=== PATIENT | male | born 1945 | race Caucasian/White ===

== ENCOUNTER 2016-03-25 10:19 | Inpatient (IN) ==
[2016-03-25] MEDS ORDERED: Ipratropium/Albuterol Neb 3 ML IH STA (10:22)
[2016-03-25] MEDS ORDERED: Piperacillin/Tazobactam 3.375 GM in D5% in Water (Mini-Bag+) 100 ML IVPB ONE ×2 (10:27→14:00)
[2016-03-25] MEDS ORDERED: Levofloxacin 750 MG/150 ML 750 MG/150 ML BAG IVPB ONE (10:27)
[2016-03-25] MEDS ORDERED: Vancomycin 1,000 MG in D5% in Water 250 ML IVPB ONE ×2 (10:27→17:00)
[2016-03-25] MEDS ORDERED: 0.9 % Sodium Chloride 1,000 ML IV ONE ×2 (10:39)
[2016-03-25] MEDS ORDERED: 0.9 % Sodium Chloride 250 ML IV ONE (10:39)
--- NOTE | 2016-03-25 10:44 | Emergency Department Note ---
Disposition Clinical Impression: CHF exacerbation, Respiratory infection, Chronic kidney disease Disposition: Admitted As Inpatient Condition: Fair Time of Disposition: 13:55 SOB HPI - General Chief Complaint: ED Shortness of Breath/Dyspnea Stated Complaint: dyspnea Time Seen by Provider: 03/25/16 10:22 Source: EMS Mode of arrival: EMS Limitations: no limitations Nursing Notes Reviewed: Yes Vital Signs Reviewed: Yes - History of Present Illness Mr Mendez is a 70yo male with PMH of atrial fibrillation, CHF, COPD, CAD with pacemaker in place, T2DM s/p right AKA, GERD, HTN, PAD, and renal disease who was sent from [facility] with cough and shortness of breath for the last several day. Today his sputum changed to a green color and the snf sent him to the ED. Patient reports cough productive of green sputum and difficulty breathing. He has associate nausea but no vomiting. He denies fever/chills, runny nose, congestion, chest pain/pressure, abdominal pain, or changes in bowel and bladder. Patient coughs throughout exam, productive of sputum. He appears uncomfortable. Blood pressure on arrival was 85/59. Lungs are diminished with right sided crackles. Pt Subjective Complaint: shortness of breath, cough Onset (ago): day(s) Improves with: oxygen Worsens with: exertion, coughing Known history of: COPD, congestive heart failure Associated symptoms: Reports: wheezing, sputum production, nausea/vomiting. Denies: chest pain, pain with inspiration, fever, cough, abdominal pain Treatment prior to arrival: oxygen Cough present: Yes Cough Description: Involuntary, Productive Cough Frequency: Intermittent Sputum production: Yes Sputum Amount: Moderate Sputum Color: Green - Related Data Home Medications Medication Instructions Recorded Confirmed Aspirin 81 mg PO DAILY 10/30/14 03/25/16 Clopidogrel [Plavix] 75 mg PO DAILY 10/30/14 03/25/16 Pravastatin Sodium 40 mg PO DAILY 10/30/14 03/25/16 Tamsulosin [Flomax] 0.4 mg PO DAILY 10/30/14 03/25/16 Ergocalciferol (VITAMIN D2) 50,000 unit PO [place] 03/05/15 03/25/16 [Vitamin D2 (50,000 UNIT)] Lisinopril [Zestril] 2.5 mg PO DAILY 03/05/15 03/25/16 Metoprolol XL (24 HR) Succ [Toprol 25 mg PO DAILY 03/05/15 03/25/16 XL] Docusate [Colace] 100 mg PO BID PRN 12/01/15 03/25/16 Nitroglycerin [Nitrostat] 0.4 mg SL DAILY PRN 12/01/15 03/25/16 Omeprazole [PriLOSEC] 20 mg PO DAILY 12/01/15 03/25/16 Temazepam [Restoril] 7.5 mg PO HS 12/01/15 03/25/16 Epoetin Jonnie [Procrit] 2,000 unit IJ FR 01/13/16 03/25/16 Ferrous Sulfate 325 mg PO BID 03/08/16 03/25/16 Furosemide [Lasix] 40 mg PO BID 03/08/16 03/25/16 Ondansetron HCl [Zofran] 4 mg PO Q6H PRN 03/08/16 03/25/16 Ondansetron [Zofran] 4 mg IM Q6H PRN 03/08/16 03/25/16 Promethazine [Phenergan] 12.5 mg PO Q4H PRN 03/08/16 03/25/16 Ranitidine HCl [Zantac] 150 mg PO BID 03/08/16 03/25/16 Azithromycin [Azithromycin 6-Tab 250 mg PO PER PKG DI 03/25/16 03/25/16 Pack] Furosemide [Lasix] 60 mg PO BID 03/25/16 03/25/16 Insulin Glargine,Hum.rec.anlog 16 unit SQ HS 03/25/16 03/25/16 [Lantus Solostar] Insulin LISPRO [HumaLOG] 5 - 15 units SQ ACHS 03/25/16 03/25/16 Ipratropium/Albuterol Neb [Duoneb] 3 ml IH Q6HR 03/25/16 03/25/16 Polyethylene Glycol 3350 [MiraLAX] 17 gm PO DAILY 03/25/16 03/25/16 Previous Rx's Medication Instructions Recorded Pentoxifylline [TRENtal] 400 mg PO BID #90 tablet.er 01/13/16 GuaiFENesin ER [Mucinex] 600 mg PO BID tbbp.12hr 02/11/16 OxyCODONE Immed Rel [Roxicodone 5 10 mg PO Q6H PRN #20 tablet 03/10/16 MG] Insulin DETEMIR [Levemir] 4 unit SQ BID #14 a3eouor 03/14/16 Allergies Allergy/AdvReac Type Severity Reaction Status Date / Time No Known Allergies Allergy Verified 02/02/16 17:38 Constitutional: Denies: fever, chills Eyes: Denies: vision change Cardiovascular: Denies: chest pain, palpitations Respiratory: Reports: cough, dyspnea, wheezes, sputum production. Denies: hemoptysis Gastrointestinal: Reports: nausea. Denies: abdominal pain, vomiting Genitourinary: Denies: urgency, dysuria, frequency Neurological: Denies: headache, weakness Past Medical History - Past Medical History Medical history: Reports: arthritis, atrial fibrillation, cardiomyopathy, CHF, COPD, coronary artery disease, DVT, diabetes, GERD, GI bleed, hyperlipidemia, hypertension, myocardial infarction, osteoporosis, peripheral artery disease, renal disease, venous stasis Surgical history: Reports: angioplasty/stent, arthroscopy, cataract, coronary bypass (CABG), LE Bypass, LE vascular intervention, orthopedic, other, pacemaker /AICD, vascular surgery, other, AICD, pacemaker Psychiatric history: Reports: no psych history - Social History Smoking Status: Former smoker Smokeless Tobacco Status: No Alcohol use: Reports: none Drug use: Reports: none Physical Exam - General Limitations: no limitations General appearance: alert - Head Head exam: atraumatic, normocephalic - Eye Eye exam: Present: normal appearance, PERRL, EOMI - ENT ENT exam: normal exam - Neck Neck exam: Present: normal inspection, full ROM - Chest Chest inspection: Present: normal inspection, symmetric chest wall rise - Respiratory Respiratory exam: Present: other (diminished bilaterally with crackles right lung base) - Cardiovascular Cardiovascular exam: Present: regular rate, normal rhythm - Abdominal Exam Abdominal exam: Present: soft, Non-Tender - Extremities Exam Extremities exam: Present: normal inspection, full ROM. Absent: pedal edema - Neurological Exam Neurological exam: Present: alert, oriented X3, CN II-XII intact - Psychiatric Psychiatric exam: Present: normal affect - Skin Skin exam: Present: warm, dry, intact Course Course Narrative: Mr Mendez is a 70yo male who was sent from [facility] with cough and shortness of breath for the last several day. Today his sputum changed to a green color and the snf sent him to the ED. Patient reports cough productive of green sputum and difficulty breathing. He has associate nausea but no vomiting. Patient coughs throughout exam, productive of sputum. He appears uncomfortable. Blood pressure on arrival was 85/59. Lungs are diminished with right sided crackles. Will do a EKG and CXR. Will do labs including CBC, CMP, troponin and BNP. With patient's blood pressure low, will start sepsis set and send a lactic acid and blood cultures. Will give patient sepsis protocol antibiotics - zosyn, levofloxicin and vanco. Will also give patient sepsis protocol fluids. - Reevaluation(s) Reevaluation #1: Patients blood pressure has improved to 110s systolic without fluids. We are unable to get a peripheral line thus far and patient's BNP was 2335. As such, will hold on the fluids at this time due to concern for CHF. Patient does not appear to be in septic shock at this time. Time: 11:57 Reevaluation #2: Line eventually place. Will give patient only 1 L of fluids due to low blood pressure but elevated BNP. CXR showed mild interstitial edema and focal ground- glass opacity in the RUL with stable cardiomegaly. Hgb low at 9.9 put appears to be baseline for patient. He has chronic kidney disease with creatinin of 2.5. Troponin elevated at 0.04 (last documented was 0.02.) Patient has a respiratory infection, possible COPD exacerbation and CHF exacerbation with elevated troponin. Will discuss patient with hospitalist for admission. Reevaluation #3: Glucose elevated at >300. Will give patient 10units regular insulin. - Consultations Consultation #1: Discussed patient with Dr Esquivel, hospitalist, and he accepted the patient for admission. Per his recommendation, will get a PT/INR. Vital Signs Temperature 98.2 F 03/25/16 10:21 Pulse Rate 89 03/25/16 10:21 Respiratory Rate 16 03/25/16 10:21 Blood Pressure 85/59 03/25/16 10:21 O2 Sat by Pulse Oximetry 94 L 03/25/16 10:21 Temperature 98.1 F 03/25/16 14:27 Pulse Rate 82 03/25/16 14:11 Respiratory Rate 22 03/25/16 14:27 Blood Pressure 104/65 03/25/16 14:27 O2 Sat by Pulse Oximetry 98 03/25/16 14:11 Oxygen Delivery Oxygen Delivery Nasal Cannula Shortness of Breath/Dyspnea - [facility] Narrative Medical decision making narrative: Mr Mendez is a 70yo male who was sent from [facility] with cough and shortness of breath for the last several day. Today his sputum changed to a green color and the snf sent him to the ED. Patient reports cough productive of green sputum and difficulty breathing. He has associate nausea but no vomiting. Patient coughs throughout exam, productive of sputum. He appears uncomfortable. Blood pressure on arrival was 85/59. Lungs are diminished with right sided crackles. Will do a EKG and CXR. CBC showed no elevated WBC. Patient continues to have significant cough. He has a respiratory infection - unknown etiology and maybe causing a COPD exacerbation. Will give sepsis protocol antibiotics. He was given 1 L of fluids due to low blood pressure but due to elevated BNP did not want to give full sepsis protocol fluids. BNP 2338 suggestive of CHF exacerbation Patient with history of CHF and CAD. Troponin elevated at 0.04 (last documented was 0.02). Patient has a respiratory infection, possible COPD exacerbation and CHF exacerbation with elevated troponin. Patient accepted by the hospitalist for admission. - Differential Diagnosis Likely: acute exacerbation of chronic obstructive airways disease, congestive heart failure, pneumonia - Medical Records Medical records reviewed: Yes I reviewed the patient's medical records. - Lab Data Lab results reviewed: Yes I reviewed the patient's lab results. Lab results narrative: WBC normal. Hgb 9.9 which appears to be baseline. BNP elevated 2300. Troponin elevated at 0.04 Result diagrams: 03/25/16 11:01 03/25/16 11:01 Lab Results 03/25/16 03/25/16 03/25/16 Range/Units 11:01 11:01 11:01 WBC 9.7 (4.3-11.1) K/mcL RBC 3.41 L (4.19-5.50) M/mcL Hgb 9.9 L (12.9-16.9) g/dL Hct 30.6 L (37.5-50.1) % MCV 89.7 (83.0-100.0) fL MCH 29.0 (28.0-33.3) pg MCHC 32.4 (31.6-35.5) g/dL RDW 16.3 H (11.5-14.5) % Plt Count 299 (140-400) K/mcL MPV 10.0 (9.4-12.4) fL Immature Gran % 0.5 (0-4) % Seg Neutrophils % 85.3 % Lymphocytes % 5.5 % Monocytes % 7.9 % Eosinophils % 0.5 % Basophils % 0.3 % Neutrophils # 8.2 (1.6-8.9) K/mcL Lymphocytes # 0.5 L (0.6-4.6) K/mcL Monocytes # 0.8 (0.0-1.3) K/mcL Eosinophils # 0.1 (0.0-0.6) K/mcL Basophils # 0.0 (0.0-0.2) K/mcL Sodium 132 L (136-145) mEq/L Potassium 4.5 (3.5-4.5) mEq/L Chloride 97 L (98-109) mEq/L Carbon Dioxide 24 (19-29) mEq/L BUN 49 H (8-26) mg/dL Creatinine 2.50 H (0.72-1.25) mg/dL Est GFR ( Amer) 31 L (> 60) Est GFR (Non-Af Amer) 26 L (> 60) BUN/Creatinine Ratio 20 (6-26) Glucose 226 H (70-99) mg/dL Calculated Osmolality 294 (280-300) Lactic Acid (0.5-2.2) mmol/L Calcium 9.0 (8.6-10.8) mg/dL Phosphorus 3.2 (2.3-4.7) mg/dL Magnesium 2.1 (1.6-2.6) mg/dL Troponin I 0.04 H* (0-0.03) ng/mL B-Natriuretic Peptide (0-100) pg/mL Urine Color (Yellow) Urine Clarity (Clear) Urine pH (5.0-8.0) pH Units Ur Specific [place] (1.010-1.025) Urine Protein (Neg-Trace) mg/dL Urine Glucose (UA) (Normal) mg/dL Urine Ketones (Negative) mg/dL Urine Blood (Negative) Urine Nitrite (Negative) Urine Bilirubin (Negative) Urine Urobilinogen (Normal) mg/dL Ur Leukocyte Esterase (Negative) Ur Culture Indicated? (NO) 03/25/16 03/25/1603/25/16 Range/Units 11:01 11:01 11:45 WBC (4.3-11.1) K/mcL RBC (4.19-5.50) M/mcL Hgb (12.9-16.9) g/dL Hct (37.5-50.1) % MCV (83.0-100.0) fL MCH (28.0-33.3) pg MCHC (31.6-35.5) g/dL RDW (11.5-14.5) % Plt Count (140-400) K/mcL MPV (9.4-12.4) fL Immature Gran % (0-4) % Seg Neutrophils % % Lymphocytes % % Monocytes % % Eosinophils % % Basophils % % Neutrophils # (1.6-8.9) K/mcL Lymphocytes # (0.6-4.6) K/mcL Monocytes # (0.0-1.3) K/mcL Eosinophils # (0.0-0.6) K/mcL Basophils # (0.0-0.2) K/mcL Sodium (136-145) mEq/L Potassium (3.5-4.5) mEq/L Chloride (98-109) mEq/L Carbon Dioxide (19-29) mEq/L BUN (8-26) mg/dL Creatinine (0.72-1.25) mg/dL Est GFR ( Amer) (> 60) Est GFR (Non-Af Amer) (> 60) BUN/Creatinine Ratio (6-26) Glucose (70-99) mg/dL Calculated Osmolality (280-300) Lactic Acid 1.5 (0.5-2.2) mmol/L Calcium (8.6-10.8) mg/dL Phosphorus (2.3-4.7) mg/dL Magnesium (1.6-2.6) mg/dL Troponin I (0-0.03) ng/mL B-Natriuretic Peptide 2335 H (0-100) pg/mL Urine Color Yellow (Yellow) Urine Clarity Clear (Clear) Urine pH 6.0 (5.0-8.0) pH Units Ur Specific [place] 1.013 (1.010-1.025) Urine Protein Negative (Neg-Trace) mg/dL Urine Glucose (UA) Normal (Normal) mg/dL Urine Ketones Negative (Negative) mg/dL Urine Blood Negative (Negative) Urine Nitrite Negative (Negative) Urine Bilirubin Negative (Negative) Urine Urobilinogen Normal (Normal) mg/dL Ur Leukocyte Esterase Negative (Negative) Ur Culture Indicated? NO (NO) 03/25/16 Range/Units 13:03 WBC (4.3-11.1) K/mcL RBC (4.19-5.50) M/mcL Hgb (12.9-16.9) g/dL Hct (37.5-50.1) % MCV (83.0-100.0) fL MCH (28.0-33.3) pg MCHC (31.6-35.5) g/dL RDW (11.5-14.5) % Plt Count (140-400) K/mcL MPV (9.4-12.4) fL Immature Gran % (0-4) % Seg Neutrophils % % Lymphocytes % % Monocytes % % Eosinophils % % Basophils % % Neutrophils # (1.6-8.9) K/mcL Lymphocytes # (0.6-4.6) K/mcL Monocytes # (0.0-1.3) K/mcL Eosinophils # (0.0-0.6) K/mcL Basophils # (0.0-0.2) K/mcL Sodium (136-145) mEq/L Potassium (3.5-4.5) mEq/L Chloride (98-109) mEq/L Carbon Dioxide (19-29) mEq/L BUN (8-26) mg/dL Creatinine (0.72-1.25) mg/dL Est GFR ( Amer) (> 60) Est GFR (Non-Af Amer) (> 60) BUN/Creatinine Ratio (6-26) Glucose (70-99) mg/dL Calculated Osmolality (280-300) Lactic Acid 1.5 (0.5-2.2) mmol/L Calcium (8.6-10.8) mg/dL Phosphorus (2.3-4.7) mg/dL Magnesium (1.6-2.6) mg/dL Troponin I (0-0.03) ng/mL B-Natriuretic Peptide (0-100) pg/mL Urine Color (Yellow) Urine Clarity (Clear) Urine pH (5.0-8.0) pH Units Ur Specific [place] (1.010-1.025) Urine Protein (Neg-Trace) mg/dL Urine Glucose (UA) (Normal) mg/dL Urine Ketones (Negative) mg/dL Urine Blood (Negative) Urine Nitrite (Negative) Urine Bilirubin (Negative) Urine Urobilinogen (Normal) mg/dL Ur Leukocyte Esterase (Negative) Ur Culture Indicated? (NO) - Radiology Data Radiology results reviewed: Yes I reviewed the patient's radiology results. Chest X-Ray 03/25/16 10:26 IMPRESSION: 1. Mild interstitial edema. More focal ground-glass opacity in the right upper lung zone may represent asymmetric edema (typically with mitral valve disease) or infection. 2. Stable cardiomegaly. D/ /25/2016 11:01:46 Anahy Farias MD / michelle Interpreting Provider: Anahy Farias MD - EKG Data EKG attestation: Yes I reviewed and interpreted this EKG. EKG results narrative: EKG shows ventricular pacemaker. No acute ST elevation or T wave inversion. Vent rate 88 bpm, [place] int 140ms, QRS dur 132ms, QTc 441 ms. No changes when compared to EKG from 03/08/2016. Attestation Statement - Attestation Attestation: I examined this patient and my medical decision-making was reviewed with the HEAD BANDER AND LINER OPERATOR/PA/Advanced Practice Nurse/Resident Physician. I agree with the documented findings, disposition and treatment plan as described except to the extent set forth below. Patient to the emergency department with a chief complaint of shortness of breath. Patient was diagnosed with pneumonia at the snf. He has been taking a Z-[place]. Today his sputum was gr was sent in for evaluation. He admits to shortness of breath. Medics state his oxygen saturation was 89% on their arrival. The symptoms improved after oxygen administration. On examination awake and alert. He is coughing up green sputum. Crackles in the right side. Abdomen soft. No pedal edema. Plan. Blood pressure low. We will give IV bolus. Sepsis protocol ordered. Admission.
[2016-03-25 11:16] LABS: Basophils % 0.3 %; Eosinophils # 0.1 K/mcL (0.0-0.6); Eosinophils % 0.5 %; Hematocrit 30.6 % (37.5-50.1); Hemoglobin 9.9 g/dL (12.9-16.9); Immature Granulocytes % 0.5 % (0-4); Lymphocytes # 0.5 K/mcL (0.6-4.6); Lymphocytes % 5.5 %; Mean Corpuscular HGB Conc 32.4 g/dL (31.6-35.5); Mean Corpuscular Volume 89.7 fL (83.0-100.0); Monocytes # 0.8 K/mcL (0.0-1.3); Monocytes % 7.9 %; Neutrophils # 8.2 K/mcL (1.6-8.9); Platelet Count 299 K/mcL (140-400); Red Blood Count 3.41 M/mcL (4.19-5.50); Red Cell Distribution Width 16.3 % (11.5-14.5); Segmented Neutrophils % 85.3 %
[2016-03-25 11:32] LABS: Potassium 4.5 mEq/L (3.5-4.5)
[2016-03-25] MEDS ORDERED: Aspirin 325 MG TABLET PO ONE (11:45)
[2016-03-25 12:06] LABS: Magnesium 2.1 mg/dL (1.6-2.6); Phosphorous 3.2 mg/dL (2.3-4.7)
[2016-03-25 12:16] LABS: Bilirubin,Urine Negative (Negative); Blood,Urine Negative (Negative); Clarity,Urine Clear (Clear); Color,Urine Yellow (Yellow); Glucose,Urine (UA) Normal (Normal); Ketones,Urine Negative (Negative); Leukocyte Esterase,Urine Negative (Negative); Nitrite,Urine Negative (Negative); Protein,Urine Negative (Neg-Trace); Specific Gravity,Urine 1.013 (1.010-1.025); Urobilinogen,Urine Normal (Normal)
[2016-03-25] MEDS ORDERED: D5% in Water (Mini-Bag+) 100 ML IVPB ONE (13:50)
--- NOTE | 2016-03-25 14:33 | Internal Med History&Physical ---
<Pipo Denise - Last Filed: 03/25/16 14:52> Date of Encounter: 03/25/16 Time of Encounter: 14:00 Assessment and Plan (1) HCAP (healthcare-associated pneumonia) Current visit: Yes Status: Acute - With increased productive cough and sputum color change. - CXR was reviewed personally. More focal ground-glass opacity in the right upper lung zone compared to prior CXR can be pneumonia vs. edema. - Blood culture pending. - Continue Vanco, Zosyn and Levaquin. - Closely monitor. (2) Elevated troponin Current visit: No Status: Acute - Troponin at 0.04 on initial presentation. - Likely troponin leakage given his CKD. - Less likely NC given lack of chest pain/discomfort and no significant ischemic EKG change compared to prior EKG. - Continue to trend troponin. (3) Type 2 diabetes mellitus Current visit: No Status: Chronic - Patient is known to have occasional hypoglycemia and associated AMS as noted in prior hospitalization. Therefore will not try to control his blood glucose too strictly. - Continue insulin Levemir 4 units BID and insulin medium-dose correction TID & low-dose correction qHS. - Diabetic diet. 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 - Patient is known to have occasional hypotension which is likely his normal given that has been observed multiple times in prior admission. - Continue current regimen of blood pressure medications. - Continue to monitor. Qualifiers: Hypotension type: unspecified hypotension type Qualified Code(s): I95.9 - Hypotension, unspecified (5) CHF (congestive heart failure) Current visit: No Status: Chronic - Echo on 12/03/15 showed severe global & segmental LV systolic dysfunction with EF 15-20%. - No significant sign of volume overload at this time. - Continue metoprolol, lisinopril and Lasix. - Closely monitor input/output and daily weight. - Cautious about giving IV fluid to avoid volume overload. Qualifiers: Congestive heart failure type: systolic Congestive heart failure chronicity : unspecified congestive heart failure chronicity Qualified Code(s): I50.20 - Unspecified systolic (congestive) heart failure (6) CKD (chronic kidney disease) Current visit: No Status: Chronic - SCr 2.50 today, which is likely his new baseline according to recent lab results. - Continue to monitor renal function and electrolytes. Qualifiers: Chronic kidney disease stage: stage 4 (severe) Qualified Code(s): N18.4 - Chronic kidney disease, stage 4 (severe) (7) DVT prophylaxis Current visit: No Status: Acute - SQ heparin. Internal Medicine - H&P: HPI Chief complaint: Productive cough Admitted From: Emergency Dept Plans for Post Hospital Care: Transfer [facility] History of present illness: Mr. Mendez is a 70 year old male with PMH of COPD not on home oxygen, severe systolic CHF with EF 15%, CAD with pacemaker/defibilator, CKD, HTN, DM2 s/p right BKA. Patient was sent from [facility] to ED for worsening productive cough starting 2-3 days ago. Patient notices excessive sputum production with color change to yellow/green. Patient also has some shortness of breath occasionally. Patient denies fever, chills, chest pain/discomfort, abdominal pain, significant weight change. No significant change of left lower extremity edema per patient. Patient denies dysphagia or recent choke on the food/drink. Patient is known to have occasional hypoglycemia and/or hypotension in the past. Past Med Surg Social Fam HX - Past Medical History Medical history: arthritis, atrial fibrillation, cardiomyopathy, CHF, COPD, coronary artery disease, DVT, diabetes, GERD, GI bleed, hyperlipidemia, hypertension, myocardial infarction, osteoporosis, peripheral artery disease, renal disease, venous stasis Psychiatric history: no psych history - Past Surgical History Surgical History: angioplasty/stent, arthroscopy, cataract, coronary bypass ( CABG), LE Bypass, LE vascular intervention, orthopedic, other, pacemaker/AICD, vascular surgery, other, AICD, pacemaker - Social History Smoking Status: Former smoker Smokeless Tobacco Status: No Alcohol use: none Drug use: none - Family History Father Living Status: Mother Living Status: Hx Family Cardiac Disorders: No Hx Family Cancer: No Hx Family Endocrine Disorder: No Internal Medicine - H&P: Meds Aspirin 81 mg PO DAILY 10/30/14 [History] Clopidogrel [Plavix] 75 mg PO DAILY 10/30/14 [History] Pravastatin Sodium 40 mg PO DAILY 10/30/14 [History] Tamsulosin [Flomax] 0.4 mg PO DAILY 10/30/14 [History] Ergocalciferol (VITAMIN D2) [Vitamin D2 (50,000 UNIT)] 50,000 unit PO MCGOWAN [History] Lisinopril [Zestril] 2.5 mg PO DAILY 03/05/15 [History] Metoprolol XL (24 HR) Succ [Toprol XL] 25 mg PO DAILY 03/05/15 [History] Docusate [Colace] 100 mg PO BID PRN 12/01/15 [History] Nitroglycerin [Nitrostat] 0.4 mg SL DAILY PRN 12/01/15 [History] Omeprazole [PriLOSEC] 20 mg PO DAILY 12/01/15 [History] Temazepam [Restoril] 7.5 mg PO HS 12/01/15 [History] Epoetin Jonnie [Procrit] 2,000 unit IJ FR 01/13/16 [History] Pentoxifylline [TRENtal] 400 mg PO BID #90 tablet.er 01/13/16 [Rx] GuaiFENesin ER [Mucinex] 600 mg PO BID tbbp.12hr 02/11/16 [Rx] Ferrous Sulfate 325 mg PO BID 03/08/16 [History] Furosemide [Lasix] 40 mg PO BID 03/08/16 [History] Ondansetron HCl [Zofran] 4 mg PO Q6H PRN 03/08/16 [History] Ondansetron [Zofran] 4 mg IM Q6H PRN 03/08/16 [History] Promethazine [Phenergan] 12.5 mg PO Q4H PRN 03/08/16 [History] Ranitidine HCl [Zantac] 150 mg PO BID 03/08/16 [History] OxyCODONE Immed Rel [Roxicodone 5 MG] 10 mg PO Q6H PRN #20 tablet 03/10/16 [Rx] Insulin DETEMIR [Levemir] 4 unit SQ BID #14 [id number] 03/14/16 [Rx] Azithromycin [Azithromycin 6-Tab Pack] 250 mg PO PER PKG DI 03/25/16 [History] Furosemide [Lasix] 60 mg PO BID 03/25/16 [History] Insulin Glargine,Hum.rec.anlog [Lantus Solostar] 16 unit SQ HS 03/25/16 [History ] Insulin LISPRO [HumaLOG] 5 - 15 units SQ ACHS 03/25/16 [History] Ipratropium/Albuterol Neb [Duoneb] 3 ml IH Q6HR 03/25/16 [History] Polyethylene Glycol 3350 [MiraLAX] 17 gm PO DAILY 03/25/16 [History] Allergies No Known Allergies Allergy (Verified 02/02/16 17:38) All Systems PM: A 10-system review of systems was performed and is negative for pertinent findings except as documented above in the HPI. - Constitutional Constitutional: no anorexia, no chills, no fever(s), no weight gain, no weight loss - EENT Eyes: no change in vision Ears: no decreased hearing Nose, mouth and throat: no dysphagia - Cardiovascular Cardiovascular ROS IM: edema (Stable), lightheadedness, no chest pain, no palpitations, no syncope - Respiratory Respiratory: cough, dyspnea, excessive phlegm production, change in phlegm color , no hemoptysis - Gastrointestinal Gastrointestinal: no abdominal pain, no diarrhea, no hematochezia, no melena, no nausea - Genitourinary Genitourinary ROS male: no difficulty urinating, no dysuria, no hematuria - Musculoskeletal Musculoskeletal ROS IM: no arthralgias, no myalgias - Integumentary Integumentary IM: no pruritus, no rash - Neurological Neurological ROS: no focal weakness, no numbness, no tingling - Hematologic/Lymphatic Hematologic/Lymphatic: no easy bleeding, no easy bruising - Constitutional Vitals: Temp Pulse Resp BP Pulse Ox 98.1 F 82 22 104/65 98 03/25/16 14:27 03/25/16 14:11 03/25/16 14:27 03/25/16 14:27 03/25/16 14:11 General appearance: Present: cooperative, A&O X 3, no acute distress, answers questions appropriately - Head Head exam: Present: atraumatic, normocephalic - Eye Eye exam: Present: PERRL, conjuntiva pink, sclera anicteric - Neck Neck exam general surgery: Present: supple, trachea midline. Absent: lymphadenopathy - Respiratory Respiratory exam: Present: rales (Bibasilar), rhonchi (Bibasilar). Absent: accessory muscle use, wheezes - Cardiovascular Cardiovascular exam: Present: RRR, +S1, +S2. Absent: diastolic murmur, gallop, rubs, systolic murmur - GI/Abdominal GI/Abdominal exam: Present: normal bowel sounds, soft, no peritoneal signs. Absent: distended, tenderness - Extremities Exam Extremities exam: Present: pedal edema (Left moderate non-pitting edema), warm, radial pulses palpable and symetrical. Absent: calf tenderness, cyanotic Additional comments: RLOmer PATRICK noted. - Neurological Exam Neurological exam: Present: CN II-XII intact, oriented X3, no focal deficits. Absent: pronater drift, facial droop, speech deficit - Skin Skin exam: Present: dry, intact, warm Internal Med - H&P Results - Labs CBC & Chem 7: 03/25/16 11:01 03/25/16 11:01 <Edward Esquivel - Last Filed: 03/25/16 18:33> Date of Encounter: 03/25/16 Internal Medicine - H&P: HPI History of present illness: Mr. Mendez is a 70 year old male All Systems PM: A 10-system review of systems was performed and is negative for pertinent findings except as documented above in the HPI. - Constitutional Vitals: Temp Pulse Resp BP Pulse Ox 98.4 F 82 16 94/56 97 03/25/16 14:51 03/25/16 14:51 03/25/16 14:51 03/25/16 14:51 03/25/16 15:10 Internal Med - H&P Results - Labs CBC & Chem 7: 03/25/16 11:01 03/25/16 11:01 - Attending Attestation I have seen and examined this patient independently. I have discussed the case with the resident, Dr. Denise. I agree with the data gathering in the HPI, physical examination findings, assessment and plan as documented by the resident. HCAP therapy in setting of patient coming from [facility] with pmh of CHF, CKD , chornic elevation of BNP and newly mildly elevated troponins. Will monitor trend of cardiac biomarkers. Oxygen therapy. The plan of care was discussed in detail with the patient, he expressed understanding
[2016-03-25] MEDS ORDERED: Dextrose Gel 15 GM PO PRN ×2 (14:48)
[2016-03-25] MEDS ORDERED: *HR* Dextrose 50 % in Water (Syg) 50 ML SYRINGE IVP PRN (14:48)
[2016-03-25] MEDS ORDERED: D5% in Water 1,000 ML IV PRN (14:48)
[2016-03-25] MEDS ORDERED: Ipratropium/Albuterol Neb 3 ML IH PRN (14:51)
[2016-03-25] MEDS ORDERED: Vancomycin 1,000 MG in D5% in Water 250 ML IVPB SCH (15:00)
[2016-03-25] MEDS ORDERED: Levofloxacin 750 MG/150 ML 750 MG/150 ML BAG IVPB SCH (15:00)
[2016-03-25] MEDS ORDERED: Nitroglycerin 0.4 MG TAB.SUBL SL PRN (15:14)
[2016-03-25] MEDS: Insulin LISPRO 300 UNITS/3 ML VIAL SQ SCH ×2 (17:56→21:56)
[2016-03-25] MEDS: *HR* Heparin 5,000 UNIT/ML VIAL SQ SCH (17:56)
[2016-03-25] MEDS ORDERED: Piperacillin/Tazobactam 3.375 GM in D5% in Water (Mini-Bag+) 100 ML IVPB SCH (18:00)
[2016-03-25] MEDS: Acetaminophen 325 MG TABLET PO PRN (21:58)
[2016-03-25] MEDS: Piperacillin/Tazobactam 3.375 GM in D5% in Water (Mini-Bag+) 100 ML IVPB SCH (21:59)
[2016-03-25] MEDS: Furosemide 20 MG TABLET PO SCH (21:59)
[2016-03-25] MEDS: TEMAZEPAM 7.5 MG PO SCH (22:00)
[2016-03-25] MEDS: Ondansetron 4 MG/2 ML VIAL IVP PRN (22:03)
[2016-03-25] MEDS: Insulin DETEMIR 100 UNIT/ML X5UNITS SQ SCH (22:18)
[2016-03-26 02:30] LABS: Basophils % 0.4 %; Eosinophils # 0.1 K/mcL (0.0-0.6); Eosinophils % 1.1 %; Hematocrit 25.6 % (37.5-50.1); Hemoglobin 8.3 g/dL (12.9-16.9); Immature Granulocytes % 0.4 % (0-4); Immature Platelets 1.7 % (1.1-6.1); Lymphocytes # 0.7 K/mcL (0.6-4.6); Lymphocytes % 9.1 %; Mean Corpuscular HGB Conc 32.4 g/dL (31.6-35.5); Mean Corpuscular Hemoglobin 28.7 pg (28.0-33.3); Mean Corpuscular Volume 88.6 fL (83.0-100.0); Mean Platelet Volume 9.6 fL (9.4-12.4); Monocytes # 0.7 K/mcL (0.0-1.3); Monocytes % 9.7 %; Neutrophils # 5.7 K/mcL (1.6-8.9); Platelet Count 266 K/mcL (140-400); Red Blood Count 2.89 M/mcL (4.19-5.50); Red Cell Distribution Width 16.3 % (11.5-14.5); Segmented Neutrophils % 79.3 %
[2016-03-26 02:42] LABS: Calcium 8.5 mg/dL (8.6-10.8); Potassium 4.1 mEq/L (3.5-4.5)
[2016-03-26] MEDS: Acetaminophen 325 MG TABLET PO PRN ×2 (04:11→21:11)
[2016-03-26] MEDS: *HR* Heparin 5,000 UNIT/ML VIAL SQ SCH ×2 (06:16→18:13)
[2016-03-26] MEDS: Piperacillin/Tazobactam 3.375 GM in D5% in Water (Mini-Bag+) 100 ML IVPB SCH ×2 (06:16→18:14)
[2016-03-26] MEDS: Aspirin 81 MG TAB.CHEW PO SCH (08:51)
[2016-03-26] MEDS: Insulin DETEMIR 100 UNIT/ML X5UNITS SQ SCH ×2 (08:51→21:20)
[2016-03-26] MEDS: Furosemide 20 MG TABLET PO SCH (08:52)
[2016-03-26] MEDS: Metoprolol XL (24 HR) Succ 50 MG TAB.ER.24H PO SCH (08:53)
[2016-03-26] MEDS: Insulin LISPRO 300 UNITS/3 ML VIAL SQ SCH ×4 (11:41→21:19)
[2016-03-26] MEDS: Ondansetron 4 MG/2 ML VIAL IVP PRN ×2 (11:59→19:45)
--- NOTE | 2016-03-26 13:53 | Internal Med Progress Note ---
Date of Encounter: 03/26/16 Time of Encounter: 09:00 - Assessment and plan (1) HCAP (healthcare-associated pneumonia) Current Visit: Yes Status: Acute Assessment and plan: We will continue Vanco, Zosyn, and Levaquin treatment. Oxygen therapy. Patient is at high risk because of his vancomycin, needed close monitoring (2) CHF exacerbation Current Visit: Yes Status: Acute Assessment and plan: Patient has shortness of breath, leg edema, hypoxia, and elevated BNP. Consider CHF exacerbation. 1. Switch to by mouth Lasix to IV. 2. Strict intake and output 3. Continue beta blanche and JC inhibitor. 4. Patient has pacemaker/defibrillator placed. Qualifiers: Congestive heart failure type: systolic Qualified Code(s): I50.23 - Acute on chronic systolic (congestive) heart failure (3) Chronic kidney disease Current Visit: Yes Status: Acute Assessment and plan: Stable CKD. Continue follow-up. Qualifiers: Chronic kidney disease stage: stage 3 (moderate) Qualified Code(s): N18.3 - Chronic kidney disease, stage 3 (moderate) (4) Acute hypoxemic respiratory failure Current Visit: No Status: Acute Assessment and plan: Possibly due to pneumonia and CHF exacerbation. Will give oxygen therapy and closely monitor oximetry. (5) Diabetes Current Visit: No Status: Acute Assessment and plan: Keep patient on basal and the sliding scale. 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 Continue aspirin, Plavix, statin, and beta blanche Qualifiers: Coronary Disease-Associated Artery/Lesion type: unspecified vessel or lesion type [place] vs. transplanted heart: unspecified whether [place] or transplanted heart Associated angina: angina presence unspecified Qualified Code(s): I25.10 - Atherosclerotic heart disease of [place] coronary artery without angina pectoris (7) Chronic obstructive pulmonary disease Current Visit: No Status: Chronic Assessment and plan: Stable. Continue home medication Qualifiers: COPD type: unspecified COPD Qualified Code(s): J44.9 - Chronic obstructive pulmonary disease, unspecified (8) DVT prophylaxis Current Visit: No Status: Acute Assessment and plan: Heparin subcutaneously - Time Spent With Patient Greater than 35 minutes - Subjective Interval history: Patient is a 70-year-old male admitted for pneumonia. His past medical history is significant for systolic CHF with LVEF 15%, COPD, CAD, CKD, hypertension, diabetes. Patient is seen and examined. He is awake alert, oriented 3. Complement cough with yellowish sputum. In mild respiratory distress. No fever. Vitals are stable. On nasal cannula oxygen and tolerated well. We will continue antibiotic. Change to by mouth Lasix to IV. Continue close monitoring. - Constitutional Vitals: Temp Pulse Resp BP Pulse Ox 97.3 F L 75 18 121/64 93 L 03/26/16 11:49 03/26/16 11:49 03/26/16 11:49 03/26/16 11:49 03/26/16 11:49 General appearance: Present: cooperative, A&O X 3, no acute distress, answers questions appropriately - Head Head exam: Present: atraumatic, normocephalic - Eye Eye exam: Present: PERRL, conjuntiva pink, sclera anicteric Pupils: Present: PERRL - Neck Neck exam general surgery: Present: supple, trachea midline. Absent: lymphadenopathy - Respiratory Respiratory exam: Present: CTAB. Absent: accessory muscle use, rales, rhonchi, wheezes - Cardiovascular Cardiovascular exam: Present: RRR, +S1, +S2. Absent: diastolic murmur, gallop, rubs, systolic murmur - GI/Abdominal GI/Abdominal exam: Present: normal bowel sounds, soft, no peritoneal signs. Absent: distended, tenderness - Extremities Exam Extremities exam: Present: pedal edema (Right leg S/P BKA. Left leg has mild to moderate edema.), warm, radial pulses palpable and symetrical. Absent: calf tenderness, cyanotic - Neurological Exam Neurological exam: Present: CN II-XII intact, oriented X3, no focal deficits. Absent: pronater drift, facial droop, speech deficit - Skin Skin exam: Present: dry, intact Internal Medicine: Result - Labs CBC & Chem 7: 03/26/16 02:23 03/26/16 02:23 Labs: Short CBC 03/26/16 Range/Units 02:23 WBC 7.2 (4.3-11.1) K/mcL Hgb 8.3 L D (12.9-16.9) g/dL Hct 25.6 L (37.5-50.1) % Plt Count 266 (140-400) K/mcL Neutrophils # 5.7 (1.6-8.9) K/mcL BMP 03/26/16 02:23 Sodium 131 L Potassium 4.1 Chloride 100 Carbon Dioxide 24 BUN 46 H Creatinine 2.30 H Glucose 96 Calcium 8.5 L Cardiac Enzymes 03/25/16 03/26/16 Range/Units 20:47 02:23 Troponin I 0.04 H* 0.05 H* (0-0.03) ng/mL Consult Discharge Plan - Plan Referrals: Jennie Washington COLLAR TURNER [Advanced Practice Nurse] - (web request sent on 03-25-16 )
[2016-03-26] MEDS ORDERED: Vancomycin 1,000 MG in D5% in Water 250 ML IVPB ONE (20:00)
[2016-03-26] MEDS: Furosemide 40 MG/4 ML VIAL IVP SCH (21:11)
[2016-03-26] MEDS: TEMAZEPAM 7.5 MG PO SCH (21:12)
[2016-03-27] MEDS ORDERED: GuaiFENesin/Codeine Oral Soln 5 ML UDC PO ONE (02:42)
[2016-03-27 05:28] LABS: Hematocrit 28.2 % (37.5-50.1); Hemoglobin 9.1 g/dL (12.9-16.9); Mean Corpuscular HGB Conc 32.3 g/dL (31.6-35.5); Mean Corpuscular Hemoglobin 28.3 pg (28.0-33.3); Mean Corpuscular Volume 87.6 fL (83.0-100.0); Mean Platelet Volume 9.9 fL (9.4-12.4); Neutrophils # 5.2 K/mcL (1.6-8.9); Platelet Count 278 K/mcL (140-400); Red Blood Count 3.22 M/mcL (4.19-5.50); Red Cell Distribution Width 16.2 % (11.5-14.5); Segmented Neutrophils % 78.2 %
[2016-03-27 05:29] LABS: Basophils % 0.5 %; Eosinophils # 0.2 K/mcL (0.0-0.6); Eosinophils % 3.2 %; Immature Granulocytes % 0.5 % (0-4); Lymphocytes # 0.6 K/mcL (0.6-4.6); Lymphocytes % 9.2 %; Monocytes # 0.6 K/mcL (0.0-1.3); Monocytes % 8.4 %
[2016-03-27 05:54] LABS: Calcium 8.6 mg/dL (8.6-10.8); Potassium 4.4 mEq/L (3.5-4.5)
[2016-03-27] MEDS: *HR* Heparin 5,000 UNIT/ML VIAL SQ SCH ×2 (06:00→16:53)
[2016-03-27] MEDS: Piperacillin/Tazobactam 3.375 GM in D5% in Water (Mini-Bag+) 100 ML IVPB SCH ×2 (06:01→16:53)
[2016-03-27] MEDS: Furosemide 40 MG/4 ML VIAL IVP SCH ×2 (08:10→20:47)
[2016-03-27] MEDS: Insulin DETEMIR 100 UNIT/ML X5UNITS SQ SCH ×2 (08:11→21:21)
[2016-03-27] MEDS: Metoprolol XL (24 HR) Succ 50 MG TAB.ER.24H PO SCH (08:11)
[2016-03-27] MEDS: Insulin LISPRO 300 UNITS/3 ML VIAL SQ SCH ×4 (08:11→21:22)
[2016-03-27] MEDS: Aspirin 81 MG TAB.CHEW PO SCH (08:11)
--- NOTE | 2016-03-27 10:26 | Electrocardiograph Report ---
[facility] Test Date: 2016-03-25 Pat Name: Mika Mendez Department: [id number] Room: 2A42 Gender: M Manager State: [facility] : 1945 Requested By: Autumn Guadarrama Order Number: [id number] Reading MD: Glenn Be MD Measurements Intervals [place] Rate: 88 P: 80 [place]: 140 QRS: 16 QRSD: 132 T: -11 QT: 395 QTc: 441 Interpretive Statements ELECTRONIC VENTRICULAR PACEMAKER Electronically Signed On 03-27-16 10:25:28 EST by Glenn Be MD
[2016-03-27] MEDS: Levofloxacin 750 MG/150 ML 750 MG/150 ML BAG IVPB SCH (12:16)
--- NOTE | 2016-03-27 12:41 | Internal Med Progress Note ---
Date of Encounter: 03/27/16 Time of Encounter: 10:00 - Assessment and plan (1) HCAP (healthcare-associated pneumonia) Current Visit: Yes Status: Acute Assessment and plan: We will continue Vanco, Zosyn, and Levaquin treatment. Oxygen therapy. Patient is at high risk because of his vancomycin, needed close monitoring (2) CHF exacerbation Current Visit: Yes Status: Acute Assessment and plan: Patient has shortness of breath, leg edema, hypoxia, and elevated BNP. Consider CHF exacerbation. 1. Switch to by mouth Lasix to IV. 2. Strict intake and output 3. Continue beta blanche and JC inhibitor. 4. Patient has pacemaker/defibrillator placed. Qualifiers: Congestive heart failure type: systolic Qualified Code(s): I50.23 - Acute on chronic systolic (congestive) heart failure (3) Chronic kidney disease Current Visit: Yes Status: Acute Assessment and plan: Stable CKD. Continue follow-up. Qualifiers: Chronic kidney disease stage: stage 3 (moderate) Qualified Code(s): N18.3 - Chronic kidney disease, stage 3 (moderate) (4) Acute hypoxemic respiratory failure Current Visit: No Status: Acute Assessment and plan: Possibly due to pneumonia and CHF exacerbation. Will give oxygen therapy and closely monitor oximetry. (5) Diabetes Current Visit: No Status: Acute Assessment and plan: Keep patient on basal and the sliding scale. 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 Continue aspirin, Plavix, statin, and beta blanche Qualifiers: Coronary Disease-Associated Artery/Lesion type: unspecified vessel or lesion type [place] vs. transplanted heart: unspecified whether [place] or transplanted heart Associated angina: angina presence unspecified Qualified Code(s): I25.10 - Atherosclerotic heart disease of [place] coronary artery without angina pectoris (7) Chronic obstructive pulmonary disease Current Visit: No Status: Chronic Assessment and plan: Stable. Continue home medication Qualifiers: COPD type: unspecified COPD Qualified Code(s): J44.9 - Chronic obstructive pulmonary disease, unspecified (8) DVT prophylaxis Current Visit: No Status: Acute Assessment and plan: Heparin subcutaneously - Time Spent With Patient Greater than 35 minutes - Subjective Interval history: Patient is a 70-year-old male admitted for pneumonia. His past medical history is significant for systolic CHF with LVEF 15%, COPD, CAD, CKD, hypertension, diabetes. Patient is seen and examined. He is awake alert, oriented 3. Still c/o cough but said much better. Ask for going back to [facility]. In no respiratory distress. No fever. Vitals are stable. On nasal cannula oxygen and tolerated well. We will continue antibiotic. Change to by mouth Lasix to IV. Continue close monitoring. - Constitutional Vitals: Temp Pulse Resp BP Pulse Ox 97.7 F 75 16 115/60 100 03/27/16 11:47 03/27/16 11:47 03/27/16 11:47 03/27/16 11:47 03/27/16 11:47 General appearance: Present: cooperative, A&O X 3, no acute distress, answers questions appropriately - Head Head exam: Present: atraumatic, normocephalic - Eye Eye exam: Present: PERRL, conjuntiva pink, sclera anicteric Pupils: Present: PERRL - Neck Neck exam general surgery: Present: supple, trachea midline. Absent: lymphadenopathy - Respiratory Respiratory exam: Present: CTAB, rales, rhonchi (Scattered rales and rhonchi bilaterally). Absent: accessory muscle use, wheezes - Cardiovascular Cardiovascular exam: Present: RRR, +S1, +S2. Absent: diastolic murmur, gallop, rubs, systolic murmur - GI/Abdominal GI/Abdominal exam: Present: normal bowel sounds, soft, no peritoneal signs. Absent: distended, tenderness - Extremities Exam Extremities exam: Present: pedal edema (Right leg s/p BKA, mild to moderate edema on left leg.), warm, radial pulses palpable and symetrical. Absent: calf tenderness, cyanotic - Neurological Exam Neurological exam: Present: CN II-XII intact, oriented X3, no focal deficits. Absent: pronater drift, facial droop, speech deficit - Skin Skin exam: Present: dry, intact Internal Medicine: Result - Labs CBC & Chem 7: 03/27/16 04:08 03/27/16 04:08 Consult Discharge Plan - Plan Referrals: Jennie Washington CNP [Advanced Practice Nurse] - (web request sent on 03-25-16 )
[2016-03-27] MEDS: Ondansetron 4 MG/2 ML VIAL IVP PRN (14:31)
[2016-03-27] MEDS: Acetaminophen 325 MG TABLET PO PRN (20:47)
[2016-03-27] MEDS: GuaiFENesin Liq 200 MG/10 ML UDC PO SCH (23:05)
[2016-03-27] MEDS: traMADol 50 MG TABLET PO PRN (23:05)
[2016-03-27] MEDS: TEMAZEPAM 7.5 MG PO SCH (23:06)
[2016-03-27] MEDS: Ipratropium/Albuterol Neb 3 ML IH SCH (23:48)
[2016-03-28 01:01] LABS: Basophils % 0.6 %; Eosinophils # 0.2 K/mcL (0.0-0.6); Eosinophils % 3.1 %; Hematocrit 27.9 % (37.5-50.1); Hemoglobin 8.9 g/dL (12.9-16.9); Immature Granulocytes % 0.8 % (0-4); Lymphocytes # 0.6 K/mcL (0.6-4.6); Lymphocytes % 9.3 %; Mean Corpuscular HGB Conc 31.9 g/dL (31.6-35.5); Mean Corpuscular Hemoglobin 28.1 pg (28.0-33.3); Mean Platelet Volume 9.6 fL (9.4-12.4); Monocytes # 0.6 K/mcL (0.0-1.3); Monocytes % 8.7 %; Platelet Count 263 K/mcL (140-400); Red Blood Count 3.17 M/mcL (4.19-5.50); Segmented Neutrophils % 77.5 %
[2016-03-28 01:13] LABS: Calcium 8.6 mg/dL (8.6-10.8); Potassium 4.2 mEq/L (3.5-4.5)
[2016-03-28] MEDS: Vancomycin 1,000 MG in D5% in Water 250 ML IVPB SCH (03:01)
[2016-03-28] MEDS: Ipratropium/Albuterol Neb 3 ML IH SCH ×6 (03:58→22:54)
[2016-03-28] MEDS: GuaiFENesin Liq 200 MG/10 ML UDC PO SCH ×3 (06:25→16:34)
[2016-03-28] MEDS: *HR* Heparin 5,000 UNIT/ML VIAL SQ SCH ×2 (06:25→16:34)
[2016-03-28] MEDS: Piperacillin/Tazobactam 3.375 GM in D5% in Water (Mini-Bag+) 100 ML IVPB SCH ×2 (06:26→16:38)
[2016-03-28] MEDS: Insulin DETEMIR 100 UNIT/ML X5UNITS SQ SCH ×2 (08:08→22:07)
[2016-03-28] MEDS: Metoprolol XL (24 HR) Succ 50 MG TAB.ER.24H PO SCH (08:08)
[2016-03-28] MEDS: Furosemide 40 MG/4 ML VIAL IVP SCH ×2 (08:09→22:01)
[2016-03-28] MEDS: Insulin LISPRO 300 UNITS/3 ML VIAL SQ SCH ×4 (08:09→22:07)
[2016-03-28] MEDS: Aspirin 81 MG TAB.CHEW PO SCH (08:09)
--- NOTE | 2016-03-28 09:52 | Internal Med Progress Note ---
Date of Encounter: 03/28/16 Time of Encounter: 09:50 - Assessment and plan (1) HCAP (healthcare-associated pneumonia) Current Visit: Yes Status: Acute Assessment and plan: We will continue Vanco, Zosyn, and Levaquin treatment. Oxygen therapy. Patient is at high risk because of his vancomycin, needed close monitoring. Getting better, no cultures, might switch to po and possible d/c tomorrow back to SNF if stable. 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 PT/OT consult. (2) CHF exacerbation Current Visit: Yes Status: Acute Assessment and plan: Patient has shortness of breath, leg edema, hypoxia, and elevated BNP. Consider CHF exacerbation. 1. Continue with lasix. 2. Strict intake and output 3. Continue beta blanche and JC inhibitor. 4. Patient has pacemaker/defibrillator placed. Qualifiers: Congestive heart failure type: systolic Qualified Code(s): I50.23 - Acute on chronic systolic (congestive) heart failure (3) DVT prophylaxis Current Visit: No Status: Acute Assessment and plan: Heparin subcutaneously - Time Spent With Patient 25 - 35 minutes - Subjective Interval history: Patient feels better, is complaining of pain in lower extremities and lack of sleep. Otherwise states that is close to his baseline and that he would like to go to rehab soon to continue with physical therapy. - Constitutional Vitals: Temp Pulse Resp BP Pulse Ox 97.5 F L 81 18 110/65 97 03/28/16 07:51 03/28/16 07:51 03/28/16 07:51 03/28/16 07:51 03/28/16 07:51 General appearance: Present: cooperative, A&O X 3, no acute distress, answers questions appropriately - Head Head exam: Present: atraumatic, normocephalic - Eye Eye exam: Present: PERRL, conjuntiva pink, sclera anicteric Pupils: Present: PERRL - Neck Neck exam general surgery: Present: supple, trachea midline. Absent: lymphadenopathy - Respiratory Respiratory exam: Present: decreased breath sounds. Absent: accessory muscle use, rales, rhonchi, wheezes - Cardiovascular Cardiovascular exam: Present: RRR, +S1, +S2. Absent: diastolic murmur, gallop, rubs, systolic murmur - GI/Abdominal GI/Abdominal exam: Present: normal bowel sounds, soft, no peritoneal signs. Absent: distended, tenderness - Extremities Exam Extremities exam: Present: warm, radial pulses palpable and symetrical. Absent : calf tenderness, cyanotic, pedal edema - Neurological Exam Neurological exam: Present: CN II-XII intact, oriented X3, no focal deficits. Absent: pronater drift, facial droop, speech deficit - Skin Skin exam: Present: dry, intact Internal Medicine: Result - Labs CBC & Chem 7: 03/28/16 00:34 03/28/16 00:34 Labs: Short CBC 03/28/16 Range/Units 00:34 WBC 6.5 (4.3-11.1) K/mcL Hgb 8.9 L (12.9-16.9) g/dL Hct 27.9 L (37.5-50.1) % Plt Count 263 (140-400) K/mcL Neutrophils # 5.0 (1.6-8.9) K/mcL BMP 03/28/16 00:34 Sodium 132 L Potassium 4.2 Chloride 98 Carbon Dioxide 24 BUN 42 H Creatinine 2.36 H Glucose 182 H Calcium 8.6 Consult Discharge Plan - Plan Referrals: Felix,Jennie Wang CNP [Advanced Practice Nurse] - 03/29/16 8:30 am ()
[2016-03-28] MEDS: Ondansetron 4 MG/2 ML VIAL IVP PRN (11:59)
[2016-03-28] MEDS: traMADol 50 MG TABLET PO PRN (22:01)
[2016-03-28] MEDS: TEMAZEPAM 7.5 MG PO SCH (22:26)
[2016-03-29] MEDS: GuaiFENesin Liq 200 MG/10 ML UDC PO SCH ×4 (00:28→18:16)
[2016-03-29] MEDS: Piperacillin/Tazobactam 3.375 GM in D5% in Water (Mini-Bag+) 100 ML IVPB SCH ×2 (00:29→08:28)
[2016-03-29] MEDS: Vancomycin 1,000 MG in D5% in Water 250 ML IVPB SCH (03:15)
[2016-03-29 04:41] LABS: Basophils % 0.7 %; Eosinophils # 0.4 K/mcL (0.0-0.6); Eosinophils % 6.6 %; Immature Granulocytes % 1.3 % (0-4); Lymphocytes # 0.9 K/mcL (0.6-4.6); Mean Corpuscular HGB Conc 32.1 g/dL (31.6-35.5); Mean Corpuscular Hemoglobin 28.4 pg (28.0-33.3); Mean Corpuscular Volume 88.3 fL (83.0-100.0); Mean Platelet Volume 9.6 fL (9.4-12.4); Monocytes # 0.6 K/mcL (0.0-1.3); Monocytes % 9.4 %; Neutrophils # 4.1 K/mcL (1.6-8.9); Platelet Count 280 K/mcL (140-400); Red Blood Count 3.17 M/mcL (4.19-5.50); Red Cell Distribution Width 15.9 % (11.5-14.5)
[2016-03-29 04:59] LABS: Calcium 8.7 mg/dL (8.6-10.8); Potassium 4.2 mEq/L (3.5-4.5)
[2016-03-29] MEDS: *HR* Heparin 5,000 UNIT/ML VIAL SQ SCH ×2 (06:37→18:19)
[2016-03-29] MEDS: Ipratropium/Albuterol Neb 3 ML IH SCH ×5 (07:44→23:13)
[2016-03-29] MEDS: Aspirin 81 MG TAB.CHEW PO SCH (08:27)
[2016-03-29] MEDS: Insulin DETEMIR 100 UNIT/ML X5UNITS SQ SCH ×2 (08:27→21:56)
[2016-03-29] MEDS: Insulin LISPRO 300 UNITS/3 ML VIAL SQ SCH ×4 (08:28→21:55)
[2016-03-29] MEDS ORDERED: Aminoglycoside Consult 1 EACH MC ONE (08:35)
--- NOTE | 2016-03-29 11:54 | Discharge Summary ---
Date of Encounter: 03/29/16 Time of Encounter: 11:52 - Discharge Diagnosis (1) HCAP (healthcare-associated pneumonia) Priority: Primary Status: Acute (2) CHF exacerbation Priority: Secondary Status: Acute Qualifiers: Congestive heart failure type: systolic Qualified Code(s): I50.23 - Acute on chronic systolic (congestive) heart failure (3) DVT prophylaxis Priority: Secondary Status: Acute - Discharge Medications Prescriptions: Levofloxacin [Levaquin] 250 mg PO Q48H 7 Days OxyCODONE Immed Rel [Roxicodone 5 MG] 10 mg PO Q6H PRN #20 tablet PRN Reason: Severe Pain Home Medications: Aspirin 81 mg PO DAILY 10/30/14 [History] Clopidogrel [Plavix] 75 mg PO DAILY 10/30/14 [History] Pravastatin Sodium 40 mg PO DAILY 10/30/14 [History] Tamsulosin [Flomax] 0.4 mg PO DAILY 10/30/14 [History] Ergocalciferol (VITAMIN D2) [Vitamin D2 (50,000 UNIT)] 50,000 unit PO MCGOWAN [History] Lisinopril [Zestril] 2.5 mg PO DAILY 03/05/15 [History] Metoprolol XL (24 HR) Succ [Toprol XL] 25 mg PO DAILY 03/05/15 [History] Docusate [Colace] 100 mg PO BID PRN 12/01/15 [History] Nitroglycerin [Nitrostat] 0.4 mg SL DAILY PRN 12/01/15 [History] Omeprazole [PriLOSEC] 20 mg PO DAILY 12/01/15 [History] Temazepam [Restoril] 7.5 mg PO HS 12/01/15 [History] Epoetin Jonnie [Procrit] 2,000 unit IJ FR 01/13/16 [History] GuaiFENesin ER [Mucinex] 600 mg PO BID tbbp.12hr 02/11/16 [Rx] Ferrous Sulfate 325 mg PO BID 03/08/16 [History] Furosemide [Lasix] 40 mg PO BID 03/08/16 [History] Ondansetron HCl [Zofran] 4 mg PO Q6H PRN 03/08/16 [History] Ondansetron [Zofran] 4 mg IM Q6H PRN 03/08/16 [History] Promethazine [Phenergan] 12.5 mg PO Q4H PRN 03/08/16 [History] Ranitidine HCl [Zantac] 150 mg PO BID 03/08/16 [History] Insulin DETEMIR [Levemir] 4 unit SQ BID #14 [id number] 03/14/16 [Rx] Azithromycin [Azithromycin 6-Tab Pack] 250 mg PO PER PKG DI 03/25/16 [History] Furosemide [Lasix] 60 mg PO BID 03/25/16 [History] Insulin Glargine,Hum.rec.anlog [Lantus Solostar] 16 unit SQ HS 03/25/16 [History ] Insulin LISPRO [HumaLOG] 5 - 15 units SQ ACHS 03/25/16 [History] Ipratropium/Albuterol Neb [Duoneb] 3 ml IH Q6HR 03/25/16 [History] Polyethylene Glycol 3350 [MiraLAX] 17 gm PO DAILY 03/25/16 [History] Levofloxacin [Levaquin] 250 mg PO Q48H 7 Days 03/29/16 [Rx] OxyCODONE Immed Rel [Roxicodone 5 MG] 10 mg PO Q6H PRN #20 tablet 03/29/16 [Rx] Allergies/Adverse Reactions: Allergies No Known Allergies Allergy (Verified 02/02/16 17:38) Date of admission: 03/27/16 09:38 Primary care physician: PCP NO Discharging clinician: Edward Esquivel Anticipated date of discharge: 03/29/16 - Patient Status Disposition: Transfer SNF Condition: Fair Functional capacity at discharge: wheelchair bound Overall status at discharge: patient is progressing back to baseline - Discharge Instructions Follow Up With: Jennie Washington CNP [Advanced Practice Nurse] - 03/29/16 8:30 am () - Diet and Activity Activity: as per physical therapy Diet: advance to your usual diet Interval History: Mr. Mendez is a 70 year old male with PMH of COPD not on home oxygen, severe systolic CHF with EF 15%, CAD with pacemaker/defibilator, CKD, HTN, DM2 s/p right BKA. Patient was sent from [facility] rehab to ED for worsening productive cough starting 2-3 days ago. Patient notices excessive sputum production with color change to yellow/green. Patient also has some shortness of breath occasionally. Patient denies fever, chills, chest pain/discomfort, abdominal pain, significant weight change. No significant change of left lower extremity edema per patient. Patient denies dysphagia or recent choke on the food/drink. Patient is known to have occasional hypoglycemia and/or hypotension in the past. Hospital course: Mr. Mendez is a 70 year old male admitted due to hcap, improved. Initially started on Zosyn, vancomycin and Levaquin. Negative cultures, no evidence of strep pneumo or Legionella, negative testing for influenza. We will discharge the patient with by mouth Levaquin. The patient needs inpatient rehabilitation. he was explained all the plan of care, he expressed understanding. - Time Spent with Patient Total time spent providing and/or coordinating discharge services: Greater than 30 minutes - Constitutional Vitals: Temp Pulse Resp BP Pulse Ox 98.2 F 77 17 89/48 94 L 03/29/16 07:36 03/29/16 07:36 03/29/16 07:36 03/29/16 07:36 03/29/16 08:43 General appearance: Present: cooperative, A&O X 3, no acute distress, answers questions appropriately - Head Head exam: Present: atraumatic, normocephalic - Eye Eye exam: Present: PERRL, conjuntiva pink, sclera anicteric Pupils: Present: PERRL - Neck Neck exam general surgery: Present: supple, trachea midline. Absent: lymphadenopathy - Respiratory Respiratory exam: Present: CTAB. Absent: accessory muscle use, rales, rhonchi, wheezes - Cardiovascular Cardiovascular exam: Present: RRR, +S1, +S2. Absent: diastolic murmur, gallop, rubs, systolic murmur - GI/Abdominal GI/Abdominal exam: Present: normal bowel sounds, soft, no peritoneal signs. Absent: distended, tenderness - Extremities Exam Extremities exam: Present: warm, radial pulses palpable and symetrical. Absent : calf tenderness, cyanotic, pedal edema - Neurological Exam Neurological exam: Present: CN II-XII intact, oriented X3, no focal deficits. Absent: pronater drift, facial droop, speech deficit - Skin Skin exam: Present: dry, intact
--- NOTE | 2016-03-29 12:15 | Physician Discharge Referral ---
ExtendedCare Referral Info Transfer To: SNF Institutional Level of Care: Skilled - Diagnosis (1) HCAP (healthcare-associated pneumonia) Priority: Primary Status: Acute (2) CHF exacerbation Priority: Secondary Status: Acute (3) DVT prophylaxis Priority: Secondary Status: Acute Prognosis: Fair Aware of Diagnosis: Patient Aware of Prognosis: Patient - Transfer Medications Prescriptions: Levofloxacin [Levaquin] 250 mg PO Q48H 7 Days OxyCODONE Immed Rel [Roxicodone 5 MG] 10 mg PO Q6H PRN #20 tablet PRN Reason: Severe Pain Home Medications: Aspirin 81 mg PO DAILY 10/30/14 [History] Clopidogrel [Plavix] 75 mg PO DAILY 10/30/14 [History] Pravastatin Sodium 40 mg PO DAILY 10/30/14 [History] Tamsulosin [Flomax] 0.4 mg PO DAILY 10/30/14 [History] Ergocalciferol (VITAMIN D2) [Vitamin D2 (50,000 UNIT)] 50,000 unit PO MCGOWAN [History] Lisinopril [Zestril] 2.5 mg PO DAILY 03/05/15 [History] Metoprolol XL (24 HR) Succ [Toprol XL] 25 mg PO DAILY 03/05/15 [History] Docusate [Colace] 100 mg PO BID PRN 12/01/15 [History] Nitroglycerin [Nitrostat] 0.4 mg SL DAILY PRN 12/01/15 [History] Omeprazole [PriLOSEC] 20 mg PO DAILY 12/01/15 [History] Temazepam [Restoril] 7.5 mg PO HS 12/01/15 [History] Epoetin Jonnie [Procrit] 2,000 unit IJ FR 01/13/16 [History] GuaiFENesin ER [Mucinex] 600 mg PO BID tbbp.12hr 02/11/16 [Rx] Ferrous Sulfate 325 mg PO BID 03/08/16 [History] Furosemide [Lasix] 40 mg PO BID 03/08/16 [History] Ondansetron HCl [Zofran] 4 mg PO Q6H PRN 03/08/16 [History] Ondansetron [Zofran] 4 mg IM Q6H PRN 03/08/16 [History] Promethazine [Phenergan] 12.5 mg PO Q4H PRN 03/08/16 [History] Ranitidine HCl [Zantac] 150 mg PO BID 03/08/16 [History] Insulin DETEMIR [Levemir] 4 unit SQ BID #14 [id number] 03/14/16 [Rx] Azithromycin [Azithromycin 6-Tab Pack] 250 mg PO PER PKG DI 03/25/16 [History] Furosemide [Lasix] 60 mg PO BID 03/25/16 [History] Insulin Glargine,Hum.rec.anlog [Lantus Solostar] 16 unit SQ HS 03/25/16 [History ] Insulin LISPRO [HumaLOG] 5 - 15 units SQ ACHS 03/25/16 [History] Ipratropium/Albuterol Neb [Duoneb] 3 ml IH Q6HR 03/25/16 [History] Polyethylene Glycol 3350 [MiraLAX] 17 gm PO DAILY 03/25/16 [History] Levofloxacin [Levaquin] 250 mg PO Q48H 7 Days 03/29/16 [Rx] OxyCODONE Immed Rel [Roxicodone 5 MG] 10 mg PO Q6H PRN #20 tablet 03/29/16 [Rx] Allergies/Adverse Reactions: Allergies No Known Allergies Allergy (Verified 02/02/16 17:38) - Respiratory Orders Oxygen / L per min (2) Smoking Cessation: Smoking cessation has been advised. For more information, call the [place] Tobacco Quit Line at 6-230-RHIS-NOW. - Advance Directives Code Status: Full Code - Mobility Orders Other (as per PT) - Rehabiliation Orders Rehab Potential: Fair Rehab Orders: ROM Exercises, Evaluation for Physical Therapy, Evaluation for Occupational Therapy - Treatments Skin tear care topically daily PRN per policy - Diet Orders Renal CERTIFICATION: I certify that the transfer of the above named patient to an Extended Care Facility is necessary for the continuing treatment of the diagnosis listed. The above information is true and accurate reflection of patient's current condition. Confidential - Redisclosure prohibited without a patient's written consent.
[2016-03-29] MEDS: Metoprolol XL (24 HR) Succ 50 MG TAB.ER.24H PO SCH (12:29)
[2016-03-29] MEDS: Levofloxacin 750 MG/150 ML 750 MG/150 ML BAG IVPB SCH (12:29)
[2016-03-29] MEDS: Furosemide 40 MG TABLET PO SCH ×2 (12:47→21:55)
[2016-03-29] MEDS: TEMAZEPAM 7.5 MG PO SCH (21:56)
[2016-03-29] MEDS: traMADol 50 MG TABLET PO PRN (21:57)
[2016-03-30] MEDS: GuaiFENesin Liq 200 MG/10 ML UDC PO SCH ×4 (00:21→17:35)
[2016-03-30 02:03] LABS: Basophils % 0.6 %; Eosinophils # 0.4 K/mcL (0.0-0.6); Eosinophils % 6.3 %; Hematocrit 27.4 % (37.5-50.1); Hemoglobin 8.9 g/dL (12.9-16.9); Immature Granulocytes % 1.7 % (0-4); Lymphocytes # 0.7 K/mcL (0.6-4.6); Lymphocytes % 10.8 %; Mean Corpuscular HGB Conc 32.5 g/dL (31.6-35.5); Mean Corpuscular Hemoglobin 28.3 pg (28.0-33.3); Mean Corpuscular Volume 87.3 fL (83.0-100.0); Monocytes # 0.7 K/mcL (0.0-1.3); Monocytes % 9.9 %; Neutrophils # 4.6 K/mcL (1.6-8.9); Platelet Count 261 K/mcL (140-400); Red Blood Count 3.14 M/mcL (4.19-5.50); Red Cell Distribution Width 16.1 % (11.5-14.5); Segmented Neutrophils % 70.7 %
[2016-03-30 02:17] LABS: Calcium 8.6 mg/dL (8.6-10.8); Potassium 4.5 mEq/L (3.5-4.5)
[2016-03-30] MEDS: Ipratropium/Albuterol Neb 3 ML IH SCH ×6 (04:05→23:53)
[2016-03-30] MEDS: *HR* Heparin 5,000 UNIT/ML VIAL SQ SCH ×2 (06:14→17:33)
[2016-03-30] MEDS: Metoprolol XL (24 HR) Succ 50 MG TAB.ER.24H PO SCH (08:52)
[2016-03-30] MEDS: Aspirin 81 MG TAB.CHEW PO SCH (08:53)
[2016-03-30] MEDS: Furosemide 40 MG TABLET PO SCH ×2 (08:53→20:33)
[2016-03-30] MEDS: Insulin LISPRO 300 UNITS/3 ML VIAL SQ SCH ×4 (08:54→20:43)
[2016-03-30] MEDS: Insulin DETEMIR 100 UNIT/ML X5UNITS SQ SCH ×3 (08:56→21:30)
--- NOTE | 2016-03-30 16:32 | Internal Med Progress Note ---
Date of Encounter: 03/30/16 Time of Encounter: 16:30 - Assessment and plan (1) HCAP (healthcare-associated pneumonia) Current Visit: Yes Status: Acute Assessment and plan: Continue with Levaquin treatment. Oxygen therapy. Awaiting approval for transfer to SNF. D/W social science research assistant, patient will need prior authorization in order to return to SNF. PT/OT consult. (2) CHF exacerbation Current Visit: Yes Status: Acute Assessment and plan: . Qualifiers: Congestive heart failure type: systolic Qualified Code(s): I50.23 - Acute on chronic systolic (congestive) heart failure (3) DVT prophylaxis Current Visit: No Status: Acute Assessment and plan: Heparin subcutaneously - Time Spent With Patient 25 - 35 minutes - Subjective Interval history: Patient feels better, is complaining of pain in lower extremities and lack of sleep. Otherwise states that is close to his baseline and that he would like to go to rehab soon to continue with physical therapy. Was discharged yesterday. AWaiting placement. - Constitutional Vitals: Temp Pulse Resp BP Pulse Ox 97.4 F L 81 16 105/65 99 03/30/16 15:44 03/30/16 15:44 03/30/16 15:44 03/30/16 15:44 03/30/16 15:44 General appearance: Present: cooperative, A&O X 3, no acute distress, answers questions appropriately - Head Head exam: Present: atraumatic, normocephalic - Eye Eye exam: Present: PERRL, conjuntiva pink, sclera anicteric Pupils: Present: PERRL - Neck Neck exam general surgery: Present: supple, trachea midline. Absent: lymphadenopathy - Respiratory Respiratory exam: Present: CTAB. Absent: accessory muscle use, rales, rhonchi, wheezes - Cardiovascular Cardiovascular exam: Present: RRR, +S1, +S2. Absent: diastolic murmur, gallop, rubs, systolic murmur - GI/Abdominal GI/Abdominal exam: Present: normal bowel sounds, soft, no peritoneal signs. Absent: distended, tenderness - Extremities Exam Extremities exam: Present: warm, radial pulses palpable and symetrical. Absent : calf tenderness, cyanotic, pedal edema - Neurological Exam Neurological exam: Present: CN II-XII intact, oriented X3, no focal deficits. Absent: pronater drift, facial droop, speech deficit - Skin Skin exam: Present: dry, intact Internal Medicine: Result - Labs CBC & Chem 7: 03/30/16 01:54 03/30/16 01:54 Labs: Short CBC 03/30/16 Range/Units 01:54 WBC 6.6 (4.3-11.1) K/mcL Hgb 8.9 L (12.9-16.9) g/dL Hct 27.4 L (37.5-50.1) % Plt Count 261 (140-400) K/mcL Neutrophils # 4.6 (1.6-8.9) K/mcL BMP 03/30/16 01:54 Sodium 134 L Potassium 4.5 Chloride 99 Carbon Dioxide 29 BUN 42 H Creatinine 2.36 H Glucose 106 H Calcium 8.6 Consult Discharge Plan - Plan Referrals: Jennie Washington CNP [Advanced Practice Nurse] - 03/29/16 8:30 am () Prescriptions: Levofloxacin [Levaquin] 250 mg PO Q48H 7 Days OxyCODONE Immed Rel [Roxicodone 5 MG] 10 mg PO Q6H PRN #20 tablet PRN Reason: Severe Pain
[2016-03-30] MEDS: traMADol 50 MG TABLET PO PRN (20:33)
[2016-03-30] MEDS: Ondansetron 4 MG/2 ML VIAL IVP PRN (20:33)
[2016-03-30] MEDS: TEMAZEPAM 7.5 MG PO SCH (21:00)
[2016-03-31] MEDS: GuaiFENesin Liq 200 MG/10 ML UDC PO SCH ×3 (01:33→11:48)
[2016-03-31] MEDS: Ipratropium/Albuterol Neb 3 ML IH SCH ×4 (04:20→15:52)
[2016-03-31] MEDS: Ondansetron 4 MG/2 ML VIAL IVP PRN (04:49)
[2016-03-31] MEDS: *HR* Heparin 5,000 UNIT/ML VIAL SQ SCH (04:49)
[2016-03-31] MEDS: Furosemide 40 MG TABLET PO SCH (08:20)
[2016-03-31] MEDS: Aspirin 81 MG TAB.CHEW PO SCH (08:20)
[2016-03-31] MEDS: Insulin LISPRO 300 UNITS/3 ML VIAL SQ SCH ×2 (08:20→11:49)
[2016-03-31] MEDS: Metoprolol XL (24 HR) Succ 50 MG TAB.ER.24H PO SCH (08:21)
[2016-03-31] MEDS: traMADol 50 MG TABLET PO PRN (08:26)
[2016-03-31] MEDS ORDERED: Insulin DETEMIR 100 UNIT/ML X5UNITS SQ SCH (09:00)
--- NOTE | 2016-03-31 10:10 | Internal Med Progress Note ---
Date of Encounter: 03/31/16 Time of Encounter: 10:08 - Assessment and plan (1) HCAP (healthcare-associated pneumonia) Current Visit: Yes Status: Acute Assessment and plan: Continue with Levaquin treatment. Oxygen therapy. Awaiting approval for transfer to SNF. D/W social media content specialist, patient will need prior authorization in order to return to SNF. PT/OT consult. (2) CHF exacerbation Current Visit: Yes Status: Acute Assessment and plan: . Qualifiers: Congestive heart failure type: systolic Qualified Code(s): I50.23 - Acute on chronic systolic (congestive) heart failure (3) DVT prophylaxis Current Visit: No Status: Acute Assessment and plan: Heparin subcutaneously - Time Spent With Patient 25 - 35 minutes - Subjective Interval history: Patient feels better, is complaining of pain in lower extremities and lack of sleep. Otherwise states that is close to his baseline and that he would like to go to rehab soon to continue with physical therapy. Was discharged 2 days ago. AWaiting placement. He was frustrated about not going to snf yet, ne even mentioned that he would sign out AMA if he doesnt go to snf soon. - Constitutional Vitals: Temp Pulse Resp BP Pulse Ox 97.4 F L 102 18 110/62 94 L 03/31/16 07:27 03/31/16 07:27 03/31/16 07:27 03/31/16 07:27 03/31/16 08:32 General appearance: Present: cooperative, A&O X 3, no acute distress, answers questions appropriately - Head Head exam: Present: atraumatic, normocephalic - Eye Eye exam: Present: PERRL, conjuntiva pink, sclera anicteric Pupils: Present: PERRL - Neck Neck exam general surgery: Present: supple, trachea midline. Absent: lymphadenopathy - Respiratory Respiratory exam: Present: CTAB. Absent: accessory muscle use, rales, rhonchi, wheezes - Cardiovascular Cardiovascular exam: Present: RRR, +S1, +S2. Absent: diastolic murmur, gallop, rubs, systolic murmur - GI/Abdominal GI/Abdominal exam: Present: normal bowel sounds, soft, no peritoneal signs. Absent: distended, tenderness - Extremities Exam Extremities exam: Present: warm, radial pulses palpable and symetrical. Absent : calf tenderness, cyanotic, pedal edema - Neurological Exam Neurological exam: Present: CN II-XII intact, oriented X3, no focal deficits. Absent: pronater drift, facial droop, speech deficit - Skin Skin exam: Present: dry, intact Internal Medicine: Result - Labs CBC & Chem 7: 03/30/16 01:54 03/30/16 01:54 Consult Discharge Plan - Plan Referrals: Felix,Jennie Wang CNP [Advanced Practice Nurse] - 03/29/16 8:30 am () Prescriptions: Levofloxacin [Levaquin] 250 mg PO Q48H 7 Days OxyCODONE Immed Rel [Roxicodone 5 MG] 10 mg PO Q6H PRN #20 tablet PRN Reason: Severe Pain
[2016-03-31 11:43] VITALS: BP 122/66
[2016-03-31] MEDS: Levofloxacin 750 MG/150 ML 750 MG/150 ML BAG IVPB SCH (11:48)
== END 2016-03-31 16:25 | DRG 190 ==
LOC: 2ANU 10:19 → EMEROO 10:19 → SUATTDRO 13:47 → 2ANU 14:36 → SUATTDRO 03-27 09:38
PROVIDERS: ADMIT Internal Medicine; ATTEND Internal Medicine

== ENCOUNTER 2016-05-10 09:11 | Inpatient (IN) ==
[2016-05-10] MEDS ORDERED: 0.9 % Sodium Chloride 1,000 ML IVC ONE (09:20)
--- NOTE | 2016-05-10 09:43 | Emergency Department Note ---
Disposition Clinical Impression: Hyperkalemia, Renal failure, Volume depletion, Metabolic acidosis Disposition: Admitted As Inpatient Condition: Good Time of Disposition: 10:40 Recheck wound or abnormal lab - General Chief Complaint: ED Recheck/Abnormal Lab/Rx Stated Complaint: Hyperkalemia Time Seen by Provider: 05/10/16 09:14 Source: patient, EMS Mode of arrival: ambulatory Limitations: no limitations Nursing Notes Reviewed: Yes Vital Signs Reviewed: Yes - History of Present Illness HPI Narrative: 70-year-old male presents from [facility] for elevated potassium as an outpatient. His potassium was reportedly 5.5 yesterday and 6.6 today. He has a history of chronic kidney disease, but has never had dialysis. He states that he feels fine. He has no chest pain, palpitations, GI or symptoms, or rashes or edema. He has no recent illness or injury. He has no recent medication changes. - Related Data Home Medications Medication Instructions Recorded Confirmed Aspirin 81 mg PO DAILY 10/30/14 03/25/16 Clopidogrel [Plavix] 75 mg PO DAILY 10/30/14 03/25/16 Pravastatin Sodium 40 mg PO DAILY 10/30/14 03/25/16 Tamsulosin [Flomax] 0.4 mg PO DAILY 10/30/14 03/25/16 Ergocalciferol (VITAMIN D2) 50,000 unit PO MCGOWAN 03/05/15 03/25/16 [Vitamin D2 (50,000 UNIT)] Lisinopril [Zestril] 2.5 mg PO DAILY 03/05/15 03/25/16 Metoprolol XL (24 HR) Succ [Toprol 25 mg PO DAILY 03/05/15 03/25/16 XL] Docusate [Colace] 100 mg PO BID PRN 12/01/15 03/25/16 Nitroglycerin [Nitrostat] 0.4 mg SL DAILY PRN 12/01/15 03/25/16 Omeprazole [PriLOSEC] 20 mg PO DAILY 12/01/15 03/25/16 Temazepam [Restoril] 7.5 mg PO HS 12/01/15 03/25/16 Epoetin Jonnie [Procrit] 2,000 unit IJ FR 01/13/16 03/25/16 Ferrous Sulfate 325 mg PO BID 03/08/16 03/25/16 Furosemide [Lasix] 40 mg PO BID 03/08/16 03/25/16 Ondansetron HCl [Zofran] 4 mg PO Q6H PRN 03/08/16 03/25/16 Ondansetron [Zofran] 4 mg IM Q6H PRN 03/08/16 03/25/16 Promethazine [Phenergan] 12.5 mg PO Q4H PRN 03/08/16 03/25/16 Ranitidine HCl [Zantac] 150 mg PO BID 03/08/16 03/25/16 Azithromycin [Azithromycin 6-Tab 250 mg PO PER PKG DI 03/25/16 03/25/16 Pack] Furosemide [Lasix] 60 mg PO BID 03/25/16 03/25/16 Insulin Glargine,Hum.rec.anlog 16 unit SQ HS 03/25/16 03/25/16 [Lantus Solostar] Insulin LISPRO [HumaLOG] 5 - 15 units SQ ACHS 03/25/16 03/25/16 Ipratropium/Albuterol Neb [Duoneb] 3 ml IH Q6HR 03/25/16 03/25/16 Polyethylene Glycol 3350 [MiraLAX] 17 gm PO DAILY 03/25/16 03/25/16 Previous Rx's Medication Instructions Recorded GuaiFENesin ER [Mucinex] 600 mg PO BID tbbp.12hr 02/11/16 Insulin DETEMIR [Levemir] 4 unit SQ BID #14 [id number] 03/14/16 Levofloxacin [Levaquin] 250 mg PO Q48H 7 Days 03/29/16 OxyCODONE Immed Rel [Roxicodone 5 10 mg PO Q6H PRN #20 tablet 03/29/16 MG] Temazepam [Restoril] 7.5 mg PO HS 14 Days 04/01/16 Allergies Allergy/AdvReac Type Severity Reaction Status Date / Time No Known Allergies Allergy Verified 02/02/16 17:38 All systems ED: reviewed and negative except as stated. Past Medical History - Past Medical History Attestation: Yes The following information was validated with the patient. Source: patient Medical history: Reports: arthritis, atrial fibrillation, cardiomyopathy, CHF, COPD, coronary artery disease, DVT, diabetes, GERD, GI bleed, hyperlipidemia, hypertension, myocardial infarction, osteoporosis, peripheral artery disease, renal disease, venous stasis Surgical history: Reports: angioplasty/stent, arthroscopy, cataract, coronary bypass (CABG), LE Bypass, LE vascular intervention, orthopedic, other, pacemaker /AICD, vascular surgery, other, AICD, pacemaker Psychiatric history: Reports: no psych history - Social History Smoking Status: Former smoker Smokeless Tobacco Status: No Alcohol use: Reports: none Drug use: Reports: none Physical Exam - Head Head exam: atraumatic, normocephalic, normal inspection - Eye Eye exam: Present: normal appearance, PERRL, EOMI - ENT ENT exam: normal exam, normal oropharynx, mucous membranes moist - Neck Neck exam: Present: normal inspection, full ROM, trachea midline - Chest Chest inspection: Present: normal inspection, symmetric chest wall rise - Respiratory Respiratory exam: Clear to auscultation bilaterally without wheezes rales or rhonchi Cardiovascular Cardiovascular exam: Present: regular rate, normal rhythm, normal heart sounds - Abdominal Exam Abdominal exam: Present: soft, Non-Tender. Absent: tenderness, distention, guarding, rebound, rigidity - Extremities Exam Left lower extremity wound and dressed and shows chronic diabetic ulcer to the left heel without signs of infection. Right lower extremity status post medication at knee. - Back Exam Back exam: Present: normal inspection, full ROM. Absent: tenderness, CVA tenderness (R), CVA tenderness (L) - Neurological Exam Neurological exam: Present: alert, oriented X3, CN II-XII intact - Psychiatric Psychiatric exam: Present: normal affect, normal mood - Skin Skin exam: Present: warm, dry, intact, normal color - General Limitations: no limitations General appearance: alert, in no apparent distress Course - Reevaluation(s) Reevaluation #1: On further history, the patient reports that he has not been making urine for the past day. He sees Dr. Moss as an outpatient. Patient found to have hyperkalemia to 6.1 along with acute on chronic renal failure. He has a sodium bicarbonate of 15 which is acutely worse than usual. He has hyponatremia at 125. We will continue IV fluids at this time. Dr. Moss is paged for further treatment recommendations. Patient is accepted to Dr. Hernandez for further management. Case discussed with Dr. Moss. She recommends Kayexalate 30 mg as well as a half normal saline drip with 1.5 A of bicarbonate. Time: 10:40 Vital Signs Temperature 97.4 F L 05/10/16 09:18 Pulse Rate 76 05/10/16 09:18 Respiratory Rate 18 05/10/16 09:18 Blood Pressure 108/56 05/10/16 09:18 O2 Sat by Pulse Oximetry 99 05/10/16 09:18 Temperature 97.4 F L 05/10/16 09:18 Pulse Rate 66 05/10/16 10:30 Respiratory Rate 16 05/10/16 11:00 Blood Pressure 93/50 05/10/16 11:00 O2 Sat by Pulse Oximetry 98 05/10/16 10:30 Oxygen Delivery Oxygen Delivery Room Air Recheck wound or abnormal lab - Lab Data Result diagrams: 05/10/16 09:49 05/10/16 09:49 Lab Results 05/10/16 05/10/16 05/10/16 Range/Units 09:49 09:49 09:49 WBC 5.5 (4.3-11.1) K/mcL RBC 3.11 L (4.19-5.50) M/mcL Hgb 8.7 L (12.9-16.9) g/dL Hct 26.7 L (37.5-50.1) % MCV 85.9 (83.0-100.0) fL MCH 28.0 (28.0-33.3) pg MCHC 32.6 (31.6-35.5) g/dL RDW 16.7 H (11.5-14.5) % Plt Count 157 D (140-400) K/mcL MPV 11.3 (9.4-12.4) fL Immature Gran % 1.3 (0-4) % Seg Neutrophils % 74.0 % Lymphocytes % 11.8 % Monocytes % 9.4 % Eosinophils % 2.4 % Basophils % 1.1 % Neutrophils # 4.1 (1.6-8.9) K/mcL Lymphocytes # 0.7 (0.6-4.6) K/mcL Monocytes # 0.5 (0.0-1.3) K/mcL Eosinophils # 0.1 (0.0-0.6) K/mcL Basophils # 0.1 (0.0-0.2) K/mcL Sodium 125 L (136-145) mEq/L Potassium 6.1 H (3.5-4.5) mEq/L Chloride 96 L (98-109) mEq/L Carbon Dioxide 15 L (19-29) mEq/L BUN 75 H (8-26) mg/dL Creatinine 3.71 H (0.72-1.25) mg/dL Est GFR ( Amer) 20 L (> 60) Est GFR (Non-Af Amer) 16 L (> 60) BUN/Creatinine Ratio 20 (6-26) Glucose 298 H (70-99) mg/dL Calculated Osmolality 293 (280-300) Calcium 8.5 L (8.6-10.8) mg/dL Troponin I 0.02 (0-0.03) ng/mL Albumin 2.6 L (3.5-5.0) g/dL - EKG Data EKG attestation: Yes I reviewed and interpreted this EKG. EKG results narrative: Electronic ventricular pacemaker at 74. This is unchanged from 03/25/2016. No further interpretation available. Attestation Statement - Attestation Attestation: I examined this patient and my medical decision-making was reviewed with the UNDERCOLLAR BASTER/PA/Advanced Practice Nurse/Resident Physician. I agree with the documented findings, disposition and treatment plan as described except to the extent set forth below. 70-year-old male presents to the ED because of hyperkalemia and renal insufficiency. His history of renal insufficiency which has been noted to be worse over the past couple of days. He had labs done yesterday revealing a potassium of 5.7. This was repeated this morning and was found to be 6.6. He has been on fluid restrictions recently. He has also been managing a wound on his left lower extremity per nursing staff. No known recent changes in his medications. No vomiting or diarrhea. No fevers, chills or rigors. No chest pain or dyspnea. No complaints of any new weakness. Patient is awake, alert in no apparent distress. Oropharynx is clear mucous membranes dry. Neck is supple. Chest: symmetrically diminished breath sounds bilaterally. Cardiac exam regular without ectopy. Abdomen soft, non-distended , non-tender. He has right above-knee amputation. He has healing wound on the anterior left lower leg with prior amputation of his toes on left foot. Laboratory analysis; renal function is worsened with the current GFR of 16 and creatinine 3.71 potassium 6.1. He clinically appears very volume depleted and is likely contributing to this presentation. He is also on lisinopril which may be contributing to hyperkalemia as well. Also hyponatremic with a sodium of 125. He is given 1 L of IV saline. Case was discussed with the on-call nephrology requested a bicarbonate drip and a dose of oral Kayexalate. He will be admitted on a bicarbonate drip and close monitoring of his potassium and renal function. The high probability of a clinically significant, sudden or life threatening deterioration of the [renal, cardiovascular] system(s) required my full and direct attention, intervention and personal management. The aggregate critical care time was [20] minutes. This time is in addition to time spent performing reported procedures but includes the following: [x] Data Review and interpretation [x] Patient assessment and monitoring of vital signs [x] Documentation [x] Medication orders and management
[2016-05-10 09:58] LABS: Basophils # 0.1 K/mcL (0.0-0.2); Basophils % 1.1 %; Eosinophils # 0.1 K/mcL (0.0-0.6); Eosinophils % 2.4 %; Hematocrit 26.7 % (37.5-50.1); Hemoglobin 8.7 g/dL (12.9-16.9); Immature Granulocytes % 1.3 % (0-4); Lymphocytes # 0.7 K/mcL (0.6-4.6); Lymphocytes % 11.8 %; Mean Corpuscular HGB Conc 32.6 g/dL (31.6-35.5); Mean Corpuscular Volume 85.9 fL (83.0-100.0); Mean Platelet Volume 11.3 fL (9.4-12.4); Monocytes # 0.5 K/mcL (0.0-1.3); Monocytes % 9.4 %; Neutrophils # 4.1 K/mcL (1.6-8.9); Platelet Count 157 K/mcL (140-400); Red Blood Count 3.11 M/mcL (4.19-5.50); Red Cell Distribution Width 16.7 % (11.5-14.5)
[2016-05-10 10:08] LABS: Calcium 8.5 mg/dL (8.6-10.8); Potassium 6.1 mEq/L (3.5-4.5)
[2016-05-10 10:36] LABS: Albumin 2.6 g/dL (3.5-5.0)
[2016-05-10] MEDS ORDERED: Sodium Bicarbonate 75 MEQ in 0.45 % Sodium Chloride 1,000 ML IVC SCH ×2 (10:45→11:43)
[2016-05-10] MEDS ORDERED: MOM Conc 10 ML UD.LIQ PO PRN (11:27)
[2016-05-10] MEDS ORDERED: Naloxone 0.4 MG/ML INJ IVP PRN (11:27)
[2016-05-10] MEDS ORDERED: Acetaminophen 325 MG TABLET PO PRN (11:27)
[2016-05-10] MEDS ORDERED: *HR* Dextrose 50 % in Water (Syg) 50 ML SYRINGE IVP PRN (11:42)
[2016-05-10] MEDS ORDERED: Dextrose Gel 15 GM PO PRN ×2 (11:42)
[2016-05-10] MEDS ORDERED: D5% in Water 1,000 ML IV PRN (11:42)
--- NOTE | 2016-05-10 11:52 | Internal Med History&Physical ---
<Candace Dumont - Last Filed: 05/10/16 20:52> Date of Encounter: 05/10/16 Time of Encounter: 11:10 Assessment and Plan (1) Acute renal failure superimposed on stage 4 chronic kidney disease Current visit: Yes Status: Acute Creat 3.71 today. Will continue to monitor. No NSAIDs or nephrotoxins. Repeat labs. Pt has not had dialysis. ER consulted nephrology. (2) Hyperkalemia Current visit: Yes Status: Acute Pt sent from [facility] for hyperkalemia today. 6.6 at [facility], 6.1 here. History of same due to Stage IV CKD. He was given Kayexelate 30g po in the ED. Pt has paced rhythm, so no underlying EKG changes are apparent. Continuous cardiac monitoring Stop lisinopril Redraw BMP later today and monitor. (3) Hyponatremia Current visit: No Status: Acute Sodium 1235 today. Pt is getting IV fluids and correction for hyperkalemia. Plan as above. (4) Anemia Current visit: No Status: Acute Chronic and stable. Hgb 8.7 today, which is normal for him. CBC in a.m. Qualifiers: Anemia type: unspecified type Qualified Code(s): D64.9 - Anemia, unspecified; D63.1 - Anemia in chronic kidney disease (5) Congestive heart failure Current visit: No Status: Acute Chest xray shows pulmonary venous dongestion without overt pulmonary edema, no significant effusion, suggestive of low grade chronic CHF. Pt reports infrequent non-productive cough without fever or dyspnea. Pt does have peripheral edema to E, however, has healing wounds and recent amputation. Chronic systolic heart failure. LVED 15% in Nov 2105. CT chest ordered. BNP ordered for later today, will monitor continuous telemetry and pulse oximetry Qualifiers: Congestive heart failure type: systolic Congestive heart failure chronicity : chronic Qualified Code(s): I50.22 - Chronic systolic (congestive) heart failure (6) Decubitus ulcer Current visit: No Status: Chronic Pt has existing wound to R knee, L dorsal foot, and L heel, all without drainage. Pt gets wound care at [facility] and was placed there for rehab for amputation and wounds 3 mos ago. Pt is due to be discharged in 2 days. Consult wound care Qualifiers: Pressure ulcer location: dorsum of foot Pressure ulcer stage: stage 1 Laterality: left Qualified Code(s): L89.891 - Pressure ulcer of other site, stage 1 (7) Diabetes Current visit: No Status: Acute A1c 6.1% in January. Pt on insulin at [facility]. 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 Nephrology has been consulted. CPK Renal US Close monitoring of renal function Internal Medicine - H&P: HPI Chief complaint: hyperkalemia today Admitted From: Long-term Nursing Facility Plans for Post Hospital Care: Transfer [facility] History of present illness: Mr. Mendez is a 70 year old male with a history of CHF, hypoxia, CKD, DM, anemia , dyslipidemia, PVD, R BKA, A-fib/pacer, cardiomuopathy, and COPD. He was sent here today from [facility] where he is doing rehab for his L foot wounds/toe amputations, for hyperkalemia. 6.6 at [facility], 6.1 here. He is also hyponatremic, with sodium at 125. Pt states that he feels fine and has no idea why he his here. He is to be discharged home on Sunday. EKG shows paced rhythm. He has received 30g Kayexelate po in the ED. Renal function is declining, creatinine today 3.71, one week ago it was 2.75. He sees Dr. Moss as an outpatient and has never had dialysis. Pt does report an intermittent non-productive cough, denies pain with inspiration, fever, or chest wall tenderness. Chest xray shows pulmonary venous congestion without overt pulmonary edema and trace of R pleural fluid without effusion, suggesiton chronic CHF. Last echo was in Nov 2015, LEVF 15-20% with sever global and segmental LV systolic dysfunction. Pt has healing wounds to BLE that are treated by wound care at the [facility], wound care will be consulted here, as well. Past Med Surg Social Fam HX - Past Medical History Medical history: arthritis, atrial fibrillation, cardiomyopathy, CHF, COPD, coronary artery disease, DVT, diabetes, GERD, GI bleed, hyperlipidemia, hypertension, myocardial infarction, osteoporosis, peripheral artery disease, renal disease, venous stasis Psychiatric history: no psych history - Past Surgical History Surgical History: angioplasty/stent, arthroscopy, cataract, coronary bypass ( CABG), LE Bypass, LE vascular intervention, orthopedic, other, pacemaker/AICD, vascular surgery, other, AICD, pacemaker - Social History Smoking Status: Former smoker Smokeless Tobacco Status: No Alcohol use: none Drug use: none - Family History Father Living Status: Mother Living Status: Hx Family Cardiac Disorders: No Hx Family Cancer: No Hx Family Endocrine Disorder: No Internal Medicine - H&P: Meds Aspirin 81 mg PO DAILY 10/30/14 [History] Clopidogrel [Plavix] 75 mg PO DAILY 10/30/14 [History] Pravastatin Sodium 40 mg PO DAILY 10/30/14 [History] Tamsulosin [Flomax] 0.4 mg PO DAILY 10/30/14 [History] Ergocalciferol (VITAMIN D2) [Vitamin D2 (50,000 UNIT)] 50,000 unit PO MCGOWAN [History] Metoprolol XL (24 HR) Succ [Toprol XL] 25 mg PO DAILY 03/05/15 [History] Docusate [Colace] 100 mg PO BID PRN 12/01/15 [History] Nitroglycerin [Nitrostat] 0.4 mg SL DAILY PRN 12/01/15 [History] Temazepam [Restoril] 7.5 mg PO HS 12/01/15 [History] Epoetin Jonnie [Procrit] 2,000 unit IJ FR 01/13/16 [History] GuaiFENesin ER [Mucinex] 600 mg PO BID tbbp.12hr 02/11/16 [Rx] Ferrous Sulfate 325 mg PO BID 03/08/16 [History] Furosemide [Lasix] 80 mg PO BID 03/08/16 [History] Ondansetron HCl [Zofran] 4 mg PO Q6H PRN 03/08/16 [History] Ondansetron [Zofran] 4 mg IM Q6H PRN 03/08/16 [History] Promethazine [Phenergan] 12.5 mg PO Q4H PRN 03/08/16 [History] Ranitidine HCl [Zantac] 150 mg PO BID 03/08/16 [History] Insulin Glargine,Hum.rec.anlog [Lantus Solostar] 16 unit SQ HS 03/25/16 [History ] Insulin LISPRO [HumaLOG] 5 - 15 units SQ ACHS 03/25/16 [History] Ipratropium/Albuterol Neb [Duoneb] 3 ml IH Q6HR 03/25/16 [History] Polyethylene Glycol 3350 [MiraLAX] 17 gm PO DAILY 03/25/16 [History] OxyCODONE Immed Rel [Roxicodone 5 MG] 10 mg PO Q6H PRN #20 tablet 03/29/16 [Rx] GuaiFENesin/Codeine [Robitussin w/Codeine] 5 ml PO Q6HR PRN 05/10/16 [History] Promethazine [Phenergan] 25 mg IV Q8HR PRN 05/10/16 [History] Sulfamethoxazole/Trimeth DS [Bactrim DS] 1 tab PO BID 05/10/16 [History] Allergies No Known Allergies Allergy (Verified 02/02/16 17:38) All Systems PM: A 10-system review of systems was performed and is negative for pertinent findings except as documented above in the HPI. - Constitutional Constitutional: no chills, no fever(s), no weakness - Cardiovascular Cardiovascular ROS IM: no chest pain, no lightheadedness - Respiratory Respiratory: cough, chest congestion, no hemoptysis, no wheezing, no pain on inspiration, no excessive phlegm production, no pain with cough - Gastrointestinal Gastrointestinal: no diarrhea, no nausea, no vomiting - Integumentary Integumentary IM: skin ulcer - Constitutional Vitals: Temp Pulse Resp BP Pulse Ox 97.5 F L 66 16 96/66 98 05/10/16 11:41 05/10/16 11:41 05/10/16 11:41 05/10/16 11:41 05/10/16 11:41 General appearance: Present: cooperative, A&O X 3, pleasant, no acute distress Exam: Pt appears drowsy, however answers questions appropriately, is not slow to respond. - Eye Eye exam: Present: conjuntiva pink - Neck Neck exam general surgery: Absent: lymphadenopathy, tenderness - Respiratory Respiratory exam: Present: decreased breath sounds, CTAB. Absent: chest wall tenderness, rales, respiratory distress, rhonchi, wheezes - Cardiovascular Cardiovascular exam: Present: RRR, +S1, +S2 Additional comments: Pacemaker LACW - GI/Abdominal GI/Abdominal exam: Present: distended, normal bowel sounds, soft. Absent: tenderness - Extremities Exam Additional comments: Pt with R BKA, L toes amputated 3 mos ago. - Neurological Exam Neurological exam: Present: alert, oriented X3, no focal deficits - Skin Additional comments: Pt has approx 7cm, round stage I ulcer to dorsal L foot, healing. No drainage. Approx 1-2 cm , round, stage 2 ulcer to L heel, no drainage Approx [id number] liner, vertical stage I wound to R knee, no drainage. Wounds present on admission to ED. States he sees wound care at [facility] and that is why he was doing rehab there. Internal Med - H&P Results - Labs CBC & Chem 7: 05/10/16 09:49 05/10/16 17:05 - EKG Data Rate: normal - EKG Data Prior EKG available for review: yes When compared to previous EKG: there is no significant change EKG comments: 05/10/16 12:11 Both show Ventricular pacing Rate 74 WI interval 184 QRS 150 Qt/QTc 469/497 <Amelia Benavides - Last Filed: 05/11/16 09:18> Date of Encounter: 05/11/16 Internal Medicine - H&P: HPI History of present illness: Mr. Mendez is a 70 year old male All Systems PM: A 10-system review of systems was performed and is negative for pertinent findings except as documented above in the HPI. - Constitutional Vitals: Temp Pulse Resp BP Pulse Ox 97.4 F L 68 16 97/64 97 05/11/16 06:50 05/11/16 06:50 05/11/16 06:50 05/11/16 06:50 05/11/16 06:50 Internal Med - H&P Results - Labs CBC & Chem 7: 05/11/16 06:32 05/11/16 06:32 Labs: Short CBC 05/11/16 Range/Units 06:32 WBC 5.3 (4.3-11.1) K/mcL Hgb 9.3 L (12.9-16.9) g/dL Hct 28.9 L (37.5-50.1) % Plt Count 177 (140-400) K/mcL Neutrophils # 3.9 (1.6-8.9) K/mcL BMP 05/10/16 05/11/16 17:05 06:32 Sodium 130 L 132 L Potassium 5.5 H 4.6 H Chloride 97 L 99 Carbon Dioxide 21 24 BUN 75 H 72 H Creatinine 3.65 H 3.33 H Glucose 232 H 46 L Calcium 8.5 L 8.5 L Urine 05/10/16 Range/Units 17:50 Urine Color Yellow (Yellow) Urine Clarity Clear (Clear) Urine pH 6.0 (5.0-8.0) pH Units Ur Specific [place] 1.015 (1.010-1.025) Urine Protein Negative (Neg-Trace) mg/dL Urine Glucose (UA) Normal (Normal) mg/dL - Impressions ITS Impressions Chest CT 05/10/16 15:00 IMPRESSION: Small bilateral pleural effusions. Bilateral mucous plugging. Multifocal bilateral airspace disease is seen, compatible with pneumonia. Focal infiltrate with 1.1 cm nodular component is seen within the right upper lobe, likely accounting for the radiographic appearance. Follow-up to resolution recommended. Sequela of granulomatous disease. D/ / Peyman Lima MD / Peyman Lima MD Interpreting Provider: Peyman Lima MD - Attending Attestation I examined this patient and reviewed laboratory, imaging and all diagnostic data. My medical decision-making was reviewed with BLAS Dumont. I agree with the documented findings, disposition and treatment plan as described above. 70 yo M with past medical history of systolic HF (LVEF 15-20%), CKD 4, DM, PVD s/p R BKA, A-fib/pacer, and COPD who was sent from [place] due to hyperkalemia. K was 6.6. bicarb was 15. Cr was 3.71. Examination revealed crackles in both lung bases. CXR showed mild pulmonary edema. He received kayexalate and was started on IV bicarbonate drip at slow rate due to CHF. nephrology consulted.
[2016-05-10] MEDS ORDERED: hydrALAZINE 25 MG TABLET PO PRN (12:45)
--- NOTE | 2016-05-10 16:25 | Nephrology Consult Note ---
Date of Encounter: 05/10/16 Time of Encounter: 16:00 Assessment and Plan (1) BRIAN (acute kidney injury) Current Visit: No Status: Acute Elevated SCr in the setting of diuretics use, CHF and decreased UOP Rule out obstruction, bladder scan and place danielson if residual greater than 400cc Will check urine for sodium and creatinine along with urea and UA. 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 s/p kayexealte with no BM, repeat BMP pending. Will redose with kayexalate if potassium elevated at or above 6.1 Bicarb gtt should also help Renal diet advised (3) Metabolic acidosis Current Visit: Yes Status: Acute Continue 1/2NS with 75Meq bicarb as started in the ED for now (4) Hyponatremia Current Visit: No Status: Acute Low sodium likely hypovolemic, should improve with IVF (5) CKD (chronic kidney disease), stage III Current Visit: No Status: Chronic Baseline has been fluctuating lately with BRIAN last month. Best GFR within the past few weeks has been 32 History of Present Illness - Reason for Consult Consult date: 05/10/16 Acute Kidney Injury, Chronic Kidney Disease, hyponatremia, hyperkalemia, metabolic acidosis Requesting physician: Amelia Benavides - History of Present Illness 70 y o male with PMH of DM, COPD, Afib s/p apcer, CAD with CHF EF 15-20%, PVD s/ p R BKA and stage 3/4 CKD presenting form ECF with abnormal labs. Potassium was noted at 6.6, sodium noted at 125 with bicarb of 15 and SCr noted at 3.71, GFR 16.Pt reports doing well at ECF and was to go home soon. He reports being on lasix 80mg bid while at ECF instead of his usual lasix 40mg bid. He also reports decreased UOP with only one session that day. No other urinary sxs. No N /V/D. No recent NSAIDs use. He received kayexalate in the ED but at the time of this exam, no he reported no BM yet. He was also started bicarb gtt after discussion with the ED. Past Med Surg Social Fam HX - Past Medical History Medical history: arthritis, atrial fibrillation, cardiomyopathy, CHF, COPD, coronary artery disease, DVT, diabetes, GERD, GI bleed, hyperlipidemia, hypertension, myocardial infarction, osteoporosis, peripheral artery disease, renal disease, venous stasis Psychiatric history: no psych history - Past Surgical History Surgical History: angioplasty/stent, arthroscopy, cataract, coronary bypass ( CABG), LE Bypass, LE vascular intervention, orthopedic, other, pacemaker/AICD, vascular surgery, other, AICD, pacemaker - Social History Smoking Status: Former smoker Smokeless Tobacco Status: No Alcohol use: none Drug use: none - Family History Father Living Status: Mother Living Status: Hx Family Cardiac Disorders: No Hx Family Cancer: No Hx Family Endocrine Disorder: No Medications and Allergies Aspirin 81 mg PO DAILY 10/30/14 [History] Clopidogrel [Plavix] 75 mg PO DAILY 10/30/14 [History] Pravastatin Sodium 40 mg PO DAILY 10/30/14 [History] Tamsulosin [Flomax] 0.4 mg PO DAILY 10/30/14 [History] Ergocalciferol (VITAMIN D2) [Vitamin D2 (50,000 UNIT)] 50,000 unit PO MCGOWAN [History] Metoprolol XL (24 HR) Succ [Toprol XL] 25 mg PO DAILY 03/05/15 [History] Docusate [Colace] 100 mg PO BID PRN 12/01/15 [History] Nitroglycerin [Nitrostat] 0.4 mg SL DAILY PRN 12/01/15 [History] Temazepam [Restoril] 7.5 mg PO HS 12/01/15 [History] Epoetin Jonnie [Procrit] 2,000 unit IJ FR 01/13/16 [History] GuaiFENesin ER [Mucinex] 600 mg PO BID tbbp.12hr 02/11/16 [Rx] Ferrous Sulfate 325 mg PO BID 03/08/16 [History] Furosemide [Lasix] 80 mg PO BID 03/08/16 [History] Ondansetron HCl [Zofran] 4 mg PO Q6H PRN 03/08/16 [History] Ondansetron [Zofran] 4 mg IM Q6H PRN 03/08/16 [History] Promethazine [Phenergan] 12.5 mg PO Q4H PRN 03/08/16 [History] Ranitidine HCl [Zantac] 150 mg PO BID 03/08/16 [History] Insulin Glargine,Hum.rec.anlog [Lantus Solostar] 16 unit SQ HS 03/25/16 [History ] Insulin LISPRO [HumaLOG] 5 - 15 units SQ ACHS 03/25/16 [History] Ipratropium/Albuterol Neb [Duoneb] 3 ml IH Q6HR 03/25/16 [History] Polyethylene Glycol 3350 [MiraLAX] 17 gm PO DAILY 03/25/16 [History] OxyCODONE Immed Rel [Roxicodone 5 MG] 10 mg PO Q6H PRN #20 tablet 03/29/16 [Rx] GuaiFENesin/Codeine [Robitussin w/Codeine] 5 ml PO Q6HR PRN 05/10/16 [History] Promethazine [Phenergan] 25 mg IV Q8HR PRN 05/10/16 [History] Sulfamethoxazole/Trimeth DS [Bactrim DS] 1 tab PO BID 05/10/16 [History] Allergies No Known Allergies Allergy (Verified 02/02/16 17:38) Review of Systems All Systems: reviewed and no additional remarkable complaints except as stated ( 10 systems reviewed) Exam - Vital Signs Vital signs: Initial Vital Signs Temp Pulse Resp BP Pulse Ox 97.4 F L 76 18 108/56 99 05/10/16 09:18 05/10/16 09:18 05/10/16 09:18 05/10/16 09:18 05/10/16 09:18 Vital Signs - Last 8 Hours Temp Pulse Resp BP Pulse Ox 05/10/16 16:09 97.6 F 68 17 105/68 100 05/10/16 12:22 98 05/10/16 11:41 97.5 F L 66 16 96/66 98 05/10/16 11:00 16 93/50 Intake and Output 05/10/16 05/10/16 05/10/16 07:59 15:59 23:59 Intake Total 60 / 60 Output Total 0 / 0 Balance 60 / 60 Intake: Oral 60 / 60 Output: Urine 0 / 0 Other: Meal Lunch Percent of Meal Consumed 5% Weight 71.3 kg Blood Glucose* 203 242 Patient Weight 05/10/16 23:59 Weight 71.3 kg - General Appearance General appearance: chronically ill (NAD) EENT: ATNC, mucous membranes dry Neck: no JVD, supple Additional Comments: good areation bilat with occasional crackles Cardiology: no edema (R BKA with well healed surgical wound and dressing above the area), normal S1, normal S2 Gastrointestinal: no tenderness, no guarding Integumentary: warm and dry Neurologic: no focal deficit Musculoskeletal: no deformities Psychiatric: mood/affect appropriate, cooperative Results - Lab Results 05/11/16 06:32 05/11/16 06:32 Most recent lab results Calcium 8.5 mg/dL (8.6-10.8) L 05/10/16 09:49 Consult Discharge Plan - Plan Referrals: Jennie Washington CNP [Primary Care Provider] -
[2016-05-10] MEDS ORDERED: *HR* OxyCODONE Immed Rel 5 MG TABLET PO PRN (17:13)
[2016-05-10] MEDS: Insulin LISPRO 300 UNITS/3 ML VIAL SQ SCH ×2 (17:14→21:07)
[2016-05-10 17:59] LABS: Bilirubin,Urine Small (Negative); Blood,Urine Negative (Negative); Clarity,Urine Clear (Clear); Color,Urine Yellow (Yellow); Glucose,Urine (UA) Normal (Normal); Ketones,Urine Negative (Negative); Leukocyte Esterase,Urine Negative (Negative); Nitrite,Urine Negative (Negative); Protein,Urine Negative (Neg-Trace); Specific Gravity,Urine 1.015 (1.010-1.025); Urobilinogen,Urine Normal (Normal)
[2016-05-10 18:05] LABS: Hemoglobin A1C 6.7 %
[2016-05-10 18:07] LABS: Calcium 8.5 mg/dL (8.6-10.8); Potassium 5.5 mEq/L (3.5-4.5)
[2016-05-11 06:54] LABS: Basophils # 0.1 K/mcL (0.0-0.2); Basophils % 1.3 %; Eosinophils # 0.2 K/mcL (0.0-0.6); Eosinophils % 3.2 %; Hematocrit 28.9 % (37.5-50.1); Hemoglobin 9.3 g/dL (12.9-16.9); Immature Granulocytes % 0.4 % (0-4); Lymphocytes # 0.6 K/mcL (0.6-4.6); Lymphocytes % 11.9 %; Mean Corpuscular HGB Conc 32.2 g/dL (31.6-35.5); Mean Corpuscular Hemoglobin 27.6 pg (28.0-33.3); Mean Corpuscular Volume 85.8 fL (83.0-100.0); Mean Platelet Volume 10.5 fL (9.4-12.4); Monocytes # 0.5 K/mcL (0.0-1.3); Monocytes % 9.1 %; Neutrophils # 3.9 K/mcL (1.6-8.9); Platelet Count 177 K/mcL (140-400); Red Blood Count 3.37 M/mcL (4.19-5.50); Red Cell Distribution Width 16.7 % (11.5-14.5); Segmented Neutrophils % 74.1 %
[2016-05-11 07:06] LABS: Calcium 8.5 mg/dL (8.6-10.8); Potassium 4.6 mEq/L (3.5-4.5)
--- NOTE | 2016-05-11 08:50 | Internal Med Progress Note ---
Date of Encounter: 05/11/16 Time of Encounter: 08:49 - Assessment and plan (1) Acute renal failure superimposed on stage 4 chronic kidney disease Current Visit: Yes Status: Acute Assessment and plan: Creatinine slightly better today. Patient had about 575 mL urine output yesterday. Potassium level is improving. Nephrology following. Will follow recommendations. CK elevated at 2396 yesterday. Will recheck levels. Patient could have underlying mild rhabdomyolysis related to his acute kidney injury (2) Hyperkalemia Current Visit: Yes Status: Acute Assessment and plan: Improving. Potassium 4.6 today (3) Anemia Current Visit: No Status: Chronic Assessment and plan: Due to chronic kidney disease. Hemoglobin stable. 9.3 today. Qualifiers: Anemia type: other cause Other causes of anemia: chronic disease, kidney Qualified Code(s): N18.9 - Chronic kidney disease, unspecified; D63.1 - Anemia in chronic kidney disease (4) Congestive heart failure Current Visit: No Status: Acute Assessment and plan: Chronic systolic congestive heart failure with low ejection fraction. Patient not having signs of acute congestive heart failure at this time. Qualifiers: Congestive heart failure type: systolic Congestive heart failure chronicity : chronic Qualified Code(s): I50.22 - Chronic systolic (congestive) heart failure (5) Hyponatremia Current Visit: No Status: Acute Assessment and plan: Improving likely related to dehydration (6) Decubitus ulcer Current Visit: No Status: Chronic Assessment and plan: Continue supportive local wound care and pressure ulcer prophylaxis. Qualifiers: Pressure ulcer location: dorsum of foot Pressure ulcer stage: stage 1 Laterality: left Qualified Code(s): L89.891 - Pressure ulcer of other site, stage 1 (7) Decubitus ulcer of left heel, stage 2 Current Visit: No Status: Chronic (8) Diabetes Current Visit: No Status: Acute Assessment and plan: Blood sugar 46 this morning. Monitor blood sugars closely. On low dose corrective insulin. Patient appears to be a brittle diabetic. Will monitor blood sugars more closely. Patient has high risk for complications. Qualifiers: Diabetes mellitus type: type 2 Diabetes mellitus complication status: with kidney complications Diabetes mellitus complication detail: with chronic kidney disease Diabetes mellitus senior living insulin use: with senior living use Chronic kidney disease stage: stage 4 (severe) Qualified Code(s): E11.22 - Type 2 diabetes mellitus with diabetic chronic kidney disease; N18.4 - Chronic kidney disease, stage 4 (severe); Z79.4 - MCC (current) use of insulin - Subjective Interval history: Denies any shortness of breath or chest pain. Having good urine output. No nausea or vomiting. Has cough. No fever or chills reported overnight. - Constitutional Vitals: Temp Pulse Resp BP Pulse Ox 97.4 F L 68 16 97/64 97 05/11/16 06:50 05/11/16 06:50 05/11/16 06:50 05/11/16 06:50 05/11/16 06:50 General appearance: Present: cooperative, mild distress, A&O X 3, pleasant, no acute distress, answers questions appropriately - Neck Neck exam general surgery: Present: supple, trachea midline. Absent: lymphadenopathy - Respiratory Respiratory exam: Present: CTAB. Absent: accessory muscle use, rales, rhonchi, wheezes - Cardiovascular Cardiovascular exam: Present: RRR, +S1, +S2. Absent: diastolic murmur, gallop, rubs, systolic murmur - Extremities Exam Extremities exam: Present: warm, radial pulses palpable and symetrical. Absent : calf tenderness, cyanotic Additional comments: Right BKA - Skin Skin exam: Present: dry, intact Additional comments: Ulcers noted on left foot and right knee which are chronic. Internal Medicine: Result - Labs CBC & Chem 7: 05/11/16 06:32 05/11/16 06:32 Labs: Short CBC 05/11/16 Range/Units 06:32 WBC 5.3 (4.3-11.1) K/mcL Hgb 9.3 L (12.9-16.9) g/dL Hct 28.9 L (37.5-50.1) % Plt Count 177 (140-400) K/mcL Neutrophils # 3.9 (1.6-8.9) K/mcL BMP 05/10/16 05/11/16 17:05 06:32 Sodium 130 L 132 L Potassium 5.5 H 4.6 H Chloride 97 L 99 Carbon Dioxide 21 24 BUN 75 H 72 H Creatinine 3.65 H 3.33 H Glucose 232 H 46 L Calcium 8.5 L 8.5 L Urine 05/10/16 Range/Units 17:50 Urine Color Yellow (Yellow) Urine Clarity Clear (Clear) Urine pH 6.0 (5.0-8.0) pH Units Ur Specific [place] 1.015 (1.010-1.025) Urine Protein Negative (Neg-Trace) mg/dL Urine Glucose (UA) Normal (Normal) mg/dL - Impressions Impressions Chest CT 05/10/16 15:00 IMPRESSION: Small bilateral pleural effusions. Bilateral mucous plugging. Multifocal bilateral airspace disease is seen, compatible with pneumonia. Focal infiltrate with 1.1 cm nodular component is seen within the right upper lobe, likely accounting for the radiographic appearance. Follow-up to resolution recommended. Sequela of granulomatous disease. D/ / Peyman Lima MD / Peyman Lima MD Interpreting Provider: Peyman Lima MD Consult Discharge Plan - Plan Referrals: Jennie Washington CNP [Primary Care Provider] - - Attending Attestation This document has been at least partially created by [employer] recognition technology by Dr. Chawla. Errors in grammar, wording or other phrases may exist. If errors are found after the documentation is signed, they will be addressed individually in the addendum section of this document when appropriate.
[2016-05-11] MEDS: Metoprolol XL (24 HR) Succ 50 MG TAB.ER.24H PO SCH (08:54)
[2016-05-11] MEDS: Insulin LISPRO 300 UNITS/3 ML VIAL SQ SCH ×4 (08:55→21:38)
[2016-05-11] MEDS ORDERED: Aspirin 81 MG TAB.CHEW PO SCH (09:00)
[2016-05-11] MEDS: 0.9 % Sodium Chloride 1,000 ML IVC SCH (12:00)
--- NOTE | 2016-05-11 17:39 | Nephrology Progress Note ---
Date of Encounter: 05/11/16 Time of Encounter: 11:00 - Assessment and Plan (1) BRIAN (acute kidney injury) Current Visit: No Status: Acute SCr improving at 3.33, GFR 18 UOp approximately 600s, continue danielson for now Continue IVF but change to NS CPK noted elevated approx. 2300, will repeat today No acute indication for ENGLISH DRAWER at this time Continue to avoid nephrotoxins if possible (2) Hyperkalemia Current Visit: Yes Status: Acute Potassium almost normalized at 4.6, continue renal diet (3) Metabolic acidosis Current Visit: Yes Status: Acute Normalized, can change IVF to NS (4) CKD (chronic kidney disease), stage III Current Visit: No Status: Chronic Best GFR noted at 32 (5) Hyponatremia Current Visit: No Status: Acute Sodium improving at 132, should improve further with NS Subjective Interval history: Pt seen and examined with no new complaints. Danielson placed yesterday after residual noted at around 500cc. No chest pain. No SOB Objective - Vital Signs Vital signs: Vital Signs Temp Pulse Resp BP Pulse Ox 05/11/16 14:00 97.8 F 54 111/59 96 05/11/16 11:17 97.9 F 67 18 109/59 99 Intake and Output 05/11/16 05/11/16 05/11/16 07:59 15:59 23:59 Other: Blood Glucose* 210 72 - General Appearance General appearance: Present: chronically ill (NAD) EENT: Present: ATNC, mucous membranes moist Neck: Present: no JVD, supple Cardiology: Present: no edema (R BKA), normal S1, normal S2 Gastrointestinal: Present: no tenderness, no guarding Integumentary: Present: warm and dry Neurologic: Present: no focal deficit Musculoskeletal: Present: no deformities Psychiatric: Present: mood/affect appropriate - Lab 05/11/16 06:32 05/11/16 06:32 Most recent lab results Calcium 8.5 mg/dL (8.6-10.8) L 05/11/16 06:32 Urine Creatinine 61 mg/dL 05/10/16 17:50 Urine Sodium 47.0 mEq/L 05/10/16 17:50 Consult Discharge Plan - Plan Referrals: Felix,Jennie Wang CNP [Primary Care Provider] -
[2016-05-11] MEDS: *HR* Heparin 5,000 UNIT/ML VIAL SQ SCH (19:02)
--- NOTE | 2016-05-11 19:40 | Electrocardiograph Report ---
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
[2016-05-11] MEDS: Temazepam 15 MG CAPSULE PO PRN (21:38)
[2016-05-11] MEDS: *HR* OxyCODONE Immed Rel 5 MG TABLET PO PRN (21:39)
[2016-05-12] MEDS: *HR* Heparin 5,000 UNIT/ML VIAL SQ SCH ×2 (05:33→16:54)
[2016-05-12 05:45] LABS: Basophils # 0.1 K/mcL (0.0-0.2); Basophils % 1.3 %; Eosinophils # 0.2 K/mcL (0.0-0.6); Eosinophils % 4.5 %; Hematocrit 27.7 % (37.5-50.1); Immature Granulocytes % 0.4 % (0-4); Lymphocytes # 0.6 K/mcL (0.6-4.6); Lymphocytes % 12.1 %; Mean Corpuscular HGB Conc 32.5 g/dL (31.6-35.5); Mean Corpuscular Hemoglobin 28.3 pg (28.0-33.3); Mean Corpuscular Volume 87.1 fL (83.0-100.0); Mean Platelet Volume 10.8 fL (9.4-12.4); Monocytes # 0.4 K/mcL (0.0-1.3); Monocytes % 9.5 %; Neutrophils # 3.3 K/mcL (1.6-8.9); Platelet Count 166 K/mcL (140-400); Red Blood Count 3.18 M/mcL (4.19-5.50); Red Cell Distribution Width 16.9 % (11.5-14.5); Segmented Neutrophils % 72.2 %
[2016-05-12 05:50] LABS: Calcium 8.4 mg/dL (8.6-10.8)
[2016-05-12] MEDS: Metoprolol XL (24 HR) Succ 50 MG TAB.ER.24H PO SCH (07:54)
[2016-05-12] MEDS: Aspirin Enteric Coated 81 MG Tablet PO SCH (08:05)
[2016-05-12] MEDS: 0.9 % Sodium Chloride 1,000 ML IVC SCH (08:05)
[2016-05-12] MEDS: *HR* OxyCODONE Immed Rel 5 MG TABLET PO PRN ×2 (08:06→21:46)
[2016-05-12] MEDS: Insulin LISPRO 300 UNITS/3 ML VIAL SQ SCH ×3 (08:07→17:06)
--- NOTE | 2016-05-12 09:06 | Internal Med Progress Note ---
Date of Encounter: 05/12/16 Time of Encounter: 08:35 - Assessment and plan (1) Acute renal failure superimposed on stage 4 chronic kidney disease Current Visit: Yes Status: Acute (2) Hyperkalemia Current Visit: Yes Status: Acute (3) Anemia Current Visit: No Status: Chronic Qualifiers: Anemia type: other cause Other causes of anemia: chronic disease, kidney Qualified Code(s): N18.9 - Chronic kidney disease, unspecified; D63.1 - Anemia in chronic kidney disease (4) Congestive heart failure Current Visit: No Status: Acute Qualifiers: Congestive heart failure type: systolic Congestive heart failure chronicity : chronic Qualified Code(s): I50.22 - Chronic systolic (congestive) heart failure (5) Hyponatremia Current Visit: No Status: Acute (6) Decubitus ulcer Current Visit: No Status: Chronic Qualifiers: Pressure ulcer location: dorsum of foot Pressure ulcer stage: stage 1 Laterality: left Qualified Code(s): L89.891 - Pressure ulcer of other site, stage 1 (7) Decubitus ulcer of left heel, stage 2 Current Visit: No Status: Chronic (8) Diabetes Current Visit: No Status: Acute Qualifiers: Diabetes mellitus type: type 2 Diabetes mellitus complication status: with kidney complications Diabetes mellitus complication detail: with chronic kidney disease Diabetes mellitus mcc insulin use: with mcc use Chronic kidney disease stage: stage 4 (severe) Qualified Code(s): E11.22 - Type 2 diabetes mellitus with diabetic chronic kidney disease; N18.4 - Chronic kidney disease, stage 4 (severe); 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 Having good urine output. No nausea or vomiting. Has cough. No fever or chills reported overnight. - Constitutional Vitals: Temp Pulse Resp BP Pulse Ox 97.4 F L 72 16 93/58 96 05/12/16 07:24 05/12/16 07:24 05/12/16 07:24 05/12/16 07:24 05/12/16 08:18 General appearance: Present: cooperative, mild distress, A&O X 3, pleasant, no acute distress, answers questions appropriately Internal Medicine: Result - Labs CBC & Chem 7: 05/12/16 05:12 05/12/16 05:12 Labs: Short CBC 05/12/16 Range/Units 05:12 WBC 4.6 (4.3-11.1) K/mcL Hgb 9.0 L (12.9-16.9) g/dL Hct 27.7 L (37.5-50.1) % Plt Count 166 (140-400) K/mcL Neutrophils # 3.3 (1.6-8.9) K/mcL BMP 05/12/16 05:12 Sodium 132 L Potassium 5.0 H Chloride 99 Carbon Dioxide 20 BUN 72 H Creatinine 3.29 H Glucose 253 H Calcium 8.4 L Consult Discharge Plan - Plan Referrals: Jennie Washington, GROUND WORKER [Primary Care Provider] - - Attending Attestation This document has been at least partially created by [employer] recognition technology by Dr. Chawla. Errors in grammar, wording or other phrases may exist. If errors are found after the documentation is signed, they will be addressed individually in the addendum section of this document when appropriate.
[2016-05-12] MEDS ORDERED: Insulin LISPRO 300 UNITS/3 ML VIAL SQ SCH ×2 (11:43→11:44)
--- NOTE | 2016-05-12 15:44 | Discharge Summary ---
Date of Encounter: 05/12/16 Time of Encounter: 15:53 - Discharge Diagnosis (1) Acute renal failure superimposed on stage 4 chronic kidney disease Priority: Primary Status: Acute (2) Hyperkalemia Priority: Secondary Status: Acute (3) Anemia Priority: Secondary Status: Chronic Qualifiers: Anemia type: other cause Other causes of anemia: chronic disease, kidney Qualified Code(s): N18.9 - Chronic kidney disease, unspecified; D63.1 - Anemia in chronic kidney disease (4) Congestive heart failure Priority: Secondary Status: Chronic Qualifiers: Congestive heart failure type: systolic Congestive heart failure chronicity : chronic Qualified Code(s): I50.22 - Chronic systolic (congestive) heart failure (5) Hyponatremia Priority: Secondary Status: Chronic (6) Decubitus ulcer Priority: Secondary Status: Chronic Qualifiers: Pressure ulcer location: dorsum of foot Pressure ulcer stage: stage 1 Laterality: left Qualified Code(s): L89.891 - Pressure ulcer of other site, stage 1 (7) Decubitus ulcer of left heel, stage 2 Priority: Secondary Status: Chronic (8) Diabetes Priority: Secondary Status: Acute Qualifiers: Diabetes mellitus type: type 2 Diabetes mellitus complication status: with kidney complications Diabetes mellitus complication detail: with chronic kidney disease Diabetes mellitus custodial operations manager insulin use: with custodial operations manager use Chronic kidney disease stage: stage 4 (severe) Qualified Code(s): E11.22 - Type 2 diabetes mellitus with diabetic chronic kidney disease; N18.4 - Chronic kidney disease, stage 4 (severe); Z79.4 - steward/stewardess third (current) use of insulin - Discharge Medications Prescriptions: Clindamycin HCl [Cleocin HCl] 450 mg PO Q6H 7 Days Lactobacillus Acidophilus [Acidophilus] 1 each PO TID #30 tablet OxyCODONE Immed Rel [Roxicodone 5 MG] 10 mg PO Q6H PRN #20 tablet PRN Reason: Severe Pain Home Medications: Aspirin 81 mg PO DAILY 10/30/14 [History] Clopidogrel [Plavix] 75 mg PO DAILY 10/30/14 [History] Pravastatin Sodium 40 mg PO DAILY 10/30/14 [History] Tamsulosin [Flomax] 0.4 mg PO DAILY 10/30/14 [History] Ergocalciferol (VITAMIN D2) [Vitamin D2 (50,000 UNIT)] 50,000 unit PO MCGOWAN [History] Metoprolol XL (24 HR) Succ [Toprol XL] 25 mg PO DAILY 03/05/15 [History] Docusate [Colace] 100 mg PO BID PRN 12/01/15 [History] Nitroglycerin [Nitrostat] 0.4 mg SL DAILY PRN 12/01/15 [History] Temazepam [Restoril] 7.5 mg PO HS 12/01/15 [History] Epoetin Jonnie [Procrit] 2,000 unit IJ FR 01/13/16 [History] GuaiFENesin ER [Mucinex] 600 mg PO BID tbbp.12hr 02/11/16 [Rx] Ferrous Sulfate 325 mg PO BID 03/08/16 [History] Ondansetron HCl [Zofran] 4 mg PO Q6H PRN 03/08/16 [History] Ondansetron [Zofran] 4 mg IM Q6H PRN 03/08/16 [History] Promethazine [Phenergan] 12.5 mg PO Q4H PRN 03/08/16 [History] Ranitidine HCl [Zantac] 150 mg PO BID 03/08/16 [History] Insulin Glargine,Hum.rec.anlog [Lantus Solostar] 16 unit SQ HS 03/25/16 [History ] Insulin LISPRO [HumaLOG] 5 - 15 units SQ ACHS 03/25/16 [History] Ipratropium/Albuterol Neb [Duoneb] 3 ml IH Q6HR 03/25/16 [History] Polyethylene Glycol 3350 [MiraLAX] 17 gm PO DAILY 03/25/16 [History] GuaiFENesin/Codeine [ROBITUSSIN w/CODEINE] 5 ml PO Q6HR PRN 05/10/16 [History] Promethazine [Phenergan] 25 mg IV Q8HR PRN 05/10/16 [History] Clindamycin HCl [Cleocin HCl] 450 mg PO Q6H 7 Days 05/12/16 [Rx] Furosemide [Lasix] 40 mg PO BID #0 05/12/16 [Rx] Lactobacillus Acidophilus [Acidophilus] 1 each PO TID #30 tablet 05/12/16 [Rx] OxyCODONE Immed Rel [Roxicodone 5 MG] 10 mg PO Q6H PRN #20 tablet 05/12/16 [Rx] Allergies/Adverse Reactions: Allergies No Known Allergies Allergy (Verified 02/02/16 17:38) Date of admission: 05/11/16 10:28 Primary care physician: Jennie Washington CNP Discharging clinician: Mary Chawla Anticipated date of discharge: 05/14/16 - Patient Status Disposition: Home, Self-Care Condition: Good Functional capacity at discharge: uses cane/walker Overall status at discharge: patient is progressing back to baseline - Discharge Instructions Follow Up With: Jennie Washington CNP [Primary Care Provider] - 05/22/16 9:00 am (Please follow up as schedule!!!!) Valentino Rodriguez MD [Partnered Physician] - (in 2 weeks) - Diet and Activity Activity: as per physical therapy Diet: diabetic diet, low fat, low cholesterol, low salt diet, other (renal) Hospital course: Mr. Mendez is a 70 year old male patient with history of chronic kidney disease stage IV, chronic decubitus ulcers, pacemaker on his foot and heel, diabetes mellitus type 2, A. fib, COPD and right BKA was admitted here with severe hyperkalemia with worsening renal function. She had been placed on Bactrim presumably for his diabetic ulcers and this appears to have caused his renal dysfunction along with his use of Lasix. He was treated with gentle IV hydration. Patient has poor ejection fraction. His renal function has stabilized but his creatinine is still elevated above his baseline. He feels much better and is stable to be discharged. He will follow up with nephrology as outpatient. He will be placed on clindamycin to complete his antibiotic course. Patient also had an elevated CK level that has been improving. His potassium is still slightly elevated at 5 will receive Kayexalate today prior to discharge. He has stage II decubitus ulcers on his left foot which are chronic in nature and will be managed with local wound care. - Time Spent with Patient Total time spent providing and/or coordinating discharge services: Greater than 30 minutes (35 min) - Constitutional Vitals: Temp Pulse Resp BP Pulse Ox 98.3 F 73 16 91/58 95 05/12/16 11:39 05/12/16 11:39 05/12/16 11:39 05/12/16 11:39 05/12/16 11:39 General appearance: Present: cooperative, mild distress, A&O X 3, pleasant, no acute distress, answers questions appropriately - Respiratory Respiratory exam: Present: CTAB. Absent: accessory muscle use, rales, rhonchi, wheezes - Cardiovascular Cardiovascular exam: Present: RRR, +S1, +S2. Absent: diastolic murmur, gallop, rubs, systolic murmur - GI/Abdominal GI/Abdominal exam: Present: normal bowel sounds, soft, no peritoneal signs. Absent: distended, tenderness - Extremities Exam Extremities exam: Present: warm, radial pulses palpable and symetrical. Absent : calf tenderness, cyanotic, pedal edema Additional comments: Right-sided BKA. Left foot bandaged. - Neurological Exam Neurological exam: Present: alert, oriented X3, no focal deficits. Absent: facial droop, speech deficit - Skin Skin exam: Present: dry, intact
--- NOTE | 2016-05-12 15:45 | Nephrology Progress Note ---
Date of Encounter: 05/12/16 Time of Encounter: 15:45 - Assessment and Plan (1) Acute renal failure superimposed on stage 4 chronic kidney disease Current Visit: Yes Status: Acute Patient's creatinine continues to improve. The patient is insisting that he go home today. From a renal standpoint he is ok for discharge with close follow-up of his labs and a follow-up appointment with Dr. Moss in 3-5 weeks. I recommend checking a BMP next week. Ok to resume the furosemide at half the scheduled dose (from 80 to 40 mg bid). Once his renal function returns to normal this can be titrated back to his baseline creatinine dose. (2) Hyperkalemia Current Visit: No Status: Acute I recommend a low potassium diet. He will resume furosemide. Avoid potassium containing foods. I will give a dose of kayexalate today. (3) Hyponatremia Current Visit: No Status: Acute Asymptomatic and stable. Outpatient monitoring. Objective - Vital Signs Vital signs: Vital Signs Temp Pulse Resp BP Pulse Ox 05/12/16 11:39 98.3 F 73 16 91/58 95 05/12/16 08:18 96 05/12/16 07:24 97.4 F L 72 16 93/58 96 05/12/16 03:38 98.2 F 68 20 108/60 99 05/11/16 23:23 98.0 F 74 18 116/68 98 05/11/16 19:36 97.5 F L 74 18 104/65 98 Intake and Output 05/11/16 05/12/16 05/12/16 23:59 07:59 15:59 Intake Total 1840 / 1840 Output Total 1400 / 1400 0 / 0 Balance -1400 / -1400 1840 / 1840 Intake: IV Fluids 1000 / 1000 0.9 % Sodium Chloride 1, 1000 / 1000 000 ML @ 50 mls/hr IVC . Q20H KWABENA Rx#:[id number] Oral 840 / 840 Output: Urine 700 / 700 0 / 0 Urethral (Hall) 700 / 700 Catheter 700 / 700 Other: Meal Lunch Percent of Meal Consumed 60% Stool Size Large Stool Consistency formed Stool Color Brown Andi Colored # Bowel Movements 1 Weight 72.3 kg Blood Glucose* 375 267 296 Patient Weight 05/12/16 23:59 Weight 72.3 kg - General Appearance General appearance: Present: well-developed, well-nourished - Lab 05/12/16 05:12 05/12/16 05:12 Most recent lab results Calcium 8.4 mg/dL (8.6-10.8) L 05/12/16 05:12 Urine Creatinine 61 mg/dL 05/10/16 17:50 Urine Sodium 47.0 mEq/L 05/10/16 17:50 Consult Discharge Plan - Plan Referrals: Jennie Washington CNP [Primary Care Provider] - 05/22/16 9:00 am (Please follow up as schedule!!!!)
--- NOTE | 2016-05-12 16:03 | Physician Discharge Referral ---
ExtendedCare Referral Info Provider in Charge after Transfer: PCP Institutional Level of Care: Skilled - Diagnosis (1) Acute renal failure superimposed on stage 4 chronic kidney disease Priority: Primary Status: Acute (2) Hyperkalemia Priority: Secondary Status: Acute (3) Anemia Priority: Secondary Status: Chronic (4) Congestive heart failure Priority: Secondary Status: Acute (5) Hyponatremia Priority: Secondary Status: Acute (6) Decubitus ulcer Priority: Secondary Status: Chronic (7) Decubitus ulcer of left heel, stage 2 Priority: Secondary Status: Chronic (8) Diabetes Priority: Secondary Status: Acute Prognosis: Fair Aware of Diagnosis: Patient Aware of Prognosis: Patient - Transfer Medications Prescriptions: Clindamycin HCl [Cleocin HCl] 450 mg PO Q6H 7 Days Lactobacillus Acidophilus [Acidophilus] 1 each PO TID #30 tablet OxyCODONE Immed Rel [Roxicodone 5 MG] 10 mg PO Q6H PRN #20 tablet PRN Reason: Severe Pain Home Medications: Aspirin 81 mg PO DAILY 10/30/14 [History] Clopidogrel [Plavix] 75 mg PO DAILY 10/30/14 [History] Pravastatin Sodium 40 mg PO DAILY 10/30/14 [History] Tamsulosin [Flomax] 0.4 mg PO DAILY 10/30/14 [History] Ergocalciferol (VITAMIN D2) [Vitamin D2 (50,000 UNIT)] 50,000 unit PO MCGOWAN [History] Metoprolol XL (24 HR) Succ [Toprol XL] 25 mg PO DAILY 03/05/15 [History] Docusate [Colace] 100 mg PO BID PRN 12/01/15 [History] Nitroglycerin [Nitrostat] 0.4 mg SL DAILY PRN 12/01/15 [History] Temazepam [Restoril] 7.5 mg PO HS 12/01/15 [History] Epoetin Jonnie [Procrit] 2,000 unit IJ FR 01/13/16 [History] GuaiFENesin ER [Mucinex] 600 mg PO BID tbbp.12hr 02/11/16 [Rx] Ferrous Sulfate 325 mg PO BID 03/08/16 [History] Ondansetron HCl [Zofran] 4 mg PO Q6H PRN 03/08/16 [History] Ondansetron [Zofran] 4 mg IM Q6H PRN 03/08/16 [History] Promethazine [Phenergan] 12.5 mg PO Q4H PRN 03/08/16 [History] Ranitidine HCl [Zantac] 150 mg PO BID 03/08/16 [History] Insulin Glargine,Hum.rec.anlog [Lantus Solostar] 16 unit SQ HS 03/25/16 [History ] Insulin LISPRO [HumaLOG] 5 - 15 units SQ ACHS 03/25/16 [History] Ipratropium/Albuterol Neb [Duoneb] 3 ml IH Q6HR 03/25/16 [History] Polyethylene Glycol 3350 [MiraLAX] 17 gm PO DAILY 03/25/16 [History] GuaiFENesin/Codeine [ROBITUSSIN w/CODEINE] 5 ml PO Q6HR PRN 05/10/16 [History] Promethazine [Phenergan] 25 mg IV Q8HR PRN 05/10/16 [History] Clindamycin HCl [Cleocin HCl] 450 mg PO Q6H 7 Days 05/12/16 [Rx] Furosemide [Lasix] 40 mg PO BID #0 05/12/16 [Rx] Lactobacillus Acidophilus [Acidophilus] 1 each PO TID #30 tablet 05/12/16 [Rx] OxyCODONE Immed Rel [Roxicodone 5 MG] 10 mg PO Q6H PRN #20 tablet 05/12/16 [Rx] Allergies/Adverse Reactions: Allergies No Known Allergies Allergy (Verified 02/02/16 17:38) - Respiratory Orders Oxygen / L per min (Keep sats >90) Smoking Cessation: Smoking cessation has been advised. For more information, call the [place] Tobacco Quit Line at 8-859-CUFS-NOW. - Lab Orders Lab Orders: Other (include drug levels w/frequency) (BMP in 1 week) - Ancillary Orders May consult with Dentist, Time Clock Repairer, Certified Nurse Aide PRN - Advance Directives Code Status: Full Code - Mobility Orders Ambulate - Rehabiliation Orders Rehab Potential: Fair Rehab Orders: Evaluation for Physical Therapy, Evaluation for Occupational Therapy - Diet Orders No Added Salt (SHAY), Renal, Cardiac (and CCD) CERTIFICATION: I certify that the transfer of the above named patient to an Extended Care Facility is necessary for the continuing treatment of the diagnosis listed. The above information is true and accurate reflection of patient's current condition. Confidential - Redisclosure prohibited without a patient's written consent.
[2016-05-12] MEDS: Ondansetron 4 MG/2 ML VIAL IVP PRN (21:46)
[2016-05-12] MEDS: Temazepam 15 MG CAPSULE PO PRN (21:47)
[2016-05-13] MEDS: 0.9 % Sodium Chloride 1,000 ML IVC SCH (05:57)
[2016-05-13] MEDS: *HR* Heparin 5,000 UNIT/ML VIAL SQ SCH ×2 (06:00→17:14)
[2016-05-13] MEDS: Metoprolol XL (24 HR) Succ 50 MG TAB.ER.24H PO SCH (08:42)
[2016-05-13] MEDS: Insulin LISPRO 300 UNITS/3 ML VIAL SQ SCH ×3 (08:43→17:13)
[2016-05-13] MEDS: Aspirin Enteric Coated 81 MG Tablet PO SCH (08:44)
[2016-05-13] MEDS: *HR* OxyCODONE Immed Rel 5 MG TABLET PO PRN ×3 (08:56→23:45)
[2016-05-13] MEDS ORDERED: Insulin DETEMIR 100 UNIT/ML X5UNITS SQ SCH ×2 (09:00→15:29)
--- NOTE | 2016-05-13 09:59 | Nephrology Progress Note ---
Date of Encounter: 05/13/16 Time of Encounter: 09:56 - Assessment and Plan (1) Acute renal failure superimposed on stage 4 chronic kidney disease Current Visit: Yes Status: Acute Patient's creatinine continues to improve. The patient is insisting that he go home. From a renal standpoint he is ok for discharge with close follow-up of his labs and a follow-up appointment with Dr. Moss in 3-5 weeks. I recommend checking a BMP next week. Ok to resume the furosemide at half the scheduled dose (from 80 to 40 mg bid). Once his renal function returns to normal this can be titrated back to his baseline creatinine dose. (2) Hyperkalemia Current Visit: No Status: Acute I recommend a low potassium diet. He will resume furosemide. Avoid potassium containing foods. (3) Hyponatremia Current Visit: No Status: Acute Asymptomatic and stable. Outpatient monitoring. (4) Anemia Current Visit: No Status: Chronic Follow hemoglobin. Transfuse as needed. Check iron stores, vitamin b12 and folate. Qualifiers: Anemia type: iron deficiency Iron deficiency anemia type: unspecified iron deficiency Qualified Code(s): D50.9 - Iron deficiency anemia, unspecified (5) Vitamin D deficiency Current Visit: Yes Status: Acute Check vitamin D stores. (6) Hyperparathyroidism Current Visit: Yes Status: Acute Check phosphorus, calcium and PTH level. (7) Diabetes Current Visit: No Status: Acute Per the primary team. Qualifiers: Diabetes mellitus type: type 2 Diabetes mellitus complication status: with kidney complications Diabetes mellitus complication detail: with chronic kidney disease Diabetes mellitus bed bug exterminator insulin use: with senior care use Chronic kidney disease stage: stage 4 (severe) Qualified Code(s): E11.22 - Type 2 diabetes mellitus with diabetic chronic kidney disease; N18.4 - Chronic kidney disease, stage 4 (severe); Z79.4 - longterm (current) use of insulin Subjective Principal diagnosis: BRIAN/CKD Interval history: Patient without new complaint. He wants to go home, but after talking with the hospitalist there is a recommendation for him to go to rehab prior to going home. He denies chest pain or shortness of breath. He reports he is eating well. His ROS otherwise is stable. Objective - Vital Signs Vital signs: Vital Signs Temp Pulse Resp BP Pulse Ox 05/13/16 06:39 98.0 F 78 18 111/60 97 05/13/16 05:27 98.3 F 75 20 114/68 96 05/13/16 00:25 97.7 F 70 20 111/64 98 05/12/16 21:30 97.4 F L 76 22 115/63 98 05/12/16 16:27 97.3 F L 68 16 90/56 98 05/12/16 11:39 98.3 F 73 16 91/58 95 Intake and Output 05/12/16 05/13/16 05/13/16 23:59 07:59 15:59 Intake Total 1000 / 1000 360 / 360 Output Total 400 / 400 Balance 1000 / 1000 -40 / -40 Intake: IV Fluids 1000 / 1000 0.9 % Sodium Chloride 1, 1000 / 1000 000 ML @ 50 mls/hr IVC . Q20H KWABENA Rx#:[id number] Oral 360 / 360 Output: Catheter 400 / 400 Other: Meal Breakfast Percent of Meal Consumed 100% Blood Glucose* 154 274 - General Appearance General appearance: Present: well-developed, well-nourished EENT: Present: ATNC Neck: Present: supple Respiratory: Present: clear Cardiology: Present: edema (Left leg 1+ edema), regular rate, regular rhythm Gastrointestinal: Present: normoactive bowel sounds Integumentary: Present: warm and dry Neurologic: Present: alert and oriented x3 Musculoskeletal: Present: no cyanosis Psychiatric: Present: mood/affect appropriate (he is upset about not being able to go home. ) - Lab 05/12/16 05:12 05/12/16 05:12 Most recent lab results Calcium 8.4 mg/dL (8.6-10.8) L 05/12/16 05:12 Urine Creatinine 61 mg/dL 05/10/16 17:50 Urine Sodium 47.0 mEq/L 05/10/16 17:50 Consult Discharge Plan - Plan Referrals: Felix,Jennie Wang CNP [Primary Care Provider] - 05/22/16 9:00 am (Please follow up as schedule!!!!) Valentino Rodriguez MD [Partnered Physician] - (in 2 weeks) Prescriptions: Clindamycin HCl [Cleocin HCl] 450 mg PO Q6H 7 Days Lactobacillus Acidophilus [Acidophilus] 1 each PO TID #30 tablet OxyCODONE Immed Rel [Roxicodone 5 MG] 10 mg PO Q6H PRN #20 tablet PRN Reason: Severe Pain
[2016-05-13 15:14] LABS: Calcium 8.4 mg/dL (8.6-10.8); Potassium 4.6 mEq/L (3.5-4.5)
--- NOTE | 2016-05-13 15:27 | Internal Med Progress Note ---
Date of Encounter: 05/13/16 Time of Encounter: 09:00 - Assessment and plan (1) Acute renal failure superimposed on stage 4 chronic kidney disease Current Visit: Yes Status: Acute Assessment and plan: Renal function is improving. Restart Lasix at 40 mg by mouth twice daily. Clinically stable for discharge. Awaiting placement to skilled rehabilitation per physical therapy recommendations (2) Hyperkalemia Current Visit: Yes Status: Acute Assessment and plan: Improving (3) Anemia Current Visit: No Status: Chronic Assessment and plan: stable Qualifiers: Anemia type: other cause Other causes of anemia: chronic disease, kidney Qualified Code(s): N18.9 - Chronic kidney disease, unspecified; D63.1 - Anemia in chronic kidney disease (4) Congestive heart failure Current Visit: No Status: Chronic Qualifiers: Congestive heart failure type: systolic Congestive heart failure chronicity : chronic Qualified Code(s): I50.22 - Chronic systolic (congestive) heart failure (5) Hyponatremia Current Visit: No Status: Chronic (6) Decubitus ulcer Current Visit: No Status: Chronic Qualifiers: Pressure ulcer location: dorsum of foot Pressure ulcer stage: stage 1 Laterality: left Qualified Code(s): L89.891 - Pressure ulcer of other site, stage 1 (7) Decubitus ulcer of left heel, stage 2 Current Visit: No Status: Chronic (8) Diabetes Current Visit: No Status: Acute Assessment and plan: Uncontrolled. Will increase sliding scale coverage to high-dose correctional and increased insulin detemir to 15 units twice a day Qualifiers: Diabetes mellitus type: type 2 Diabetes mellitus complication status: with kidney complications Diabetes mellitus complication detail: with chronic kidney disease Diabetes mellitus continuous churn buttermaker insulin use: with skilled nursing use Chronic kidney disease stage: stage 4 (severe) Qualified Code(s): E11.22 - Type 2 diabetes mellitus with diabetic chronic kidney disease; N18.4 - Chronic kidney disease, stage 4 (severe); Z79.4 - intermediate designer (current) use of insulin - Subjective Interval history: The patient is awake and alert. Doing well overall. Denies any new complaints at this time. He was discharged yesterday but has not been approved for placement to skilled rehabilitation yet. - Constitutional Vitals: Temp Pulse Resp BP Pulse Ox 97.4 F L 85 17 118/76 94 L 05/13/16 12:03 05/13/16 12:03 05/13/16 12:03 05/13/16 12:03 05/13/16 12:03 General appearance: Present: cooperative, A&O X 3, pleasant, no acute distress, answers questions appropriately - Respiratory Respiratory exam: Present: CTAB. Absent: accessory muscle use, rales, rhonchi, wheezes - Cardiovascular Cardiovascular exam: Present: RRR, +S1, +S2. Absent: diastolic murmur, gallop, rubs, systolic murmur - GI/Abdominal GI/Abdominal exam: Present: normal bowel sounds, soft, no peritoneal signs. Absent: distended, tenderness - Extremities Exam Extremities exam: Present: warm, radial pulses palpable and symetrical. Absent : calf tenderness, cyanotic, pedal edema - Neurological Exam Neurological exam: Present: alert, oriented X3, no focal deficits. Absent: facial droop, speech deficit - Skin Skin exam: Present: dry, intact Internal Medicine: Result - Labs CBC & Chem 7: 05/12/16 05:12 05/13/16 14:52 Labs: BMP 05/13/16 14:52 Sodium 131 L Potassium 4.6 H Chloride 100 Carbon Dioxide 18 L BUN 66 H Creatinine 3.17 H Glucose 231 H Calcium 8.4 L Consult Discharge Plan - Plan Referrals: Jennie Washington CNP [Primary Care Provider] - 05/22/16 9:00 am (Please follow up as schedule!!!!) Valentino Rodriguez MD [Partnered Physician] - (in 2 weeks) Prescriptions: Clindamycin HCl [Cleocin HCl] 450 mg PO Q6H 7 Days Lactobacillus Acidophilus [Acidophilus] 1 each PO TID #30 tablet OxyCODONE Immed Rel [Roxicodone 5 MG] 10 mg PO Q6H PRN #20 tablet PRN Reason: Severe Pain - Attending Attestation This document has been at least partially created by QPD recognition technology by Dr. Chawla. Errors in grammar, wording or other phrases may exist. If errors are found after the documentation is signed, they will be addressed individually in the addendum section of this document when appropriate.
[2016-05-13] MEDS ORDERED: Insulin LISPRO 300 UNITS/3 ML VIAL SQ SCH (15:29)
[2016-05-13] MEDS: Furosemide 40 MG TABLET PO SCH (17:49)
[2016-05-13] MEDS: Temazepam 15 MG CAPSULE PO PRN (21:35)
[2016-05-14] MEDS: *HR* Heparin 5,000 UNIT/ML VIAL SQ SCH (05:18)
[2016-05-14 06:32] LABS: Albumin 2.9 g/dL (3.5-5.0); Calcium 8.8 mg/dL (8.6-10.8); Parathyroid Hormone Intact 56.6 pg/ml (8.5-72.5); Phosphorous 3.5 mg/dL (2.3-4.7); Potassium 4.5 mEq/L (3.5-4.5); Uric Acid 10.5 mg/dL (3.5-7.2)
[2016-05-14 06:51] VITALS: BP 113/70
[2016-05-14 07:06] LABS: Folate 8.8 ng/mL (7.0-31.4)
[2016-05-14] MEDS: Insulin LISPRO 300 UNITS/3 ML VIAL SQ SCH ×2 (08:30→12:00)
[2016-05-14] MEDS: Ondansetron 4 MG/2 ML VIAL IVP PRN (08:38)
[2016-05-14] MEDS: *HR* OxyCODONE Immed Rel 5 MG TABLET PO PRN ×2 (08:38→14:38)
[2016-05-14] MEDS: Furosemide 40 MG TABLET PO SCH (08:39)
[2016-05-14] MEDS: Aspirin Enteric Coated 81 MG Tablet PO SCH (08:39)
[2016-05-14] MEDS: Metoprolol XL (24 HR) Succ 50 MG TAB.ER.24H PO SCH (08:40)
[2016-05-14] MEDS ORDERED: Insulin DETEMIR 100 UNIT/ML X5UNITS SQ SCH (09:00)
--- NOTE | 2016-05-14 09:58 | Nephrology Progress Note ---
Date of Encounter: 05/14/16 Time of Encounter: 09:55 - Assessment and Plan (1) Acute renal failure superimposed on stage 4 chronic kidney disease Current Visit: Yes Status: Acute Patient's creatinine continues to improve. The patient is insisting that he go home. From a renal standpoint he is ok for discharge with close follow-up of his labs and a follow-up appointment with Dr. Moss in 5-7 weeks. I recommend checking a BMP next week. Ok to continue furosemide at half the scheduled dose (from 80 to 40 mg bid). Once his renal function returns to normal this can be titrated back to his baseline dose. (2) Hyperkalemia Current Visit: No Status: Acute I recommend a low potassium diet. He will resume furosemide. Avoid potassium containing foods. Resolved. (3) Hyponatremia Current Visit: No Status: Chronic Asymptomatic and stable. Outpatient monitoring. (4) Anemia Current Visit: No Status: Chronic Follow hemoglobin. Transfuse as needed. iron stores borderline low - continue oral iron supplementation. Vitamin b12 and folate are replete. Qualifiers: Anemia type: iron deficiency Iron deficiency anemia type: unspecified iron deficiency Qualified Code(s): D50.9 - Iron deficiency anemia, unspecified (5) Vitamin D deficiency Current Visit: Yes Status: Acute Vitamin D replacement ordered. (6) Hyperparathyroidism Current Visit: Yes Status: Acute Phosphorus, PTH and calcium are normal. (7) Diabetes Current Visit: No Status: Acute Per the primary team. Qualifiers: Diabetes mellitus type: type 2 Diabetes mellitus complication status: with kidney complications Diabetes mellitus complication detail: with chronic kidney disease Diabetes mellitus long-term insulin use: with roll slicing machine tender use Chronic kidney disease stage: stage 4 (severe) Qualified Code(s): E11.22 - Type 2 diabetes mellitus with diabetic chronic kidney disease; N18.4 - Chronic kidney disease, stage 4 (severe); Z79.4 - tempering kiln tender (current) use of insulin (8) Hyperuricemia Current Visit: Yes Status: Acute Allopurinol ordered. (9) Nausea Current Visit: No Status: Acute Defer to primary team. No emesis at the time of my evaluation. Subjective Principal diagnosis: BRIAN/CKD Interval history: Patient complaining of an upset stomach and nausea this morning. He is still insisting that he is ready to leave. No other complaint His ROS otherwise is stable. Objective - Vital Signs Vital signs: Vital Signs Temp Pulse Resp BP Pulse Ox 05/14/16 06:46 97.4 F L 71 17 113/70 100 05/14/16 05:05 97.6 F 85 22 130/74 96 05/13/16 23:15 97.6 F 64 22 101/57 98 05/13/16 20:20 98.3 F 70 20 105/60 99 05/13/16 16:36 98.3 F 72 19 152/80 96 05/13/16 12:03 97.4 F L 85 17 118/76 94 L Intake and Output 05/13/16 05/14/16 05/14/16 23:59 07:59 15:59 Intake Total 480 / 480 Output Total 300 / 300 Balance -300 / -300 480 / 480 Intake: Oral 480 / 480 Output: Catheter 300 / 300 Other: Meal Breakfast Percent of Meal Consumed 100% Blood Glucose* 193 85 - General Appearance General appearance: Present: well-developed, well-nourished, chronically ill EENT: Present: ATNC Neck: Present: supple Additional Comments: respirations are unlabored. Cardiology: Present: regular rate Neurologic: Present: alert and oriented x3 Psychiatric: Present: mood/affect appropriate - Lab 05/12/16 05:12 05/14/16 05:12 Most recent lab results Calcium 8.8 mg/dL (8.6-10.8) 05/14/16 05:12 Phosphorus 3.5 mg/dL (2.3-4.7) 05/14/16 05:12 Urine Creatinine 61 mg/dL 05/10/16 17:50 Urine Sodium 47.0 mEq/L 05/10/16 17:50 Consult Discharge Plan - Plan Referrals: Jennie Washington CNP [Primary Care Provider] - 05/22/16 9:00 am (Please follow up as schedule!!!!) Valentino Rodriguez MD [Partnered Physician] - (in 2 weeks) Prescriptions: Clindamycin HCl [Cleocin HCl] 450 mg PO Q6H 7 Days Lactobacillus Acidophilus [Acidophilus] 1 each PO TID #30 tablet OxyCODONE Immed Rel [Roxicodone 5 MG] 10 mg PO Q6H PRN #20 tablet PRN Reason: Severe Pain
--- NOTE | 2016-05-14 10:54 | Physician Discharge Referral ---
Home Health/Hosp Referral Info Transfer to: Home Health Provider in Charge Post Discharge: PCP - Diagnosis (1) Acute renal failure superimposed on stage 4 chronic kidney disease Priority: Primary Status: Acute (2) Hyperkalemia Priority: Secondary Status: Acute (3) Anemia Priority: Secondary Status: Chronic (4) Congestive heart failure Priority: Secondary Status: Chronic (5) Hyponatremia Priority: Secondary Status: Chronic (6) Decubitus ulcer Priority: Secondary Status: Chronic (7) Decubitus ulcer of left heel, stage 2 Priority: Secondary Status: Chronic (8) Diabetes Priority: Secondary Status: Acute - Respiratory Orders Smoking Cessation: Smoking cessation has been advised. For more information, call the [place] Tobacco Quit Line at 6-845-BBKN-NOW. - Diet/Nutrition Diet/Nutrition Orders: Renal, Cardiac (and diabetic) - Activity Activity Orders: Walker - Services Needed Following services are medically necessary services: Nursing, Physical Therapy, Occupational Therapy - Transfer Medications Prescriptions: Clindamycin HCl [Cleocin HCl] 450 mg PO Q6H 7 Days Lactobacillus Acidophilus [Acidophilus] 1 each PO TID #30 tablet OxyCODONE Immed Rel [Roxicodone 5 MG] 10 mg PO Q6H PRN #20 tablet PRN Reason: Severe Pain Home Medications: Aspirin 81 mg PO DAILY 10/30/14 [History] Clopidogrel [Plavix] 75 mg PO DAILY 10/30/14 [History] Pravastatin Sodium 40 mg PO DAILY 10/30/14 [History] Tamsulosin [Flomax] 0.4 mg PO DAILY 10/30/14 [History] Ergocalciferol (VITAMIN D2) [Vitamin D2 (50,000 UNIT)] 50,000 unit PO MCGOWAN [History] Metoprolol XL (24 HR) Succ [Toprol XL] 25 mg PO DAILY 03/05/15 [History] Docusate [Colace] 100 mg PO BID PRN 12/01/15 [History] Nitroglycerin [Nitrostat] 0.4 mg SL DAILY PRN 12/01/15 [History] Temazepam [Restoril] 7.5 mg PO HS 12/01/15 [History] Epoetin Jonnie [Procrit] 2,000 unit IJ FR 01/13/16 [History] GuaiFENesin ER [Mucinex] 600 mg PO BID tbbp.12hr 02/11/16 [Rx] Ferrous Sulfate 325 mg PO BID 03/08/16 [History] Ondansetron HCl [Zofran] 4 mg PO Q6H PRN 03/08/16 [History] Ondansetron [Zofran] 4 mg IM Q6H PRN 03/08/16 [History] Promethazine [Phenergan] 12.5 mg PO Q4H PRN 03/08/16 [History] Ranitidine HCl [Zantac] 150 mg PO BID 03/08/16 [History] Insulin Glargine,Hum.rec.anlog [Lantus Solostar] 16 unit SQ HS 03/25/16 [History ] Insulin LISPRO [HumaLOG] 5 - 15 units SQ ACHS 03/25/16 [History] Ipratropium/Albuterol Neb [Duoneb] 3 ml IH Q6HR 03/25/16 [History] Polyethylene Glycol 3350 [MiraLAX] 17 gm PO DAILY 03/25/16 [History] GuaiFENesin/Codeine [ROBITUSSIN w/CODEINE] 5 ml PO Q6HR PRN 05/10/16 [History] Promethazine [Phenergan] 25 mg IV Q8HR PRN 05/10/16 [History] Clindamycin HCl [Cleocin HCl] 450 mg PO Q6H 7 Days 05/12/16 [Rx] Furosemide [Lasix] 40 mg PO BID #0 05/12/16 [Rx] Lactobacillus Acidophilus [Acidophilus] 1 each PO TID #30 tablet 05/12/16 [Rx] OxyCODONE Immed Rel [Roxicodone 5 MG] 10 mg PO Q6H PRN #20 tablet 05/12/16 [Rx] Allergies/Adverse Reactions: Allergies No Known Allergies Allergy (Verified 02/02/16 17:38) Certification: Further, I certify that my clinical findings support that this patient is homebound (i.e. absences from home require considerable and taxing effort and are for medical reasons or orthodoxy services or infrequently or short duration when for other reasons) because: Homebound Reason: Patient requires assistance of a person or device to safely leave home Attestation: My signature below is to certify that this patient is under my care and that I, or nurse practitioner, or a physician's clinic assistant working with me, has a face-to -face encounter with this patient.
--- NOTE | 2016-05-14 13:17 | Internal Med Progress Note ---
Date of Encounter: 05/14/16 Time of Encounter: 11:15 - Assessment and plan (1) Acute renal failure superimposed on stage 4 chronic kidney disease Current Visit: Yes Status: Acute Assessment and plan: Stable renal function. Follow up with nephrology as outpatient (2) Hyperkalemia Current Visit: Yes Status: Resolved (3) Anemia Current Visit: No Status: Chronic Assessment and plan: Chronic and stable. Qualifiers: Anemia type: other cause Other causes of anemia: chronic disease, kidney Qualified Code(s): N18.9 - Chronic kidney disease, unspecified; D63.1 - Anemia in chronic kidney disease (4) Congestive heart failure Current Visit: No Status: Chronic Assessment and plan: Continue current medical management Qualifiers: Congestive heart failure type: systolic Congestive heart failure chronicity : chronic Qualified Code(s): I50.22 - Chronic systolic (congestive) heart failure (5) Hyponatremia Current Visit: No Status: Chronic Assessment and plan: Sodium levels remained stable. (6) Decubitus ulcer Current Visit: No Status: Chronic Assessment and plan: Continue topical care. Will arrange follow-up with home health. Qualifiers: Pressure ulcer location: dorsum of foot Pressure ulcer stage: stage 1 Laterality: left Qualified Code(s): L89.891 - Pressure ulcer of other site, stage 1 (7) Decubitus ulcer of left heel, stage 2 Current Visit: No Status: Chronic (8) Diabetes Current Visit: No Status: Acute Assessment and plan: With hypoglycemia this morning. Blood sugars have since improved. Patient appears to be a brittle diabetic. Will decrease long-acting insulin regimen. He will be discharged today. He will be on once daily long-acting insulin regimen along with short-acting lispro before meals. 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 He is eager to go home today. He does not want to go to rehabilitation. Denies any other complaints at this time - Constitutional Vitals: Temp Pulse Resp BP Pulse Ox 97.4 F L 71 17 113/70 100 05/14/16 06:46 05/14/16 06:46 05/14/16 06:46 05/14/16 06:46 05/14/16 06:46 General appearance: Present: cooperative, mild distress, A&O X 3, pleasant, no acute distress, answers questions appropriately - Respiratory Respiratory exam: Present: CTAB. Absent: accessory muscle use, rales, rhonchi, wheezes - Cardiovascular Cardiovascular exam: Present: RRR, +S1, +S2. Absent: diastolic murmur, gallop, rubs, systolic murmur - GI/Abdominal GI/Abdominal exam: Present: normal bowel sounds, soft, no peritoneal signs. Absent: distended, tenderness - Extremities Exam Extremities exam: Present: warm, radial pulses palpable and symetrical. Absent : calf tenderness, cyanotic, pedal edema Internal Medicine: Result - Labs CBC & Chem 7: 05/12/16 05:12 05/14/16 05:12 Labs: BMP 05/13/16 05/14/16 14:52 05:12 Sodium 131 L 133 L Potassium 4.6 H 4.5 Chloride 100 101 Carbon Dioxide 18 L 21 BUN 66 H 66 H Creatinine 3.17 H 3.07 H Glucose 231 H 25 L* Calcium 8.4 L 8.8 Liver Function 05/14/16 Range/Units 05:12 Albumin 2.9 L (3.5-5.0) g/dL Consult Discharge Plan - Plan Referrals: Jennie Washington CNP [Primary Care Provider] - 05/22/16 9:00 am (Please follow up as schedule!!!!) Valentino Rodriguez MD [Partnered Physician] - (in 2 weeks) Prescriptions: Clindamycin HCl [Cleocin HCl] 450 mg PO Q6H 7 Days Lactobacillus Acidophilus [Acidophilus] 1 each PO TID #30 tablet OxyCODONE Immed Rel [Roxicodone 5 MG] 10 mg PO Q6H PRN #20 tablet PRN Reason: Severe Pain - Attending Attestation This document has been at least partially created by [employer] recognition technology by Dr. Chawla. Errors in grammar, wording or other phrases may exist. If errors are found after the documentation is signed, they will be addressed individually in the addendum section of this document when appropriate.
== END 2016-05-14 15:18 | disposition home or self-care (01) | DRG 683 ==
LOC: EMEROO 09:11 → 2ANU 09:11
PROVIDERS: ADMIT Internal Medicine; ATTEND Internal Medicine

== ENCOUNTER 2016-05-18 16:50 | Inpatient (IN) ==
[2016-05-18] MEDS ORDERED: Ipratropium/Albuterol Neb 3 ML IH ONE (17:19)
[2016-05-18] MEDS ORDERED: methylPREDNISolone 125 MG/2 ML VIAL IVP ONE (17:19)
[2016-05-18 17:41] LABS: Basophils # 0.1 K/mcL (0.0-0.2); Basophils % 0.8 %; Eosinophils # 0.2 K/mcL (0.0-0.6); Hematocrit 31.1 % (37.5-50.1); Hemoglobin 9.8 g/dL (12.9-16.9); Immature Granulocytes % 0.7 % (0-4); Lymphocytes # 0.6 K/mcL (0.6-4.6); Lymphocytes % 9.8 %; Mean Corpuscular HGB Conc 31.5 g/dL (31.6-35.5); Mean Corpuscular Hemoglobin 27.8 pg (28.0-33.3); Mean Corpuscular Volume 88.1 fL (83.0-100.0); Mean Platelet Volume 9.8 fL (9.4-12.4); Monocytes # 0.5 K/mcL (0.0-1.3); Monocytes % 7.7 %; Neutrophils # 4.7 K/mcL (1.6-8.9); Platelet Count 190 K/mcL (140-400); Red Blood Count 3.53 M/mcL (4.19-5.50); Red Cell Distribution Width 18.4 % (11.5-14.5)
[2016-05-18 17:53] LABS: Calcium 9.2 mg/dL (8.6-10.8); Potassium 5.3 mEq/L (3.5-4.5)
--- NOTE | 2016-05-18 18:16 | Emergency Department Note ---
Disposition Clinical Impression: Hyperkalemia, Difficulty breathing Disposition: Admitted As Inpatient Condition: Fair General Adult HPI - General Chief complaint: ED Shortness of Breath/Dyspnea Stated complaint: ALEX from Nephrology Time Seen by Provider: 05/18/16 17:02 Source: patient Limitations: no limitations Nursing Notes Reviewed: Yes Vital Signs Reviewed: Yes - History of Present Illness HPI Narrative: Mr. Mendez, a 70yo male, presents from his [employer] office by POV with chief complaint difficulty breathing. Onset 4 days ago and progressive. Patient has associated weight gain and increased in generalized edema. Past medical history of COPD, CAD stage IV, chronic anemia, congestive heart failure , chronic hyponatremia, diabetes type 2 with peripheral neuropathy and peripheral artery disease. Patient was recently discharged from this facility 5 days ago for the same complaint. States that he was discharged with adjustment of his medications. His primary care physician, Dr. Marquez, visited him home on Sunday and increased his Lasix to 80 mg twice a day. States this is not helped he continues to gain weight. Patient also notes chronic decubitus ulcers on his left lower extremity which are currently bleeding and pain managed by outpatient wound care. Pain Scale: 6 - Related Data Home Medications Medication Instructions Recorded Confirmed Aspirin 81 mg PO DAILY 10/30/14 05/18/16 Clopidogrel [Plavix] 75 mg PO DAILY 10/30/14 05/18/16 Pravastatin Sodium 40 mg PO DAILY 10/30/14 05/18/16 Tamsulosin [Flomax] 0.4 mg PO DAILY 10/30/14 05/18/16 Ergocalciferol (VITAMIN D2) 50,000 unit PO MCGOWAN 03/05/15 05/18/16 [Vitamin D2 (50,000 UNIT)] Metoprolol XL (24 HR) Succ [Toprol 25 mg PO DAILY 03/05/15 05/18/16 XL] Docusate [Colace] 100 mg PO BID PRN 12/01/15 05/18/16 Nitroglycerin [Nitrostat] 0.4 mg SL DAILY PRN 12/01/15 05/18/16 Temazepam [Restoril] 7.5 mg PO HS 12/01/15 05/18/16 Epoetin Jonnie [Procrit] 2,000 unit IJ FR 01/13/16 05/18/16 Ferrous Sulfate 325 mg PO BID 03/08/16 05/18/16 Ondansetron HCl [Zofran] 4 mg PO Q6H PRN 03/08/16 05/18/16 Ondansetron [Zofran] 4 mg IM Q6H PRN 03/08/16 05/18/16 Promethazine [Phenergan] 12.5 mg PO Q4H PRN 03/08/16 05/18/16 Ranitidine HCl [Zantac] 150 mg PO BID 03/08/16 05/18/16 Insulin Glargine,Hum.rec.anlog 16 unit SQ HS 03/25/16 05/18/16 [Lantus Solostar] Insulin LISPRO [HumaLOG] 5 - 15 units SQ ACHS 03/25/16 05/18/16 Ipratropium/Albuterol Neb [Duoneb] 3 ml IH Q6HR 03/25/16 05/18/16 Polyethylene Glycol 3350 [MiraLAX] 17 gm PO DAILY 03/25/16 05/18/16 GuaiFENesin/Codeine [ROBITUSSIN 5 ml PO Q6HR PRN 05/10/16 05/18/16 w/CODEINE] Promethazine [Phenergan] 25 mg IV Q8HR PRN 05/10/16 05/18/16 Furosemide [Lasix] 80 mg PO BID 05/18/16 05/18/16 Previous Rx's Medication Instructions Recorded GuaiFENesin ER [Mucinex] 600 mg PO BID tbbp.12hr 02/11/16 Clindamycin HCl [Cleocin HCl] 450 mg PO Q6H 7 Days 05/12/16 Lactobacillus Acidophilus 1 each PO TID #30 tablet 05/12/16 [Acidophilus] OxyCODONE Immed Rel [Roxicodone 5 10 mg PO Q6H PRN #20 tablet 05/12/16 MG] Allergies Allergy/AdvReac Type Severity Reaction Status Date / Time No Known Allergies Allergy Verified 05/18/16 16:53 All systems ED: reviewed and negative except as stated. Constitutional: Reports: weight change. Denies: fever, chills, weakness Cardiovascular: Reports: dyspnea on exertion. Denies: chest pain, palpitations , syncope Respiratory: Reports: dyspnea. Denies: cough, wheezes, hemoptysis, stridor Gastrointestinal: Denies: abdominal pain, nausea, vomiting, diarrhea, constipation Genitourinary: Denies: urgency, dysuria, frequency Musculoskeletal: Denies: back pain, neck pain Integumentary: Reports: other (Generalized swelling.) Past Medical History - Past Medical History Medical history: Reports: arthritis, atrial fibrillation, cardiomyopathy, CHF, COPD, coronary artery disease, DVT, diabetes, GERD, GI bleed, hyperlipidemia, hypertension, myocardial infarction, osteoporosis, peripheral artery disease, renal disease, venous stasis Surgical history: Reports: angioplasty/stent, arthroscopy, cataract, coronary bypass (CABG), LE Bypass, LE vascular intervention, orthopedic, other, pacemaker /AICD, vascular surgery, other, AICD, pacemaker Psychiatric history: Reports: no psych history - Social History Smoking Status: Former smoker Smokeless Tobacco Status: No Alcohol use: Reports: none Drug use: Reports: none Physical Exam General: Patient is alert, oriented, and in mild respiratory distress. He prefers sitting upright to plain in a reclined position. HEENT: No facial asymmetry. Head is normocephalic and atraumatic. PERRLA, EOMI. Nasal turbinates moist and pink. Posterior pharynx without exudates or cobblestoning. Trachea midline, no palpable thyroid nodules, no thyromegaly. Cardiovascular: Heart regular rate and rhythm without clicks, rubs, gallops, or murmurs. No JVD. PMI nondisplaced. 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 1+ pitting edema patient's upper extremities bilaterally with extension into the dorsum of his hand. Respiratory: Symmetric chest rise with poor excursion and respiratory effort. Bilateral breath sounds without wheezing, crackles, or rhonchi. Abdomen: Bowel sounds present normoactive x-4 quadrants. Abdomen is soft, nondistended, and nontender. Psych: Patient's affect is appropriate for situation. - General Limitations: no limitations General appearance: alert, in no apparent distress Course Course Narrative: Patient has multiple comorbidities. He was usually discharged with acute on CKD stage IV. He is slightly anemic but this is within his baseline given his CK-MB. Patient is hyponatremic and hyperkalemic. His creatinine is elevated at 2.37 however this is slightly better than his baseline. Troponin is elevated at 0.05 however this is within his baseline and expected given his CK D stage IV. Patient's CXR concerning for worsening pleural effusion. He does not wear some nausea home. Without the oxygen here, he desats to 88%. Chest X-Ray 05/18/16 17:19 IMPRESSION: 1. Increased bilateral pleural effusions with increased bibasilar airspace opacities likely representing atelectasis, more severe on the left. 2. Pulmonary vascular congestion and mild cardiomegaly without findings of overt pulmonary edema. 3. Unchanged focal airspace opacity in the mid right lung, corresponding with right upper lobe opacity noted on CT, most likely infectious. Recommend follow-up to resolution. D/ / Pierce Lanza MD / Pierce Lanza MD Interpreting Provider: Pierce Lanza MD Spoke the patient and recommended admission for hyperkalemia and difficulty breathing secondary to worsening pleural effusion. Spoke with Dr. Hdez who agreed to accept the patient for admission. Vital Signs Temperature 97.6 F 05/18/16 16:54 Pulse Rate 96 05/18/16 16:54 Respiratory Rate 18 05/18/16 16:54 Blood Pressure 98/64 05/18/16 16:54 O2 Sat by Pulse Oximetry 96 05/18/16 16:54 Temperature 97.6 F 05/18/16 16:54 Pulse Rate 97 05/18/16 18:35 Respiratory Rate 20 05/18/16 19:47 Blood Pressure 114/68 05/18/16 19:47 O2 Sat by Pulse Oximetry 97 05/18/16 18:35 Oxygen Delivery Oxygen Delivery Nasal Cannula Medical Decision Making - Lab Data Result diagrams: 05/18/16 17:30 05/18/16 17:30 Lab Results 05/18/16 05/18/16 05/18/16 Range/Units 17:30 17:30 17:30 WBC 6.0 (4.3-11.1) K/mcL RBC 3.53 L (4.19-5.50) M/mcL Hgb 9.8 L (12.9-16.9) g/dL Hct 31.1 L (37.5-50.1) % MCV 88.1 (83.0-100.0) fL MCH 27.8 L (28.0-33.3) pg MCHC 31.5 L (31.6-35.5) g/dL RDW 18.4 H (11.5-14.5) % Plt Count 190 (140-400) K/mcL MPV 9.8 (9.4-12.4) fL Immature Gran % 0.7 (0-4) % Seg Neutrophils % 78.0 % Lymphocytes % 9.8 % Monocytes % 7.7 % Eosinophils % 3.0 % Basophils % 0.8 % Neutrophils # 4.7 (1.6-8.9) K/mcL Lymphocytes # 0.6 (0.6-4.6) K/mcL Monocytes # 0.5 (0.0-1.3) K/mcL Eosinophils # 0.2 (0.0-0.6) K/mcL Basophils # 0.1 (0.0-0.2) K/mcL Sodium 132 L (136-145) mEq/L Potassium 5.3 H (3.5-4.5) mEq/L Chloride 99 (98-109) mEq/L Carbon Dioxide 21 (19-29) mEq/L BUN 60 H (8-26) mg/dL Creatinine 2.37 H (0.72-1.25) mg/dL Est GFR ( Amer) 33 L (> 60) Est GFR (Non-Af Amer) 27 L (> 60) BUN/Creatinine Ratio 25 (6-26) Glucose 226 H (70-99) mg/dL Calculated Osmolality 298 (280-300) Calcium 9.2 (8.6-10.8) mg/dL Troponin I 0.05 H* (0-0.03) ng/mL B-Natriuretic Peptide (0-100) pg/mL Urine Color (Yellow) Urine Clarity (Clear) Urine pH (5.0-8.0) pH Units Ur Specific [place] (1.010-1.025) Urine Protein (Neg-Trace) mg/dL Urine Glucose (UA) (Normal) mg/dL Urine Ketones (Negative) mg/dL Urine Blood (Negative) Urine Nitrite (Negative) Urine Bilirubin (Negative) Urine Urobilinogen (Normal) mg/dL Ur Leukocyte Esterase (Negative) Ur Culture Indicated? (NO) 02/23/17 02/23/17 Range/Units 17:30 18:24 WBC (4.3-11.1) K/mcL RBC (4.19-5.50) M/mcL Hgb (12.9-16.9) g/dL Hct (37.5-50.1) % MCV (83.0-100.0) fL MCH (28.0-33.3) pg MCHC (31.6-35.5) g/dL RDW (11.5-14.5) % Plt Count (140-400) K/mcL MPV (9.4-12.4) fL Immature Gran % (0-4) % Seg Neutrophils % % Lymphocytes % % Monocytes % % Eosinophils % % Basophils % % Neutrophils # (1.6-8.9) K/mcL Lymphocytes # (0.6-4.6) K/mcL Monocytes # (0.0-1.3) K/mcL Eosinophils # (0.0-0.6) K/mcL Basophils # (0.0-0.2) K/mcL Sodium (136-145) mEq/L Potassium (3.5-4.5) mEq/L Chloride (98-109) mEq/L Carbon Dioxide (19-29) mEq/L BUN (8-26) mg/dL Creatinine (0.72-1.25) mg/dL Est GFR ( Amer) (> 60) Est GFR (Non-Af Amer) (> 60) BUN/Creatinine Ratio (6-26) Glucose (70-99) mg/dL Calculated Osmolality (280-300) Calcium (8.6-10.8) mg/dL Troponin I (0-0.03) ng/mL B-Natriuretic Peptide 2823 H (0-100) pg/mL Urine Color Yellow (Yellow) Urine Clarity Clear (Clear) Urine pH 6.5 (5.0-8.0) pH Units Ur Specific [place] 1.012 (1.010-1.025) Urine Protein Negative (Neg-Trace) mg/dL Urine Glucose (UA) Normal (Normal) mg/dL Urine Ketones Negative (Negative) mg/dL Urine Blood Negative (Negative) Urine Nitrite Negative (Negative) Urine Bilirubin Negative (Negative) Urine Urobilinogen Normal (Normal) mg/dL Ur Leukocyte Esterase Negative (Negative) Ur Culture Indicated? NO (NO) Attestation Statement - Attestation Attestation: Dr. Oropeza note: Pt is seen in conjunction with resident Dr Gary; please see his charting for complete documentation. I agree with the patient's treatment and disposition and treatment [id number] time with the patient. Patient is noted to be hyperkalemic even after 2 days of increased Lasix. Increased work of breathing. Will need to be admitted for his hyperkalemia and his respiratory condition. X-ray results and chemistry results reviewed
[2016-05-18] MEDS ORDERED: *HR* Morphine 2 MG/ML SYRINGE IVP ONE (18:27)
[2016-05-18 18:35] LABS: Bilirubin,Urine Negative (Negative); Blood,Urine Negative (Negative); Clarity,Urine Clear (Clear); Color,Urine Yellow (Yellow); Glucose,Urine (UA) Normal (Normal); Ketones,Urine Negative (Negative); Leukocyte Esterase,Urine Negative (Negative); Nitrite,Urine Negative (Negative); PH,Urine 6.5 pH Units (5.0-8.0); Protein,Urine Negative (Neg-Trace); Specific Gravity,Urine 1.012 (1.010-1.025); Urobilinogen,Urine Normal (Normal)
[2016-05-18] MEDS ORDERED: Naloxone 0.4 MG/ML INJ IVP PRN (20:02)
[2016-05-18] MEDS ORDERED: *HR* OxyCODONE Immed Rel 5 MG TABLET PO PRN (20:07)
[2016-05-18] MEDS ORDERED: Nitroglycerin 0.4 MG TAB.SUBL SL PRN (20:07)
[2016-05-18] MEDS ORDERED: Furosemide 40 MG/4 ML VIAL IVP ONE (20:09)
[2016-05-18] MEDS ORDERED: Dextrose Gel 15 GM PO PRN ×2 (20:13)
[2016-05-18] MEDS ORDERED: D5% in Water 1,000 ML IV PRN (20:13)
--- NOTE | 2016-05-18 20:42 | Internal Med History&Physical ---
<Roxanna Rivera - Last Filed: 05/18/16 22:47> Date of Encounter: 05/18/16 Time of Encounter: 20:37 Assessment and Plan (1) Acute on chronic systolic (congestive) heart failure Current visit: No Status: Acute Patient's lasix dose was decreased to 40mg BID due to Acute on chronic kidney disease. Now with increased SOB, swelling. CXR consistent with fluid overload. Echocardiogram 12/03/15 showed EF of 15-20%, Severe global and Left ventricular systolic dysfunction. IVP lasix 80mg now 40mg Lasix IVP BID daily weights strict Intake/output fluid restriction to 1L daily (2) Acute and chronic respiratory failure with hypoxia Current visit: No Status: Acute Patient with history of COPD and CHF. Patient with increasing shortness of breath over the last several days, now requiring 2L of Oxygen by NC in order to maintain saturations > 92%. Was sating 87% on room air. CXR shows increased bilateral pleural effusions with increased bibasilar airspace opacities pulmonary vascular congestion and mild cardiomegaly. Hypoxia and respiratory failure likely due to CHF exacerbation. 80mg IVP lasix now. 40mg IVP lasix BID titrate O2 to maintain O2 saturation > 92% Respiratory therapy consulted for possible bipap overnight. (3) Chronic kidney disease Current visit: No Status: Acute Patient has stage 3 Chronic kidney disease. He follows with Dr. Rodriguez as an outpatient. Kidney function is consistent with baseline with BUN of 60 and Cr of 2.37. Nephrology consult ordered. Qualifiers: Chronic kidney disease stage: stage 3 (moderate) Qualified Code(s): N18.3 - Chronic kidney disease, stage 3 (moderate) (4) Hyperkalemia Current visit: No Status: Acute Potassium of 5.3 Kayexalate 30g PO once Recheck chemistry in the morning. (5) Type 1 diabetes mellitus Current visit: No Status: Acute Well controlled as evidenced by Hgb A1c of 6.7% on 05/10/16 Diabetic, heart healthy diet check blood sugars ACHS Continue basal dose of insulin with 16u Levemir HS Medium dose sliding scale correction dose insulin hypoglycemic protocol. Qualifiers: Diabetes mellitus complication status: with circulatory complication Diabetes mellitus complication detail: with other circulatory complications Qualified Code(s): E10.59 - Type 1 diabetes mellitus with other circulatory complications (6) DVT prophylaxis Current visit: No Status: Acute Up to chair BID Heparin 5,000u SQ TID (7) Chronic obstructive pulmonary disease Current visit: No Status: Chronic Patient reporting increased shortness of breath and productive cough. CXR shows increased bilateral pleural effusions and increased bibasilar airspace opacities, pulmonary vascular congestion and mild cardiomegaly, unchanged focal airspace opacity in RUL. Patient is afebrile and WBC is normal. His shortness of breath is more likely due to CHF exacerbation, but may consider treatment for COPD exacerbation. Qualifiers: COPD type: unspecified COPD Qualified Code(s): J44.9 - Chronic obstructive pulmonary disease, unspecified Internal Medicine - H&P: HPI Chief complaint: shortness of breath Admitted From: Emergency Dept Plans for Post Hospital Care: Home History of present illness: Mr. Mendez is a 70 year old male with hypertension, hyperlipidemia, type 1 diabetes, coronary artery disease status post CABG, peripheral vascular disease status post intervention bypass and right BKA, congestive heart failure with EF of 15-20%, COPD, CKD stage IV, who presents to the emergency department today on the advice of his stitch burnisher with complaints of shortness of breath. He was just discharged from this hospital on Sunday with a diagnosis of acute on chronic kidney failure. His Lasix dose was reduced at that time and he was discharged on 40 mg twice a day down from his usual 80 mg twice a day. He reports he felt fine on discharge, however he noticed increasing shortness of breath and swelling he saw his PCP on Sunday who increased his Lasix to 80 mg twice a day. His symptoms did not improve, he saw his stitch burnisher today who sent him to the emergency room. He reports worsening and constant shortness of breath, worse when lying flat, mild cough on and off that is sometimes productive of yellow sputum, headaches, nausea, and poor appetite. Evaluation in the emergency department was significant for hyperkalemia with potassium of 5.3, his renal function was at baseline with BUN of 60 and creatinine of 2.37. Chest x-ray showed increasing bilateral pleural effusions with increasing bibasilar airspace opacities, pulmonary vascular congestion and mild cardiomegaly, and unchanged focal airspace opacity in the mid right lung. On exam, patient is alert and oriented. He is satting 98% on 2 L nasal cannula. Respiration rate between 13 and 18. Lungs with diffuse wheezing and rhonchi. Heart has regular rate and rhythm he is diffusely edematous. His left lower extremity has weeping ulcers and a decubitus ulcer on his left heel. Right lower extremity has a bandaged ulcer superior to his knee. Past Med Surg Social Fam HX - Past Medical History Medical history: arthritis, atrial fibrillation, cardiomyopathy, CHF, COPD, coronary artery disease, DVT, diabetes, GERD, GI bleed, hyperlipidemia, hypertension, myocardial infarction, osteoporosis, peripheral artery disease, renal disease, venous stasis Psychiatric history: no psych history - Past Surgical History Surgical History: angioplasty/stent, arthroscopy, cataract, coronary bypass ( CABG), LE Bypass, LE vascular intervention, orthopedic, other, pacemaker/AICD, vascular surgery, other, AICD, pacemaker - Social History Smoking Status: Former smoker Smokeless Tobacco Status: No Alcohol use: none Drug use: none - Family History Father Living Status: Mother Living Status: Hx Family Cardiac Disorders: No Hx Family Cancer: No Hx Family Endocrine Disorder: No Internal Medicine - H&P: Meds Aspirin 81 mg PO DAILY 10/30/14 [History] Clopidogrel [Plavix] 75 mg PO DAILY 10/30/14 [History] Pravastatin Sodium 40 mg PO DAILY 10/30/14 [History] Tamsulosin [Flomax] 0.4 mg PO DAILY 10/30/14 [History] Ergocalciferol (VITAMIN D2) [Vitamin D2 (50,000 UNIT)] 50,000 unit PO MCGOWAN [History] Metoprolol XL (24 HR) Succ [Toprol XL] 25 mg PO DAILY 03/05/15 [History] Docusate [Colace] 100 mg PO BID PRN 12/01/15 [History] Nitroglycerin [Nitrostat] 0.4 mg SL DAILY PRN 12/01/15 [History] Temazepam [Restoril] 7.5 mg PO HS 12/01/15 [History] Epoetin Jonnie [Procrit] 2,000 unit IJ FR 01/13/16 [History] GuaiFENesin ER [Mucinex] 600 mg PO BID tbbp.12hr 02/11/16 [Rx] Ferrous Sulfate 325 mg PO BID 03/08/16 [History] Ondansetron HCl [Zofran] 4 mg PO Q6H PRN 03/08/16 [History] Ondansetron [Zofran] 4 mg IM Q6H PRN 03/08/16 [History] Promethazine [Phenergan] 12.5 mg PO Q4H PRN 03/08/16 [History] Ranitidine HCl [Zantac] 150 mg PO BID 03/08/16 [History] Insulin Glargine,Hum.rec.anlog [Lantus Solostar] 16 unit SQ HS 03/25/16 [History ] Insulin LISPRO [HumaLOG] 5 - 15 units SQ ACHS 03/25/16 [History] Ipratropium/Albuterol Neb [Duoneb] 3 ml IH Q6HR 03/25/16 [History] Polyethylene Glycol 3350 [MiraLAX] 17 gm PO DAILY 03/25/16 [History] GuaiFENesin/Codeine [ROBITUSSIN w/CODEINE] 5 ml PO Q6HR PRN 05/10/16 [History] Promethazine [Phenergan] 25 mg IV Q8HR PRN 05/10/16 [History] Clindamycin HCl [Cleocin HCl] 450 mg PO Q6H 7 Days 05/12/16 [Rx] Lactobacillus Acidophilus [Acidophilus] 1 each PO TID #30 tablet 05/12/16 [Rx] OxyCODONE Immed Rel [Roxicodone 5 MG] 10 mg PO Q6H PRN #20 tablet 05/12/16 [Rx] Furosemide [Lasix] 80 mg PO BID 05/18/16 [History] Allergies No Known Allergies Allergy (Verified 05/18/16 16:53) All Systems PM: A 10-system review of systems was performed and is negative for pertinent findings except as documented above in the HPI. - Constitutional Constitutional: no chills, no fever(s), no night sweats - EENT Eyes: blurry vision, no change in vision, no discharge, no pain, no photophobia Ears: no ear discharge, no ear pain, no tinnitus Nose, mouth and throat: no dysphagia, no nasal discharge, no neck pain, no sore throat - Cardiovascular Cardiovascular ROS IM: dyspnea, orthopnea, no chest pain, no diaphoresis, no lightheadedness, no palpitations, no syncope - Respiratory Respiratory: cough, dyspnea, excessive phlegm production, change in phlegm color , no wheezing - Gastrointestinal Gastrointestinal: nausea, no abdominal pain, no diarrhea, no hematemesis, no hematochezia, no melena, no vomiting - Musculoskeletal Musculoskeletal ROS IM: no numbness, no tingling - Integumentary Integumentary IM: no rash, no unusual bruising - Neurological Neurological ROS: no confusion, no convulsions, no focal weakness, no numbness, no tingling, no tremor(s) - Hematologic/Lymphatic Hematologic/Lymphatic: no easy bruising - Constitutional Vitals: Temp Pulse Resp BP Pulse Ox 97.6 F 97 20 114/68 97 05/18/16 16:54 05/18/16 18:35 05/18/16 19:47 05/18/16 19:47 05/18/16 18:35 General appearance: Present: A&O X 3, pleasant, no acute distress - Head Head exam: Present: atraumatic, normocephalic - Eye Eye exam: Present: PERRL, conjuntiva pink Pupils: Present: PERRL - Expanded Eye Exam Eyelids: bilateral: swelling sclera: left: hemorrhage - Neck Neck exam general surgery: Present: supple, trachea midline. Absent: lymphadenopathy - Respiratory Respiratory exam: Present: rhonchi, wheezes. Absent: accessory muscle use, rales - Cardiovascular Cardiovascular exam: Present: RRR, +S1, +S2. Absent: diastolic murmur, gallop, rubs, systolic murmur - GI/Abdominal GI/Abdominal exam: Present: normal bowel sounds, soft, no peritoneal signs. Absent: distended, tenderness - Extremities Exam Extremities exam: Present: pedal edema (LLE with +4 weeping edema, all toes amputated), warm, radial pulses palpable and symetrical. Absent: calf tenderness, cyanotic Additional comments: Right BKA - Neurological Exam Neurological exam: Present: CN II-XII intact, oriented X3, no focal deficits. Absent: facial droop, speech deficit - Skin Skin exam: Present: erythema (to LLE), warm Internal Med - H&P Results - Labs CBC & Chem 7: 05/18/16 17:30 05/18/16 17:30 Labs: All Lab Results (24 Hours) 02/05/18/16 05/18/16 Range/Units 17:30 17:30 17:30 WBC 6.0 (4.3-11.1) K/mcL RBC 3.53 L (4.19-5.50) M/mcL Hgb 9.8 L (12.9-16.9) g/dL Hct 31.1 L (37.5-50.1) % MCV 88.1 (83.0-100.0) fL MCH 27.8 L (28.0-33.3) pg MCHC 31.5 L (31.6-35.5) g/dL RDW 18.4 H (11.5-14.5) % Plt Count 190 (140-400) K/mcL MPV 9.8 (9.4-12.4) fL Immature Gran % 0.7 (0-4) % Seg Neutrophils % 78.0 % Lymphocytes % 9.8 % Monocytes % 7.7 % Eosinophils % 3.0 % Basophils % 0.8 % Neutrophils # 4.7 (1.6-8.9) K/mcL Lymphocytes # 0.6 (0.6-4.6) K/mcL Monocytes # 0.5 (0.0-1.3) K/mcL Eosinophils # 0.2 (0.0-0.6) K/mcL Basophils # 0.1 (0.0-0.2) K/mcL Sodium 132 L (136-145) mEq/L Potassium 5.3 H (3.5-4.5) mEq/L Chloride 99 (98-109) mEq/L Carbon Dioxide 21 (19-29) mEq/L BUN 60 H (8-26) mg/dL Creatinine 2.37 H (0.72-1.25) mg/dL Est GFR ( Amer) 33 L (> 60) Est GFR (Non-Af Amer) 27 L (> 60) BUN/Creatinine Ratio 25 (6-26) Glucose 226 H (70-99) mg/dL Calculated Osmolality 298 (280-300) Calcium 9.2 (8.6-10.8) mg/dL Troponin I 0.05 H* (0-0.03) ng/mL Urine Color (Yellow) Urine Clarity (Clear) Urine pH (5.0-8.0) pH Units Ur Specific [place] (1.010-1.025) Urine Protein (Neg-Trace) mg/dL Urine Glucose (UA) (Normal) mg/dL Urine Ketones (Negative) mg/dL Urine Blood (Negative) Urine Nitrite (Negative) Urine Bilirubin (Negative) Urine Urobilinogen (Normal) mg/dL Ur Leukocyte Esterase (Negative) Ur Culture Indicated? (NO) 05/18/16 Range/Units 18:24 WBC (4.3-11.1) K/mcL RBC (4.19-5.50) M/mcL Hgb (12.9-16.9) g/dL Hct (37.5-50.1) % MCV (83.0-100.0) fL MCH (28.0-33.3) pg MCHC (31.6-35.5) g/dL RDW (11.5-14.5) % Plt Count (140-400) K/mcL MPV (9.4-12.4) fL Immature Gran % (0-4) % Seg Neutrophils % % Lymphocytes % % Monocytes % % Eosinophils % % Basophils % % Neutrophils # (1.6-8.9) K/mcL Lymphocytes # (0.6-4.6) K/mcL Monocytes # (0.0-1.3) K/mcL Eosinophils # (0.0-0.6) K/mcL Basophils # (0.0-0.2) K/mcL Sodium (136-145) mEq/L Potassium (3.5-4.5) mEq/L Chloride (98-109) mEq/L Carbon Dioxide (19-29) mEq/L BUN (8-26) mg/dL Creatinine (0.72-1.25) mg/dL Est GFR ( Amer) (> 60) Est GFR (Non-Af Amer) (> 60) BUN/Creatinine Ratio (6-26) Glucose (70-99) mg/dL Calculated Osmolality (280-300) Calcium (8.6-10.8) mg/dL Troponin I (0-0.03) ng/mL Urine Color Yellow (Yellow) Urine Clarity Clear (Clear) Urine pH 6.5 (5.0-8.0) pH Units Ur Specific [place] 1.012 (1.010-1.025) Urine Protein Negative (Neg-Trace) mg/dL Urine Glucose (UA) Normal (Normal) mg/dL Urine Ketones Negative (Negative) mg/dL Urine Blood Negative (Negative) Urine Nitrite Negative (Negative) Urine Bilirubin Negative (Negative) Urine Urobilinogen Normal (Normal) mg/dL Ur Leukocyte Esterase Negative (Negative) Ur Culture Indicated? NO (NO) <Ira Calle R - Last Filed: 05/19/16 10:15> Date of Encounter: 05/18/16 Internal Medicine - H&P: HPI History of present illness: Mr. Mendez is a 70 year old male All Systems PM: A 10-system review of systems was performed and is negative for pertinent findings except as documented above in the HPI. - Constitutional Vitals: Temp Pulse Resp BP Pulse Ox 96.5 F L 101 16 102/64 98 05/19/16 07:21 05/19/16 07:21 05/19/16 07:21 05/19/16 07:21 05/19/16 08:34 Internal Med - H&P Results - Labs CBC & Chem 7: 05/19/16 06:25 05/19/16 07:10 Labs: Short CBC 05/19/16 Range/Units 06:25 WBC 4.9 (4.3-11.1) K/mcL Hgb 10.3 L (12.9-16.9) g/dL Hct 32.2 L (37.5-50.1) % Plt Count 166 (140-400) K/mcL Neutrophils # 4.4 (1.6-8.9) K/mcL BMP 05/19/16 07:10 Sodium 128 L Potassium 6.9 H* D Chloride 97 L Carbon Dioxide 12 L BUN 69 H Creatinine 2.66 H Glucose 477 H Calcium 9.0 - Attending Attestation I examined this patient and my medical decision-making was reviewed with the BUSINESS OBJECTS ANALYST / Advanced Practice Nurse. I agree with the documented findings, disposition and treatment plan as described except to the extent set forth below. Recent h/o acute on CKD. Lasix dose was reduced and also was discharged on clindamycin for skin/soft tissue infection. c/ Progressive SOB and swelling. Report cough with yellow sputum. No fevers. Systolic CKD with EF of 15-20% (on echo in 11/2015) O/E occasional wheeze. s/p Right BKA; s/p left fore foot amputation. Left leg superficial wounds. No clinical evidence of cellulitis CXR reports increased b/l pleural effusion; pulmonary vascular congestion. Labs : hyperkalemia with potassium of 5.3. A/P: Nephrology consult; kayexalate; IV Lasix; wound care consult; probiotics.
[2016-05-18] MEDS ORDERED: TEMAZEPAM 7.5 MG PO SCH (21:00)
[2016-05-18] MEDS ORDERED: Insulin DETEMIR 100 UNIT/ML X5UNITS SQ SCH (21:00)
[2016-05-18] MEDS ORDERED: Insulin LISPRO 300 UNITS/3 ML VIAL SQ SCH (21:00)
[2016-05-18] MEDS: Temazepam 15 MG CAPSULE PO PRN (23:40)
[2016-05-18] MEDS: Lactobacillus 1 EACH CAP.SPRINK PO SCH (23:40)
[2016-05-19] MEDS: *HR* Heparin 5,000 UNIT/ML VIAL SQ SCH ×4 (00:08→20:17)
[2016-05-19] MEDS: Ipratropium/Albuterol Neb 3 ML IH SCH ×5 (00:10→22:53)
[2016-05-19 06:42] LABS: Mean Corpuscular Hemoglobin 27.7 pg (28.0-33.3); Red Cell Distribution Width 18.2 % (11.5-14.5)
[2016-05-19 06:49] LABS: Basophils % 0.2 %; Hematocrit 32.2 % (37.5-50.1); Hemoglobin 10.3 g/dL (12.9-16.9); Lymphocytes # 0.4 K/mcL (0.6-4.6); Lymphocytes % 7.4 %; Mean Corpuscular Volume 86.6 fL (83.0-100.0); Monocytes # 0.1 K/mcL (0.0-1.3); Neutrophils # 4.4 K/mcL (1.6-8.9); Platelet Count 166 K/mcL (140-400); Red Blood Count 3.72 M/mcL (4.19-5.50); Segmented Neutrophils % 89.4 %
[2016-05-19] MEDS ORDERED: Calcium Gluconate 2,000 MG in D5% in Water 100 ML IVPB ONE (07:05)
[2016-05-19] MEDS ORDERED: *HR* Dextrose 50 % in Water (Syg) 50 ML SYRINGE IVP ONE (07:06)
[2016-05-19] MEDS ORDERED: Insulin Regular, Human 100 UNIT/ML SQ ONE (07:06)
[2016-05-19 07:43] LABS: Potassium 6.9 mEq/L (3.5-4.5)
[2016-05-19] MEDS ORDERED: Ipratropium/Albuterol Neb 3 ML IH STA (08:03)
[2016-05-19] MEDS ORDERED: Insulin Human Regular 10 UNIT in 0.9 % Sodium Chloride 10 ML IV ONE (08:03)
[2016-05-19] MEDS: Lactobacillus 1 EACH CAP.SPRINK PO SCH ×3 (08:17→20:15)
[2016-05-19] MEDS: Metoprolol XL (24 HR) Succ 25 MG TAB.ER.24H PO SCH (08:17)
[2016-05-19] MEDS: Famotidine 20 MG TABLET PO SCH (08:24)
[2016-05-19] MEDS ORDERED: Aspirin 81 MG TAB.CHEW PO SCH (09:00)
[2016-05-19] MEDS ORDERED: Furosemide 40 MG/4 ML VIAL IVP SCH (09:00)
--- NOTE | 2016-05-19 09:15 | Nephrology Consult Note ---
Date of Encounter: 05/19/16 Time of Encounter: 09:45 Assessment and Plan (1) Acute kidney injury superimposed on CKD Current Visit: Yes Status: Acute Mild BRIAN on CKD with severe hyperglycemia (the DDX should include DKA vs HHS: severe hyperglycemia, metabolic acidosis, pseudohyponatremia and shifted hyperkalemia). I recommend treating his severe hyperglycemia; consider an insulin gtt. I called the floor RN this AM, to see what has been ordered so far: agree with Insulin and kayexalate; calcium acceptable; but he may need an insulin gtt, if the hyperglycemia does not improve. Check U for ketones I'll also provide an amp of bicarb for the metabolic acidosis Repeat the serum K+ in a few hours. As long as the hyperglycemia is improving, I suspect his hyperkalemia will improve as well. Edema: diuretic dose to be adjusted upon his UOP response. Avoid heavy diuresis to avoid further exacerbating the BRIAN, which at present would be multifactorial : his SCr was near b/l last night and the main factor that changed was the severe hyperglycemia, but the ddx should include CRS as well. Follow a renal protective strategy as able: dose Rx by GFR, avoid NSAIDs, Bactrim, Contrast; strict I/Os and daily weights are important Thank you for consulting the [facility] group. Will follow wit you. (2) BRIAN (acute kidney injury) Current Visit: No Status: Acute (3) Hyperglycemia Current Visit: Yes Status: Acute (4) Metabolic acidosis Current Visit: Yes Status: Acute (5) Edema Current Visit: Yes Status: Acute Qualifiers: Edema type: generalized Qualified Code(s): R60.1 - Generalized edema (6) Hyperkalemia Current Visit: Yes Status: Acute (7) CKD (chronic kidney disease), stage III Current Visit: No Status: Chronic (8) Hyponatremia Current Visit: No Status: Chronic History of Present Illness - Reason for Consult Consult date: 05/19/16 Chronic Kidney Disease, hyponatremia, hyperkalemia Requesting physician: Amelia Benavides - Chief Complaint CKD, Hyperglycemia induced acute hyperkalemia & hyponatremia - History of Present Illness Mika Mendez is a very pleasant gentleman with a pmh CKD, edema, DM and et al who was readmitted with severe anasarca, hyperkalemia and BRIAN on CKD. He did not affirm N/V/D but did report shortness of breath, difficultly in laying flat and severe edema. He also reported scrotal edema but no active CP. He has been followed by Podiatry with his foot wound. Past Med Surg Social Fam HX - Past Medical History Medical history: arthritis, atrial fibrillation, cardiomyopathy, CHF, COPD, coronary artery disease, DVT, diabetes, GERD, GI bleed, hyperlipidemia, hypertension, myocardial infarction, osteoporosis, peripheral artery disease, renal disease, venous stasis Psychiatric history: no psych history - Past Surgical History Surgical History: angioplasty/stent, arthroscopy, cataract, coronary bypass ( CABG), LE Bypass, LE vascular intervention, orthopedic, other, pacemaker/AICD, vascular surgery, other, AICD, pacemaker - Social History Smoking Status: Former smoker Smokeless Tobacco Status: No Alcohol use: none Drug use: none - Family History Father History Unknown: Yes Living Status: Mother History Unknown: Yes Living Status: Hx Family Cardiac Disorders: No Hx Family Cancer: No Hx Family Endocrine Disorder: No Medications and Allergies Aspirin 81 mg PO DAILY 10/30/14 [History] Clopidogrel [Plavix] 75 mg PO DAILY 10/30/14 [History] Pravastatin Sodium 40 mg PO DAILY 10/30/14 [History] Tamsulosin [Flomax] 0.4 mg PO DAILY 10/30/14 [History] Ergocalciferol (VITAMIN D2) [Vitamin D2 (50,000 UNIT)] 50,000 unit PO MCGOWAN [History] Metoprolol XL (24 HR) Succ [Toprol XL] 25 mg PO DAILY 03/05/15 [History] Docusate [Colace] 100 mg PO BID PRN 12/01/15 [History] Nitroglycerin [Nitrostat] 0.4 mg SL DAILY PRN 12/01/15 [History] Temazepam [Restoril] 7.5 mg PO HS 12/01/15 [History] Epoetin Jonnie [Procrit] 2,000 unit IJ FR 01/13/16 [History] GuaiFENesin ER [Mucinex] 600 mg PO BID tbbp.12hr 02/11/16 [Rx] Ferrous Sulfate 325 mg PO BID 03/08/16 [History] Ondansetron HCl [Zofran] 4 mg PO Q6H PRN 03/08/16 [History] Ondansetron [Zofran] 4 mg IM Q6H PRN 03/08/16 [History] Promethazine [Phenergan] 12.5 mg PO Q4H PRN 03/08/16 [History] Ranitidine HCl [Zantac] 150 mg PO BID 03/08/16 [History] Insulin Glargine,Hum.rec.anlog [Lantus Solostar] 16 unit SQ HS 03/25/16 [History ] Insulin LISPRO [HumaLOG] 5 - 15 units SQ ACHS 03/25/16 [History] Ipratropium/Albuterol Neb [Duoneb] 3 ml IH Q6HR 03/25/16 [History] Polyethylene Glycol 3350 [MiraLAX] 17 gm PO DAILY 03/25/16 [History] GuaiFENesin/Codeine [ROBITUSSIN w/CODEINE] 5 ml PO Q6HR PRN 05/10/16 [History] Promethazine [Phenergan] 25 mg IV Q8HR PRN 05/10/16 [History] Clindamycin HCl [Cleocin HCl] 450 mg PO Q6H 7 Days 05/12/16 [Rx] Lactobacillus Acidophilus [Acidophilus] 1 each PO TID #30 tablet 05/12/16 [Rx] OxyCODONE Immed Rel [Roxicodone 5 MG] 10 mg PO Q6H PRN #20 tablet 05/12/16 [Rx] Furosemide [Lasix] 80 mg PO BID 05/18/16 [History] Allergies No Known Allergies Allergy (Verified 05/18/16 16:53) Review of Systems All Systems: reviewed and no additional remarkable complaints except as stated Exam - Vital Signs Vital signs: Initial Vital Signs Temp Pulse Resp BP Pulse Ox 97.6 F 96 18 98/64 96 05/18/16 16:54 05/18/16 16:54 05/18/16 16:54 05/18/16 16:54 05/18/16 16:54 Vital Signs - Last 8 Hours Temp Pulse Resp BP Pulse Ox 05/19/16 08:34 98 05/19/16 07:21 96.5 F L 101 16 102/64 98 05/19/16 04:12 97.7 F 97 16 102/69 99 Intake and Output 02/05/19/16 05/19/16 23:59 07:59 15:59 Output Total 200 / 200 Balance -200 / -200 Output: Urine 200 / 200 Other: Blood Glucose* 441 462 - General Appearance General appearance: well-developed, well-nourished, chronically ill, fatigue, frail EENT: ATNC, PERRL Additional Comments: Facial edema Neck: supple Respiratory: course breath sounds Cardiology: edema, regular rate, normal S1, normal S2 Gastrointestinal: normoactive bowel sounds, no tenderness, no guarding Integumentary: chronic venous stasis Neurologic: no asterixis, alert and oriented x3 Additional Comments: DARNELL and his other fot was C/D/I Psychiatric: mood/affect appropriate, cooperative Results - Lab Results 05/22/16 04:00 05/22/16 15:35 Most recent lab results Calcium 9.0 mg/dL (8.6-10.8) 05/19/16 07:10 I reviewed the labs, meds, vitals and above autogenerated data. Consult Discharge Plan - Plan Referrals: Jennie Washington CNP [Primary Care Provider] - 05/22/16 9:00 am ( )
[2016-05-19] MEDS: Insulin LISPRO 300 UNITS/3 ML VIAL SQ SCH ×3 (09:18→20:18)
[2016-05-19] MEDS ORDERED: Insulin Human Regular 100 UNIT in 0.9 % Sodium Chloride 100 ML IVC SCH (10:45)
[2016-05-19] MEDS ORDERED: 0.9 % Sodium Chloride 1,000 ML ONE (11:14)
--- NOTE | 2016-05-19 11:17 | Internal Med Progress Note ---
Date of Encounter: 05/19/16 Time of Encounter: 09:00 - Assessment and plan (1) DKA (diabetic ketoacidoses) Current Visit: Yes Status: Acute Assessment and plan: Metabolic acidosis with hyperkalemia and high beta hydroxybutyrate. Start insulin drip. Accu-Cheks every hour. Close monitoring of BMP and electrolytes. No need for IV fluids given patient's hypervolemic status. Qualifiers: Diabetes mellitus type: type 2 Diabetes mellitus complication detail: without coma Qualified Code(s): E13.10 - Other specified diabetes mellitus with ketoacidosis without coma (2) Acute and chronic respiratory failure with hypoxia Current Visit: No Status: Acute Assessment and plan: Secondary to acute systolic heart failure in the setting of COPD. CXR shows increased bilateral pleural effusions with increased bibasilar airspace opacities pulmonary vascular congestion and mild cardiomegaly. Echocardiogram 12/03/15 showed EF of 15-20%, Severe global and Left ventricular systolic dysfunction. IV Lasix, fluid restriction, DuoNeb's, Mucinex, Toprol, BiPAP when necessary. (3) Acute on chronic systolic (congestive) heart failure Current Visit: No Status: Acute Assessment and plan: As above. (4) Chronic obstructive pulmonary disease Current Visit: No Status: Chronic Assessment and plan: Plan as above. Qualifiers: COPD type: unspecified COPD Qualified Code(s): J44.9 - Chronic obstructive pulmonary disease, unspecified (5) CKD (chronic kidney disease), stage III Current Visit: No Status: Chronic Assessment and plan: Baseline. Avoid nephrotoxins as possible. Close monitoring of kidney function. - Subjective Interval history: Patient feel short of breath. - Constitutional Vitals: Temp Pulse Resp BP Pulse Ox 97.6 F 95 16 108/60 96 05/19/16 10:19 05/19/16 10:19 05/19/16 10:19 05/19/16 10:19 05/19/16 10:19 General appearance: Present: cooperative, A&O X 3, pleasant, no acute distress, answers questions appropriately - Eye Eye exam: Present: PERRL, sclera anicteric - Neck Neck exam general surgery: Present: supple, trachea midline. Absent: lymphadenopathy - Respiratory Respiratory exam: Present: decreased breath sounds (at lower lung davalos.), wheezes - Cardiovascular Cardiovascular exam: Present: RRR - GI/Abdominal GI/Abdominal exam: Present: normal bowel sounds, soft. Absent: distended, tenderness - Extremities Exam Extremities exam: Absent: pedal edema - Back Exam Back exam: Absent: CVA tenderness (L), CVA tenderness (R) - Neurological Exam Neurological exam: Present: alert, oriented X3. Absent: facial droop, speech deficit Internal Medicine: Result - Labs CBC & Chem 7: 05/19/16 06:25 05/19/16 14:30 Labs: Short CBC 05/19/16 Range/Units 06:25 WBC 4.9 (4.3-11.1) K/mcL Hgb 10.3 L (12.9-16.9) g/dL Hct 32.2 L (37.5-50.1) % Plt Count 166 (140-400) K/mcL Neutrophils # 4.4 (1.6-8.9) K/mcL BMP 05/19/16 07:10 Sodium 128 L Potassium 6.9 H* D Chloride 97 L Carbon Dioxide 12 L BUN 69 H Creatinine 2.66 H Glucose 477 H Calcium 9.0 Consult Discharge Plan - Plan Referrals: Jennie Washington CNP [Primary Care Provider] - 05/22/16 9:00 am ( )
[2016-05-19 11:45] LABS: ABG Base Excess -4.4 mEq/L (-2.0 to 3.0); ABG Oxygen Saturation 97 % (95-98); ABG PCO2 33 mmHg (35-45); ABG PH 7.39 pH Units (7.32-7.45); ABG PO2 94 mmHg (85-104)
[2016-05-19 11:46] LABS: Blood Gas FiO2 28 %
[2016-05-19] MEDS: Furosemide 40 MG/4 ML VIAL IVP SCH ×2 (11:48→16:38)
[2016-05-19] MEDS: *HR* OxyCODONE Immed Rel 5 MG TABLET PO PRN ×2 (14:18→21:58)
[2016-05-19 15:05] LABS: Beta-Hydroxybutyric Acid 0.36 mmol/L (0.02-0.27)
[2016-05-19 15:13] LABS: Albumin 2.9 g/dL (3.5-5.0); Albumin/Globulin Ratio 0.8 (1.1-2.2); Bilirubin,Direct 0.5 mg/dL (0.0-0.5); Bilirubin,Indirect 0.2 mg/dL (0.0-1.2); Bilirubin,Total 0.7 mg/dL (0.2-1.2); Calcium 9.2 mg/dL (8.6-10.8); Globulin 3.5 g/dL (2.4-3.5); Potassium 4.7 mEq/L (3.5-4.5); Total Protein 6.4 g/dL (6.0-8.3)
[2016-05-19] MEDS ORDERED: Insulin DETEMIR 100 UNIT/ML X5UNITS SQ SCH (15:47)
--- NOTE | 2016-05-19 17:13 | Electrocardiograph Report ---
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
[2016-05-19] MEDS: Temazepam 15 MG CAPSULE PO PRN (21:58)
[2016-05-19] MEDS: *HR* Dextrose 50 % in Water (Syg) 50 ML SYRINGE IVP PRN ×2 (22:00→23:59)
--- NOTE | 2016-05-19 23:50 | Podiatry Consult Note ---
Date of Encounter: 05/19/16 Time of Encounter: 17:00 Assessment and Plan (1) Pressure ulcer of left heel Current visit: Yes Status: Acute Examined at bedside Mild erythema noted surrounding pressure wound, unable to assess depth due to eschar tissue Order for xray to assess for bone involvement Please apply bulk dressing and prevalon boots to elevate heel off of bed and alleviate pressure Qualifiers: Pressure ulcer stage: unstageable Qualified Code(s): L89.620 - Pressure ulcer of left heel, unstageable (2) Edema of left lower extremity Current visit: Yes Status: Acute (3) Bullae Current visit: Yes Status: Acute 3 areas of ruptured bullae noted due to LLE edema All ulcerations cleansed with saline and painted with betadine Adaptic, 4x4, kerlex applied Leg wrapped in kerlex and JC for compression to reduce swelling Elevate LLE above level of heart Continue current antibiotic treatment Please place foot in prevalon/malhotra boot for protection of heel and to alleviate pressure Patient will need to follow up in wound care 1-2 weeks after discharge History of Present Illness HPI: Mr. Mendez is a 70 year old male with long standing type 1 diabetes and peripheral vascular disease status post intervention bypass and right BKA and left TMA, congestive heart failure with EF of 15-20%, CKD stage IV. Patient states he has been in rehab facility and noted he was having increasing shortness of breath with swelling and blisters to LLE. He was recently discharged from [facility] last sunday with AKF. Podiatry has been consulted regarding ulcerations of LLE. His left lower extremity has weeping ulcers and a decubitus ulcer on his left heel. Patient is a patient of [facility] wound [facility] center and is a patient of . Patient states that 3 blisters appeared about a week ago and have since ruptured. Patient states he has been covering them with dry dressings but otherwise has provided no other wound care. Patient states he does not know how long the area of ulceration has been present to his heel. Patient denies any current fevers, chills or flu like symptoms. Patient denies any calf pain Past Med Surg Social Fam HX - Past Medical History Medical history: arthritis, atrial fibrillation, cardiomyopathy, CHF, COPD, coronary artery disease, DVT, diabetes, GERD, GI bleed, hyperlipidemia, hypertension, myocardial infarction, osteoporosis, peripheral artery disease, renal disease, venous stasis Psychiatric history: no psych history - Past Surgical History Surgical History: angioplasty/stent, arthroscopy, cataract, coronary bypass ( CABG), LE Bypass, LE vascular intervention, orthopedic, other, pacemaker/AICD, vascular surgery, other, AICD, pacemaker - Social History Smoking Status: Former smoker Smokeless Tobacco Status: No Alcohol use: none Drug use: none - Family History Father History Unknown: Yes Living Status: Mother History Unknown: Yes Living Status: Hx Family Cardiac Disorders: No Hx Family Cancer: No Hx Family Endocrine Disorder: No Medications and Allergies Aspirin 81 mg PO DAILY 10/30/14 [History] Clopidogrel [Plavix] 75 mg PO DAILY 10/30/14 [History] Pravastatin Sodium 40 mg PO DAILY 10/30/14 [History] Tamsulosin [Flomax] 0.4 mg PO DAILY 10/30/14 [History] Ergocalciferol (VITAMIN D2) [Vitamin D2 (50,000 UNIT)] 50,000 unit PO MCGOWAN [History] Metoprolol XL (24 HR) Succ [Toprol XL] 25 mg PO DAILY 03/05/15 [History] Docusate [Colace] 100 mg PO BID PRN 12/01/15 [History] Nitroglycerin [Nitrostat] 0.4 mg SL DAILY PRN 12/01/15 [History] Temazepam [Restoril] 7.5 mg PO HS 12/01/15 [History] Epoetin Jonnie [Procrit] 2,000 unit IJ FR 01/13/16 [History] GuaiFENesin ER [Mucinex] 600 mg PO BID tbbp.12hr 02/11/16 [Rx] Ferrous Sulfate 325 mg PO BID 03/08/16 [History] Ondansetron HCl [Zofran] 4 mg PO Q6H PRN 03/08/16 [History] Ondansetron [Zofran] 4 mg IM Q6H PRN 03/08/16 [History] Promethazine [Phenergan] 12.5 mg PO Q4H PRN 03/08/16 [History] Ranitidine HCl [Zantac] 150 mg PO BID 03/08/16 [History] Insulin Glargine,Hum.rec.anlog [Lantus Solostar] 16 unit SQ HS 03/25/16 [History ] Insulin LISPRO [HumaLOG] 5 - 15 units SQ ACHS 03/25/16 [History] Ipratropium/Albuterol Neb [Duoneb] 3 ml IH Q6HR 03/25/16 [History] Polyethylene Glycol 3350 [MiraLAX] 17 gm PO DAILY 03/25/16 [History] GuaiFENesin/Codeine [ROBITUSSIN w/CODEINE] 5 ml PO Q6HR PRN 05/10/16 [History] Promethazine [Phenergan] 25 mg IV Q8HR PRN 05/10/16 [History] Clindamycin HCl [Cleocin HCl] 450 mg PO Q6H 7 Days 05/12/16 [Rx] Lactobacillus Acidophilus [Acidophilus] 1 each PO TID #30 tablet 05/12/16 [Rx] OxyCODONE Immed Rel [Roxicodone 5 MG] 10 mg PO Q6H PRN #20 tablet 05/12/16 [Rx] Furosemide [Lasix] 80 mg PO BID 05/18/16 [History] Allergies No Known Allergies Allergy (Verified 05/18/16 16:53) All Systems Reviewed: A 10-system review of systems was performed and is negative for pertinent findings except as documented above in the HPI. Physical Exam - Constitutional Vitals: Temp Pulse Resp BP Pulse Ox 97.6 F 79 18 90/56 99 05/19/16 20:13 05/19/16 20:13 05/19/16 20:13 05/19/16 20:13 05/19/16 20:13 Exam: Patient is awake alert and oriented on arrival Patient is s/p amputation of left foot metatarsals #1 through #5 and right BKA. DP pulses faintly palpable to LLE and popliteal palpable to RLE Diffuse edema to LLE noted, mild erythema noted from mid tibial region to end of stump No pain with palpationbu No calf pain to LLE Minimal sensation to light touch Cap refill <3 seconds bilaterally ROM within normal limits for patient 5 areas of ulceration noted: x3 are areas of ruptured bullae #1 to dorsal aspect of remaining portion of left foot 6cmx5.5cm #2 to medial tibial area [id number] #3 lateral tibia area 5cm x 5cm Serous fluid drainage noted from all ulcerations Diffuse edema noted to entire LLE Small yellow slough filled ulceration noted to medial border of past surgical line to end of stump [id number] Surgical area is otherwise healed without issue Pressure related ulceration to left heel covered with eschar tissue surrounded by yellow slough. Area surrounding pressure area boggy and erythema noted. 1cmx1.2cm Results - Labs Result Diagrams: 05/21/16 03:40 05/21/16 03:40 Labs: Abnormal lab results RBC 3.72 M/mcL (4.19-5.50) L 05/19/16 06:25 Hgb 10.3 g/dL (12.9-16.9) L 05/19/16 06:25 Hct 32.2 % (37.5-50.1) L 05/19/16 06:25 MCH 27.7 pg (28.0-33.3) L 05/19/16 06:25 RDW 18.2 % (11.5-14.5) H 05/19/16 06:25 Lymphocytes # 0.4 K/mcL (0.6-4.6) L 05/19/16 06:25 ABG pCO2 33 mmHg (35-45) L 05/19/16 11:25 ABG HCO3 20.0 mEQ/L (21-27) L 05/19/16 11:25 ABG Base Excess -4.4 mEq/L (-2.0 to 3.0) L 05/19/16 11:25 Sodium 130 mEq/L (136-145) L 05/19/16 14:30 Potassium 4.7 mEq/L (3.5-4.5) H D 05/19/16 14:30 Chloride 97 mEq/L (98-109) L 05/19/16 14:30 BUN 73 mg/dL (8-26) H 05/19/16 14:30 Creatinine 2.67 mg/dL (0.72-1.25) H 05/19/16 14:30 Est GFR ( Amer) 29 (> 60) L 05/19/16 14:30 Est GFR (Non-Af Amer) 24 (> 60) L 05/19/16 14:30 BUN/Creatinine Ratio 27 (6-26) H 05/19/16 14:30 Glucose 226 mg/dL (70-99) H 05/19/16 14:30 POC Glucose 53 (58-89) L 05/19/16 21:57 AST 35 Units/L (5-34) H 05/19/16 14:30 Troponin I 0.05 ng/mL (0-0.03) H* 05/18/16 17:30 B-Natriuretic Peptide 2823 pg/mL (0-100) H 05/18/16 17:30 Albumin 2.9 g/dL (3.5-5.0) L 05/19/16 14:30 Albumin/Globulin Ratio 0.8 (1.1-2.2) L 05/19/16 14:30 Beta-Hydroxybutyric Acd 0.36 mmol/L (0.02-0.27) H 05/19/16 14:30 H & H 05/19/16 Range/Units 06:25 Hgb 10.3 L (12.9-16.9) g/dL Hct 32.2 L (37.5-50.1) % All other labs normal. Consult Discharge Plan - Plan Referrals: Jennie Washington CNP [Primary Care Provider] - 05/22/16 9:00 am ( )
[2016-05-20] MEDS: *HR* Dextrose 50 % in Water (Syg) 50 ML SYRINGE IVP PRN ×3 (03:44→05:24)
[2016-05-20 03:55] LABS: Basophils % 0.4 %; Eosinophils # 0.1 K/mcL (0.0-0.6); Eosinophils % 0.9 %; Hematocrit 32.4 % (37.5-50.1); Hemoglobin 10.5 g/dL (12.9-16.9); Immature Granulocytes % 0.5 % (0-4); Lymphocytes % 10.6 %; Mean Corpuscular HGB Conc 32.4 g/dL (31.6-35.5); Mean Corpuscular Hemoglobin 27.9 pg (28.0-33.3); Mean Corpuscular Volume 86.2 fL (83.0-100.0); Mean Platelet Volume 10.4 fL (9.4-12.4); Monocytes # 0.9 K/mcL (0.0-1.3); Monocytes % 9.5 %; Platelet Count 262 K/mcL (140-400); Red Blood Count 3.76 M/mcL (4.19-5.50); Red Cell Distribution Width 18.2 % (11.5-14.5); Segmented Neutrophils % 78.1 %
[2016-05-20 03:56] LABS: Neutrophils # 7.7 K/mcL (1.6-8.9)
[2016-05-20 03:59] LABS: Magnesium 1.9 mg/dL (1.6-2.6); Potassium 4.7 mEq/L (3.5-4.5)
[2016-05-20] MEDS: D10% in Water 500 ML IVC SCH (04:06)
[2016-05-20] MEDS: *HR* Heparin 5,000 UNIT/ML VIAL SQ SCH ×3 (04:10→22:18)
[2016-05-20] MEDS: Ipratropium/Albuterol Neb 3 ML IH SCH ×4 (05:01→23:32)
[2016-05-20] MEDS: Insulin LISPRO 300 UNITS/3 ML VIAL SQ SCH ×4 (07:36→22:14)
[2016-05-20] MEDS: Furosemide 40 MG/4 ML VIAL IVP SCH (07:55)
[2016-05-20] MEDS: Aspirin Enteric Coated 81 MG Tablet PO SCH (08:00)
[2016-05-20] MEDS: Lactobacillus 1 EACH CAP.SPRINK PO SCH ×3 (08:00→20:32)
[2016-05-20] MEDS: Metoprolol XL (24 HR) Succ 25 MG TAB.ER.24H PO SCH (08:00)
[2016-05-20] MEDS: Famotidine 20 MG TABLET PO SCH (08:01)
--- NOTE | 2016-05-20 09:55 | Nephrology Progress Note ---
Date of Encounter: 05/20/16 Time of Encounter: 09:30 - Assessment and Plan (1) Acute kidney injury superimposed on CKD Current Visit: Yes Status: Acute Will increase diuretics to a lasix gtt to improve his UOP response as part of a step therapy The PVR was elevated, so will need a danielson (2) BRIAN (acute kidney injury) Current Visit: No Status: Acute SCr has been relatively stable (3) Hyperglycemia Current Visit: Yes Status: Acute Fluctuating (4) Metabolic acidosis Current Visit: Yes Status: Acute Improved (5) Edema Current Visit: Yes Status: Acute See above Qualifiers: Edema type: generalized Qualified Code(s): R60.1 - Generalized edema (6) Hyperkalemia Current Visit: Yes Status: Acute Improved (7) CKD (chronic kidney disease), stage III Current Visit: No Status: Chronic B/l CKD stage III (8) Hyponatremia Current Visit: No Status: Chronic Slowly improving along with diuresis. Subjective Principal diagnosis: Anasarca Interval history: Pt was s/e and he did not affirm N/V/D but still has ongoing edema and scrotal edema. Objective - Vital Signs Vital signs: Vital Signs Temp Pulse Resp BP Pulse Ox 05/20/16 08:04 98 05/20/16 07:31 97.4 F L 85 16 105/71 98 05/20/16 05:01 16 94 L 05/20/16 04:00 98.0 F 94 16 85/48 98 05/20/16 00:35 97.6 F 79 16 85/56 100 05/19/16 22:53 16 98 05/19/16 20:13 97.6 F 79 18 90/56 99 05/19/16 16:17 16 98 05/19/16 15:11 97.4 F L 85 16 88/56 98 05/19/16 11:30 16 97 05/19/16 10:19 97.6 F 95 16 108/60 96 Intake and Output 05/19/16 05/20/16 05/20/16 23:59 07:59 15:59 Intake Total 719.3 / 719.3 Balance 719.3 / 719.3 Intake: IV Fluids 19.3 / 19.3 HumuLIN R 100 UNIT In 0. 19.3 / 19.3 9 % Sodium Chloride 100 ML @ 0.1 UNIT/KG/HR 8.28 mls/hr IVC CONT KWABENA Rx#: [id number] Oral 700 / 700 Other: Stool Size Large Stool Consistency soft Stool Color Brown Weight 82.5 kg Blood Glucose* 69 73 Patient Weight 05/20/16 23:59 Weight 82.5 kg - General Appearance Exam: General appearance: well-developed, well-nourished, chronically ill, fatigue, frail EENT: ATNC, PERRL Additional Comments: Facial edema Neck: supple Respiratory: course breath sounds Cardiology: edema, regular rate, normal S1, normal S2 Gastrointestinal: normoactive bowel sounds, no tenderness, no guarding Integumentary: chronic venous stasis Neurologic: no asterixis, alert and oriented x3 Additional Comments: DARNELL and his other fot was C/D/I Psychiatric: mood/affect appropriate, cooperative - Lab 05/22/16 04:00 05/22/16 15:35 Most recent lab results ABG pH 7.39 pH Units (7.32-7.45) 05/19/16 11:25 ABG pCO2 33 mmHg (35-45) L 05/19/16 11:25 ABG pO2 94 mmHg (85-104) 05/19/16 11:25 ABG HCO3 20.0 mEQ/L (21-27) L 05/19/16 11:25 ABG O2 Saturation 97 % (95-98) 05/19/16 11:25 Calcium 9.0 mg/dL (8.6-10.8) 05/20/16 03:41 Magnesium 1.9 mg/dL (1.6-2.6) 05/20/16 03:41 Consult Discharge Plan - Plan Referrals: Jennie Washington CNP [Primary Care Provider] - 05/22/16 9:00 am ( )
[2016-05-20] MEDS: Ondansetron ODT 4 MG TAB.RAPDIS SL PRN ×2 (10:25→20:32)
[2016-05-20] MEDS: Furosemide 240 MG in D5% in Water 96 ML IVC SCH (10:45)
[2016-05-20] MEDS: *HR* Promethazine 25 MG/ML VIAL IVP PRN (14:29)
--- NOTE | 2016-05-20 17:06 | Internal Med Progress Note ---
Date of Encounter: 05/20/16 Time of Encounter: 15:00 - Assessment and plan (1) DKA (diabetic ketoacidoses) Current Visit: Yes Status: Suspected Assessment and plan: 05/19: Metabolic acidosis with hyperkalemia and high beta hydroxybutyrate. received insulin drip. resolved. Qualifiers: Diabetes mellitus type: type 2 Diabetes mellitus complication detail: without coma Qualified Code(s): E13.10 - Other specified diabetes mellitus with ketoacidosis without coma (2) Acute and chronic respiratory failure with hypoxia Current Visit: No Status: Acute Assessment and plan: Secondary to acute systolic heart failure in the setting of COPD. CXR shows increased bilateral pleural effusions with increased bibasilar airspace opacities pulmonary vascular congestion and mild cardiomegaly. Echocardiogram 12/03/15 showed EF of 15-20%, Severe global and Left ventricular systolic dysfunction. Appreciate nephrology input. due to low urine output he was started on IV lasix drip. fluid restriction, DuoNeb's, Mucinex, Toprol, BiPAP when necessary. (3) Acute on chronic systolic (congestive) heart failure Current Visit: No Status: Acute Assessment and plan: As above. (4) Chronic obstructive pulmonary disease Current Visit: No Status: Chronic Assessment and plan: Plan as above. Qualifiers: COPD type: unspecified COPD Qualified Code(s): J44.9 - Chronic obstructive pulmonary disease, unspecified (5) CKD (chronic kidney disease), stage III Current Visit: No Status: Chronic Assessment and plan: Baseline. Avoid nephrotoxins as possible. Close monitoring of kidney function. - Subjective Interval history: Still having CHRISTIAN. due to low urine output he was started on IV lasix drip. - Constitutional Vitals: Temp Pulse Resp BP Pulse Ox 97.9 F 84 17 106/72 97 05/20/16 16:28 05/20/16 16:28 05/20/16 16:28 05/20/16 16:28 05/20/16 16:28 General appearance: Present: cooperative, A&O X 3, pleasant, no acute distress, answers questions appropriately - Eye Eye exam: Present: PERRL, sclera anicteric - ENT ENT exam: Present: mucous membranes moist - Neck Neck exam general surgery: Present: supple, trachea midline. Absent: lymphadenopathy - Respiratory Respiratory exam: Present: chest wall tenderness (at lung bases), decreased breath sounds, wheezes - Cardiovascular Cardiovascular exam: Present: RRR - GI/Abdominal GI/Abdominal exam: Present: normal bowel sounds, soft. Absent: distended, tenderness - Extremities Exam Extremities exam: Present: pedal edema, radial pulses palpable and symetrical Additional comments: s/p right AKA. left toes amputation. - Back Exam Back exam: Absent: CVA tenderness (L), CVA tenderness (R) - Skin Additional comments: left heel necrotic ulcer Internal Medicine: Result - Labs CBC & Chem 7: 05/20/16 03:41 05/20/16 03:41 Labs: Short CBC 05/20/16 Range/Units 03:41 WBC 9.8 D (4.3-11.1) K/mcL Hgb 10.5 L (12.9-16.9) g/dL Hct 32.4 L (37.5-50.1) % Plt Count 262 D (140-400) K/mcL Neutrophils # 7.7 (1.6-8.9) K/mcL BMP 05/20/16 03:41 Sodium 131 L Potassium 4.7 H Chloride 97 L Carbon Dioxide 23 BUN 74 H Creatinine 2.59 H Glucose 20 L* Calcium 9.0 - ABG Interpretation ABG results: ABG ABG pH 7.39 pH Units (7.32-7.45) 05/19/16 11:25 ABG pCO2 33 mmHg (35-45) L 05/19/16 11:25 ABG pO2 94 mmHg (85-104) 05/19/16 11:25 ABG O2 Saturation 97 % (95-98) 05/19/16 11:25 - Impressions Impressions Foot X-Ray 05/20/16 23:41 IMPRESSION: Soft tissue edema of the hindfoot and midfoot without evidence of soft tissue gas. No specific radiographic evidence of osteomyelitis. Postsurgical changes status post transmetatarsal amputation. D/ / Yousuf Urias MD / Yousuf Urias MD Interpreting Provider: Yousuf Urias MD Consult Discharge Plan - Plan Referrals: Jennie Washington CNP [Primary Care Provider] - 05/22/16 9:00 am ( )
[2016-05-20] MEDS: HYDROcodone BIT/Homatropine 5 MG TABLET PO PRN ×2 (17:34→22:18)
[2016-05-20] MEDS: *HR* OxyCODONE Immed Rel 5 MG TABLET PO PRN (20:32)
[2016-05-20] MEDS ORDERED: Insulin DETEMIR 100 UNIT/ML X5UNITS SQ SCH (21:00)
[2016-05-20] MEDS: Temazepam 15 MG CAPSULE PO PRN (22:14)
[2016-05-21 03:57] LABS: Basophils % 0.6 %; Eosinophils # 0.2 K/mcL (0.0-0.6); Eosinophils % 4.5 %; Hematocrit 26.7 % (37.5-50.1); Immature Granulocytes % 0.6 % (0-4); Lymphocytes # 0.6 K/mcL (0.6-4.6); Lymphocytes % 11.7 %; Mean Corpuscular HGB Conc 32.2 g/dL (31.6-35.5); Mean Corpuscular Hemoglobin 28.3 pg (28.0-33.3); Mean Corpuscular Volume 87.8 fL (83.0-100.0); Mean Platelet Volume 10.3 fL (9.4-12.4); Monocytes # 0.7 K/mcL (0.0-1.3); Monocytes % 13.6 %; Neutrophils # 3.4 K/mcL (1.6-8.9); Platelet Count 155 K/mcL (140-400); Red Blood Count 3.04 M/mcL (4.19-5.50); Red Cell Distribution Width 18.1 % (11.5-14.5)
[2016-05-21 03:59] LABS: Hemoglobin 8.6 g/dL (12.9-16.9)
[2016-05-21 04:10] LABS: Calcium 8.4 mg/dL (8.6-10.8); Potassium 4.5 mEq/L (3.5-4.5)
[2016-05-21] MEDS: Ipratropium/Albuterol Neb 3 ML IH SCH ×4 (05:53→22:04)
[2016-05-21] MEDS: *HR* Heparin 5,000 UNIT/ML VIAL SQ SCH ×3 (06:22→23:54)
[2016-05-21] MEDS: Lactobacillus 1 EACH CAP.SPRINK PO SCH ×3 (08:05→20:41)
[2016-05-21] MEDS: Insulin LISPRO 300 UNITS/3 ML VIAL SQ SCH ×4 (08:05→20:42)
[2016-05-21] MEDS: Famotidine 20 MG TABLET PO SCH (08:06)
[2016-05-21] MEDS: Aspirin Enteric Coated 81 MG Tablet PO SCH (08:06)
[2016-05-21] MEDS: Metoprolol XL (24 HR) Succ 25 MG TAB.ER.24H PO SCH (08:06)
[2016-05-21] MEDS: Furosemide 240 MG in D5% in Water 96 ML IVC SCH (08:07)
--- NOTE | 2016-05-21 09:46 | Nephrology Progress Note ---
Date of Encounter: 05/21/16 Time of Encounter: 09:00 - Assessment and Plan (1) Acute kidney injury superimposed on CKD Current Visit: No Status: Acute Continue the Lasix gtt at 5mg/hr, as his UOP is responding with 550 yesterday and 2100 since midnight. Plus his SCr is essentially stable near 2.6mg/dL, though I do expect it to slightly rise while being steadily diuresed. Daily weights, strict I/Os, salt restriction, renal diet and should fluid restrict to about <2L per day. Hyponatremia (he has had a hypervolemic hyponatremia), is improving while undergoing the diuresis. Anemia: check iron studies for the AM. May need iron and / or MARTHA: will monitor. Continue to follow a renal protective strategy. Thank you. (2) BRIAN (acute kidney injury) Current Visit: No Status: Acute Stable (3) Hyperglycemia Current Visit: Yes Status: Acute As per primary (4) Edema Current Visit: No Status: Acute Qualifiers: Edema type: generalized Qualified Code(s): R60.1 - Generalized edema (5) Hyperkalemia Current Visit: No Status: Acute (6) CKD (chronic kidney disease), stage III Current Visit: No Status: Chronic baseline CKD stage IIIb and near stage IV from time to time. (7) Hyponatremia Current Visit: No Status: Chronic Improving as his volume status is improving. (8) Anemia Current Visit: Yes Status: Acute Acute on chronic. Will check iron studies. See above. Qualifiers: Anemia type: other cause Other causes of anemia: other cause, not classified Qualified Code(s): D64.89 - Other specified anemias Subjective Principal diagnosis: Anasarca, CKD Interval history: Pt was seen/examined today. Yesterday, he required placement of a danielson d/t urinary retention. He voiced feeling slightly less swollen today in his face/ checks and arms. Still has considerable scrotal swelling, he reported. No other major complaints were reported. Objective - Vital Signs Vital signs: Vital Signs Temp Pulse Resp BP Pulse Ox 05/21/16 08:10 98 05/21/16 07:28 97.8 F 81 18 135/84 98 05/21/16 04:43 97.8 F 75 18 105/70 99 05/21/16 01:03 97.6 F 79 20 93/41 100 05/20/16 23:32 16 100 05/20/16 22:07 97.3 F L 81 16 94/60 100 05/20/16 16:28 97.9 F 84 17 106/72 97 05/20/16 16:06 18 97 05/20/16 12:21 97.8 F 81 16 101/68 98 05/20/16 09:52 18 99 Intake and Output 05/20/16 05/21/16 05/21/16 23:59 07:59 15:59 Intake Total 240 / 240 540 / 540 Output Total 2099 Balance 240 / 240 -2100 / -2100 540 / 540 Intake: IV Fluids 120 / 120 Lasix 240 MG In Dextrose 120 / 120 5% 96 ML @ 10 MG/HR 5 mls /hr IVC .Q24H [facility] Rx#: [id number] Oral 240 / 240 420 / 420 Output: Catheter 2099 Other: Meal Dinner Breakfast Percent of Meal Consumed 85% 100% Weight 84.2 kg Blood Glucose* 126 97 Patient Weight 05/21/16 23:59 Weight 84.2 kg - General Appearance General appearance: Present: well-developed, chronically ill, fatigue, frail EENT: Present: ATNC, PERRL, mucous membranes moist Neck: Present: supple Respiratory: Present: course breath sounds Cardiology: Present: edema, normal S1, normal S2 Gastrointestinal: Present: normoactive bowel sounds, no tenderness, no guarding Integumentary: Present: skin tear (with dressing C/D/I of his one foot) Neurologic: Present: no asterixis, alert and oriented x3 Musculoskeletal: Present: no cyanosis, no clubbing Additional Comments: BKA - Lab 05/21/16 03:40 05/21/16 03:40 Most recent lab results ABG pH 7.39 pH Units (7.32-7.45) 05/19/16 11:25 ABG pCO2 33 mmHg (35-45) L 05/19/16 11:25 ABG pO2 94 mmHg (85-104) 05/19/16 11:25 ABG HCO3 20.0 mEQ/L (21-27) L 05/19/16 11:25 ABG O2 Saturation 97 % (95-98) 05/19/16 11:25 Calcium 8.4 mg/dL (8.6-10.8) L 05/21/16 03:40 Magnesium 1.9 mg/dL (1.6-2.6) 05/20/16 03:41 Consult Discharge Plan - Plan Referrals: Jennie Washington CNP [Primary Care Provider] - 05/22/16 9:00 am ( )
[2016-05-21] MEDS: *HR* Promethazine 25 MG/ML VIAL IVP PRN (18:04)
--- NOTE | 2016-05-21 18:56 | Internal Med Progress Note ---
Date of Encounter: 05/21/16 Time of Encounter: 17:15 - Assessment and plan (1) Acute and chronic respiratory failure with hypoxia Current Visit: No Status: Acute Assessment and plan: Secondary to acute systolic heart failure in the setting of COPD. CXR shows increased bilateral pleural effusions with increased bibasilar airspace opacities pulmonary vascular congestion and mild cardiomegaly. Echocardiogram 12/03/15 showed EF of 15-20%, Severe global and Left ventricular systolic dysfunction. Appreciate nephrology input. Good diuresis after starting Lasix drip. Continue Lasix drip. fluid restriction, DuoNeb's, Mucinex, Toprol, BiPAP when necessary. (2) Acute on chronic systolic (congestive) heart failure Current Visit: No Status: Acute Assessment and plan: As above. (3) Chronic obstructive pulmonary disease Current Visit: No Status: Chronic Assessment and plan: Plan as above. Qualifiers: COPD type: unspecified COPD Qualified Code(s): J44.9 - Chronic obstructive pulmonary disease, unspecified (4) CKD (chronic kidney disease), stage III Current Visit: No Status: Chronic Assessment and plan: Baseline. Avoid nephrotoxins as possible. Close monitoring of kidney function. Code(s): N18.3 - Chronic kidney disease, stage 3 (moderate) (5) Diabetes Current Visit: No Status: Acute Assessment and plan: 05/19: Patient developed DKA and was started on insulin drip with resolution. 05/20: Patient with episodeS of hypoglycemia. Could be secondary to left lower extremity cellulitis. IV vancomycin was started. Blood cultures taken. Close monitoring of blood glucose levels. 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 Started on dextrose IV fluids. Could be secondary to left lower symphysis ileitis. I vancomycin. Blood cultures taken. Monitoring of glucose levels. (7) Left leg cellulitis Current Visit: Yes Status: Acute Assessment and plan: IV vancomycin. Blood cultures taken. (8) DKA (diabetic ketoacidoses) Current Visit: Yes Status: Suspected Assessment and plan: 05/19: Metabolic acidosis with hyperkalemia and high beta hydroxybutyrate. received insulin drip. resolved. Qualifiers: Diabetes mellitus type: type 2 Diabetes mellitus complication detail: without coma Qualified Code(s): E13.10 - Other specified diabetes mellitus with ketoacidosis without coma (9) Ulcer of heel Current Visit: Yes Status: Acute Assessment and plan: Appreciate podiatry input. Continue management per podiatry service. 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 - Constitutional Vitals: Temp Pulse Resp BP Pulse Ox 97.4 F L 83 18 102/67 100 05/21/16 18:29 05/21/16 18:29 05/21/16 18:29 05/21/16 18:29 05/21/16 18:29 General appearance: Present: cooperative, A&O X 3, pleasant, no acute distress, answers questions appropriately - Eye Eye exam: Present: PERRL, sclera anicteric - Respiratory Respiratory exam: Present: rales (Left lower lung field. Right lung field is clear to auscultation.) - Cardiovascular Cardiovascular exam: Present: RRR - GI/Abdominal GI/Abdominal exam: Present: normal bowel sounds, soft. 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 blisters in left leg with surrounding erythema Internal Medicine: Result - Labs CBC & Chem 7: 05/21/16 03:40 05/21/16 03:40 Labs: Short CBC 05/21/16 Range/Units 03:40 WBC 4.9 (4.3-11.1) K/mcL Hgb 8.6 L D (12.9-16.9) g/dL Hct 26.7 L (37.5-50.1) % Plt Count 155 (140-400) K/mcL Neutrophils # 3.4 (1.6-8.9) K/mcL BMP 05/21/16 03:40 Sodium 133 L Potassium 4.5 Chloride 98 Carbon Dioxide 26 BUN 75 H Creatinine 2.64 H Glucose 86 Calcium 8.4 L - ABG Interpretation ABG results: ABG ABG pH 7.39 pH Units (7.32-7.45) 05/19/16 11:25 ABG pCO2 33 mmHg (35-45) L 05/19/16 11:25 ABG pO2 94 mmHg (85-104) 05/19/16 11:25 ABG O2 Saturation 97 % (95-98) 05/19/16 11:25 Consult Discharge Plan - Plan Referrals: Jennie Washington CNP [Primary Care Provider] - 05/22/16 9:00 am ( )
[2016-05-21] MEDS ORDERED: Vancomycin 1 EACH in D5% in Water 250 ML IVPB SCH (19:00)
[2016-05-21] MEDS ORDERED: Vancomycin 1,250 MG in D5% in Water 250 ML IVPB SCH (19:00)
[2016-05-21] MEDS ORDERED: Vancomycin 1,250 MG in D5% in Water 250 ML IVPB ONE (20:00)
[2016-05-21] MEDS: Ondansetron ODT 4 MG TAB.RAPDIS SL PRN (20:41)
[2016-05-21] MEDS: D10% in Water 500 ML IVC SCH ×2 (20:42→20:43)
[2016-05-21] MEDS: *HR* OxyCODONE Immed Rel 5 MG TABLET PO PRN (21:59)
[2016-05-21] MEDS: Temazepam 15 MG CAPSULE PO PRN (21:59)
[2016-05-22] MEDS: Ipratropium/Albuterol Neb 3 ML IH SCH ×4 (04:26→22:59)
[2016-05-22] MEDS: *HR* OxyCODONE Immed Rel 5 MG TABLET PO PRN ×3 (04:41→21:42)
[2016-05-22] MEDS: *HR* Heparin 5,000 UNIT/ML VIAL SQ SCH ×3 (06:15→23:38)
[2016-05-22 06:33] LABS: Basophils # 0.1 K/mcL (0.0-0.2); Basophils % 1.1 %; Eosinophils # 0.2 K/mcL (0.0-0.6); Eosinophils % 3.6 %; Hematocrit 29.2 % (37.5-50.1); Hemoglobin 9.2 g/dL (12.9-16.9); Immature Granulocytes % 0.6 % (0-4); Lymphocytes # 0.7 K/mcL (0.6-4.6); Lymphocytes % 13.2 %; Mean Corpuscular HGB Conc 31.5 g/dL (31.6-35.5); Mean Corpuscular Volume 88.8 fL (83.0-100.0); Mean Platelet Volume 10.9 fL (9.4-12.4); Monocytes # 0.6 K/mcL (0.0-1.3); Monocytes % 11.1 %; Neutrophils # 3.8 K/mcL (1.6-8.9); Platelet Count 174 K/mcL (140-400); Red Blood Count 3.29 M/mcL (4.19-5.50); Red Cell Distribution Width 18.1 % (11.5-14.5); Segmented Neutrophils % 70.4 %
--- NOTE | 2016-05-22 08:40 | Nephrology Progress Note ---
Date of Encounter: 05/22/16 Time of Encounter: 08:37 - Assessment and Plan (1) Acute kidney injury superimposed on CKD Current Visit: Yes Status: Acute 05/21 UOP 2800, weight has decreased to 79kg from admission weight of 82kg 05/22 SCr 2.87, GFR 22, slight increase from 05/21 SCr 2.64. Na 133, K 4.7, CO2 22 Plan: -Continue lasix gtt today, will most likely discontinue gtt tomorrow as we are seeing an expected rise in SCr. -Piggy back fluids are currently 0.9%NS at 15ml/hr. This needs to be changed to D5 if possible to not increase the sodium with NS. -Elevate scrotum with pillow to assist in decreasing scrotal swelling. -Continue daily weights, strict I/Os, sodium restriction, renal diet and fluid restriction of <2L per day -Continue renal protection, avoid nephrotoxic agents (2) BRIAN (acute kidney injury) Current Visit: No Status: Acute (3) Hyperglycemia Current Visit: Yes Status: Acute Resolved, continue to manage per primary care team. (4) Edema Current Visit: Yes Status: Acute Qualifiers: Edema type: generalized Qualified Code(s): R60.1 - Generalized edema (5) Hyperkalemia Current Visit: Yes Status: Acute (6) CKD (chronic kidney disease), stage III Current Visit: No Status: Chronic Baseline CKD Stage IIIb, can be near CKD Stage IV (7) Hyponatremia Current Visit: Yes Status: Chronic Continues to improve. (8) Anemia Current Visit: No Status: Chronic Acute on chronic. Iron studies: Iron 66; %saturation 28; transferrin 167 Qualifiers: Anemia type: iron deficiency Iron deficiency anemia type: unspecified iron deficiency Qualified Code(s): D50.9 - Iron deficiency anemia, unspecified Subjective Principal diagnosis: Anasarca, CKD Interval history: Patient seen and examined at the bedside. He complains of abdominal pain and nausea after he eats and a pain on the lateral aspect of his left ankle/foot. He states that he thinks the swelling is about the same, but his SOB has improved. He states that he is upset about how swollen his scrotum is. He states that it took 3 staff members to help him sit up on the edge of the bed this morning due to the extreme pain with movement. Objective - Vital Signs Vital signs: Vital Signs Temp Pulse Resp BP Pulse Ox 05/22/16 08:11 97.7 F 92 18 100/58 98 05/22/16 04:44 97.6 F 84 22 102/67 98 05/22/16 04:35 16 99 05/22/16 00:04 98.0 F 80 18 96/69 98 05/21/16 22:05 18 98 05/21/16 20:40 98 05/21/16 18:29 97.4 F L 83 18 102/67 100 05/21/16 16:48 16 102/67 99 05/21/16 16:30 97.8 F 75 18 105/70 99 05/21/16 10:04 20 84 L Intake and Output 05/21/16 05/22/16 05/22/16 23:59 07:59 15:59 Intake Total 400 / 400 Output Total 300 / 300 Balance 100 / 100 Intake: Oral 360 / 360 Other 40 / 40 Output: Catheter 300 / 300 Other: Meal Dinner Percent of Meal Consumed 100% Stool Size Large Stool Color Brown # Bowel Movements 1 Weight 79 kg Blood Glucose* 97 158 Patient Weight 05/22/16 23:59 Weight 79 kg - General Appearance General appearance: Present: well-developed, chronically ill, fatigue, frail EENT: Present: ATNC, PERRL, mucous membranes moist Neck: Present: no JVD, supple Respiratory: Present: wheezing (with expiration on the right), course breath sounds Cardiology: Present: no murmurs, no rub, no gallops, edema, regular rate, regular rhythm, normal S1, normal S2 Gastrointestinal: Present: normoactive bowel sounds, no tenderness, no guarding , obese Integumentary: Present: warm and dry, skin tear (left foot wrapped in dressing, heel ulcer) Neurologic: Present: no focal deficit, alert and oriented x3 Musculoskeletal: Present: no cyanosis, no clubbing Additional Comments: right leg BKA Psychiatric: Present: depressed, cooperative - Lab 05/22/16 04:00 05/22/16 04:00 Most recent lab results ABG pH 7.39 pH Units (7.32-7.45) 05/19/16 11:25 ABG pCO2 33 mmHg (35-45) L 05/19/16 11:25 ABG pO2 94 mmHg (85-104) 05/19/16 11:25 ABG HCO3 20.0 mEQ/L (21-27) L 05/19/16 11:25 ABG O2 Saturation 97 % (95-98) 05/19/16 11:25 Calcium 8.4 mg/dL (8.6-10.8) L 05/21/16 03:40 Magnesium 1.9 mg/dL (1.6-2.6) 05/20/16 03:41 - Allied health notes Allied health notes reviewed: nursing - VTE Documentation of Mechanical Device: Venous foot pump, device Consult Discharge Plan - Plan Referrals: Washington,Jennie Wang CNP [Primary Care Provider] - 05/22/16 9:00 am ( )
[2016-05-22] MEDS: Insulin LISPRO 300 UNITS/3 ML VIAL SQ SCH ×4 (08:53→21:09)
[2016-05-22] MEDS: Lactobacillus 1 EACH CAP.SPRINK PO SCH ×3 (08:53→21:12)
[2016-05-22] MEDS: Metoprolol XL (24 HR) Succ 25 MG TAB.ER.24H PO SCH (08:54)
[2016-05-22] MEDS: Furosemide 240 MG in D5% in Water 96 ML IVC SCH (08:55)
[2016-05-22] MEDS: Aspirin Enteric Coated 81 MG Tablet PO SCH (08:55)
[2016-05-22] MEDS: Famotidine 20 MG TABLET PO SCH (08:55)
[2016-05-22 10:38] LABS: Calcium 8.5 mg/dL (8.6-10.8)
[2016-05-22 10:39] LABS: Potassium 4.7 mEq/L (3.5-4.5)
--- NOTE | 2016-05-22 11:13 | Internal Med Progress Note ---
Date of Encounter: 05/22/16 Time of Encounter: 10:50 - Assessment and plan (1) Acute and chronic respiratory failure with hypoxia Current Visit: No Status: Acute Assessment and plan: Secondary to acute systolic heart failure in the setting of COPD. not on oxygen at home. CXR shows increased bilateral pleural effusions with increased bibasilar airspace opacities pulmonary vascular congestion and mild cardiomegaly. Echocardiogram 12/03/15 showed EF of 15-20%, Severe global and Left ventricular systolic dysfunction. slowly improving. Good diuresis after starting Lasix drip on 05/20. There is a mild jump in his creatinine. Continue Lasix drip. repeat BMP in the afternoon. fluid restriction, DuoNeb's, Mucinex, Toprol, BiPAP when necessary. (2) Acute on chronic systolic (congestive) heart failure Current Visit: No Status: Acute Assessment and plan: plan As above. (3) CKD (chronic kidney disease), stage III Current Visit: No Status: Chronic Assessment and plan: jum in creatinine could be due to lasix drip. repeat bmp in afternoon. Avoid nephrotoxins as possible. Close monitoring of kidney function. Code(s): N18.3 - Chronic kidney disease, stage 3 (moderate) (4) Diabetes Current Visit: No Status: Acute Assessment and plan: 05/19: Patient developed DKA and was started on insulin drip with resolution. 05/20: Patient with episodes of hypoglycemia. Could be secondary to left lower extremity cellulitis. IV vancomycin was started. Blood cultures taken. Close monitoring of blood glucose levels. BS at 189. sliding scale insulin. diabetic diet. 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 Blood cultures taken. (6) Ulcer of heel Current Visit: Yes Status: Acute Assessment and plan: Appreciate podiatry input. Continue management per podiatry service. 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 Qualifiers: COPD type: unspecified COPD Qualified Code(s): J44.9 - Chronic obstructive pulmonary disease, unspecified (9) Hypoglycemia Current Visit: Yes Status: Acute Assessment and plan: Episode of persistent hypoglycemia on 05/20. Started on dextrose IV fluids. Could be secondary to left lower symphysis ileitis. I vancomycin. Blood cultures taken. Monitoring of glucose levels. (10) DKA (diabetic ketoacidoses) Current Visit: Yes Status: Suspected Assessment and plan: 05/19: Metabolic acidosis with hyperkalemia and high beta hydroxybutyrate. received insulin drip. resolved. Qualifiers: Diabetes mellitus type: type 2 Diabetes mellitus complication detail: without coma Qualified Code(s): E13.10 - Other specified diabetes mellitus with ketoacidosis without coma - Subjective Interval history: pt reports worsening of pain in his left foot. - Constitutional Vitals: Temp Pulse Resp BP Pulse Ox 97.7 F 92 18 100/58 98 05/22/16 08:11 05/22/16 08:11 05/22/16 08:11 05/22/16 08:11 05/22/16 08:11 General appearance: Present: cooperative, A&O X 3, pleasant, no acute distress, answers questions appropriately - Eye Eye exam: Present: PERRL, sclera anicteric - Neck Neck exam general surgery: Present: supple, trachea midline. Absent: lymphadenopathy - Respiratory Respiratory exam: Present: rales (at right lung base. good air entry in left lung base.) - Cardiovascular Cardiovascular exam: Present: RRR - GI/Abdominal GI/Abdominal exam: Present: normal bowel sounds, soft. Absent: distended, tenderness - Extremities Exam Additional comments: left leg: very tender, no discharge, left heel necrotic ulcer without any changes. s/p R AKA - Back Exam Back exam: Absent: CVA tenderness (L), CVA tenderness (R) - Skin Additional comments: left leg: chronic swelling and red discoloration. Internal Medicine: Result - Labs CBC & Chem 7: 02/27/17 04:00 05/22/16 04:00 Labs: Short CBC 05/22/16 Range/Units 04:00 WBC 5.3 (4.3-11.1) K/mcL Hgb 9.2 L (12.9-16.9) g/dL Hct 29.2 L (37.5-50.1) % Plt Count 174 (140-400) K/mcL Neutrophils # 3.8 (1.6-8.9) K/mcL BMP 05/22/16 04:00 Sodium 133 L Potassium 4.7 H Chloride 96 L Carbon Dioxide 22 BUN 74 H Creatinine 2.87 H Glucose 120 H Calcium 8.5 L - ABG Interpretation ABG results: ABG ABG pH 7.39 pH Units (7.32-7.45) 05/19/16 11:25 ABG pCO2 33 mmHg (35-45) L 05/19/16 11:25 ABG pO2 94 mmHg (85-104) 05/19/16 11:25 ABG O2 Saturation 97 % (95-98) 05/19/16 11:25 - VTE Documentation of Mechanical Device: Venous foot pump, device Consult Discharge Plan - Plan Referrals: Felix,Jennie Wang CNP [Primary Care Provider] - 05/22/16 9:00 am ( )
--- NOTE | 2016-05-22 12:37 | Podiatry Progress Note ---
Date of Encounter: 05/23/16 Time of Encounter: 12:00 - Assessment and Plan (1) Bullae Current Visit: Yes Status: Acute 1. Bullae are healing, continue wound care as ordered. (2) Edema Current Visit: Yes Status: Acute Qualifiers: Edema type: generalized Qualified Code(s): R60.1 - Generalized edema (3) Left leg cellulitis Current Visit: Yes Status: Acute (4) Pressure ulcer of left heel Current Visit: Yes Status: Acute 1. Pressure ulcer to left heel with eschar. Xrays obtained, no evidence of Osteomyelitis. WBC: 5.3 2. Ischemic ulceration to the plantar aspect of the left foot at the 5th metatarsal. 3. Consulted Vascular and spoke with Dr. Bob. Patient is s/p aortobifemoral bypass and a left femoral to popliteal artery bypass. Underwent thrombectomy of the left lower extremity and fasciotomy in 2014. ABIs of the LLE showed moderate occlusive disease in December of 2015. 4. Continue wound care as ordered. Agree with present antibiotic therapy. 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 Patient states increased pain to LLE overnight. He states the pain is located to the left lateral heel. No c/o fever, chills, n/v. Patient does has a medical history significant for PAD and had ABIs of the LLE in December of 2015 which showed moderate occlusive disease. Patient is s/p aortobifemoral bypass and a left femoral to popliteal artery bypass. Underwent thrombectomy of the left lower extremity and fasciotomy [place] [address] Bob. Objective - Vital Signs Vital Signs: Vital Signs Temp Pulse Resp BP Pulse Ox 05/22/16 08:11 97.7 F 92 18 100/58 98 05/22/16 04:44 97.6 F 84 22 102/67 98 05/22/16 04:35 16 99 05/22/16 00:04 98.0 F 80 18 96/69 98 05/21/16 22:05 18 98 05/21/16 20:40 98 05/21/16 18:29 97.4 F L 83 18 102/67 100 05/21/16 16:48 16 102/67 99 05/21/16 16:30 97.8 F 75 18 105/70 99 Intake and Output 05/21/16 05/22/16 05/22/16 23:59 07:59 15:59 Intake Total 400 / 400 645 / 645 Output Total 300 / 300 900 / 900 Balance 100 / 100 -255 / -255 Intake: IV Fluids 115 / 115 Lasix 240 MG In Dextrose 115 / 115 5% 96 ML @ 10 MG/HR 5 mls /hr IVC .Q24H [id number] Rx#: [id number] Oral 360 / 360 530 / 530 Other 40 / 40 Output: Catheter 300 / 300 900 / 900 Other: Meal Dinner Breakfast Percent of Meal Consumed 100% 100% Stool Size Large Stool Color Brown # Bowel Movements 1 Weight 79 kg Blood Glucose* 97 189 Patient Weight 05/22/16 23:59 Weight 79 kg - Exam Exam: General: alert awake oriented X 3. Calm and pleasant, no acute distress. Vascular: Left: Pedal pulses 0/4 DP/PT , No evidence of cyanosis, pallor or rubor, Edema graded at 2+/4, Skin temperature warm, Homans Sign negative, capillary refill time is immediate to forefoot. Neurological: Decreased epicritic sensation, vibratory sensation as evidenced by the SWMF 5.07 and tuning fork 128 CPS. Musculoskeletal: Right BKA. s/p left TMA. Integument: Skin with decreased turgor, decreased subcutaneous tissue, skin thin and shiny with trophic changes associated with comorbidities as described in history. 3 ulcerations to the LLE secondary to ruptured bullous lesion to anterior tibial region; left medial measuring 5 cm in length x 4.2 cm in width, left anterior tibial measuring 6 cm in length x 3 cm in width, dorsum of left forefoot measuring 1 cm in length x 1.8 cm in width. Serous drainage observed to dressings. Two ischemic ulcerations to the left foot, left lateral heel measuring 1.2 cm in length x 1.2 cm in width, base of wound with black eschar, ulcer to sub #5 metatarsal head with black eschar. Ulceration to incision line of left fore foot measuring 1.3 cm in length x 1 cm in width, base of wound is yellow. LLE and forefoot are erythematous and edematous. - Lab Result Diagrams: 05/23/16 06:38 05/23/16 06:38 Labs: Abnormal lab results RBC 3.29 M/mcL (4.19-5.50) L 05/22/16 04:00 Hgb 9.2 g/dL (12.9-16.9) L 05/22/16 04:00 Hct 29.2 % (37.5-50.1) L 05/22/16 04:00 MCHC 31.5 g/dL (31.6-35.5) L 05/22/16 04:00 RDW 18.1 % (11.5-14.5) H 05/22/16 04:00 ABG pCO2 33 mmHg (35-45) L 05/19/16 11:25 ABG HCO3 20.0 mEQ/L (21-27) L 05/19/16 11:25 ABG Base Excess -4.4 mEq/L (-2.0 to 3.0) L 05/19/16 11:25 Sodium 133 mEq/L (136-145) L 05/22/16 04:00 Potassium 4.7 mEq/L (3.5-4.5) H 05/22/16 04:00 Chloride 96 mEq/L (98-109) L 05/22/16 04:00 BUN 74 mg/dL (8-26) H 05/22/16 04:00 Creatinine 2.87 mg/dL (0.72-1.25) H 05/22/16 04:00 Est GFR ( Amer) 27 (> 60) L 05/22/16 04:00 Est GFR (Non-Af Amer) 22 (> 60) L 05/22/16 04:00 Glucose 120 mg/dL (70-99) H 05/22/16 04:00 POC Glucose 95 (58-89) H 05/21/16 18:17 Calcium 8.5 mg/dL (8.6-10.8) L 05/22/16 04:00 Transferrin 167 mg/dL (174-364) L 05/22/16 04:00 Ferritin 291 ng/ml (22-275) H 05/22/16 04:00 AST 35 Units/L (5-34) H 05/19/16 14:30 Troponin I 0.05 ng/mL (0-0.03) H* 05/18/16 17:30 B-Natriuretic Peptide 2823 pg/mL (0-100) H 05/18/16 17:30 Albumin 2.9 g/dL (3.5-5.0) L 05/19/16 14:30 Albumin/Globulin Ratio 0.8 (1.1-2.2) L 05/19/16 14:30 Beta-Hydroxybutyric Acd 0.36 mmol/L (0.02-0.27) H 05/19/16 14:30 - VTE Documentation of Mechanical Device: Venous foot pump, device Consult Discharge Plan - Plan Referrals: Jennie Washington CNP [Primary Care Provider] - 05/22/16 9:00 am ( )
[2016-05-22 16:12] LABS: Calcium 8.2 mg/dL (8.6-10.8); Potassium 4.3 mEq/L (3.5-4.5)
[2016-05-22] MEDS ORDERED: Vancomycin 1,250 MG in D5% in Water 250 ML IVPB ONE (21:00)
[2016-05-22] MEDS: HYDROcodone BIT/Homatropine 5 MG TABLET PO PRN (21:12)
[2016-05-23] MEDS: Ipratropium/Albuterol Neb 3 ML IH SCH ×2 (04:23→11:18)
[2016-05-23] MEDS: *HR* OxyCODONE Immed Rel 5 MG TABLET PO PRN ×3 (05:03→21:44)
[2016-05-23] MEDS: *HR* Heparin 5,000 UNIT/ML VIAL SQ SCH ×3 (06:20→23:57)
[2016-05-23 07:09] LABS: Calcium 8.5 mg/dL (8.6-10.8); Magnesium 1.7 mg/dL (1.6-2.6); Potassium 4.6 mEq/L (3.5-4.5)
[2016-05-23 07:14] LABS: Basophils # 0.1 K/mcL (0.0-0.2); Basophils % 0.9 %; Eosinophils # 0.2 K/mcL (0.0-0.6); Hematocrit 31.2 % (37.5-50.1); Immature Granulocytes % 1.6 % (0-4); Lymphocytes # 0.8 K/mcL (0.6-4.6); Lymphocytes % 14.4 %; Mean Corpuscular HGB Conc 32.1 g/dL (31.6-35.5); Mean Corpuscular Hemoglobin 27.7 pg (28.0-33.3); Mean Corpuscular Volume 86.4 fL (83.0-100.0); Mean Platelet Volume 10.6 fL (9.4-12.4); Monocytes # 0.6 K/mcL (0.0-1.3); Monocytes % 10.9 %; Platelet Count 149 K/mcL (140-400); Red Blood Count 3.61 M/mcL (4.19-5.50); Segmented Neutrophils % 69.2 %
[2016-05-23] MEDS: Furosemide 240 MG in D5% in Water 96 ML IVC SCH ×2 (07:43→11:07)
--- NOTE | 2016-05-23 09:13 | Nephrology Progress Note ---
Date of Encounter: 05/23/16 Time of Encounter: 09:11 - Assessment and Plan (1) Acute kidney injury superimposed on CKD Current Visit: Yes Status: Acute 05/21 UOP 2800 05/22 SCr 2.87, UOP 900, POSITIVE balance of 325 05/23 Scr 2.78, GFR 23, Na 133, K 4.6, Ca 8.5 UOP so far 1000, danielson in place Plan: -Upon reviewing the lasix gtt order and discussing with pharmacy the order had been increased from Dr. Astorga's original order of 5mg/hr to 10mg/hr. We will continue lasix gtt today, but increase to 15mg/hr from 10mg/hr. The amount of UOP 05/22 is not ideal considering the patient was on a lasix gtt all day. SCr is stable, so we will increase the gtt. We will have to monitor the response to the lasix and consider metolazone as a next diuresis step if there is not an appropriate increase in UOP today. The drawback of this option is hyponatremia. We will assess the need for this after increasing the lasix today. It was discussed with the patient that without an appropriate diuresis response with these medications the next step would be dialysis. -Continue using piggy back fluids of D5 -Elevate scrotum with scrotal sling to assist in decreasing scrotal swelling. -Continue daily weights, strict I/Os, sodium restriction, renal diet and fluid restriction of <2L per day -Continue renal protection, avoid nephrotoxic agents (2) BRIAN (acute kidney injury) Current Visit: No Status: Acute (3) Hyperglycemia Current Visit: Yes Status: Acute Continue to manage per primary care team. (4) Edema Current Visit: Yes Status: Acute Qualifiers: Edema type: generalized Qualified Code(s): R60.1 - Generalized edema (5) Hyperkalemia Current Visit: Yes Status: Acute (6) CKD (chronic kidney disease), stage III Current Visit: No Status: Chronic Baseline CKD Stage IIIb, can be near CKD Stage IV (7) Hyponatremia Current Visit: Yes Status: Chronic Continues to improve. 133 today (8) Anemia Current Visit: No Status: Chronic Acute on chronic. Iron studies: Iron 66; %saturation 28; transferrin 167 Qualifiers: Anemia type: iron deficiency Iron deficiency anemia type: unspecified iron deficiency Qualified Code(s): D50.9 - Iron deficiency anemia, unspecified Subjective Principal diagnosis: Anasarca, CKD Interval history: Patient seen and examined at the bedside. He states that his SOB continues to improve. He does not believe that his scrotal swelling has improved much. He states that a mesh underwear was placed yesterday that is uncomfortable. His scrotum is also still painful. His danielson catheter is still in place. He denies any other complaints. Objective - Vital Signs Vital signs: Vital Signs Temp Pulse Resp BP Pulse Ox 05/23/16 07:30 97.3 F L 76 18 117/69 96 05/23/16 04:22 20 98 05/23/16 03:42 97.9 F 81 18 107/70 90 L 05/22/16 23:50 98.3 F 82 19 106/71 99 05/22/16 19:18 97.5 F L 76 20 95/48 99 05/22/16 16:34 16 99 05/22/16 15:17 98 F 74 16 101/62 99 05/22/16 14:03 105/74 05/22/16 12:30 97.9 F 58 18 99/56 98 Intake and Output 05/22/16 05/23/16 05/23/16 23:59 07:59 15:59 Intake Total 100 / 100 120 / 120 Output Total 1000 / 1000 Balance 100 / 100 -880 / -880 Intake: IV Fluids 120 / 120 Lasix 240 MG In Dextrose 120 / 120 5% 96 ML @ 10 MG/HR 5 mls /hr IVC .Q24H [facility] Rx#: [id number] Oral 100 / 100 Output: Catheter 1000 / 1000 Other: Weight 81.9 kg Blood Glucose* 144 226 Patient Weight 05/23/16 23:59 Weight 81.9 kg - General Appearance General appearance: Present: obese, chronically ill, fatigue, frail EENT: Present: ATNC, PERRL, mucous membranes moist Neck: Present: no JVD, supple Respiratory: Present: wheezing (R>L), course breath sounds Cardiology: Present: no murmurs, no rub, no gallops, edema (pitting edema of LEFT LE, pitting edema of b/l hands, edema of abdomen and scrotum), regular rate , regular rhythm, normal S1, normal S2 Gastrointestinal: Present: normoactive bowel sounds, no tenderness, obese Integumentary: Present: no rash, warm and dry, erythema, skin tear Additional Comments: pressure ulcer to left heal that is dressed Neurologic: Present: no focal deficit, alert and oriented x3 Musculoskeletal: Present: no cyanosis, no clubbing Psychiatric: Present: depressed, cooperative - Lab 05/23/16 06:38 05/23/16 06:38 Most recent lab results ABG pH 7.39 pH Units (7.32-7.45) 05/19/16 11:25 ABG pCO2 33 mmHg (35-45) L 05/19/16 11:25 ABG pO2 94 mmHg (85-104) 05/19/16 11:25 ABG HCO3 20.0 mEQ/L (21-27) L 05/19/16 11:25 ABG O2 Saturation 97 % (95-98) 05/19/16 11:25 Calcium 8.5 mg/dL (8.6-10.8) L 05/23/16 06:38 Magnesium 1.7 mg/dL (1.6-2.6) 05/23/16 06:38 - VTE Documentation of Mechanical Device: Venous foot pump, device Consult Discharge Plan - Plan Referrals: Felix,Jennie Wang ACRYLIC FABRICATOR [Primary Care Provider] - (web request sent on 05/23/16 )
[2016-05-23] MEDS: Aspirin Enteric Coated 81 MG Tablet PO SCH (09:36)
[2016-05-23] MEDS: Lactobacillus 1 EACH CAP.SPRINK PO SCH ×3 (09:36→21:31)
[2016-05-23] MEDS: Famotidine 20 MG TABLET PO SCH (09:36)
[2016-05-23] MEDS: Insulin LISPRO 300 UNITS/3 ML VIAL SQ SCH ×4 (09:38→21:31)
--- NOTE | 2016-05-23 09:38 | Internal Med Progress Note ---
<Papa Aragon - Last Filed: 05/23/16 11:09> Date of Encounter: 05/23/16 Time of Encounter: 09:30 - Assessment and plan (1) Acute and chronic respiratory failure with hypoxia Current Visit: No Status: Acute Assessment and plan: Etiology multifactorial, likely Secondary to acute CHF (systolic) in the setting of COPD. Of note, patient is not on home oxygen, and is currently sat at 96% on 2L. CXR shows increased bilateral pleural effusions with increased bibasilar airspace opacities pulmonary vascular congestion and mild cardiomegaly. last Echocardiogram from 12/03/15 showed EF of 15-20%, moderately dilated LV, Severe global and Left ventricular systolic dysfunction. slowly improving. Good diuresis with net output of 2.4L in last 24 hours, started Lasix drip on 05/20. Cr stable today compared to yesterday- 2.78. Continue Lasix drip- per nephrology, lasix drip will be increased to 15 today. continue fluid restriction, strict I/O. DuoNeb's, Mucinex, Toprol, BiPAP when necessary. (2) Acute on chronic systolic (congestive) heart failure Current Visit: No Status: Acute Assessment and plan: plan As above. (3) Chronic obstructive pulmonary disease Current Visit: No Status: Chronic Assessment and plan: Plan as above. Qualifiers: COPD type: unspecified COPD Qualified Code(s): J44.9 - Chronic obstructive pulmonary disease, unspecified (4) CKD (chronic kidney disease), stage III Current Visit: No Status: Chronic Assessment and plan: Cr today stable since yesterday. Avoid nephrotoxins as possible. Close monitoring of kidney function. (5) Type 2 diabetes mellitus Current Visit: No Status: Chronic Assessment and plan: Medium dose sliding scale insulin, ADA diet. patient had DKA previously on 05/19, was placed on insulin drip. currently resolved. Qualifiers: Diabetes mellitus complication status: with kidney complications Diabetes mellitus complication detail: with chronic kidney disease Diabetes mellitus intermediate teacher insulin use: with shelter use Chronic kidney disease stage: stage 4 (severe) Qualified Code(s): E11.22 - Type 2 diabetes mellitus with diabetic chronic kidney disease; N18.4 - Chronic kidney disease, stage 4 (severe); Z79.4 - shelter (current) use of insulin (6) Left leg cellulitis Current Visit: Yes Status: Acute Assessment and plan: IV vancomycin. blood cultures showed no growth. COntinue with wound care. podiatry on board. patient also has pressure ulcer of left heel. xray shows no evidence of osteomyelitis. Also has ischemic ulceration of plantar aspect of left foot and 5th metatarsal. He is s/p aortobifemoral bypass ad left femoral popliteal artery bypass. Had thrombectomy of LLE and fasciotomy in 2015. (7) DVT prophylaxis Current Visit: Yes Status: Acute Assessment and plan: Heparin SQ - Subjective Interval history: 70 year old male evaluated at bedside. He denies vomiting but reports some nausea. He was sitting in bed and had just eaten breakfast, reports good appetitite. - Constitutional Vitals: Temp Pulse Resp BP Pulse Ox 97.3 F L 76 18 117/69 96 05/23/16 07:30 05/23/16 07:30 05/23/16 07:30 05/23/16 07:30 05/23/16 07:30 General appearance: Present: cooperative, A&O X 3, pleasant, no acute distress, answers questions appropriately - Head Head exam: Present: atraumatic, normocephalic - Neck Additional comments: back of neck have bony prominences from previous neck surgery. - Respiratory Additional comments: wheezing present, and fine crackles present on lower lobes bilaterally, - Cardiovascular Additional comments: pacemaker in place. paced rhythm. - GI/Abdominal GI/Abdominal exam: Present: distended, normal bowel sounds - Additional comments: scrotum is swollen and painful - Extremities Exam Additional comments: upper extremity swollen and has +2 pitting edema bilaterally with bruising present. Right BKA. Left leg cellulitis. Internal Medicine: Result - Labs CBC & Chem 7: 05/23/16 06:38 05/23/16 06:38 Labs: Short CBC 05/23/16 Range/Units 06:38 WBC 5.7 (4.3-11.1) K/mcL Hgb 10.0 L (12.9-16.9) g/dL Hct 31.2 L (37.5-50.1) % Plt Count 149 (140-400) K/mcL Neutrophils # 4.0 (1.6-8.9) K/mcL BMP 05/22/16 05/22/16 05/23/16 04:00 15:35 06:38 Sodium 133 L 134 L 133 L Potassium 4.7 H 4.3 4.6 H Chloride 96 L 99 98 Carbon Dioxide 22 25 19 BUN 74 H 71 H 75 H Creatinine 2.87 H 2.88 H 2.78 H Glucose 120 H 88 239 H Calcium 8.5 L 8.2 L 8.5 L - ABG Interpretation ABG results: ABG ABG pH 7.39 pH Units (7.32-7.45) 05/19/16 11:25 ABG pCO2 33 mmHg (35-45) L 05/19/16 11:25 ABG pO2 94 mmHg (85-104) 05/19/16 11:25 ABG O2 Saturation 97 % (95-98) 05/19/16 11:25 - VTE Documentation of Mechanical Device: Venous foot pump, device Consult Discharge Plan - Plan Referrals: Felix,Jennie Wang CNP [Primary Care Provider] - 05/29/16 9:00 am ( ) <Carlo Rahman H - Last Filed: 05/23/16 14:29> Date of Encounter: 05/23/16 - Constitutional Vitals: Temp Pulse Resp BP Pulse Ox 97.7 F 78 18 111/45 98 05/23/16 11:24 05/23/16 11:24 05/23/16 11:24 05/23/16 11:24 05/23/16 11:24 Internal Medicine: Result - Labs CBC & Chem 7: 05/23/16 06:38 05/23/16 06:38 Labs: Short CBC 05/23/16 Range/Units 06:38 WBC 5.7 (4.3-11.1) K/mcL Hgb 10.0 L (12.9-16.9) g/dL Hct 31.2 L (37.5-50.1) % Plt Count 149 (140-400) K/mcL Neutrophils # 4.0 (1.6-8.9) K/mcL BMP 05/22/16 05/23/16 15:35 06:38 Sodium 134 L 133 L Potassium 4.3 4.6 H Chloride 99 98 Carbon Dioxide 25 19 BUN 71 H 75 H Creatinine 2.88 H 2.78 H Glucose 88 239 H Calcium 8.2 L 8.5 L - ABG Interpretation ABG results: ABG ABG pH 7.39 pH Units (7.32-7.45) 05/19/16 11:25 ABG pCO2 33 mmHg (35-45) L 05/19/16 11:25 ABG pO2 94 mmHg (85-104) 05/19/16 11:25 ABG O2 Saturation 97 % (95-98) 05/19/16 11:25 - Attending Attestation discontinue vancomycin ( CKD) IV day 2, start clindamycin. ( last culture showed sensitivity to clinda) hold iron acute systolic CHF exacerbion with B/ l pulm effusion lasix drip I examined this patient and my medical decision-making was reviewed with the DRAPERY AND UPHOLSTERY ESTIMATOR/PA/Advanced Practice Nurse/Resident Physician. I agree with the documented findings, disposition and treatment plan as described except to the extent set forth below.
[2016-05-23] MEDS: Metoprolol XL (24 HR) Succ 25 MG TAB.ER.24H PO SCH (09:40)
--- NOTE | 2016-05-23 11:38 | Vascular/Endovasc Consult Note ---
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 He has undergone multiple procedures including aortobifemoral bypass, femoral to popliteal bypass and popliteal to tibial bypass. He has nonhealing left foot ulcerations. He has limited runoff in the left lower extremity on prior angiogram without a good target for further bypass. Clinically he is not a good candidate for general anesthesia at this time. (2) Chronic kidney disease Status: Acute Qualifiers: Chronic kidney disease stage: stage 3 (moderate) Qualified Code(s): N18.3 - Chronic kidney disease, stage 3 (moderate) (3) Hypertension Status: Chronic Qualifiers: Hypertension type: essential hypertension Qualified Code(s): I10 - Essential (primary) hypertension (4) Type 2 diabetes mellitus Status: Chronic Qualifiers: Diabetes mellitus complication status: with kidney complications Diabetes mellitus complication detail: with chronic kidney disease Diabetes mellitus [facility] insulin use: with [facility] use Chronic kidney disease stage: stage 4 (severe) Qualified Code(s): E11.22 - Type 2 diabetes mellitus with diabetic chronic kidney disease; N18.4 - Chronic kidney disease, stage 4 (severe); Z79.4 - intermediate teacher (current) use of insulin (5) Acute on chronic systolic (congestive) heart failure Status: Resolved - History of Present Illness Consult date: 05/22/16 Requesting physician: Ernesto Jones Consult reason: left foot ulcer Chief complaint: PVD with ulceration History of present illness: Mr. Mendez is a 70 year old male with a long history of peripheral vascular disease with ulceration. He has undergone multiple procedures including an aortobifemoral bypass, a left femoral to popliteal bypass. He has developed chronic wounds on his left foot that have failed to heal. He has been treated with local wound care and followed by Dr. Jones. The patient has been admitted to [facility] due to his congestive heart failure. Vascular surgery was consulted to further evaluate his wounds and peripheral vascular disease. He denies claudication because he does not ambulate much. He denies rest pain or gangrene. he currently denies chest pain or shortness of breath. Past Med Surg Social Fam HX - Past Medical History Medical history: arthritis, atrial fibrillation, cardiomyopathy, CHF, COPD, coronary artery disease, DVT, diabetes, GERD, GI bleed, hyperlipidemia, hypertension, myocardial infarction, osteoporosis, peripheral artery disease, renal disease, venous stasis Psychiatric history: no psych history - Past Surgical History Surgical History: angioplasty/stent, arthroscopy, cataract, coronary bypass ( CABG), LE Bypass, LE vascular intervention, orthopedic, other, pacemaker/AICD, vascular surgery (aortobifemoral bypass, left femoral to popliteal artery bypass , right below knee amputation), other, AICD, pacemaker - Social History Smoking Status: Former smoker Smokeless Tobacco Status: No Alcohol use: none Drug use: none - Family History Father History Unknown: Yes Living Status: Mother History Unknown: Yes Living Status: Hx Family Cardiac Disorders: No Hx Family Cancer: No Hx Family Endocrine Disorder: No Medications and Allergies Aspirin 81 mg PO DAILY 10/30/14 [History] Clopidogrel [Plavix] 75 mg PO DAILY 10/30/14 [History] Pravastatin Sodium 40 mg PO DAILY 10/30/14 [History] Tamsulosin [Flomax] 0.4 mg PO DAILY 10/30/14 [History] Ergocalciferol (VITAMIN D2) [Vitamin D2 (50,000 UNIT)] 50,000 unit PO MCGOWAN [History] Metoprolol XL (24 HR) Succ [Toprol XL] 25 mg PO DAILY 03/05/15 [History] Docusate [Colace] 100 mg PO BID PRN 12/01/15 [History] Nitroglycerin [Nitrostat] 0.4 mg SL DAILY PRN 12/01/15 [History] Temazepam [Restoril] 7.5 mg PO HS 12/01/15 [History] Epoetin Jonnie [Procrit] 2,000 unit IJ FR 01/13/16 [History] GuaiFENesin ER [Mucinex] 600 mg PO BID tbbp.12hr 02/11/16 [Rx] Ferrous Sulfate 325 mg PO BID 03/08/16 [History] Ondansetron HCl [Zofran] 4 mg PO Q6H PRN 03/08/16 [History] Promethazine [Phenergan] 12.5 mg PO Q4H PRN 03/08/16 [History] Ranitidine HCl [Zantac] 150 mg PO BID 03/08/16 [History] Insulin Glargine,Hum.rec.anlog [Lantus Solostar] 16 unit SQ HS 03/25/16 [History ] Insulin LISPRO [HumaLOG] 5 - 15 units SQ ACHS 03/25/16 [History] Ipratropium/Albuterol Neb [Duoneb] 3 ml IH Q6HR 03/25/16 [History] Polyethylene Glycol 3350 [MiraLAX] 17 gm PO DAILY 03/25/16 [History] Lactobacillus Acidophilus [Acidophilus] 1 each PO TID #30 tablet 05/12/16 [Rx] OxyCODONE Immed Rel [Roxicodone 5 MG] 10 mg PO Q6H PRN #20 tablet 05/12/16 [Rx] Furosemide [Lasix] 60 mg PO BID #60 tab 05/29/16 [Rx] Allergies No Known Allergies Allergy (Verified 05/18/16 16:53) All Systems Review: A 10-system review of systems was performed and is negative for pertinent findings except as documented above in the HPI. Exam Vital Signs, Last 4 Hours Pulse Ox 05/23/16 09:47 96 05/23/16 09:45 96 General: Present: Conversant, No Apparent Distress HEENT: Present: Pupils equal Neck: Absent: JVD, Left Carotid bruit, Right Carotid bruit, Tracheal deviation Cardiac: Present: Normal S1 and S2, Irregular Rhythm Lungs: Present: Normal Breath Sounds, No Wheeze, Rales, Rhonchi Neuro: Present: Alert and responsive, Motor nerves grossly intact, Sensory nerves grossly intact Abdomen: Present: Soft, Non-tender. Absent: Masses Vascular: Present: Edema (1+ edema). Absent: Cyanosis Skin: Present: Wound/ulcer(s) (left foot ulcers without erythema, minimal serous drainage, no fluctuance, no purulence) Consult Discharge Plan - Plan Instructions: Furosemide (By mouth), Cellulitis (DC), Diabetes Mellitus Type 2 in Adults (DC) Additional Instructions: Follow up with PCP in one week. Follow up with nephrology, vascular surgery, and podiatry. BMP 1 week. bring to PCP appointment. Referrals: Africa Santos CNP [Partnered Physician] - Heath Bob MD [Partnered Physician] - Peyman Astorga DO [Partnered Physician] - 07/04/16 9:30 am (Please follow up a sschedule...) Jennie Washington CNP [Primary Care Provider] - 06/05/16 2:00 pm ( ) Prescriptions: Furosemide [Lasix] 60 mg PO BID #60 tab
[2016-05-23] MEDS: Ondansetron ODT 4 MG TAB.RAPDIS SL PRN (12:07)
--- NOTE | 2016-05-23 12:32 | Podiatry Progress Note ---
Date of Encounter: 05/23/16 Time of Encounter: 11:45 - Assessment and Plan (1) Bullae Current Visit: Yes Status: Acute 1. Bullae are healing, continue wound care as ordered. (2) Edema Current Visit: Yes Status: Acute Qualifiers: Edema type: generalized Qualified Code(s): R60.1 - Generalized edema (3) Left leg cellulitis Current Visit: Yes Status: Acute 1. Cellulitis is resovling, agree with present antibiotic therapy. (4) Pressure ulcer of left heel Current Visit: Yes Status: Acute Pressure ulcer to left heel with eschar. Ischemic ulceration to the plantar aspect of the left foot at the 5th metatarsal. No changes in ulcerations. Ulcerations to the heel and and 5th metatarsal are dry. Xrays obtained, no evidence of Osteomyelitis. Patient is s/p aortobifemoral bypass and a left femoral to popliteal artery bypass. Underwent thrombectomy of the left lower extremity and fasciotomy in 2014. ABIs of the LLE showed moderate occlusive disease in December of 2015. Dr. Padilla evaluated patient yesterday and according to his note Mr. Mendez has limited runoff in the left lower extremity on prior angiogram without a good target for further bypass. Clinically he is not a good candidate for general anesthesia at this time. Continue wound care as ordered. Recommend f/u in wound care with Dr. Jones. Continue to keep left heel offloaded. Qualifiers: Pressure ulcer stage: unstageable Qualified Code(s): L89.620 - Pressure ulcer of left heel, unstageable (5) Diabetes Current Visit: No Status: Acute Qualifiers: Diabetes mellitus type: type 2 Diabetes mellitus complication status: with kidney complications Diabetes mellitus complication detail: with chronic kidney disease Diabetes mellitus [facility] insulin use: with termite helper use Chronic kidney disease stage: stage 4 (severe) Qualified Code(s): E11.22 - Type 2 diabetes mellitus with diabetic chronic kidney disease; N18.4 - Chronic kidney disease, stage 4 (severe); Z79.4 - [facility] (current) use of insulin (6) Peripheral artery disease Current Visit: No Status: Acute (7) Renal failure Current Visit: No Status: Acute (8) PAD (peripheral artery disease) Current Visit: No Status: Chronic Subjective Principal diagnosis: Anasarca, CKD Interval history: Patient is sitting up in bed with dressing intact to LLE with prevalon boot on. Patient states no changes to LLE overnight. Patient was evaluated by Dr. Bob yesterday. Dressings to LLE are being changed daily and PRN. Per nurse patient became nauseous after his Lasix gtt was increased. Objective - Vital Signs Vital Signs: Vital Signs Temp Pulse Resp BP Pulse Ox 05/23/16 11:24 97.7 F 78 18 111/45 98 05/23/16 11:23 96 05/23/16 09:47 96 05/23/16 09:45 96 05/23/16 07:30 97.3 F L 76 18 117/69 96 05/23/16 04:22 20 98 05/23/16 03:42 97.9 F 81 18 107/70 90 L 05/22/16 23:50 98.3 F 82 19 106/71 99 05/22/16 19:18 97.5 F L 76 20 95/48 99 05/22/16 16:34 16 99 05/22/16 15:17 98 F 74 16 101/62 99 05/22/16 14:03 105/74 05/22/16 12:30 97.9 F 58 18 99/56 98 Intake and Output 05/22/16 05/23/16 05/23/16 23:59 07:59 15:59 Intake Total 100 / 100 120 / 120 360 / 360 Output Total 1000 / 1000 3000 / 3000 Balance 100 / 100 -880 / -880 -2640 / -2640 Intake: IV Fluids 120 / 120 Lasix 240 MG In Dextrose 120 / 120 5% 96 ML @ 10 MG/HR 5 mls /hr IVC .Q24H [facility] Rx#: [id number] Oral 100 / 100 360 / 360 Output: Urine 1500 / 1500 Urethral (Hall) 1500 / 1500 Catheter 1000 / 1000 1500 / 1500 Other: Meal Breakfast Percent of Meal Consumed 100% Weight 81.9 kg Blood Glucose* 144 226 313 Patient Weight 05/23/16 23:59 Weight 81.9 kg - Exam Exam: General: alert awake oriented X 3. Calm and pleasant, no acute distress. Vascular: Left: Pedal pulses 0/4 DP/PT , No evidence of cyanosis, pallor or rubor, Edema graded at 2+/4, Skin temperature warm, Homans Sign negative, capillary refill time is immediate to forefoot. Neurological: Decreased epicritic sensation, vibratory sensation as evidenced by the SWMF 5.07 and tuning fork 128 CPS. Musculoskeletal: Right BKA. s/p left TMA. Integument: Skin with decreased turgor, decreased subcutaneous tissue, skin thin and shiny with trophic changes associated with comorbidities as described in history. 3 ulcerations to the LLE secondary to ruptured bullous lesion to anterior tibial region; left medial measuring 5 cm in length x 4.2 cm in width, left anterior tibial measuring 6 cm in length x 3 cm in width, dorsum of left forefoot measuring 1 cm in length x 1.8 cm in width. Moderate amount of serous drainage observed to dressings. Two ischemic ulcerations to the left foot, left lateral heel measuring 1.2 cm in length x 1.2 cm in width, base of wound with black eschar, ulcer to sub #5 metatarsal head with black eschar. Dried scab to incision line of left fore foot. - Lab Result Diagrams: 05/23/16 06:38 05/23/16 06:38 Labs: Abnormal lab results RBC 3.61 M/mcL (4.19-5.50) L 05/23/16 06:38 Hgb 10.0 g/dL (12.9-16.9) L 05/23/16 06:38 Hct 31.2 % (37.5-50.1) L 05/23/16 06:38 MCH 27.7 pg (28.0-33.3) L 05/23/16 06:38 RDW 18.0 % (11.5-14.5) H 05/23/16 06:38 ABG pCO2 33 mmHg (35-45) L 05/19/16 11:25 ABG HCO3 20.0 mEQ/L (21-27) L 05/19/16 11:25 ABG Base Excess -4.4 mEq/L (-2.0 to 3.0) L 05/19/16 11:25 Sodium 133 mEq/L (136-145) L 05/23/16 06:38 Potassium 4.6 mEq/L (3.5-4.5) H 05/23/16 06:38 BUN 75 mg/dL (8-26) H 05/23/16 06:38 Creatinine 2.78 mg/dL (0.72-1.25) H 05/23/16 06:38 Est GFR ( Amer) 28 (> 60) L 05/23/16 06:38 Est GFR (Non-Af Amer) 23 (> 60) L 05/23/16 06:38 BUN/Creatinine Ratio 27 (6-26) H 05/23/16 06:38 Glucose 239 mg/dL (70-99) H 05/23/16 06:38 POC Glucose 313 (58-89) H 05/23/16 11:16 Calculated Osmolality 306 (280-300) H 05/23/16 06:38 Calcium 8.5 mg/dL (8.6-10.8) L 05/23/16 06:38 Transferrin 167 mg/dL (174-364) L 05/22/16 04:00 Ferritin 291 ng/ml (22-275) H 05/22/16 04:00 AST 35 Units/L (5-34) H 05/19/16 14:30 Troponin I 0.05 ng/mL (0-0.03) H* 05/18/16 17:30 B-Natriuretic Peptide 2823 pg/mL (0-100) H 05/18/16 17:30 Albumin 2.9 g/dL (3.5-5.0) L 05/19/16 14:30 Albumin/Globulin Ratio 0.8 (1.1-2.2) L 05/19/16 14:30 Beta-Hydroxybutyric Acd 0.36 mmol/L (0.02-0.27) H 05/19/16 14:30 Microbiology, Last 48 Hours 05/21/16 20:25 Blood Culture - Preliminary Peripheral Venipuncture No growth. 05/21/16 20:15 Blood Culture - Preliminary Peripheral Venipuncture No growth. - VTE Documentation of Mechanical Device: Venous foot pump, device Consult Discharge Plan - Plan Referrals: Felix,Jennie Wang CNP [Primary Care Provider] - 05/29/16 9:00 am ( )
[2016-05-23] MEDS: Clindamycin 300 MG in D5% in Water 50 ML IVPB SCH ×2 (15:56→23:56)
[2016-05-23] MEDS: Temazepam 15 MG CAPSULE PO PRN (21:43)
[2016-05-24] MEDS: *HR* Heparin 5,000 UNIT/ML VIAL SQ SCH ×3 (00:10→17:30)
[2016-05-24] MEDS: Furosemide 240 MG in D5% in Water 96 ML IVC SCH ×2 (02:06→21:58)
[2016-05-24] MEDS: Ondansetron ODT 4 MG TAB.RAPDIS SL PRN ×2 (03:58→11:18)
[2016-05-24 04:32] LABS: Basophils % 0.6 %; Eosinophils # 0.2 K/mcL (0.0-0.6); Eosinophils % 4.9 %; Hematocrit 30.8 % (37.5-50.1); Hemoglobin 9.8 g/dL (12.9-16.9); Immature Granulocytes % 0.4 % (0-4); Lymphocytes # 0.7 K/mcL (0.6-4.6); Lymphocytes % 14.5 %; Mean Corpuscular HGB Conc 31.8 g/dL (31.6-35.5); Mean Corpuscular Hemoglobin 27.6 pg (28.0-33.3); Mean Corpuscular Volume 86.8 fL (83.0-100.0); Mean Platelet Volume 10.7 fL (9.4-12.4); Monocytes # 0.5 K/mcL (0.0-1.3); Neutrophils # 3.4 K/mcL (1.6-8.9); Platelet Count 160 K/mcL (140-400); Red Blood Count 3.55 M/mcL (4.19-5.50); Red Cell Distribution Width 17.9 % (11.5-14.5); Segmented Neutrophils % 68.6 %
[2016-05-24 04:45] LABS: Calcium 8.3 mg/dL (8.6-10.8); Potassium 4.1 mEq/L (3.5-4.5)
[2016-05-24] MEDS: Insulin LISPRO 300 UNITS/3 ML VIAL SQ SCH ×4 (08:15→22:10)
[2016-05-24] MEDS: Lactobacillus 1 EACH CAP.SPRINK PO SCH ×3 (08:16→22:09)
[2016-05-24] MEDS: Metoprolol XL (24 HR) Succ 25 MG TAB.ER.24H PO SCH (08:17)
[2016-05-24] MEDS: Famotidine 20 MG TABLET PO SCH (08:18)
[2016-05-24] MEDS: Aspirin Enteric Coated 81 MG Tablet PO SCH (08:19)
--- NOTE | 2016-05-24 08:54 | Vascular/[facility] Progress Note ---
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 He has undergone multiple procedures including aortobifemoral bypass, femoral to popliteal bypass and popliteal to tibial bypass. He has had a prior right below knee amputation. He now has nonhealing left foot ulcerations. He has limited runoff in the left lower extremity on prior angiogram without a good target for further bypass. He is a poor candidate for anesthesia. Recommend continued local wound care. The patient may ultimately require amputation. - Subjective Interval history: The patient reports nausea and vomiting today. The patient denies any foot pain. He denies chest pain or shortness of breath Vital Signs, Last 4 Hours Temp Pulse Resp BP Pulse Ox 05/24/16 06:57 97.9 F 78 17 97/61 96 05/24/16 05:07 97.6 F 83 18 111/71 97 - Physical Examination General: Present: Conversant, No Apparent Distress HEENT: Present: Pupils equal Lungs: Present: Normal Breath Sounds Neuro: Present: Alert and responsive, No focal deficits noted Vascular: Present: Amputation(s) (Right ) Skin: Present: Wound/ulcer(s) (left foot ulcers unchanged) - VTE Documentation of Mechanical Device: Venous foot pump, device Results 05/24/16 04:08 05/24/16 04:08 Lab Results, Last 24 hours 05/24/16 05/24/16 05/24/16 04:08 04:08 04:08 WBC 4.9 Hgb 9.8 L Hct 30.8 L Plt Count 160 Sodium 135 L Potassium 4.1 Chloride 98 Carbon Dioxide 26 BUN 75 H Creatinine 2.42 H Glucose 98 Calcium 8.3 L B-Natriuretic Peptide 3957 H Consult Discharge Plan - Plan Referrals: Jennie Washington CNP [Primary Care Provider] - 05/29/16 9:00 am ( )
--- NOTE | 2016-05-24 09:15 | Internal Med Progress Note ---
<PbPapa goodman - Last Filed: 05/24/16 09:08> Date of Encounter: 05/24/16 Time of Encounter: 09:00 - Assessment and plan (1) Acute and chronic respiratory failure with hypoxia Current Visit: No Status: Acute Assessment and plan: Etiology multifactorial, likely Secondary to acute CHF (systolic) in the setting of COPD. Of note, patient is not on home oxygen, and is currently sat at 96% on 2L. CXR shows increased bilateral pleural effusions with increased bibasilar airspace opacities pulmonary vascular congestion and mild cardiomegaly. last Echocardiogram from 12/03/15 showed EF of 15-20%, moderately dilated LV, Severe global and Left ventricular systolic dysfunction. slowly improving. Good diuresis with net output of 3.7L in last 24 hours, started Lasix drip on 05/20. Cr continuing to decrease compared to yesterday- 2.42. Continue Lasix drip- per nephrology, currently drip is at 15. continue fluid restriction, strict I/O. DuoNeb's, Mucinex, Toprol, BiPAP when necessary. (2) Acute on chronic systolic (congestive) heart failure Current Visit: No Status: Acute Assessment and plan: plan As above. (3) CKD (chronic kidney disease), stage III Current Visit: No Status: Chronic Assessment and plan: Cr today stable and decreasing since yesterday. Avoid nephrotoxins as possible. Close monitoring of kidney function. (4) Left leg cellulitis Current Visit: Yes Status: Acute Assessment and plan: IV vancomycin switched to clindamycin. blood cultures showed no growth. COntinue with wound care. podiatry on board. patient also has pressure ulcer of left heel. xray shows no evidence of osteomyelitis. Also has ischemic ulceration of plantar aspect of left foot and 5th metatarsal. He is s/p aortobifemoral bypass ad left femoral popliteal artery bypass. Had thrombectomy of LLE and fasciotomy in 2015. vascular surgery is following. (5) Chronic obstructive pulmonary disease Current Visit: No Status: Chronic Assessment and plan: Plan as #2 above. Qualifiers: COPD type: unspecified COPD Qualified Code(s): J44.9 - Chronic obstructive pulmonary disease, unspecified (6) Type 2 diabetes mellitus Current Visit: No Status: Chronic Assessment and plan: Medium dose sliding scale insulin, ADA diet. patient had DKA previously on 05/19, was placed on insulin drip. currently resolved. 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 He denies nausea, vomiting, diarrhea, fever, chills, dizziness, shortness of breath. He states that he feels well today. - Constitutional Vitals: Temp Pulse Resp BP Pulse Ox 97.9 F 78 17 97/61 96 05/24/16 06:57 05/24/16 06:57 05/24/16 06:57 05/24/16 06:57 05/24/16 06:57 General appearance: Present: cooperative, A&O X 3, pleasant, no acute distress, answers questions appropriately - Head Head exam: Present: atraumatic, normocephalic - Neck Neck exam general surgery: Present: supple, trachea midline - Respiratory Respiratory exam: Present: rales Additional comments: right lower lobe crackles present. - Cardiovascular Cardiovascular exam: Present: RRR Additional comments: pacemaker present on left side of chest. - GI/Abdominal GI/Abdominal exam: Present: firm, normal bowel sounds, tenderness Additional comments: bruising present throughout abdomen. - Extremities Exam Additional comments: right BKA present. Left leg cellulitis present. Left upper extremity has +3 pitting edema. - Back Exam Additional comments: freckles and scars present on back. - Neurological Exam Neurological exam: Present: alert, oriented X3, no focal deficits Internal Medicine: Result - Labs CBC & Chem 7: 05/24/16 04:08 05/24/16 04:08 Labs: Short CBC 05/24/16 Range/Units 04:08 WBC 4.9 (4.3-11.1) K/mcL Hgb 9.8 L (12.9-16.9) g/dL Hct 30.8 L (37.5-50.1) % Plt Count 160 (140-400) K/mcL Neutrophils # 3.4 (1.6-8.9) K/mcL BMP 05/24/16 04:08 Sodium 135 L Potassium 4.1 Chloride 98 Carbon Dioxide 26 BUN 75 H Creatinine 2.42 H Glucose 98 Calcium 8.3 L - ABG Interpretation ABG results: ABG ABG pH 7.39 pH Units (7.32-7.45) 05/19/16 11:25 ABG pCO2 33 mmHg (35-45) L 05/19/16 11:25 ABG pO2 94 mmHg (85-104) 05/19/16 11:25 ABG O2 Saturation 97 % (95-98) 05/19/16 11:25 - VTE Documentation of Mechanical Device: Venous foot pump, device Consult Discharge Plan - Plan Referrals: Felix,Jennie Wang CNP [Primary Care Provider] - 05/29/16 9:00 am ( ) <Carlo Rahman H - Last Filed: 05/24/16 09:51> Date of Encounter: 05/24/16 - Constitutional Vitals: Temp Pulse Resp BP Pulse Ox 97.9 F 78 17 97/61 96 05/24/16 06:57 05/24/16 06:57 05/24/16 06:57 05/24/16 06:57 05/24/16 06:57 Internal Medicine: Result - Labs CBC & Chem 7: 05/24/16 04:08 05/24/16 04:08 Labs: Short CBC 05/24/16 Range/Units 04:08 WBC 4.9 (4.3-11.1) K/mcL Hgb 9.8 L (12.9-16.9) g/dL Hct 30.8 L (37.5-50.1) % Plt Count 160 (140-400) K/mcL Neutrophils # 3.4 (1.6-8.9) K/mcL BMP 05/24/16 04:08 Sodium 135 L Potassium 4.1 Chloride 98 Carbon Dioxide 26 BUN 75 H Creatinine 2.42 H Glucose 98 Calcium 8.3 L - ABG Interpretation ABG results: ABG ABG pH 7.39 pH Units (7.32-7.45) 05/19/16 11:25 ABG pCO2 33 mmHg (35-45) L 05/19/16 11:25 ABG pO2 94 mmHg (85-104) 05/19/16 11:25 ABG O2 Saturation 97 % (95-98) 05/19/16 11:25 - Attending Attestation left toes amputated, multiple wounds in left lower extremity with granulation tissue, erythema has subsided. Continue clindamycin day 2 continue lasix drip I examined this patient and my medical decision-making was reviewed with the SUPERVISOR [employer]/PA/Advanced Practice Nurse/Resident Physician. I agree with the documented findings, disposition and treatment plan as described except to the extent set forth below.
[2016-05-24] MEDS ORDERED: Aminoglycoside Consult 1 EACH MC ONE (09:48)
[2016-05-24] MEDS: metOLazone 2.5 MG TABLET PO SCH ×2 (10:10→22:09)
--- NOTE | 2016-05-24 10:51 | Nephrology Progress Note ---
Date of Encounter: 05/24/16 Time of Encounter: 10:00 - Assessment and Plan (1) Acute kidney injury superimposed on CKD Current Visit: Yes Status: Acute 05/23 UOP 4600 with intake of 830, NEGATIVE Balance of -3770 05/24 UOP 2000 so far; Scr 2.42, GFR 27, Na 135, K 4.1; BNP 3957 (increased from 2823 05/18) Plan: -Patient has been on lasix gtt at 15mg/hr. His UOP has dramatically increassed to 4600 net output yesterday. Today he already has 2000ml UOP. Scrotal swelling has improved since yesterday. Patient still has edema of hands, abdomen and left LE. SCr stable today. We will continue lasix gtt today at 15mg/hr. We will also add metolazone 2.5mg BID for additional diuresis. -Continue using piggy back fluids of D5 -Recheck BNP in a few days so that we can trend diuresis. -Continue daily weights, strict I/Os, sodium restriction, renal diet and fluid restriction of <2L per day -Continue renal protection, avoid nephrotoxic agents (2) BRIAN (acute kidney injury) Current Visit: No Status: Acute (3) Hyperglycemia Current Visit: Yes Status: Acute Continue to manage per primary care team. (4) Edema Current Visit: Yes Status: Acute Qualifiers: Edema type: generalized Qualified Code(s): R60.1 - Generalized edema (5) Hyperkalemia Current Visit: Yes Status: Acute (6) CKD (chronic kidney disease), stage III Current Visit: No Status: Chronic Baseline CKD Stage IIIb, can be near CKD Stage IV (7) Hyponatremia Current Visit: Yes Status: Chronic Continues to improve. 135 today (8) Anemia Current Visit: No Status: Chronic Acute on chronic. Iron studies: Iron 66; %saturation 28; transferrin 167 Qualifiers: Anemia type: iron deficiency Iron deficiency anemia type: unspecified iron deficiency Qualified Code(s): D50.9 - Iron deficiency anemia, unspecified Subjective Principal diagnosis: Anasarca, CKD Interval history: Patient seen and examined at the bedside. He states that his SOB continues to improve. He notes improvement of his scrotal swelling and pain. He removed the scrotal sling yesterday. He is still not sleeping well at night and feeling tired during the day. He also still experiences abdominal pain after eating. He denies CP, dizziness, YEUNG. His danielson catheter is still in place. He denies any other complaints. Objective - Vital Signs Vital signs: Vital Signs Temp Pulse Resp BP Pulse Ox 05/24/16 06:57 97.9 F 78 17 97/61 96 05/24/16 05:07 97.6 F 83 18 111/71 97 05/24/16 00:12 97.7 F 84 18 133/61 99 05/23/16 23:04 86/54 05/23/16 21:51 98 05/23/16 19:49 97.6 F 72 20 96/62 98 05/23/16 16:12 97.9 F 71 18 112/73 99 05/23/16 11:24 97.7 F 78 18 111/45 98 05/23/16 11:23 96 Intake and Output 05/23/16 05/24/16 05/24/16 23:59 07:59 15:59 Intake Total 350 / 350 100 / 100 Output Total 600 / 600 700 / 700 1300 / 1300 Balance -250 / -250 -600 / -600 -1300 / -1300 Intake: IV Fluids 50 / 50 100 / 100 Lasix 240 MG In Dextrose 100 / 100 5% 96 ML @ 15 MG/HR 7.5 mls/hr IVC .Q16H [id number] Rx#: [id number] Cleocin 300 MG In 50 / 50 Dextrose 5% 50 ML @ 50 mls/hr IVPB Q8HR [id number] Rx#: [id number] Oral 300 / 300 Output: Urine 700 / 700 Urethral (Danielson) 700 / 700 Catheter 600 / 600 1300 / 1300 Other: Meal Dinner Percent of Meal Consumed 50% Stool Size Large Stool Consistency soft Stool Color Brown # Bowel Movements 1 Weight 84.2 kg Blood Glucose* 223 Patient Weight 05/24/16 23:59 Weight 84.2 kg - General Appearance General appearance: Present: obese, chronically ill, fatigue, frail EENT: Present: PERRL, mucous membranes moist Neck: Present: no JVD, supple Respiratory: Present: wheezing (right posterior lower lung field) Cardiology: Present: no murmurs, no rub, no gallops, edema (Pitting edema of the Left hand, abdomen, and Left LE. Trace on the right hand. Significant scrotal edema), regular rate, regular rhythm, normal S1, normal S2 Gastrointestinal: Present: normoactive bowel sounds, no tenderness Integumentary: Present: no rash, warm and dry, erythema (Left LE), skin tear ( Left heel ulcer dressed/wrapped) Neurologic: Present: no focal deficit, alert and oriented x3 Musculoskeletal: Present: no cyanosis, no clubbing Additional Comments: Right BKA Psychiatric: Present: mood/affect appropriate, cooperative - Lab 05/24/16 04:08 05/24/16 04:08 Most recent lab results ABG pH 7.39 pH Units (7.32-7.45) 05/19/16 11:25 ABG pCO2 33 mmHg (35-45) L 05/19/16 11:25 ABG pO2 94 mmHg (85-104) 05/19/16 11:25 ABG HCO3 20.0 mEQ/L (21-27) L 05/19/16 11:25 ABG O2 Saturation 97 % (95-98) 05/19/16 11:25 Calcium 8.3 mg/dL (8.6-10.8) L 05/24/16 04:08 Magnesium 1.7 mg/dL (1.6-2.6) 05/23/16 06:38 - VTE Documentation of Mechanical Device: Venous foot pump, device Consult Discharge Plan - Plan Referrals: Jennie Washington CNP [Primary Care Provider] - 05/29/16 9:00 am ( )
[2016-05-24] MEDS: *HR* OxyCODONE Immed Rel 5 MG TABLET PO PRN (11:18)
[2016-05-24] MEDS: Clindamycin 300 MG in D5% in Water 50 ML IVPB SCH ×2 (11:18→17:35)
[2016-05-24] MEDS: *HR* Promethazine 25 MG/ML VIAL IVP PRN (17:35)
[2016-05-24] MEDS ORDERED: 0.9 % Sodium Chloride 250 ML IV PRN (23:51)
[2016-05-24] MEDS ORDERED: 0.9 % Sodium Chloride 250 ML ONE (23:55)
[2016-05-25] MEDS: Clindamycin 300 MG in D5% in Water 50 ML IVPB SCH ×4 (00:35→23:34)
[2016-05-25] MEDS: *HR* OxyCODONE Immed Rel 5 MG TABLET PO PRN ×2 (00:35→21:13)
[2016-05-25 05:34] LABS: Basophils # 0.1 K/mcL (0.0-0.2); Basophils % 0.5 %; Eosinophils # 0.3 K/mcL (0.0-0.6); Eosinophils % 2.9 %; Hemoglobin 9.7 g/dL (12.9-16.9); Immature Granulocytes % 0.3 % (0-4); Lymphocytes # 0.6 K/mcL (0.6-4.6); Lymphocytes % 5.8 %; Mean Corpuscular HGB Conc 32.3 g/dL (31.6-35.5); Mean Corpuscular Hemoglobin 28.3 pg (28.0-33.3); Mean Corpuscular Volume 87.5 fL (83.0-100.0); Mean Platelet Volume 10.5 fL (9.4-12.4); Monocytes # 0.7 K/mcL (0.0-1.3); Monocytes % 7.1 %; Platelet Count 155 K/mcL (140-400); Red Blood Count 3.43 M/mcL (4.19-5.50); Red Cell Distribution Width 18.2 % (11.5-14.5); Segmented Neutrophils % 83.4 %
[2016-05-25 05:37] LABS: Neutrophils # 7.8 K/mcL (1.6-8.9)
[2016-05-25 05:45] LABS: Calcium 8.3 mg/dL (8.6-10.8); Potassium 4.1 mEq/L (3.5-4.5)
[2016-05-25] MEDS: *HR* Heparin 5,000 UNIT/ML VIAL SQ SCH ×6 (06:05→21:07)
[2016-05-25] MEDS: Metoprolol XL (24 HR) Succ 25 MG TAB.ER.24H PO SCH (08:46)
[2016-05-25] MEDS: Famotidine 20 MG TABLET PO SCH (08:53)
[2016-05-25] MEDS: Aspirin Enteric Coated 81 MG Tablet PO SCH (08:53)
[2016-05-25] MEDS: Lactobacillus 1 EACH CAP.SPRINK PO SCH ×3 (08:53→21:13)
[2016-05-25] MEDS: metOLazone 2.5 MG TABLET PO SCH (08:53)
[2016-05-25] MEDS: Insulin LISPRO 300 UNITS/3 ML VIAL SQ SCH ×4 (08:54→21:07)
--- NOTE | 2016-05-25 09:29 | Internal Med Progress Note ---
<Papa Aragon - Last Filed: 05/25/16 09:24> Date of Encounter: 05/25/16 Time of Encounter: 09:00 - Assessment and plan (1) Acute and chronic respiratory failure with hypoxia Current Visit: No Status: Acute Assessment and plan: Etiology multifactorial, likely Secondary to acute CHF (systolic) in the setting of COPD. Of note, patient is not on home oxygen, and is currently sat at 96% on 2L. CXR shows increased bilateral pleural effusions with increased bibasilar airspace opacities pulmonary vascular congestion and mild cardiomegaly. last Echocardiogram from 12/03/15 showed EF of 15-20%, moderately dilated LV, Severe global and Left ventricular systolic dysfunction. slowly improving. Good diuresis with net output of 1.6L in last 24 hours, started Lasix drip on 05/20. Cr continuing to decrease compared to yesterday- 2.34. continue fluid restriction, strict I/O. DuoNeb's, Mucinex, Toprol, BiPAP when necessary. Last night lasix drip was stopped due to systolic blood pressure in 80s. Currently holding lasix drip and metolazone. Appreciate nephrology recommendations. (2) Acute on chronic systolic (congestive) heart failure Current Visit: No Status: Acute Assessment and plan: plan As above. (3) CKD (chronic kidney disease), stage III Current Visit: No Status: Chronic Assessment and plan: Cr today 2.34, stable and decreasing since yesterday. Avoid nephrotoxins as possible. Close monitoring of kidney function. (4) Left leg cellulitis Current Visit: Yes Status: Acute Assessment and plan: clindamycin day 3. blood cultures showed no growth. COntinue with wound care. podiatry on board. patient also has pressure ulcer of left heel. xray shows no evidence of osteomyelitis. Also has ischemic ulceration of plantar aspect of left foot and 5th metatarsal. He is s/p aortobifemoral bypass ad left femoral popliteal artery bypass. Had thrombectomy of LLE and fasciotomy in 2014. vascular surgery is following. (5) Chronic obstructive pulmonary disease Current Visit: No Status: Chronic Assessment and plan: Plan as #2 above. Qualifiers: COPD type: unspecified COPD Qualified Code(s): J44.9 - Chronic obstructive pulmonary disease, unspecified (6) Type 2 diabetes mellitus Current Visit: No Status: Chronic Assessment and plan: Medium dose sliding scale insulin, ADA diet. patient had DKA previously on 05/19, was placed on insulin drip. currently resolved. Continue low dose sliding scale insulin. Qualifiers: Diabetes mellitus complication status: with kidney complications Diabetes mellitus complication detail: with chronic kidney disease Diabetes mellitus long term care phlebotomist insulin use: with residential use Chronic kidney disease stage: stage 4 (severe) Qualified Code(s): E11.22 - Type 2 diabetes mellitus with diabetic chronic kidney disease; N18.4 - Chronic kidney disease, stage 4 (severe); Z79.4 - FPC (current) use of insulin (7) DVT prophylaxis Current Visit: Yes Status: Acute Assessment and plan: Heparin SQ - Subjective Interval history: 70 year old male evaluated at bedside. He reports some nausea, but denies vomiting, diarrhea, fever chills. Last night his lasix drip was turned off due to hypotension. His metolazone is currently being held as well. - Constitutional Vitals: Temp Pulse Resp BP Pulse Ox 97.6 F 89 18 85/59 95 05/25/16 07:48 05/25/16 07:48 05/25/16 07:48 05/25/16 07:48 05/25/16 09:10 General appearance: Present: cooperative, A&O X 3, pleasant, no acute distress, answers questions appropriately - Head Head exam: Present: atraumatic, normocephalic - Neck Additional comments: back of neck has protrusion of hard object, form previous neck surgery. - Respiratory Additional comments: right sided crackles present. - Cardiovascular Additional comments: pacemaker in place. paced rhythm. no murmurs noted. - GI/Abdominal GI/Abdominal exam: Present: firm, normal bowel sounds. Absent: distended, guarding Additional comments: bruisig on abdomen are getting better. - Additional comments: scrotum remains swollen. - Extremities Exam Additional comments: Left upper extremity +3 pitting edema. Lower extremity edema mildly improved. Rigtht BKA with wound on stump, multiple wounds on left lower extremity - Neurological Exam Neurological exam: Present: alert, oriented X3, no focal deficits - Psychiatric Psychiatric exam: Present: normal affect, normal mood Internal Medicine: Result - Labs CBC & Chem 7: 05/25/16 05:00 05/25/16 05:00 Labs: Short CBC 05/25/16 Range/Units 05:00 WBC 9.4 D (4.3-11.1) K/mcL Hgb 9.7 L (12.9-16.9) g/dL Hct 30.0 L (37.5-50.1) % Plt Count 155 (140-400) K/mcL Neutrophils # 7.8 (1.6-8.9) K/mcL BMP 05/25/16 05:00 Sodium 132 L Potassium 4.1 Chloride 94 L Carbon Dioxide 25 BUN 72 H Creatinine 2.34 H Glucose 179 H Calcium 8.3 L - ABG Interpretation ABG results: ABG ABG pH 7.39 pH Units (7.32-7.45) 05/19/16 11:25 ABG pCO2 33 mmHg (35-45) L 05/19/16 11:25 ABG pO2 94 mmHg (85-104) 05/19/16 11:25 ABG O2 Saturation 97 % (95-98) 05/19/16 11:25 - VTE Documentation of Mechanical Device: Venous foot pump, device Consult Discharge Plan - Plan Referrals: Washington,Jennie Wang CNP [Primary Care Provider] - 05/29/16 9:00 am ( ) <Carlo Rahman H - Last Filed: 05/25/16 13:55> Date of Encounter: 05/25/16 - Constitutional Vitals: Temp Pulse Resp BP Pulse Ox 97.7 F 82 18 89/62 94 L 05/25/16 12:06 05/25/16 12:06 05/25/16 12:06 05/25/16 12:06 05/25/16 12:06 Internal Medicine: Result - Labs CBC & Chem 7: 05/25/16 05:00 05/25/16 05:00 Labs: Short CBC 05/25/16 Range/Units 05:00 WBC 9.4 D (4.3-11.1) K/mcL Hgb 9.7 L (12.9-16.9) g/dL Hct 30.0 L (37.5-50.1) % Plt Count 155 (140-400) K/mcL Neutrophils # 7.8 (1.6-8.9) K/mcL BMP 05/25/16 05:00 Sodium 132 L Potassium 4.1 Chloride 94 L Carbon Dioxide 25 BUN 72 H Creatinine 2.34 H Glucose 179 H Calcium 8.3 L - ABG Interpretation ABG results: ABG ABG pH 7.39 pH Units (7.32-7.45) 05/19/16 11:25 ABG pCO2 33 mmHg (35-45) L 05/19/16 11:25 ABG pO2 94 mmHg (85-104) 05/19/16 11:25 ABG O2 Saturation 97 % (95-98) 05/19/16 11:25 - Attending Attestation start lasix 20 mg IV TID plus metolazone 2.5 mg daily. I examined this patient and my medical decision-making was reviewed with the ZOO DIRECTOR/PA/Advanced Practice Nurse/Resident Physician. I agree with the documented findings, disposition and treatment plan as described except to the extent set forth below.
--- NOTE | 2016-05-25 12:04 | Nephrology Progress Note ---
Date of Encounter: 05/25/16 Time of Encounter: 09:45 - Assessment and Plan (1) Acute kidney injury superimposed on CKD Current Visit: Yes Status: Acute 05/24 UOP 1999 with intake of 374, NEGATIVE Balance of -1626 3/ UOP 1800 so far; Scr 2.34, GFR 28, Na 132, K 4.1 It was noted that he had episodes of hypotension overnight and his lasix drip was held. He had another episode of hypotension this morning with a systolic pressure of 78. The morning dose of metoprolol was held. The patient did receive his morning dose of metolazone. Plan: -Patient UOP responded well with the combination of lasix and metolazone. Edema is still present, but improving. Lung sounds also improving. The lasix drip was stopped last night due to hypotension which continues today. The patient still requires IV diuretics. OK to hold lasix drip and give lasix 40mg IV BID along with Metolazone 2.5mg daily. Consider adding 25mg albumin to assist in increasing BP. SCr remains stable. -Recheck BNP in a few days so that we can trend diuresis. -Continue daily weights, strict I/Os, sodium restriction, renal diet and fluid restriction of <2L per day -Continue renal protection, avoid nephrotoxic agents (2) BRIAN (acute kidney injury) Current Visit: No Status: Acute (3) Hyperglycemia Current Visit: Yes Status: Acute Continue to manage per primary care team. (4) Edema Current Visit: Yes Status: Acute Qualifiers: Edema type: generalized Qualified Code(s): R60.1 - Generalized edema (5) Hyperkalemia Current Visit: Yes Status: Acute (6) CKD (chronic kidney disease), stage III Current Visit: No Status: Chronic Baseline CKD Stage IIIb, can be near CKD Stage IV (7) Hyponatremia Current Visit: Yes Status: Chronic Continues to improve. 131 today (8) Anemia Current Visit: No Status: Chronic Acute on chronic. Iron studies: Iron 66; %saturation 28; transferrin 167 Qualifiers: Anemia type: iron deficiency Iron deficiency anemia type: unspecified iron deficiency Qualified Code(s): D50.9 - Iron deficiency anemia, unspecified Subjective Principal diagnosis: Anasarca, CKD Interval history: Patient seen and examined at the bedside. He states that his SOB continues to improve. He denies improvement of his scrotal swelling overnight, but states that it is not worse. He is still not sleeping well at night and feeling tired during the day. He also still experiences abdominal pain after eating. He denies CP, dizziness, YEUNG. His danielson catheter is still in place. He denies any other complaints. It was noted that he had episodes of hypotension overnight and his lasix drip was held. He had another episode of hypotension this morning with a systolic pressure of 78. The morning dose of metoprolol was held. The patient did receive his morning dose of metolazone. Objective - Vital Signs Vital signs: Vital Signs Temp Pulse Resp BP Pulse Ox 05/25/16 09:10 95 05/25/16 09:00 92 76/50 05/25/16 07:48 97.6 F 89 18 85/59 95 05/25/16 04:14 97.6 F 83 16 108/69 95 05/25/16 00:42 97.6 F 80 17 138/75 99 05/24/16 23:27 97.7 F 81 20 94/59 97 05/24/16 20:41 97.5 F L 81 16 85/39 99 Intake and Output 05/24/16 05/25/16 05/25/16 23:59 07:59 15:59 Intake Total 170 / 170 50 / 50 10 / 10 Output Total 1800 / 1800 Balance 170 / 170 -1750 / -1750 10 / 10 Intake: IV Fluids 170 / 170 50 / 50 10 / 10 Lasix 240 MG In Dextrose 120 / 120 10 / 10 5% 96 ML @ 15 MG/HR 7.5 mls/hr IVC .Q16H [facility] Rx#: [id number] Cleocin 300 MG In 50 / 50 50 / 50 Dextrose 5% 50 ML @ 50 mls/hr IVPB Q8HR [facility] Rx#: [id number] Oral 0 / 0 Output: Catheter 1800 / 1800 Other: Weight 84.6 kg Blood Glucose* 219 306 Patient Weight 05/25/16 23:59 Weight 84.6 kg - General Appearance General appearance: Present: chronically ill, fatigue, frail EENT: Present: ATNC, mucous membranes dry Neck: Present: no JVD, supple Respiratory: Present: rales (in the base on the right, no wheezing or rhonchi) Cardiology: Present: no murmurs, no rub, edema (of left LE that is improved, edema of abdomen, pitting edema of left hand unchanged from 05/24, scrotal edema unchanged from 05/24), regular rate, regular rhythm Gastrointestinal: Present: normoactive bowel sounds, no tenderness, no guarding , obese Integumentary: Present: no rash, warm and dry, erythema, skin tear (left heel ulcer that is dressed) Neurologic: Present: no focal deficit, alert and oriented x3 Musculoskeletal: Present: no clubbing Additional Comments: Right BKA Psychiatric: Present: mood/affect appropriate, cooperative - Lab 05/25/16 05:00 05/25/16 05:00 Most recent lab results ABG pH 7.39 pH Units (7.32-7.45) 05/19/16 11:25 ABG pCO2 33 mmHg (35-45) L 05/19/16 11:25 ABG pO2 94 mmHg (85-104) 05/19/16 11:25 ABG HCO3 20.0 mEQ/L (21-27) L 05/19/16 11:25 ABG O2 Saturation 97 % (95-98) 05/19/16 11:25 Calcium 8.3 mg/dL (8.6-10.8) L 05/25/16 05:00 Magnesium 1.7 mg/dL (1.6-2.6) 05/23/16 06:38 - Allied health notes Allied health notes reviewed: nursing - VTE Documentation of Mechanical Device: Venous foot pump, device Consult Discharge Plan - Plan Referrals: Jennie Washington CNP [Primary Care Provider] - 05/29/16 9:00 am ( )
[2016-05-25] MEDS ORDERED: Albumin 25% 25gram/100mL 25 GM/100 ML IV.SOLN IVPB ONE (12:32)
--- NOTE | 2016-05-25 16:13 | Podiatry Progress Note ---
Date of Encounter: 05/25/16 Time of Encounter: 11:30 - Assessment and Plan (1) Bullae Current Visit: Yes Status: Acute 1. Bullae x3 to LLE with moderate amount of serosanguineous drainage to dressing , continue wound care as ordered. (2) Edema Current Visit: Yes Status: Acute 1. Keep LLE elevated. Qualifiers: Edema type: generalized Qualified Code(s): R60.1 - Generalized edema (3) Left leg cellulitis Current Visit: Yes Status: Acute 1. Cellulitis is resovling, agree with present antibiotic therapy. (4) Pressure ulcer of left heel Current Visit: Yes Status: Acute Pressure ulcer to left heel with eschar. No changes in ulceration. Ischemic ulceration to the plantar aspect of the left foot at the 5th metatarsal. No changes in ulcerations. Ulcerations to the heel and and 5th metatarsal are dry. Xrays obtained, no evidence of Osteomyelitis. Patient is s/p aortobifemoral bypass and a left femoral to popliteal artery bypass. Underwent thrombectomy of the left lower extremity and fasciotomy in 2014. ABIs of the LLE showed moderate occlusive disease in December of 2015. Vascular is following: patient has limited runoff in the left lower extremity on prior angiogram without a good target for further bypass. Clinically he is not a good candidate for general anesthesia at this time. Continue wound care as ordered. Recommend f/u in wound care with Dr. Jones. Continue to keep left heel offloaded and elevated to help decreased swelling. Qualifiers: Pressure ulcer stage: unstageable Qualified Code(s): L89.620 - Pressure ulcer of left heel, unstageable (5) Diabetes Current Visit: No Status: Acute Qualifiers: Diabetes mellitus type: type 2 Diabetes mellitus complication status: with kidney complications Diabetes mellitus complication detail: with chronic kidney disease Diabetes mellitus director long term care insulin use: with shelter use Chronic kidney disease stage: stage 4 (severe) Qualified Code(s): E11.22 - Type 2 diabetes mellitus with diabetic chronic kidney disease; N18.4 - Chronic kidney disease, stage 4 (severe); Z79.4 - supervisor intermediates (current) use of insulin (6) Peripheral artery disease Current Visit: No Status: Acute (7) Renal failure Current Visit: No Status: Acute (8) PAD (peripheral artery disease) Current Visit: No Status: Chronic Subjective Principal diagnosis: Anasarca, CKD Interval history: Patient is sitting up in bed with dressing intact to LLE with prevalon boot on. Patient states no changes to LLE overnight. Patient states decreased LLE pain. Dressings to LLE are being changed daily and PRN. Per nurse patient Lasix drip was held due to hypotension. No c/o fever, chills, cp, sob or flu like symptoms. Objective - Vital Signs Vital Signs: Vital Signs Temp Pulse Resp BP Pulse Ox 05/25/16 12:06 97.7 F 82 18 89/62 94 L 05/25/16 09:10 95 05/25/16 09:00 92 76/50 05/25/16 07:48 97.6 F 89 18 85/59 95 05/25/16 04:14 97.6 F 83 16 108/69 95 05/25/16 00:42 97.6 F 80 17 138/75 99 05/24/16 23:27 97.7 F 81 20 94/59 97 05/24/16 20:41 97.5 F L 81 16 85/39 99 Intake and Output 05/25/16 05/25/16 05/25/16 07:59 15:59 23:59 Intake Total 50 / 50 10 / 10 Output Total 1800 / 1800 900 / 900 Balance -1750 / -1750 10 / 10 -900 / -900 Intake: IV Fluids 50 / 50 10 / 10 Lasix 240 MG In Dextrose 10 / 10 5% 96 ML @ 15 MG/HR 7.5 mls/hr IVC .Q16H [facility] Rx#: [id number] Cleocin 300 MG In 50 / 50 Dextrose 5% 50 ML @ 50 mls/hr IVPB Q8HR [facility] Rx#: [id number] Oral 0 / 0 Output: Urine 900 / 900 Catheter 1800 / 1800 Other: Weight 84.6 kg Blood Glucose* 306 190 Patient Weight 05/25/16 23:59 Weight 84.6 kg - Exam Exam: General: alert awake oriented X 3. Calm and pleasant, no acute distress. Vascular: Left: Pedal pulses 0/4 DP/PT , No evidence of cyanosis, pallor or rubor, Edema graded at 2+/4, Skin temperature warm, Homans Sign negative, capillary refill time is immediate to forefoot. Musculoskeletal: Right BKA. s/p left TMA. Integument: Skin with decreased turgor, decreased subcutaneous tissue, skin thin and shiny with trophic changes associated with comorbidities as described in history. 3 ulcerations to the LLE secondary to ruptured bullous lesion to anterior tibial region; left medial measuring 5 cm in length x 4.2 cm in width, left anterior tibial measuring 6 cm in length x 3 cm in width, dorsum of left forefoot measuring 1 cm in length x 1.8 cm in width. Moderate amount of serosanguineous drainage observed to dressings. Two ischemic ulcerations to the left foot, left lateral heel measuring 1.2 cm in length x 1.2 cm in width, base of wound with black eschar, ulcer to sub #5 metatarsal head with black eschar. Dried scab to incision line of left fore foot. - Lab Result Diagrams: 05/25/16 05:00 05/25/16 05:00 Labs: Abnormal lab results RBC 3.43 M/mcL (4.19-5.50) L 05/25/16 05:00 Hgb 9.7 g/dL (12.9-16.9) L 05/25/16 05:00 Hct 30.0 % (37.5-50.1) L 05/25/16 05:00 RDW 18.2 % (11.5-14.5) H 05/25/16 05:00 ABG pCO2 33 mmHg (35-45) L 05/19/16 11:25 ABG HCO3 20.0 mEQ/L (21-27) L 05/19/16 11:25 ABG Base Excess -4.4 mEq/L (-2.0 to 3.0) L 05/19/16 11:25 Sodium 132 mEq/L (136-145) L 05/25/16 05:00 Chloride 94 mEq/L (98-109) L 05/25/16 05:00 BUN 72 mg/dL (8-26) H 05/25/16 05:00 Creatinine 2.34 mg/dL (0.72-1.25) H 05/25/16 05:00 Est GFR ( Amer) 34 (> 60) L 05/25/16 05:00 Est GFR (Non-Af Amer) 28 (> 60) L 05/25/16 05:00 BUN/Creatinine Ratio 31 (6-26) H 05/25/16 05:00 Glucose 179 mg/dL (70-99) H 05/25/16 05:00 POC Glucose 306 (58-89) H 05/25/16 11:51 Calcium 8.3 mg/dL (8.6-10.8) L 05/25/16 05:00 Transferrin 167 mg/dL (174-364) L 05/22/16 04:00 Ferritin 291 ng/ml (22-275) H 05/22/16 04:00 AST 35 Units/L (5-34) H 05/19/16 14:30 Troponin I 0.05 ng/mL (0-0.03) H* 05/18/16 17:30 B-Natriuretic Peptide 3957 pg/mL (0-100) H 05/24/16 04:08 Albumin 2.9 g/dL (3.5-5.0) L 05/19/16 14:30 Albumin/Globulin Ratio 0.8 (1.1-2.2) L 05/19/16 14:30 Beta-Hydroxybutyric Acd 0.36 mmol/L (0.02-0.27) H 05/19/16 14:30 - VTE Documentation of Mechanical Device: Venous foot pump, device Consult Discharge Plan - Plan Referrals: Jennie Washington CNP [Primary Care Provider] - 05/29/16 9:00 am ( )
[2016-05-25] MEDS: Furosemide 20 MG/2 ML VIAL IVP SCH ×2 (16:38→21:13)
[2016-05-25] MEDS ORDERED: Furosemide 20 MG/2 ML VIAL IVP SCH ×2 (17:00)
[2016-05-25] MEDS: Temazepam 15 MG CAPSULE PO PRN (21:13)
[2016-05-26] MEDS: *HR* Heparin 5,000 UNIT/ML VIAL SQ SCH ×3 (04:00→23:06)
[2016-05-26 05:08] LABS: Calcium 8.7 mg/dL (8.6-10.8)
[2016-05-26 05:09] LABS: Potassium 5.4 mEq/L (3.5-4.5)
[2016-05-26] MEDS: Metoprolol XL (24 HR) Succ 25 MG TAB.ER.24H PO SCH ×2 (08:15→08:26)
[2016-05-26] MEDS: Furosemide 20 MG/2 ML VIAL IVP SCH ×3 (08:25→16:08)
[2016-05-26] MEDS: Insulin LISPRO 300 UNITS/3 ML VIAL SQ SCH ×4 (08:25→22:10)
[2016-05-26] MEDS: Lactobacillus 1 EACH CAP.SPRINK PO SCH ×3 (08:26→19:53)
[2016-05-26] MEDS: Famotidine 20 MG TABLET PO SCH (08:26)
[2016-05-26] MEDS: Aspirin Enteric Coated 81 MG Tablet PO SCH (08:26)
[2016-05-26] MEDS: metOLazone 2.5 MG TABLET PO SCH (08:27)
[2016-05-26] MEDS: Clindamycin 300 MG in D5% in Water 50 ML IVPB SCH (09:25)
--- NOTE | 2016-05-26 09:28 | Nephrology Progress Note ---
Date of Encounter: 05/26/16 Time of Encounter: 09:26 - Assessment and Plan (1) Acute kidney injury superimposed on CKD Current Visit: Yes Status: Acute 3/2 UOP 3700 with intake of 160, NEGATIVE Balance of -3540 3/3 UOP 800 so far; Scr 2.41, GFR 27, Na 134, K 5.4 Patient continues to have BPs in 90's systolic overnight. Patient was given 25mg albumin yesterday to improve intravascular volume and help stabilize BP during diuresis. Patient was switched to IV lasix yesterday and continued on daily metolazone 2.5mg. His UOP has responded well to the combination of lasix and metolazone. Plan: -Patient UOP responded well with the combination of lasix and metolazone. Edema is still present, but improving. Lung sounds also improving. The patient still requires IV diuretics. OK to hold lasix drip and give lasix 40mg IV BID along with Metolazone 2.5mg daily. SCr remains stable. -Recheck BNP in a few days so that we can trend diuresis. -Continue daily weights, strict I/Os, sodium restriction, renal diet and fluid restriction of <2L per day -Continue renal protection, avoid nephrotoxic agents (2) BRIAN (acute kidney injury) Current Visit: No Status: Acute (3) Hyperglycemia Current Visit: Yes Status: Acute Continue to manage per primary care team. (4) Edema Current Visit: Yes Status: Acute Qualifiers: Edema type: generalized Qualified Code(s): R60.1 - Generalized edema (5) Hyperkalemia Current Visit: Yes Status: Acute (6) CKD (chronic kidney disease), stage III Current Visit: No Status: Chronic Baseline CKD Stage IIIb, can be near CKD Stage IV (7) Hyponatremia Current Visit: Yes Status: Chronic Continues to improve. 134 today (8) Anemia Current Visit: No Status: Chronic Acute on chronic. Iron studies: Iron 66; %saturation 28; transferrin 167 Qualifiers: Anemia type: iron deficiency Iron deficiency anemia type: unspecified iron deficiency Qualified Code(s): D50.9 - Iron deficiency anemia, unspecified Subjective Principal diagnosis: Anasarca, CKD Interval history: Patient seen and examined at the bedside. He states that his SOB continues to improve. He states that his scrotum is still painful and swollen. He is still not sleeping well at night and feeling tired during the day. He also still experiences abdominal pain after eating. This morning he reports nausea. He denies CP, dizziness, YEUNG, visual changes. His danielson catheter is still in place. He denies any other complaints. Objective - Vital Signs Vital signs: Vital Signs Temp Pulse Resp BP Pulse Ox 05/26/16 08:34 98 05/26/16 08:05 98.1 F 87 16 97/64 96 05/26/16 03:54 98.6 F 90 14 95/58 93 L 05/25/16 23:33 98.1 F 84 16 98/66 97 05/25/16 19:58 99.0 F 84 20 94/55 94 L 05/25/16 16:41 96 95/62 05/25/16 12:06 97.7 F 82 18 89/62 94 L Intake and Output 05/25/16 05/26/16 05/26/16 23:59 07:59 15:59 Intake Total 50 / 50 Output Total 1900 / 1900 800 / 800 Balance -1850 / -1850 -800 / -800 Intake: IV Fluids 50 / 50 Cleocin 300 MG In 50 / 50 Dextrose 5% 50 ML @ 50 mls/hr IVPB Q8HR [facility] Rx#: [id number] Output: Urine 900 / 900 Catheter 1000 / 1000 800 / 800 Other: Weight 78 kg Blood Glucose* 134 214 - General Appearance General appearance: Present: chronically ill, fatigue, frail EENT: Present: ATNC, mucous membranes moist Neck: Present: no JVD, supple Respiratory: Present: rales (right base) Cardiology: Present: no murmurs, no rub, no gallops, edema (pitting edema of left hand and left LE. Trace edema of abdomen.), regular rate, regular rhythm Gastrointestinal: Present: normoactive bowel sounds, no tenderness, no guarding Integumentary: Present: warm and dry, erythema, skin tear (left heel ulcer that is dressed) Neurologic: Present: no focal deficit Musculoskeletal: Present: no cyanosis, no clubbing Additional Comments: Right BKA Psychiatric: Present: mood/affect appropriate, cooperative - Lab 05/25/16 05:00 05/26/16 03:56 Most recent lab results ABG pH 7.39 pH Units (7.32-7.45) 05/19/16 11:25 ABG pCO2 33 mmHg (35-45) L 05/19/16 11:25 ABG pO2 94 mmHg (85-104) 05/19/16 11:25 ABG HCO3 20.0 mEQ/L (21-27) L 05/19/16 11:25 ABG O2 Saturation 97 % (95-98) 05/19/16 11:25 Calcium 8.7 mg/dL (8.6-10.8) 05/26/16 03:56 Magnesium 1.7 mg/dL (1.6-2.6) 05/23/16 06:38 - Allied health notes Allied health notes reviewed: social work - VTE Documentation of Mechanical Device: Venous foot pump, device Consult Discharge Plan - Plan Referrals: Jennie Washington CNP [Primary Care Provider] - 05/29/16 9:00 am ( )
[2016-05-26] MEDS: Ondansetron ODT 4 MG TAB.RAPDIS SL PRN (11:45)
[2016-05-26] MEDS: *HR* Promethazine 25 MG/ML VIAL IVP PRN (14:00)
--- NOTE | 2016-05-26 15:45 | Internal Med Progress Note ---
<Papa Aragon - Last Filed: 05/26/16 16:03> Date of Encounter: 05/26/16 Time of Encounter: 15:00 - Assessment and plan (1) Acute and chronic respiratory failure with hypoxia Current Visit: No Status: Acute Assessment and plan: Etiology multifactorial, likely Secondary to acute CHF (systolic) in the setting of COPD. Of note, patient is not on home oxygen, and is currently sat at 96% on 2L. CXR shows increased bilateral pleural effusions with increased bibasilar airspace opacities pulmonary vascular congestion and mild cardiomegaly. last Echocardiogram from 12/03/15 showed EF of 15-20%, moderately dilated LV, Severe global and Left ventricular systolic dysfunction. slowly improving. Good diuresis with net output of 3.5L in last 24 hours Cr 2.41 continue fluid restriction, strict I/O. DuoNeb's, Mucinex, Toprol, BiPAP when necessary. Patient feels very weak and nauseous today. Concern for over diuresis- will hold Lasix for today and re evaluate tomorrow. Metolazone 2.5mg Daily. (2) Acute on chronic systolic (congestive) heart failure Current Visit: No Status: Acute Assessment and plan: plan As above. (3) CKD (chronic kidney disease), stage III Current Visit: No Status: Chronic Assessment and plan: Cr today 2.41 Avoid nephrotoxins as possible. Close monitoring of kidney function. (4) Left leg cellulitis Current Visit: Yes Status: Acute Assessment and plan: Continue with Clindamycin. Plan to discontinue antibiotics tomorrow. blood cultures showed no growth. COntinue with wound care. podiatry on board. patient also has pressure ulcer of left heel. xray shows no evidence of osteomyelitis. Also has ischemic ulceration of plantar aspect of left foot and 5th metatarsal. He is s/p aortobifemoral bypass ad left femoral popliteal artery bypass. Had thrombectomy of LLE and fasciotomy in 2015. vascular surgery is following. (5) Chronic obstructive pulmonary disease Current Visit: No Status: Chronic Assessment and plan: Plan as #2 above. Qualifiers: COPD type: unspecified COPD Qualified Code(s): J44.9 - Chronic obstructive pulmonary disease, unspecified (6) Type 2 diabetes mellitus Current Visit: No Status: Chronic Assessment and plan: Medium dose sliding scale insulin, ADA diet. patient had DKA previously on 05/19, was placed on insulin drip. currently resolved. Continue low dose sliding scale insulin. 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 He states he does not feel well today, very nauseous and very weak. - Constitutional Vitals: Temp Pulse Resp BP Pulse Ox 97.9 F 83 16 95/62 96 05/26/16 11:24 05/26/16 11:24 05/26/16 11:24 05/26/16 11:24 05/26/16 11:24 General appearance: Present: cooperative, A&O X 3, pleasant, no acute distress, answers questions appropriately - Head Head exam: Present: atraumatic, normocephalic - Neck Neck exam general surgery: Present: supple, trachea midline - Respiratory Additional comments: lower lobe crackles present bilaterally. - Cardiovascular Cardiovascular exam: Present: RRR Additional comments: pacer in place. - GI/Abdominal GI/Abdominal exam: Present: distended, normal bowel sounds, soft. Absent: tenderness Additional comments: bruising resolving on abdomen. good bowel sounds. - Extremities Exam Additional comments: right BKA with ulcer. Left leg cellulitis. - Neurological Exam Neurological exam: Present: alert, oriented X3, no focal deficits - Psychiatric Psychiatric exam: Present: anxious, depressed Internal Medicine: Result - Labs CBC & Chem 7: 05/25/16 05:00 05/26/16 14:50 Labs: BMP 05/26/16 05/26/16 03:56 14:50 Sodium 134 L Potassium 5.4 H D 4.5 Chloride 96 L Carbon Dioxide 25 BUN 71 H Creatinine 2.41 H Glucose 143 H Calcium 8.7 - ABG Interpretation ABG results: ABG ABG pH 7.39 pH Units (7.32-7.45) 05/19/16 11:25 ABG pCO2 33 mmHg (35-45) L 05/19/16 11:25 ABG pO2 94 mmHg (85-104) 05/19/16 11:25 ABG O2 Saturation 97 % (95-98) 05/19/16 11:25 - VTE Documentation of Mechanical Device: Venous foot pump, device Consult Discharge Plan - Plan Referrals: Washington,Jennie Wang CNP [Primary Care Provider] - 05/29/16 9:00 am ( ) <Carlo Rahman H - Last Filed: 05/26/16 16:45> Date of Encounter: 05/26/16 - Constitutional Vitals: Temp Pulse Resp BP Pulse Ox 97.6 F 85 18 114/69 98 05/26/16 16:25 05/26/16 16:25 05/26/16 16:25 05/26/16 16:25 05/26/16 16:25 Internal Medicine: Result - Labs CBC & Chem 7: 05/25/16 05:00 05/26/16 14:50 Labs: BMP 05/26/16 05/26/16 03:56 14:50 Sodium 134 L Potassium 5.4 H D 4.5 Chloride 96 L Carbon Dioxide 25 BUN 71 H Creatinine 2.41 H Glucose 143 H Calcium 8.7 - ABG Interpretation ABG results: ABG ABG pH 7.39 pH Units (7.32-7.45) 05/19/16 11:25 ABG pCO2 33 mmHg (35-45) L 05/19/16 11:25 ABG pO2 94 mmHg (85-104) 05/19/16 11:25 ABG O2 Saturation 97 % (95-98) 05/19/16 11:25 - Attending Attestation The patient is feeling extremely weak, may need to hold diuretics today if getting worse. Replete magnesium. Full precautions We will complete 7 days of antibiotics tomorrow, may discontinue clindamycin I examined this patient and my medical decision-making was reviewed with the NUCLEAR EQUIPMENT SALES ENGINEER/PA/Advanced Practice Nurse/Resident Physician. I agree with the documented findings, disposition and treatment plan as described except to the extent set forth below.
[2016-05-26] MEDS: Magnesium Oxide 400 MG TABLET PO SCH (17:22)
[2016-05-26] MEDS: Temazepam 15 MG CAPSULE PO PRN (22:09)
[2016-05-26] MEDS: *HR* OxyCODONE Immed Rel 5 MG TABLET PO PRN (22:10)
[2016-05-27 04:13] LABS: Basophils % 0.8 %; Eosinophils # 0.3 K/mcL (0.0-0.6); Eosinophils % 6.8 %; Hematocrit 30.7 % (37.5-50.1); Hemoglobin 9.7 g/dL (12.9-16.9); Immature Granulocytes % 0.6 % (0-4); Lymphocytes # 0.8 K/mcL (0.6-4.6); Lymphocytes % 15.4 %; Mean Corpuscular HGB Conc 31.6 g/dL (31.6-35.5); Mean Corpuscular Volume 88.5 fL (83.0-100.0); Mean Platelet Volume 10.5 fL (9.4-12.4); Monocytes # 0.5 K/mcL (0.0-1.3); Monocytes % 11.1 %; Neutrophils # 3.2 K/mcL (1.6-8.9); Platelet Count 142 K/mcL (140-400); Red Blood Count 3.47 M/mcL (4.19-5.50); Red Cell Distribution Width 18.5 % (11.5-14.5); Segmented Neutrophils % 65.3 %
[2016-05-27 04:23] LABS: Calcium 8.5 mg/dL (8.6-10.8); Magnesium 1.7 mg/dL (1.6-2.6); Potassium 4.4 mEq/L (3.5-4.5)
[2016-05-27] MEDS: *HR* Heparin 5,000 UNIT/ML VIAL SQ SCH ×3 (05:12→21:38)
[2016-05-27] MEDS: Insulin LISPRO 300 UNITS/3 ML VIAL SQ SCH ×4 (10:00→21:20)
[2016-05-27] MEDS: Metoprolol XL (24 HR) Succ 25 MG TAB.ER.24H PO SCH (10:09)
[2016-05-27] MEDS: Famotidine 20 MG TABLET PO SCH (10:10)
[2016-05-27] MEDS: Magnesium Oxide 400 MG TABLET PO SCH (10:10)
[2016-05-27] MEDS: Lactobacillus 1 EACH CAP.SPRINK PO SCH ×3 (10:10→21:19)
[2016-05-27] MEDS: metOLazone 2.5 MG TABLET PO SCH (10:10)
[2016-05-27] MEDS: Aspirin Enteric Coated 81 MG Tablet PO SCH (10:10)
--- NOTE | 2016-05-27 10:28 | Internal Med Progress Note ---
<Papa Aragon - Last Filed: 05/27/16 10:25> Date of Encounter: 05/27/16 Time of Encounter: 10:00 - Assessment and plan (1) Acute and chronic respiratory failure with hypoxia Current Visit: No Status: Acute Assessment and plan: Etiology multifactorial, likely Secondary to acute CHF (systolic) in the setting of COPD. Of note, patient is not on home oxygen, and is currently sat at 96% on 2L. CXR shows increased bilateral pleural effusions with increased bibasilar airspace opacities pulmonary vascular congestion and mild cardiomegaly. last Echocardiogram from 12/03/15 showed EF of 15-20%, moderately dilated LV, Severe global and Left ventricular systolic dysfunction. slowly improving. Continued diuresis- net negative 768ml in the last 24 hours. Cr 2.43 continue fluid restriction, strict I/O. DuoNeb's, Mucinex, Toprol, BiPAP when necessary. Patient feels better today compared to yesterday. Continue IV lasix 20mg TID as blood pressure tolerates. Metolazone 2.5mg Daily. (2) Acute on chronic systolic (congestive) heart failure Current Visit: No Status: Acute Assessment and plan: plan As above. (3) CKD (chronic kidney disease), stage III Current Visit: No Status: Chronic Assessment and plan: Cr today 2.43, stable Avoid nephrotoxins as possible. Close monitoring of kidney function. (4) Left leg cellulitis Current Visit: Yes Status: Acute Assessment and plan: Patient on clindamycin- last dose will be today. blood cultures showed no growth. COntinue with wound care. podiatry on board. patient also has pressure ulcer of left heel. xray shows no evidence of osteomyelitis. Also has ischemic ulceration of plantar aspect of left foot and 5th metatarsal. He is s/p aortobifemoral bypass ad left femoral popliteal artery bypass. Had thrombectomy of LLE and fasciotomy in 2015. vascular surgery is following. (5) Chronic obstructive pulmonary disease Current Visit: No Status: Chronic Assessment and plan: Plan as #2 above. Qualifiers: COPD type: unspecified COPD Qualified Code(s): J44.9 - Chronic obstructive pulmonary disease, unspecified (6) Type 2 diabetes mellitus Current Visit: No Status: Chronic Assessment and plan: Medium dose sliding scale insulin, ADA diet. patient had DKA previously on 05/19, was placed on insulin drip. currently resolved. Qualifiers: Diabetes mellitus complication status: with kidney complications Diabetes mellitus complication detail: with chronic kidney disease Diabetes mellitus skilled nursing insulin use: with rodent exterminator use Chronic kidney disease stage: stage 4 (severe) Qualified Code(s): E11.22 - Type 2 diabetes mellitus with diabetic chronic kidney disease; N18.4 - Chronic kidney disease, stage 4 (severe); Z79.4 - [facility] (current) use of insulin (7) DVT prophylaxis Current Visit: Yes Status: Acute Assessment and plan: Heparin SQ - Subjective Interval history: 70 year old male evaluated at bedside. He denies vomiting, diarrhea, fever, chills, shortness of breath, lightheadedness. He states that he does feel mildly nauseous today. However, he feels a lot better compared to yesterday. - Constitutional Vitals: Temp Pulse Resp BP Pulse Ox 97.4 F L 73 18 91/54 97 05/27/16 03:23 05/27/16 03:23 05/27/16 03:23 05/27/16 03:23 05/27/16 03:23 General appearance: Present: cooperative, A&O X 3, pleasant, no acute distress, answers questions appropriately - Head Head exam: Present: atraumatic, normocephalic - Neck Neck exam general surgery: Present: supple, trachea midline - Respiratory Additional comments: bilateral lower extremity rales - Cardiovascular Cardiovascular exam: Present: RRR, +S1, +S2 Additional comments: pacemaker in pace on left side of chest. RRR - GI/Abdominal GI/Abdominal exam: Present: distended, firm, normal bowel sounds. Absent: tenderness Additional comments: bruises present on lower abdomen. - Extremities Exam Additional comments: right BKA. Wound present on right stump. Left leg cellulitis. Patients left upper extremity pitting edema has significantly improved- +1 pitting edema today. Left lower extremity pitting edema +1, improved as well. - Back Exam Additional comments: bony prominence in back of neck due to recent neck surgery. - Neurological Exam Neurological exam: Present: alert, oriented X3, no focal deficits Internal Medicine: Result - Labs CBC & Chem 7: 05/27/16 04:00 05/27/16 04:00 Labs: Short CBC 05/27/16 Range/Units 04:00 WBC 4.9 (4.3-11.1) K/mcL Hgb 9.7 L (12.9-16.9) g/dL Hct 30.7 L (37.5-50.1) % Plt Count 142 (140-400) K/mcL Neutrophils # 3.2 (1.6-8.9) K/mcL BMP 05/26/16 05/27/16 14:50 04:00 Sodium 135 L Potassium 4.5 4.4 Chloride 96 L Carbon Dioxide 28 BUN 77 H Creatinine 2.43 H Glucose 69 L Calcium 8.5 L - ABG Interpretation ABG results: ABG ABG pH 7.39 pH Units (7.32-7.45) 05/19/16 11:25 ABG pCO2 33 mmHg (35-45) L 05/19/16 11:25 ABG pO2 94 mmHg (85-104) 05/19/16 11:25 ABG O2 Saturation 97 % (95-98) 05/19/16 11:25 - VTE Documentation of Mechanical Device: Venous foot pump, device Consult Discharge Plan - Plan Referrals: [place],Jennie Wang CNP [Primary Care Provider] - 05/29/16 9:00 am ( ) <Carlo Rahman H - Last Filed: 05/27/16 14:48> Date of Encounter: 05/27/16 - Constitutional Vitals: Temp Pulse Resp BP Pulse Ox 97.4 F L 73 18 91/54 97 05/27/16 03:23 05/27/16 03:23 05/27/16 03:23 05/27/16 03:23 05/27/16 03:23 Internal Medicine: Result - Labs CBC & Chem 7: 05/27/16 04:00 05/27/16 04:00 Labs: Short CBC 05/27/16 Range/Units 04:00 WBC 4.9 (4.3-11.1) K/mcL Hgb 9.7 L (12.9-16.9) g/dL Hct 30.7 L (37.5-50.1) % Plt Count 142 (140-400) K/mcL Neutrophils # 3.2 (1.6-8.9) K/mcL BMP 05/26/16 05/27/16 14:50 04:00 Sodium 135 L Potassium 4.5 4.4 Chloride 96 L Carbon Dioxide 28 BUN 77 H Creatinine 2.43 H Glucose 69 L Calcium 8.5 L - ABG Interpretation ABG results: ABG ABG pH 7.39 pH Units (7.32-7.45) 05/19/16 11:25 ABG pCO2 33 mmHg (35-45) L 05/19/16 11:25 ABG pO2 94 mmHg (85-104) 05/19/16 11:25 ABG O2 Saturation 97 % (95-98) 05/19/16 11:25 - Attending Attestation The patient is complaining of severe nausea right after taking his morning meds , discontinue metolazone in the morning as it could be a possible cause ( recently started) Continue IV Lasix I examined this patient and my medical decision-making was reviewed with the TUBE FITTER/PA/Advanced Practice Nurse/Resident Physician. I agree with the documented findings, disposition and treatment plan as described except to the extent set forth below.
--- NOTE | 2016-05-27 11:06 | Nephrology Progress Note ---
Date of Encounter: 05/27/16 Time of Encounter: 11:04 - Assessment and Plan (1) Acute kidney injury superimposed on CKD Current Visit: Yes Status: Acute Creatinine is stable in the face of diuresis. He is still volume overloaded so we will continue with current diuretic regimen. (2) Anemia Current Visit: Yes Status: Acute Monitor hemoglobin. Transfuse as needed. Qualifiers: Anemia type: other cause Other causes of anemia: other cause, not classified Qualified Code(s): D64.89 - Other specified anemias (3) Hyponatremia Current Visit: Yes Status: Chronic Follow sodium level. Improved with diuretics. Subjective Principal diagnosis: Anasarca, CKD Interval history: Patient seen and evaluated. Patient without new complaint. He feels better today , with more energy and his appetite is stable. Objective - Vital Signs Vital signs: Vital Signs Temp Pulse Resp BP Pulse Ox 05/27/16 03:23 97.4 F L 73 18 91/54 97 05/27/16 00:08 97.5 F L 76 18 96/56 97 05/26/16 20:16 98 F 65 18 98/63 100 05/26/16 16:25 97.6 F 85 18 114/69 98 05/26/16 11:24 97.9 F 83 16 95/62 96 Intake and Output 05/26/16 05/27/16 05/27/16 23:59 07:59 15:59 Intake Total 300 / 300 500 / 500 Output Total 400 / 400 350 / 350 Balance -100 / -100 -350 / -350 500 / 500 Intake: Oral 300 / 300 500 / 500 Output: Catheter 400 / 400 350 / 350 Other: Meal Dinner Percent of Meal Consumed 75% Weight 75.4 kg Blood Glucose* 277 125 Patient Weight 05/27/16 23:59 Weight 75.4 kg - General Appearance General appearance: Present: well-developed, well-nourished EENT: Present: ATNC Neck: Present: supple Respiratory: Present: clear Cardiology: Present: edema, regular rate, regular rhythm Gastrointestinal: Present: normoactive bowel sounds Integumentary: Present: warm and dry Neurologic: Present: alert and oriented x3 Musculoskeletal: Present: no cyanosis Psychiatric: Present: mood/affect appropriate - Lab 05/27/16 04:00 05/27/16 04:00 Most recent lab results ABG pH 7.39 pH Units (7.32-7.45) 05/19/16 11:25 ABG pCO2 33 mmHg (35-45) L 05/19/16 11:25 ABG pO2 94 mmHg (85-104) 05/19/16 11:25 ABG HCO3 20.0 mEQ/L (21-27) L 05/19/16 11:25 ABG O2 Saturation 97 % (95-98) 05/19/16 11:25 Calcium 8.5 mg/dL (8.6-10.8) L 05/27/16 04:00 Magnesium 1.7 mg/dL (1.6-2.6) 05/27/16 04:00 - VTE Documentation of Mechanical Device: Venous foot pump, device Consult Discharge Plan - Plan Referrals: Jennie Washington CNP [Primary Care Provider] - 05/29/16 9:00 am ( )
[2016-05-27] MEDS: Ondansetron ODT 4 MG TAB.RAPDIS SL PRN (11:59)
[2016-05-27] MEDS: *HR* Promethazine 25 MG/ML VIAL IVP PRN ×2 (12:53→21:20)
[2016-05-27] MEDS: Furosemide 20 MG/2 ML VIAL IVP SCH ×3 (17:07→17:17)
[2016-05-27] MEDS: *HR* OxyCODONE Immed Rel 5 MG TABLET PO PRN (21:20)
[2016-05-27] MEDS: Temazepam 15 MG CAPSULE PO PRN (21:20)
[2016-05-28 04:07] LABS: Basophils # 0.1 K/mcL (0.0-0.2); Basophils % 0.9 %; Eosinophils # 0.3 K/mcL (0.0-0.6); Eosinophils % 4.5 %; Hematocrit 31.4 % (37.5-50.1); Hemoglobin 9.8 g/dL (12.9-16.9); Immature Granulocytes % 0.5 % (0-4); Lymphocytes # 0.7 K/mcL (0.6-4.6); Lymphocytes % 12.1 %; Mean Corpuscular HGB Conc 31.2 g/dL (31.6-35.5); Mean Corpuscular Hemoglobin 27.7 pg (28.0-33.3); Mean Corpuscular Volume 88.7 fL (83.0-100.0); Mean Platelet Volume 10.7 fL (9.4-12.4); Monocytes # 0.4 K/mcL (0.0-1.3); Monocytes % 6.6 %; Neutrophils # 4.4 K/mcL (1.6-8.9); Platelet Count 142 K/mcL (140-400); Red Blood Count 3.54 M/mcL (4.19-5.50); Red Cell Distribution Width 18.6 % (11.5-14.5); Segmented Neutrophils % 75.4 %
[2016-05-28 04:22] LABS: Calcium 8.6 mg/dL (8.6-10.8); Potassium 4.5 mEq/L (3.5-4.5)
[2016-05-28] MEDS: *HR* Heparin 5,000 UNIT/ML VIAL SQ SCH ×3 (05:03→21:09)
[2016-05-28] MEDS: Insulin LISPRO 300 UNITS/3 ML VIAL SQ SCH ×4 (08:20→21:00)
[2016-05-28] MEDS: Lactobacillus 1 EACH CAP.SPRINK PO SCH ×3 (08:21→20:51)
[2016-05-28] MEDS: Famotidine 20 MG TABLET PO SCH (08:21)
[2016-05-28] MEDS: Furosemide 20 MG/2 ML VIAL IVP SCH ×4 (08:21→17:13)
[2016-05-28] MEDS: Aspirin Enteric Coated 81 MG Tablet PO SCH (08:21)
[2016-05-28] MEDS: Magnesium Oxide 400 MG TABLET PO SCH (08:21)
[2016-05-28] MEDS: Metoprolol XL (24 HR) Succ 25 MG TAB.ER.24H PO SCH (08:22)
--- NOTE | 2016-05-28 09:52 | Nephrology Progress Note ---
Date of Encounter: 05/28/16 Time of Encounter: 09:50 - Assessment and Plan (1) Acute kidney injury superimposed on CKD Current Visit: Yes Status: Acute Creatinine is stable in the face of diuresis. He is still volume overloaded so we will increase his diuresis. (2) Anemia Current Visit: Yes Status: Acute Monitor hemoglobin. Transfuse as needed. Qualifiers: Anemia type: other cause Other causes of anemia: other cause, not classified Qualified Code(s): D64.89 - Other specified anemias (3) Hyponatremia Current Visit: Yes Status: Chronic Follow sodium level. Improved with diuretics. Subjective Principal diagnosis: Anasarca, CKD Interval history: Patient seen and evaluated. Patient without new complaint. He feels better today , with more energy and his appetite is stable. He is eating his breakfast. Objective - Vital Signs Vital signs: Vital Signs Temp Pulse Resp BP Pulse Ox 05/28/16 07:38 97.7 F 78 16 99/58 94 L 05/28/16 04:16 97.6 F 70 16 107/67 100 05/28/16 00:06 97.0 F L 67 16 100/64 99 05/27/16 21:30 100 05/27/16 20:50 97.6 F 68 16 99/66 98 Intake and Output 05/27/16 05/28/16 05/28/16 23:59 07:59 15:59 Intake Total 300 / 300 600 / 600 Output Total 450 / 450 200 / 200 Balance -150 / -150 -200 / -200 600 / 600 Intake: Oral 300 / 300 600 / 600 Output: Catheter 450 / 450 200 / 200 Other: Meal Breakfast Percent of Meal Consumed 95% Weight 75.5 kg Blood Glucose* 112 183 Patient Weight 05/28/16 23:59 Weight 75.5 kg - General Appearance General appearance: Present: well-developed, well-nourished EENT: Present: ATNC Neck: Present: supple Additional Comments: respirations are unlabored. Cardiology: Present: edema, regular rate Integumentary: Present: warm and dry Neurologic: Present: alert and oriented x3 Psychiatric: Present: mood/affect appropriate - Lab 05/28/16 03:15 05/28/16 03:15 Most recent lab results ABG pH 7.39 pH Units (7.32-7.45) 05/19/16 11:25 ABG pCO2 33 mmHg (35-45) L 05/19/16 11:25 ABG pO2 94 mmHg (85-104) 05/19/16 11:25 ABG HCO3 20.0 mEQ/L (21-27) L 05/19/16 11:25 ABG O2 Saturation 97 % (95-98) 05/19/16 11:25 Calcium 8.6 mg/dL (8.6-10.8) 05/28/16 03:15 Magnesium 1.7 mg/dL (1.6-2.6) 05/27/16 04:00 - VTE Documentation of Mechanical Device: Venous foot pump, device Consult Discharge Plan - Plan Referrals: [place],Jennie Wang CNP [Primary Care Provider] - 05/29/16 9:00 am ( )
--- NOTE | 2016-05-28 12:34 | Internal Med Progress Note ---
<Papa Aragon - Last Filed: 05/28/16 12:31> Date of Encounter: 05/28/16 Time of Encounter: 12:30 - Assessment and plan (1) Acute and chronic respiratory failure with hypoxia Current Visit: No Status: Acute Assessment and plan: Etiology multifactorial, likely Secondary to acute CHF (systolic) in the setting of COPD. Of note, patient is not on home oxygen, and is currently sat at 96% on 2L. CXR shows increased bilateral pleural effusions with increased bibasilar airspace opacities pulmonary vascular congestion and mild cardiomegaly. last Echocardiogram from 12/03/15 showed EF of 15-20%, moderately dilated LV, Severe global and Left ventricular systolic dysfunction. slowly improving. suspect I/O inaccrate. continue fluid restriction, strict I/O. DuoNeb's, Mucinex, Toprol, BiPAP when necessary. Patient feels better today compared to yesterday. Metolazone discontinued due to patient feeling ill. Per nephrology, IV lasix increased to 40mg BID. Blood pressure stable today. (2) Acute on chronic systolic (congestive) heart failure Current Visit: No Status: Acute Assessment and plan: plan As above. (3) CKD (chronic kidney disease), stage III Current Visit: No Status: Chronic Assessment and plan: Cr today 2.47, stable Avoid nephrotoxins as possible. Close monitoring of kidney function. (4) Left leg cellulitis Current Visit: Yes Status: Acute Assessment and plan: blood cultures showed no growth. COntinue with wound care. podiatry on board. patient also has pressure ulcer of left heel. xray shows no evidence of osteomyelitis. Also has ischemic ulceration of plantar aspect of left foot and 5th metatarsal. He is s/p aortobifemoral bypass ad left femoral popliteal artery bypass. Had thrombectomy of LLE and fasciotomy in 2015. vascular surgery is following. finished course of clindamycin (5) Chronic obstructive pulmonary disease Current Visit: No Status: Chronic Assessment and plan: Plan as #2 above. Qualifiers: COPD type: unspecified COPD Qualified Code(s): J44.9 - Chronic obstructive pulmonary disease, unspecified (6) Type 2 diabetes mellitus Current Visit: No Status: Chronic Assessment and plan: Medium dose sliding scale insulin, ADA diet. patient had DKA previously on 05/19, was placed on insulin drip. currently resolved. Qualifiers: Diabetes mellitus complication status: with kidney complications Diabetes mellitus complication detail: with chronic kidney disease Diabetes mellitus fpc insulin use: with intermediate project manager use Chronic kidney disease stage: stage 4 (severe) Qualified Code(s): E11.22 - Type 2 diabetes mellitus with diabetic chronic kidney disease; N18.4 - Chronic kidney disease, stage 4 (severe); Z79.4 - [facility] (current) use of insulin (7) DVT prophylaxis Current Visit: Yes Status: Acute Assessment and plan: Heparin SQ - Subjective Interval history: 70 year old male evaluated at bedside. He denies vomiting, diarrhea, fever, chills, shortness of breath, lightheadedness. He does report some nausea, but not as bad as compared to yesterday. Patient's family was in the room with him. - Constitutional Vitals: Temp Pulse Resp BP Pulse Ox 97.6 F 76 16 113/69 98 05/28/16 11:40 05/28/16 11:40 05/28/16 11:40 05/28/16 11:40 05/28/16 11:40 General appearance: Present: cooperative, A&O X 3, pleasant, no acute distress, answers questions appropriately - Head Head exam: Present: atraumatic, normocephalic - Neck Neck exam general surgery: Present: supple, trachea midline Additional comments: back of neck has bony outgrowth from previous surgery. significant kyphosis. - Respiratory Additional comments: left lower lobe rales present. - Cardiovascular Cardiovascular exam: Present: RRR, +S1, +S2 Additional comments: pacemaker in place. - GI/Abdominal GI/Abdominal exam: Present: normal bowel sounds. Absent: tenderness - Extremities Exam Extremities exam: Absent: cyanotic, pedal edema Additional comments: right BKA, ulcer present on right stump. left leg cellulitis. left upper extremity edema has significantly improved compared to before. - Neurological Exam Neurological exam: Present: alert, oriented X3, no focal deficits - Psychiatric Psychiatric exam: Present: anxious, depressed Internal Medicine: Result - Labs CBC & Chem 7: 05/28/16 03:15 05/28/16 03:15 Labs: Short CBC 05/28/16 Range/Units 03:15 WBC 5.8 (4.3-11.1) K/mcL Hgb 9.8 L (12.9-16.9) g/dL Hct 31.4 L (37.5-50.1) % Plt Count 142 (140-400) K/mcL Neutrophils # 4.4 (1.6-8.9) K/mcL BMP 05/28/16 03:15 Sodium 136 Potassium 4.5 Chloride 97 L Carbon Dioxide 26 BUN 74 H Creatinine 2.47 H Glucose 125 H Calcium 8.6 - ABG Interpretation ABG results: ABG ABG pH 7.39 pH Units (7.32-7.45) 05/19/16 11:25 ABG pCO2 33 mmHg (35-45) L 05/19/16 11:25 ABG pO2 94 mmHg (85-104) 05/19/16 11:25 ABG O2 Saturation 97 % (95-98) 05/19/16 11:25 - VTE Documentation of Mechanical Device: Venous foot pump, device Consult Discharge Plan - Plan Referrals: [place],Jennie Wang CNP [Primary Care Provider] - 05/29/16 9:00 am ( ) <Carlo Rahman H - Last Filed: 05/28/16 15:10> Date of Encounter: 05/28/16 - Constitutional Vitals: Temp Pulse Resp BP Pulse Ox 97.6 F 76 16 113/69 98 05/28/16 11:40 05/28/16 11:40 05/28/16 11:40 05/28/16 11:40 05/28/16 11:40 Internal Medicine: Result - Labs CBC & Chem 7: 05/28/16 03:15 05/28/16 03:15 Labs: Short CBC 05/28/16 Range/Units 03:15 WBC 5.8 (4.3-11.1) K/mcL Hgb 9.8 L (12.9-16.9) g/dL Hct 31.4 L (37.5-50.1) % Plt Count 142 (140-400) K/mcL Neutrophils # 4.4 (1.6-8.9) K/mcL BMP 05/28/16 03:15 Sodium 136 Potassium 4.5 Chloride 97 L Carbon Dioxide 26 BUN 74 H Creatinine 2.47 H Glucose 125 H Calcium 8.6 - ABG Interpretation ABG results: ABG ABG pH 7.39 pH Units (7.32-7.45) 05/19/16 11:25 ABG pCO2 33 mmHg (35-45) L 05/19/16 11:25 ABG pO2 94 mmHg (85-104) 05/19/16 11:25 ABG O2 Saturation 97 % (95-98) 05/19/16 11:25 - Attending Attestation We will complete 8 days of antibiotics today 2 days of vancomycin and 6 days of clindamycin Nephrology has recommended to change his Lasix to 40 mg twice a day, recommendations appreciated to plan and discharge when possible, The patient does not want to go to an ECF he prefers to go home and home health services I examined this patient and my medical decision-making was reviewed with the JOB HAND/PA/Advanced Practice Nurse/Resident Physician. I agree with the documented findings, disposition and treatment plan as described except to the extent set forth below.
[2016-05-28] MEDS: *HR* Promethazine 25 MG/ML VIAL IVP PRN (20:51)
[2016-05-28] MEDS: Temazepam 15 MG CAPSULE PO PRN (20:51)
[2016-05-28] MEDS: *HR* OxyCODONE Immed Rel 5 MG TABLET PO PRN (20:51)
[2016-05-29] MEDS: *HR* OxyCODONE Immed Rel 5 MG TABLET PO PRN ×2 (02:14→14:32)
[2016-05-29 04:20] LABS: Basophils % 0.6 %; Eosinophils # 0.3 K/mcL (0.0-0.6); Eosinophils % 4.2 %; Hematocrit 31.5 % (37.5-50.1); Hemoglobin 9.9 g/dL (12.9-16.9); Immature Granulocytes % 0.5 % (0-4); Lymphocytes # 0.6 K/mcL (0.6-4.6); Lymphocytes % 10.3 %; Mean Corpuscular HGB Conc 31.4 g/dL (31.6-35.5); Mean Corpuscular Hemoglobin 27.8 pg (28.0-33.3); Mean Corpuscular Volume 88.5 fL (83.0-100.0); Mean Platelet Volume 10.3 fL (9.4-12.4); Monocytes # 0.4 K/mcL (0.0-1.3); Monocytes % 6.9 %; Neutrophils # 4.8 K/mcL (1.6-8.9); Platelet Count 132 K/mcL (140-400); Red Blood Count 3.56 M/mcL (4.19-5.50); Red Cell Distribution Width 18.6 % (11.5-14.5); Segmented Neutrophils % 77.5 %
[2016-05-29 04:31] LABS: Calcium 8.6 mg/dL (8.6-10.8); Potassium 4.6 mEq/L (3.5-4.5)
[2016-05-29] MEDS: *HR* Heparin 5,000 UNIT/ML VIAL SQ SCH ×2 (05:22→15:07)
--- NOTE | 2016-05-29 06:59 | Electrocardiograph Report ---
[place] [id number] Test Date: 2016-05-26 Pat Name: Mika Mendez Department: 112 Room: 2A Gender: M Marketing Performance Analyst: : 1945 Requested By: Carlo Rahman Order Number: [id number] Reading MD: Glenn Be MD Measurements Intervals [place] Rate: 79 P: 24 FL: 139 QRS: 3 QRSD: 128 T: 180 QT: 431 QTc: 466 Interpretive Statements ELECTRONIC VENTRICULAR PACEMAKER Electronically Signed On 05-29-2016 6:57:07 EST by Glenn Be MD
[2016-05-29] MEDS: Famotidine 20 MG TABLET PO SCH (09:01)
[2016-05-29] MEDS: Lactobacillus 1 EACH CAP.SPRINK PO SCH ×2 (09:01→15:13)
[2016-05-29] MEDS: Aspirin Enteric Coated 81 MG Tablet PO SCH (09:01)
[2016-05-29] MEDS: Magnesium Oxide 400 MG TABLET PO SCH (09:02)
[2016-05-29] MEDS: Metoprolol XL (24 HR) Succ 25 MG TAB.ER.24H PO SCH (09:02)
[2016-05-29] MEDS: Furosemide 20 MG/2 ML VIAL IVP SCH (09:03)
[2016-05-29] MEDS: Insulin LISPRO 300 UNITS/3 ML VIAL SQ SCH ×2 (09:04→12:08)
--- NOTE | 2016-05-29 11:09 | Nephrology Progress Note ---
Date of Encounter: 05/29/16 Time of Encounter: 11:07 - Assessment and Plan (1) Acute kidney injury superimposed on CKD Current Visit: Yes Status: Acute 3/5 UOP 800 with intake of 840, POSITIVE balance of 40 3/6 UOP 850 so far; Scr 2.54, GFR 25, Na 133, K 4.6 Metolazone was held over the weekend because it was making the patient sick. UOP has decreased on IV lasix. Plan: -Change lasix to 60mg PO BID. SCr remains stable. -OK to discharge from a renal standpoint. -Recheck BMP in one week, increase to prior dose lasix to 80mg PO BID if SCr stable. -F/U with [facility] in 4-6 weeks (2) BRIAN (acute kidney injury) Current Visit: No Status: Acute (3) Hyperglycemia Current Visit: Yes Status: Acute Continue to manage per primary care team. (4) Edema Current Visit: Yes Status: Acute Qualifiers: Edema type: generalized Qualified Code(s): R60.1 - Generalized edema (5) Hyperkalemia Current Visit: Yes Status: Acute (6) CKD (chronic kidney disease), stage III Current Visit: No Status: Chronic Baseline CKD Stage IIIb, can be near CKD Stage IV (7) Hyponatremia Current Visit: Yes Status: Chronic Continues to improve. 133 today (8) Anemia Current Visit: No Status: Chronic Acute on chronic. Iron studies: Iron 66; %saturation 28; transferrin 167 Qualifiers: Anemia type: iron deficiency Iron deficiency anemia type: unspecified iron deficiency Qualified Code(s): D50.9 - Iron deficiency anemia, unspecified Subjective Principal diagnosis: Anasarca, CKD Interval history: Patient seen and examined at the bedside. He states that his SOB continues to improve. He states that his scrotum swelling is improving and is less painful. He is still not sleeping well at night and feeling tired during the day. He also still experiences abdominal pain after eating. He denies CP, dizziness, YEUNG , visual changes. His danielson catheter is still in place. He denies any other complaints. Patient states that he is ready to go home. Objective - Vital Signs Vital signs: Vital Signs Temp Pulse Resp BP Pulse Ox 05/29/16 08:20 98.2 F 112 17 120/88 100 05/29/16 04:39 97.5 F L 79 16 121/64 98 05/29/16 02:09 82 114/73 05/28/16 23:48 97.6 F 77 16 85/57 90 L 05/28/16 21:04 99 05/28/16 20:29 97.5 F L 101 17 101/66 97 05/28/16 16:01 96.8 F L 69 14 102/66 100 05/28/16 11:40 97.6 F 76 16 113/69 98 Intake and Output 05/28/16 05/29/16 05/29/16 23:59 07:59 15:59 Intake Total 0 / 0 Output Total 600 / 600 300 / 300 550 / 550 Balance -600 / -600 -300 / -300 -550 / -550 Intake: Oral 0 / 0 Output: Catheter 600 / 600 300 / 300 550 / 550 Other: Meal Breakfast Percent of Meal Consumed 0% Weight 75.6 kg Blood Glucose* 196 313 Patient Weight 05/29/16 23:59 Weight 75.6 kg - General Appearance General appearance: Present: chronically ill, fatigue, frail EENT: Present: ATNC, PERRL, mucous membranes moist Neck: Present: supple Respiratory: Present: clear Cardiology: Present: no murmurs, no rub, no gallops, edema (left hand, abdomen, Left LE), regular rate, regular rhythm Gastrointestinal: Present: normoactive bowel sounds, no tenderness Integumentary: Present: no rash, warm and dry, erythema (left LE), skin tear ( left heel that is dressed) Neurologic: Present: no focal deficit Musculoskeletal: Present: no cyanosis, no clubbing Additional Comments: right BKA Psychiatric: Present: mood/affect appropriate, cooperative - Lab 05/29/16 04:08 05/29/16 04:08 Most recent lab results ABG pH 7.39 pH Units (7.32-7.45) 05/19/16 11:25 ABG pCO2 33 mmHg (35-45) L 05/19/16 11:25 ABG pO2 94 mmHg (85-104) 05/19/16 11:25 ABG HCO3 20.0 mEQ/L (21-27) L 05/19/16 11:25 ABG O2 Saturation 97 % (95-98) 05/19/16 11:25 Calcium 8.6 mg/dL (8.6-10.8) 05/29/16 04:08 Magnesium 1.7 mg/dL (1.6-2.6) 05/27/16 04:00 - VTE Documentation of Mechanical Device: Venous foot pump, device Consult Discharge Plan - Plan Additional Instructions: Follow up with PCP in one week. Follow up with nephrology, vascular surgery, and podiatry. BMP 1 week. bring to PCP appointment. Referrals: Africa Santos CNP [Partnered Physician] - Heath Bob MD [Partnered Physician] - Peyman Astorga DO [Partnered Physician] - Jennie Washington CNP [Primary Care Provider] - 05/29/16 9:00 am ( ) Prescriptions: Furosemide [Lasix] 60 mg PO BID #60 tab
--- NOTE | 2016-05-29 11:43 | Internal Med Progress Note ---
Date of Encounter: 05/29/16 Time of Encounter: 11:30 - Assessment and plan (1) Acute and chronic respiratory failure with hypoxia Current Visit: No Status: Acute (2) Acute on chronic systolic (congestive) heart failure Current Visit: No Status: Acute (3) CKD (chronic kidney disease), stage III Current Visit: No Status: Chronic (4) Left leg cellulitis Current Visit: Yes Status: Acute (5) Chronic obstructive pulmonary disease Current Visit: No Status: Chronic Qualifiers: COPD type: unspecified COPD Qualified Code(s): J44.9 - Chronic obstructive pulmonary disease, unspecified (6) Type 2 diabetes mellitus Current Visit: No Status: Chronic Qualifiers: Diabetes mellitus complication status: with kidney complications Diabetes mellitus complication detail: with chronic kidney disease 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 He denies vomiting, diarrhea, fever, chills, shortness of breath, lightheadedness. He does report some nausea, but not as bad as compared to yesterday. Patient's family was in the room with him. - Constitutional Vitals: Temp Pulse Resp BP Pulse Ox 98.2 F 112 17 120/88 100 05/29/16 08:20 05/29/16 08:20 05/29/16 08:20 05/29/16 08:20 05/29/16 08:20 General appearance: Present: cooperative, A&O X 3, pleasant, no acute distress, answers questions appropriately Internal Medicine: Result - Labs CBC & Chem 7: 05/29/16 04:08 05/29/16 04:08 Labs: Short CBC 05/29/16 Range/Units 04:08 WBC 6.2 (4.3-11.1) K/mcL Hgb 9.9 L (12.9-16.9) g/dL Hct 31.5 L (37.5-50.1) % Plt Count 132 L (140-400) K/mcL Neutrophils # 4.8 (1.6-8.9) K/mcL BMP 05/29/16 04:08 Sodium 133 L Potassium 4.6 H Chloride 95 L Carbon Dioxide 25 BUN 74 H Creatinine 2.54 H Glucose 287 H Calcium 8.6 - ABG Interpretation ABG results: ABG ABG pH 7.39 pH Units (7.32-7.45) 05/19/16 11:25 ABG pCO2 33 mmHg (35-45) L 05/19/16 11:25 ABG pO2 94 mmHg (85-104) 05/19/16 11:25 ABG O2 Saturation 97 % (95-98) 05/19/16 11:25 - VTE Documentation of Mechanical Device: Venous foot pump, device Consult Discharge Plan - Plan Referrals: Jennie Washington CNP [Primary Care Provider] - 05/29/16 9:00 am ( )
--- NOTE | 2016-05-29 11:53 | Discharge Summary ---
<Papa Aragon - Last Filed: 05/29/16 15:07> Date of Encounter: 05/29/16 Time of Encounter: 11:44 - Discharge Diagnosis (1) Acute and chronic respiratory failure with hypoxia Priority: Primary Status: Acute (2) Acute on chronic systolic (congestive) heart failure Priority: Secondary Status: Acute (3) CKD (chronic kidney disease), stage III Priority: Secondary Status: Chronic (4) Left leg cellulitis Priority: Secondary Status: Acute (5) Chronic obstructive pulmonary disease Priority: Secondary Status: Chronic Qualifiers: COPD type: unspecified COPD Qualified Code(s): J44.9 - Chronic obstructive pulmonary disease, unspecified (6) Type 2 diabetes mellitus Priority: Secondary Status: Chronic Qualifiers: Diabetes mellitus complication status: with kidney complications Diabetes mellitus complication detail: with chronic kidney disease Diabetes mellitus detention insulin use: with inside tester use Chronic kidney disease stage: stage 4 (severe) Qualified Code(s): E11.22 - Type 2 diabetes mellitus with diabetic chronic kidney disease; N18.4 - Chronic kidney disease, stage 4 (severe); 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 (7) DVT prophylaxis Priority: Secondary Status: Acute - Discharge Medications Prescriptions: Furosemide [Lasix] 60 mg PO BID #60 tab Home Medications: Aspirin 81 mg PO DAILY 10/30/14 [History] Clopidogrel [Plavix] 75 mg PO DAILY 10/30/14 [History] Pravastatin Sodium 40 mg PO DAILY 10/30/14 [History] Tamsulosin [Flomax] 0.4 mg PO DAILY 10/30/14 [History] Ergocalciferol (VITAMIN D2) [Vitamin D2 (50,000 UNIT)] 50,000 unit PO MCGOWAN [History] Metoprolol XL (24 HR) Succ [Toprol XL] 25 mg PO DAILY 03/05/15 [History] Docusate [Colace] 100 mg PO BID PRN 12/01/15 [History] Nitroglycerin [Nitrostat] 0.4 mg SL DAILY PRN 12/01/15 [History] Temazepam [Restoril] 7.5 mg PO HS 12/01/15 [History] Epoetin Jonnie [Procrit] 2,000 unit IJ FR 01/13/16 [History] GuaiFENesin ER [Mucinex] 600 mg PO BID tbbp.12hr 11/18/16 [Rx] Ferrous Sulfate 325 mg PO BID 03/08/16 [History] Ondansetron HCl [Zofran] 4 mg PO Q6H PRN 03/08/16 [History] Promethazine [Phenergan] 12.5 mg PO Q4H PRN 03/08/16 [History] Ranitidine HCl [Zantac] 150 mg PO BID 03/08/16 [History] Insulin Glargine,Hum.rec.anlog [Lantus Solostar] 16 unit SQ HS 03/25/16 [History ] Insulin LISPRO [HumaLOG] 5 - 15 units SQ ACHS 03/25/16 [History] Ipratropium/Albuterol Neb [Duoneb] 3 ml IH Q6HR 03/25/16 [History] Polyethylene Glycol 3350 [MiraLAX] 17 gm PO DAILY 03/25/16 [History] Lactobacillus Acidophilus [Acidophilus] 1 each PO TID #30 tablet 05/12/16 [Rx] OxyCODONE Immed Rel [Roxicodone 5 MG] 10 mg PO Q6H PRN #20 tablet 05/12/16 [Rx] Furosemide [Lasix] 60 mg PO BID #60 tab 05/29/16 [Rx] Allergies/Adverse Reactions: Allergies No Known Allergies Allergy (Verified 05/18/16 16:53) Procedures/tests Complete & Pending: Procedures Performed prior 72 hours Category Date Time Status ECG 12 lead ECG [ECG] Routine Y 05/26/16 14:14 Completed Date of admission: 05/19/16 01:05 Primary care physician: Jennie Washington CNP Consults: 05/19/16 11:12 Consult to Podiatry [CONS] Routine Consulting Provider: [facility] Reason for Consult: left heel necrotic ulcer Call Completed: Yes 05/19/16 14:06 Consult to Invasive Line Access Team [CONS] Routine Reason for Consult: limited vascular access Line Type: Midline 05/20/16 13:59 Consult to Occupational Therapy [CONS] Routine Comment: Evaluate, develop and implement POC Consult to Physical Therapy [CONS] Routine Comment: Evaluate, develop and implement POC 05/22/16 13:06 Consult to Vascular Surgery [CONS] Routine Consulting Provider: V[facility] Reason for Consult: Ischemic ulcer left foot. PAD Time Notified: 13:00 Call Completed: Yes 05/25/16 08:36 Consult to Autopsy Pathologist [CONS] Routine Reason for SW Consult: discuss ecf w pt vs 24h care - Patient Status Disposition: Home Health Service Condition: Fair Functional capacity at discharge: uses cane/walker Overall status at discharge: patient is not back to baseline - Discharge Instructions Instructions: Furosemide (By mouth), Cellulitis (DC), Diabetes Mellitus Type 2 in Adults (DC) Follow Up With: Africa Santos CNP [Partnered Physician] - Heath Bob MD [Partnered Physician] - Peyman Astorga DO [Partnered Physician] - 07/04/16 9:30 am (Please follow up a sschedule...) Jennie Washington CNP [Primary Care Provider] - 06/05/16 2:00 pm ( ) Additional Instructions: Follow up with PCP in one week. Follow up with nephrology, vascular surgery, and podiatry. BMP 1 week. bring to PCP appointment. - Diet and Activity Activity: increase activity as tolerated Diet: other (diabetic renal) Hospital course: Mr. Mendez is a 70 year old male with PMHx of HTN, HLD, type 1 DM, CAD S/p CABG , PVD (s/p intervention bypass and right BKA), CHF. COPD, CKD IV. He presented tot he ED on 05/18/16 with CC of SOB. He was recently discharged from hospital with prior diagnosis of acute on chronic kidney failure. His lasix dose was reduced at that time to half his home dose. He had increasing shortness of breath. CXR showed increased bilateral pleural effusions with increased bibasilar airspace opacities, and pulmonary vascular congestion. He was diagnosed with Acute CHF and started on IV diuresis. Nephrology was consulted during this patient's hospital stay. Podiatry was consulted for patient's left lower extremity cellulitis, and he completed course of antibiotics for this. Dressing changes were recommended by podiatry. During his hospital stay, the patient went into DKA, which resolved after he received an insulin drip. Patient was continuously diuresed with Lasix drip and Metolazone, then drip was changed to IV form. Metolazone was discontinued due to nausea and vomiting. Towards the end of his hospital stay, patient had been significantly diuresed and he was ready to be discharged home. He remained stable until his discharge. Plan: lasix dose changed to 60mg PO BID. Please take as directed. Follow up with PCP, nephrology, podiatry, and vascular surgery. - Time Spent with Patient Total time spent providing and/or coordinating discharge services: Greater than 30 minutes (40 minutes) - Constitutional Vitals: Temp Pulse Resp BP Pulse Ox 98.2 F 112 17 120/88 100 05/29/16 08:20 05/29/16 08:20 05/29/16 08:20 05/29/16 08:20 05/29/16 08:20 General appearance: Present: cooperative, A&O X 3, pleasant, no acute distress, answers questions appropriately - VTE Documentation of Mechanical Device: Venous foot pump, device <Carlo Rahman - Last Filed: 05/29/16 15:24> Date of Encounter: 05/29/16 Date of admission: 05/19/16 01:05 Primary care physician: Jennie Washington CNP Consults: 05/19/16 11:12 Consult to Podiatry [CONS] Routine Consulting Provider: [facility] Reason for Consult: left heel necrotic ulcer Call Completed: Yes 05/19/16 14:06 Consult to Invasive Line Access Team [CONS] Routine Reason for Consult: limited vascular access Line Type: Midline 05/20/16 13:59 Consult to Occupational Therapy [CONS] Routine Comment: Evaluate, develop and implement POC Consult to Physical Therapy [CONS] Routine Comment: Evaluate, develop and implement POC 05/22/16 13:06 Consult to Vascular Surgery [CONS] Routine Consulting Provider: Vascular Surgery [facility] Reason for Consult: Ischemic ulcer left foot. PAD Time Notified: 13:00 Call Completed: Yes 05/25/16 08:36 Consult to Autopsy Pathologist [CONS] Routine Reason for SW Consult: discuss ecf w pt vs 24h care Hospital course: Mr. Mendez is a 70 year old male - Time Spent with Patient Total time spent providing and/or coordinating discharge services: - Constitutional Vitals: Temp Pulse Resp BP Pulse Ox 98.2 F 80 18 101/61 95 05/29/16 11:59 05/29/16 11:59 05/29/16 11:59 05/29/16 11:59 05/29/16 11:59 - Attending Attestation received vancomycin IV which was switched to clindamycin (completed 7 days of abx) continue lasix I examined this patient and my medical decision-making was reviewed with the PRODUCTION HONING MACHINE OPERATOR/PA/Advanced Practice Nurse/Resident Physician. I agree with the documented findings, disposition and treatment plan as described except to the extent set forth below.
[2016-05-29 12:08] VITALS: BP 101/61
[2016-05-29] MEDS: Ondansetron ODT 4 MG TAB.RAPDIS SL PRN (14:32)
--- NOTE | 2016-05-29 15:26 | Physician Discharge Referral ---
Home Health/Hosp Referral Info Transfer to: Home Health Provider in Charge Post Discharge: PCP - Diagnosis (1) Acute and chronic respiratory failure with hypoxia Priority: Primary Status: Acute (2) Acute on chronic systolic (congestive) heart failure Priority: Primary Status: Acute (3) CKD (chronic kidney disease), stage III Priority: Secondary Status: Chronic (4) Left leg cellulitis Priority: Secondary Status: Acute (5) Chronic obstructive pulmonary disease Priority: Secondary Status: Chronic (6) Type 2 diabetes mellitus Priority: Secondary Status: Chronic (7) DVT prophylaxis Priority: Secondary Status: Acute - Respiratory Orders Smoking Cessation: Smoking cessation has been advised. For more information, call the [place] Tobacco Quit Line at 7-441-VHYX-NOW. - Diet/Nutrition Diet/Nutrition Orders: Renal (diabetic renal diet) - Activity Activity Orders: Ambulate - Services Needed Following services are medically necessary services: Home Health Aide - Transfer Medications Prescriptions: Furosemide [Lasix] 60 mg PO BID #60 tab Home Medications: Aspirin 81 mg PO DAILY 10/30/14 [History] Clopidogrel [Plavix] 75 mg PO DAILY 10/30/14 [History] Pravastatin Sodium 40 mg PO DAILY 10/30/14 [History] Tamsulosin [Flomax] 0.4 mg PO DAILY 10/30/14 [History] Ergocalciferol (VITAMIN D2) [Vitamin D2 (50,000 UNIT)] 50,000 unit PO MCGOWAN [History] Metoprolol XL (24 HR) Succ [Toprol XL] 25 mg PO DAILY 03/05/15 [History] Docusate [Colace] 100 mg PO BID PRN 12/01/15 [History] Nitroglycerin [Nitrostat] 0.4 mg SL DAILY PRN 12/01/15 [History] Temazepam [Restoril] 7.5 mg PO HS 12/01/15 [History] Epoetin Jonnie [Procrit] 2,000 unit IJ FR 01/13/16 [History] GuaiFENesin ER [Mucinex] 600 mg PO BID tbbp.12hr 02/11/16 [Rx] Ferrous Sulfate 325 mg PO BID 03/08/16 [History] Ondansetron HCl [Zofran] 4 mg PO Q6H PRN 03/08/16 [History] Promethazine [Phenergan] 12.5 mg PO Q4H PRN 03/08/16 [History] Ranitidine HCl [Zantac] 150 mg PO BID 03/08/16 [History] Insulin Glargine,Hum.rec.anlog [Lantus Solostar] 16 unit SQ HS 03/25/16 [History ] Insulin LISPRO [HumaLOG] 5 - 15 units SQ ACHS 03/25/16 [History] Ipratropium/Albuterol Neb [Duoneb] 3 ml IH Q6HR 03/25/16 [History] Polyethylene Glycol 3350 [MiraLAX] 17 gm PO DAILY 03/25/16 [History] Lactobacillus Acidophilus [Acidophilus] 1 each PO TID #30 tablet 05/12/16 [Rx] OxyCODONE Immed Rel [Roxicodone 5 MG] 10 mg PO Q6H PRN #20 tablet 05/12/16 [Rx] Furosemide [Lasix] 60 mg PO BID #60 tab 05/29/16 [Rx] Allergies/Adverse Reactions: Allergies No Known Allergies Allergy (Verified 05/18/16 16:53) Certification: Further, I certify that my clinical findings support that this patient is homebound (i.e. absences from home require considerable and taxing effort and are for medical reasons or [employer] or infrequently or short duration when for other reasons) because: Homebound Reason: Patient requires assistance of a person or device to safely leave home Attestation: My signature below is to certify that this patient is under my care and that I, or nurse practitioner, or a physician's desk assistant working with me, has a face-to -face encounter with this patient.
== END 2016-05-29 15:25 | disposition home health service (06) | DRG 291 ==
LOC: EMEROO 16:50 → 2ANU 16:50 → SUATTDRO 05-19 01:05
PROVIDERS: ADMIT Family Medicine; ATTEND Internal Medicine

== ENCOUNTER 2016-06-09 21:23 | Inpatient (IN) ==
[2016-06-09] MEDS ORDERED: 0.9 % Sodium Chloride 1,000 ML IVC ONE (21:41)
[2016-06-09] MEDS ORDERED: Ondansetron 4 MG/2 ML VIAL IVP ONE (21:41)
[2016-06-09 22:05] LABS: Basophils % 0.5 %; Eosinophils % 0.5 %; Hematocrit 31.8 % (37.5-50.1); Hemoglobin 10.2 g/dL (12.9-16.9); Immature Granulocytes % 0.3 % (0-4); Lymphocytes # 0.3 K/mcL (0.6-4.6); Lymphocytes % 4.3 %; Mean Corpuscular HGB Conc 32.1 g/dL (31.6-35.5); Mean Corpuscular Hemoglobin 27.6 pg (28.0-33.3); Mean Corpuscular Volume 86.2 fL (83.0-100.0); Mean Platelet Volume 10.9 fL (9.4-12.4); Monocytes # 0.6 K/mcL (0.0-1.3); Monocytes % 10.3 %; Neutrophils # 5.1 K/mcL (1.6-8.9); Platelet Count 180 K/mcL (140-400); Red Blood Count 3.69 M/mcL (4.19-5.50); Red Cell Distribution Width 18.2 % (11.5-14.5); Segmented Neutrophils % 84.1 %
[2016-06-09 22:12] LABS: INR 1.6
[2016-06-09 22:21] LABS: Alanine Aminotransferase 22 Units/L (0-55); Albumin 2.8 g/dL (3.5-5.0); Albumin/Globulin Ratio 0.8 (1.1-2.2); Alkaline Phosphatase 145 Units/L (38-126); Amylase 24 Units/L (25-125); Aspartate Amino Transferase 53 Units/L (5-34); BUN/Creatinine Ratio 26 (6-26); Bilirubin,Direct 0.5 mg/dL (0.0-0.5); Bilirubin,Indirect 0.6 mg/dL (0.0-1.2); Bilirubin,Total 1.1 mg/dL (0.2-1.2); Blood Urea Nitrogen 77 mg/dL (8-26); Calcium 8.8 mg/dL (8.6-10.8); Carbon Dioxide 25 mEq/L (19-29); Chloride 95 mEq/L (98-109); Globulin 3.4 g/dL (2.4-3.5); Glucose 204 mg/dL (70-99); Osmolality,Calculated 299 (280-300); Potassium 4.9 mEq/L (3.5-4.5); Sodium 130 mEq/L (136-145); Total Protein 6.2 g/dL (6.0-8.3); eGFR For African Americans 26 (> 60); eGFR For Non-African Americans 21 (> 60)
--- NOTE | 2016-06-09 22:21 | Emergency Department Note ---
Disposition Clinical Impression: Elevated troponin Intractable nausea and vomiting Qualifiers: Vomiting type: unspecified Qualified Code(s): R11.2 - Nausea with vomiting, unspecified Abdominal pain Qualifiers: Abdominal location: lower abdomen, unspecified Qualified Code(s): R10.30 - Lower abdominal pain, unspecified Cholelithiasis Qualifiers: Cholelithiasis location: gallbladder Cholecystitis presence: without cholecystitis Biliary obstruction: without biliary obstruction Qualified Code(s) : K80.20 - Calculus of gallbladder without cholecystitis without obstruction CKD (chronic kidney disease) Qualifiers: Chronic kidney disease stage: unspecified stage Qualified Code(s): N18.9 - Chronic kidney disease, unspecified Disposition: Admitted As Inpatient Condition: Good Abdominal Pain HPI - General Chief Complaint: ED Abdominal Pain Stated Complaint: abd pain/hypotensive Time Seen by Provider: 06/09/16 21:25 Source: patient, EMS Mode of arrival: EMS Limitations: no limitations Nursing Notes Reviewed: Yes Vital Signs Reviewed: Yes - History of Present Illness HPI Narrative: 70-year-old male presents to the ER with a chief complaint of nausea vomiting and abdominal pain. Patient reports that he has had abdominal pain, vomiting since he was discharged from the hospital on the sixth. Patient describes an aching pain that starts on the left side of his abdomen and radiates to the right. He reports that he has had trouble keeping anything down since going home. No fevers. Denies any history of abdominal procedures. No sick contacts. No other complaints. Pt Subjective Complaint: abdominal pain, other (n/v) Onset (ago): day(s) Consistency: constant Location: diffuse Pain Severity: moderate Pain Scale: 6 Quality: aching Radiation: none Migration to: no migration Improves with: nothing Worsens with: other (Laying flat) Context: history of similar episodes Associated symptoms: Reports: nausea, vomiting. Denies: diarrhea, fever, constipation Treatments prior to arrival: none - Related Data Home Medications Medication Instructions Recorded Confirmed Aspirin 81 mg PO DAILY 10/30/14 05/18/16 Clopidogrel [Plavix] 75 mg PO DAILY 10/30/14 05/18/16 Pravastatin Sodium 40 mg PO DAILY 10/30/14 05/18/16 Tamsulosin [Flomax] 0.4 mg PO DAILY 10/30/14 05/18/16 Ergocalciferol (VITAMIN D2) 50,000 unit PO MCGOWAN 03/05/15 05/18/16 [Vitamin D2 (50,000 UNIT)] Metoprolol XL (24 HR) Succ [Toprol 25 mg PO DAILY 03/05/15 05/18/16 XL] Docusate [Colace] 100 mg PO BID PRN 12/01/15 05/18/16 Nitroglycerin [Nitrostat] 0.4 mg SL DAILY PRN 12/01/15 05/18/16 Temazepam [Restoril] 7.5 mg PO HS 12/01/15 05/18/16 Epoetin Jonnie [Procrit] 2,000 unit IJ FR 01/13/16 05/18/16 Ferrous Sulfate 325 mg PO BID 03/08/16 05/18/16 Ondansetron HCl [Zofran] 4 mg PO Q6H PRN 03/08/16 05/18/16 Promethazine [Phenergan] 12.5 mg PO Q4H PRN 03/08/16 05/18/16 Ranitidine HCl [Zantac] 150 mg PO BID 03/08/16 05/18/16 Insulin Glargine,Hum.rec.anlog 16 unit SQ HS 03/25/16 05/18/16 [Lantus Solostar] Insulin LISPRO [HumaLOG] 5 - 15 units SQ ACHS 03/25/16 05/18/16 Ipratropium/Albuterol Neb [Duoneb] 3 ml IH Q6HR 03/25/16 05/18/16 Polyethylene Glycol 3350 [MiraLAX] 17 gm PO DAILY 03/25/16 05/18/16 Previous Rx's Medication Instructions Recorded GuaiFENesin ER [Mucinex] 600 mg PO BID tbbp.12hr 02/11/16 Lactobacillus Acidophilus 1 each PO TID #30 tablet 05/12/16 [Acidophilus] OxyCODONE Immed Rel [Roxicodone 5 10 mg PO Q6H PRN #20 tablet 05/12/16 MG] Furosemide [Lasix] 60 mg PO BID #60 tab 05/29/16 Allergies Allergy/AdvReac Type Severity Reaction Status Date / Time No Known Allergies Allergy Verified 05/18/16 16:53 All systems ED: reviewed and negative except as stated. Constitutional: Denies: fever Cardiovascular: Denies: chest pain Respiratory: Denies: cough, dyspnea Gastrointestinal: Reports: abdominal pain, nausea, vomiting. Denies: diarrhea Genitourinary: Denies: dysuria Abdominal Pain PMH - Past Medical History Medical history: Reports: arthritis, atrial fibrillation, cardiomyopathy, CHF, COPD, coronary artery disease, DVT, diabetes, GERD, GI bleed, hyperlipidemia, hypertension, myocardial infarction, osteoporosis, peripheral artery disease, renal disease, venous stasis Male Surgical History: Reports: angioplasty/stent, LE Bypass, LE stent(s), LE vascular intervention, orthopedic, other, pacemaker/AICD, other Psychiatric history: Reports: no psych history - Social History Smoking status: Former smoker Alcohol use: Reports: none Drug use: Reports: none Physical Exam - General Limitations: no limitations General appearance: alert, in no apparent distress - Head Head exam: atraumatic, normocephalic, normal inspection - Eye Eye exam: Present: normal appearance, EOMI - ENT ENT exam: normal exam, mucous membranes dry - Neck Neck exam: Present: normal inspection - Chest Chest inspection: Present: normal inspection, symmetric chest wall rise - Respiratory Respiratory exam: Present: normal lung sounds bilaterally - Cardiovascular Cardiovascular exam: Present: regular rate, normal rhythm, normal heart sounds - Abdominal Exam Abdominal exam: Present: soft, tenderness (Diffuse tenderness to palpation.). Absent: distention, guarding, rigidity - Extremities Exam Extremities exam: Present: normal inspection, full ROM - Expanded Upper Extremity Exam Shoulder exam: Present: normal inspection, full ROM Arm exam: Present: normal inspection, full ROM Elbow exam: Present: normal inspection, full ROM Forearm/Wrist exam: Present: normal inspection, full ROM Hand exam: Present: normal inspection, full ROM - Expanded Lower Extremity Exam Hip/Pelvis exam: Present: normal inspection, full ROM Upper leg exam: Present: normal inspection, full ROM Knee exam: Present: normal inspection, full ROM Lower leg exam: Present: normal inspection, full ROM Ankle exam: Present: normal inspection, full ROM Foot/toe exam: Present: normal inspection, full ROM - Neurological Exam Neurological exam: Present: alert - Psychiatric Psychiatric exam: Present: normal affect, normal mood - Skin Skin exam: Present: warm, dry, intact, normal color Course Course Narrative: Patient seen and examined. Vital signs reviewed. He is slightly hypotensive here. We will get some basic labs, IV resuscitation and a CT scan of the abdomen and pelvis. Disposition pending. - Reevaluation(s) Reevaluation #1: Discussed results of imaging and lab work with the patient and family. Vital Signs Temperature 99.3 F 06/09/16 21:28 Pulse Rate 73 06/09/16 21:28 Respiratory Rate 22 06/09/16 21:28 Blood Pressure 96/47 06/09/16 21:28 O2 Sat by Pulse Oximetry 97 06/09/16 21:28 Temperature 99.3 F 06/09/16 21:28 Pulse Rate 92 06/09/16 23:28 Respiratory Rate 20 06/09/16 23:28 Blood Pressure 91/61 06/09/16 23:28 O2 Sat by Pulse Oximetry 93 L 06/09/16 23:28 Oxygen Delivery Oxygen Delivery Nasal Cannula Abdominal Pain - MDM Narrative Medical decision making narrative: 70-year-old male presents to the ER due to intractable nausea vomiting. Has also had abdominal pain for the last week. He is afebrile here. He has not been able to keep anything down at home despite his medications. CT scan shows concern for pericholecystic fluid. Also has some gallstones. He has no white count here. AST is slightly elevated. Lipase normal. Patient given a liter of fluids and Zofran. Admitted to the hospitalist service. - Lab Data Lab results reviewed: Yes I reviewed the patient's lab results. Result diagrams: 06/09/16 21:56 06/09/16 21:56 Lab Results 06/09/16 06/09/16 06/09/16 Range/Units 21:56 21:56 21:56 WBC 6.0 (4.3-11.1) K/mcL RBC 3.69 L (4.19-5.50) M/mcL Hgb 10.2 L (12.9-16.9) g/dL Hct 31.8 L (37.5-50.1) % MCV 86.2 (83.0-100.0) fL MCH 27.6 L (28.0-33.3) pg MCHC 32.1 (31.6-35.5) g/dL RDW 18.2 H (11.5-14.5) % Plt Count 180 (140-400) K/mcL MPV 10.9 (9.4-12.4) fL Immature Gran % 0.3 (0-4) % Seg Neutrophils % 84.1 % Lymphocytes % 4.3 % Monocytes % 10.3 % Eosinophils % 0.5 % Basophils % 0.5 % Neutrophils # 5.1 (1.6-8.9) K/mcL Lymphocytes # 0.3 L (0.6-4.6) K/mcL Monocytes # 0.6 (0.0-1.3) K/mcL Eosinophils # 0.0 (0.0-0.6) K/mcL Basophils # 0.0 (0.0-0.2) K/mcL PT 17.0 H (9.4-12.1) Seconds INR 1.6 Sodium 130 L (136-145) mEq/L Potassium 4.9 H (3.5-4.5) mEq/L Chloride 95 L (98-109) mEq/L Carbon Dioxide 25 (19-29) mEq/L BUN 77 H (8-26) mg/dL Creatinine 2.96 H (0.72-1.25) mg/dL Est GFR ( Amer) 26 L (> 60) Est GFR (Non-Af Amer) 21 L (> 60) BUN/Creatinine Ratio 26 (6-26) Glucose 204 H (70-99) mg/dL Calculated Osmolality 299 (280-300) Lactic Acid (0.5-2.2) mmol/L Calcium 8.8 (8.6-10.8) mg/dL Total Bilirubin 1.1 (0.2-1.2) mg/dL Direct Bilirubin 0.5 (0.0-0.5) mg/dL Indirect Bilirubin 0.6 (0.0-1.2) mg/dL AST 53 H (5-34) Units/L ALT 22 (0-55) Units/L Alkaline Phosphatase 145 H (38-126) Units/L Troponin I (0-0.03) ng/mL Serum Total Protein 6.2 (6.0-8.3) g/dL Albumin 2.8 L (3.5-5.0) g/dL Globulin 3.4 (2.4-3.5) g/dL Albumin/Globulin Ratio 0.8 L (1.1-2.2) Amylase 24 L (25-125) Units/L Lipase < 4 L (8-78) Units/L Urine Color (Yellow) Urine Clarity (Clear) Urine pH (5.0-8.0) pH Units Ur Specific [place] (1.010-1.025) Urine Protein (Neg-Trace) mg/dL Urine Glucose (UA) (Normal) mg/dL Urine Ketones (Negative) mg/dL Urine Blood (Negative) Urine Nitrite (Negative) Urine Bilirubin (Negative) Urine Urobilinogen (Normal) mg/dL Ur Leukocyte Esterase (Negative) Urine Microscopic RBC (0-3) per hpf Urine Microscopic WBC (0-3) per hpf Ur Squamous Epith Cells (None-Few) per lpf Urine Bacteria (None-Few) per hpf Hyaline Casts (None-Few) per lpf Ur Culture Indicated? (NO) 06/09/16 06/09/16 06/09/16 Range/Units 21:56 21:56 23:33 WBC (4.3-11.1) K/mcL RBC (4.19-5.50) M/mcL Hgb (12.9-16.9) g/dL Hct (37.5-50.1) % MCV (83.0-100.0) fL MCH (28.0-33.3) pg MCHC (31.6-35.5) g/dL RDW (11.5-14.5) % Plt Count (140-400) K/mcL MPV (9.4-12.4) fL Immature Gran % (0-4) % Seg Neutrophils % % Lymphocytes % % Monocytes % % Eosinophils % % Basophils % % Neutrophils # (1.6-8.9) K/mcL Lymphocytes # (0.6-4.6) K/mcL Monocytes # (0.0-1.3) K/mcL Eosinophils # (0.0-0.6) K/mcL Basophils # (0.0-0.2) K/mcL PT (9.4-12.1) Seconds INR Sodium (136-145) mEq/L Potassium (3.5-4.5) mEq/L Chloride (98-109) mEq/L Carbon Dioxide (19-29) mEq/L BUN (8-26) mg/dL Creatinine (0.72-1.25) mg/dL Est GFR ( Amer) (> 60) Est GFR (Non-Af Amer) (> 60) BUN/Creatinine Ratio (6-26) Glucose (70-99) mg/dL Calculated Osmolality (280-300) Lactic Acid 2.1 (0.5-2.2) mmol/L Calcium (8.6-10.8) mg/dL Total Bilirubin (0.2-1.2) mg/dL Direct Bilirubin (0.0-0.5) mg/dL Indirect Bilirubin (0.0-1.2) mg/dL AST (5-34) Units/L ALT (0-55) Units/L Alkaline Phosphatase (38-126) Units/L Troponin I 0.10 H* (0-0.03) ng/mL Serum Total Protein (6.0-8.3) g/dL Albumin (3.5-5.0) g/dL Globulin (2.4-3.5) g/dL Albumin/Globulin Ratio (1.1-2.2) Amylase (25-125) Units/L Lipase (8-78) Units/L Urine Color Yellow (Yellow) Urine Clarity Turbid A (Clear) Urine pH 6.0 (5.0-8.0) pH Units Ur Specific [place] 1.012 (1.010-1.025) Urine Protein 30 H (Neg-Trace) mg/dL Urine Glucose (UA) Normal (Normal) mg/dL Urine Ketones Negative (Negative) mg/dL Urine Blood Moderate H (Negative) Urine Nitrite Negative (Negative) Urine Bilirubin Negative (Negative) Urine Urobilinogen Normal (Normal) mg/dL Ur Leukocyte Esterase Large H (Negative) Urine Microscopic RBC 5-15 H (0-3) per hpf Urine Microscopic WBC TNTC H (0-3) per hpf Ur Squamous Epith Cells Moderate H (None-Few) per lpf Urine Bacteria Many H (None-Few) per hpf Hyaline Casts None Seen (None-Few) per lpf Ur Culture Indicated? YES A (NO) S.B.ARadha. - S.B.A.R. Situation: Demographics, MOA Background: Presenting Complaint, Relevant PMH, Meds, & Allergies Assessment: Vital Signs, Course and respsone to treatment, Exam Concerns, Patient/Family Expectation, Pertinant Lab Results, Outstanding Labs Recommendation: Barrier(s) to disposition, Recommendation based on pending studies, treatments, or consults S.B.A.R. Report Given to: Dr. Roly Michaud Repor Time: 00:16 Attestation Statement - Attestation Attestation: I, Eddi Rice MD, personally performed a history and physical exam of the patient and discussed their management with the resident. I reviewed the resident's note and agree with the documented findings, medical decision making , and plan of care. 70-year-old male presents with a complaint of diffuse abdominal pain and intractable nausea and vomiting for several days. No definite fever. Some shortness of breath which is somewhat chronic. No acute chest pain. On examination patient is a well-developed well-nourished elderly male in no acute distress. He is alert and oriented 3. There is no cyanosis or diaphoresis. Patient has mildly hypotensive. Breath sounds are decreased but equal bilaterally. Heart regular rate and rhythm. Abdomen is soft with normal bowel sounds. Diffuse abdominal tenderness with no guarding or rebound tenderness. No CVA tenderness. Labs reviewed. Elevated troponin noted. No acute changes on EKG. CT of the abdomen and pelvis shows cholelithiasis with questionable cholecystitis. The hospitalist, Dr. Dunham, was consulted and accepted admission of the patient.
[2016-06-09 22:23] LABS: Lipase < 4 Units/L (8-78)
[2016-06-09 23:54] LABS: Bilirubin,Urine Negative (Negative); Blood,Urine Moderate (Negative); Clarity,Urine Turbid (Clear); Color,Urine Yellow (Yellow); Glucose,Urine (UA) Normal (Normal); Ketones,Urine Negative (Negative); Leukocyte Esterase,Urine Large (Negative); Nitrite,Urine Negative (Negative); Protein,Urine 30 mg/dL (Neg-Trace); Specific Gravity,Urine 1.012 (1.010-1.025); Urobilinogen,Urine Normal (Normal)
[2016-06-09 23:58] LABS: Bacteria,Urine Many per hpf (None-Few); Hyaline Casts,Urine None Seen per lpf (None-Few); Squamous Epithelial Cell,Urine Moderate per lpf (None-Few); WBC,Urine TNTC per hpf (0-3)
[2016-06-10] MEDS ORDERED: D5% in Water 1,000 ML IV PRN (05:32)
[2016-06-10] MEDS ORDERED: *HR* Dextrose 50 % in Water (Syg) 50 ML SYRINGE IVP PRN (05:32)
[2016-06-10] MEDS ORDERED: Dextrose Gel 15 GM PO PRN ×2 (05:32)
[2016-06-10] MEDS ORDERED: Naloxone 0.4 MG/ML INJ IVP PRN (05:32)
[2016-06-10] MEDS ORDERED: 0.9 % Sodium Chloride 1,000 ML IVC SCH (05:45)
--- NOTE | 2016-06-10 05:47 | Internal Med History&Physical ---
Date of Encounter: 06/10/16 Time of Encounter: 05:41 Assessment and Plan (1) RUQ abdominal pain Current visit: Yes Status: Acute 1. I have a high suspicion for acute cholecystitis. 2. Will keep npo, start flaco IVF, IV antibiotics, and order GB ultrasound. 3. Patient will likely need surgery consult pending ultrasound results. 4. Will administer IV PPI as well. (2) IDDM (insulin dependent diabetes mellitus) Current visit: Yes Status: Chronic 1. Hold home medications and start SSI. 2. Monitor and adjust insulin as needed. (3) CKD (chronic kidney disease) stage 5, GFR less than 15 ml/min Current visit: Yes Status: Chronic 1. Monitor renal function, I/O. 2. Patient will likely need nephrology consult, especially fi he undergoes surgery. (4) Chronic systolic (congestive) heart failure Current visit: Yes Status: Acute 1. No evidence of decompensation presently. 2. Monitor I/O and daily weight. 3. Patient looks clinically dry presently. Will give flaco IVF hydration for 1 liter. 4. Resume home meds as appropriate. (5) DVT prophylaxis Current visit: Yes Status: Acute 1. Heparin SQ. Internal Medicine - H&P: HPI Chief complaint: nausea, vomiting, RUQ pain Admitted From: Emergency Dept Plans for Post Hospital Care: Home History of present illness: Mr. Mendez is a 70 year old male who presents with protracted nausea, vomiting, and right upper quadrant abdominal pain since discharge about a week and a half ago. Over the last 24 hours, his abdominal pain has intensified, and he has not been able to get comfortable. He therefore came to the ER where he was seen and evaluated. CT scan of the abdomen and pelvis revealed cholelithiasis and pericholecystic fluid concerning for possible cholecystitis. He was subsequently admitted to the hospitalist service. Upon my assessment of the patient, he is complaining of right upper quadrant abdominal pain and nausea. He denies any fevers, chills, or night sweats. He did not know of any prior history of gallstones until today. He states that over the last week and half, he has had minimal oral food intake and also decreased fluid intake as well. He denies any chest pain, shortness of breath, or diarrhea. Past Med Surg Social Fam HX - Past Medical History Attestation: Yes The following information was validated with the patient. Source: patient, old records reviewed Medical history: arthritis, atrial fibrillation, cardiomyopathy, CHF, COPD, coronary artery disease, DVT, diabetes, GERD, GI bleed, hyperlipidemia, hypertension, myocardial infarction, osteoporosis, peripheral artery disease, renal disease, venous stasis Psychiatric history: no psych history - Past Surgical History Surgical History: angioplasty/stent, arthroscopy, cataract, coronary bypass ( CABG), LE Bypass, LE vascular intervention, orthopedic, other, pacemaker/AICD, vascular surgery (aortobifemoral bypass, left femoral to popliteal artery bypass , right below knee amputation), other, AICD, pacemaker - Social History Smoking Status: Former smoker Smokeless Tobacco Status: No Alcohol use: none Drug use: none Occupational status: retired Current living situation: Home, With Family - Family History Father Living Status: Mother Living Status: Hx Family Cardiac Disorders: No Hx Family Cancer: No Hx Family Endocrine Disorder: No Internal Medicine - H&P: Meds Aspirin 81 mg PO DAILY 10/30/14 [History] Clopidogrel [Plavix] 75 mg PO DAILY 10/30/14 [History] Pravastatin Sodium 40 mg PO DAILY 10/30/14 [History] Tamsulosin [Flomax] 0.4 mg PO DAILY 10/30/14 [History] Ergocalciferol (VITAMIN D2) [Vitamin D2 (50,000 UNIT)] 50,000 unit PO MCGOWAN [History] Metoprolol XL (24 HR) Succ [Toprol XL] 25 mg PO DAILY 03/05/15 [History] Docusate [Colace] 100 mg PO BID PRN 12/01/15 [History] Nitroglycerin [Nitrostat] 0.4 mg SL DAILY PRN 12/01/15 [History] Temazepam [Restoril] 7.5 mg PO HS 12/01/15 [History] Epoetin Jonnie [Procrit] 2,000 unit IJ FR 01/13/16 [History] GuaiFENesin ER [Mucinex] 600 mg PO BID tbbp.12hr 02/11/16 [Rx] Ferrous Sulfate 325 mg PO BID 03/08/16 [History] Ondansetron HCl [Zofran] 4 mg PO Q6H PRN 03/08/16 [History] Promethazine [Phenergan] 12.5 mg PO Q4H PRN 03/08/16 [History] Ranitidine HCl [Zantac] 150 mg PO BID 03/08/16 [History] Insulin Glargine,Hum.rec.anlog [Lantus Solostar] 16 unit SQ HS 03/25/16 [History ] Insulin LISPRO [HumaLOG] 5 - 15 units SQ ACHS 03/25/16 [History] Ipratropium/Albuterol Neb [Duoneb] 3 ml IH Q6HR 03/25/16 [History] Polyethylene Glycol 3350 [MiraLAX] 17 gm PO DAILY 03/25/16 [History] Lactobacillus Acidophilus [Acidophilus] 1 each PO TID #30 tablet 05/12/16 [Rx] OxyCODONE Immed Rel [Roxicodone 5 MG] 10 mg PO Q6H PRN #20 tablet 05/12/16 [Rx] Furosemide [Lasix] 60 mg PO BID #60 tab 05/29/16 [Rx] Allergies No Known Allergies Allergy (Verified 05/18/16 16:53) - Constitutional Constitutional: no chills, no fever(s), no night sweats - EENT Eyes: no blurry vision, no change in vision Ears: no ear pain, no tinnitus Nose, mouth and throat: no nasal congestion, no sinus pain, no sinus pressure, no sore throat - Cardiovascular Cardiovascular ROS IM: no chest pain, no diaphoresis, no dyspnea, no dyspnea on exertion, no palpitations - Respiratory Respiratory: no cough, no dyspnea, no hemoptysis, no chest congestion - Gastrointestinal Gastrointestinal: abdominal pain, belching, cramping, dyspepsia, nausea, vomiting, no diarrhea - Genitourinary Genitourinary ROS male: no dysuria, no flank pain, no hematuria - Musculoskeletal Musculoskeletal ROS IM: back pain, no muscle cramps, no myalgias - Integumentary Integumentary IM: no rash - Neurological Neurological ROS: no behavioral changes, no dizziness, no focal weakness - Psychiatric Psychiatric: no anxiety, no depression - Endocrine Endocrine IM: no polydipsia, no polyuria - Allergic/Immunologic Allergic/Immunologic: no wheezing, no GI upset with certain foods - Constitutional Vitals: Temp Pulse Resp BP Pulse Ox 99.0 F 76 16 124/62 100 06/10/16 04:36 06/10/16 04:36 06/10/16 04:36 06/10/16 04:36 06/10/16 04:36 General appearance: Present: cooperative, mild distress, A&O X 3, pleasant, answers questions appropriately Exam: mild distress due to pain in RUQ - Head Head exam: Present: atraumatic, normal inspection - Expanded Head Exam Head exam expanded: Absent: abrasion, contusion, general tenderness - Eye Eye exam: Present: EOMI, normal appearance, PERRL. Absent: scleral icterus Pupils: Present: normal accommodation - ENT ENT exam: Present: mucous membranes dry, normal exam, normal oropharynx - Neck Neck exam general surgery: Present: full ROM, supple. Absent: lymphadenopathy, tenderness - Respiratory Respiratory exam: Present: CTAB. Absent: chest wall tenderness, rales, respiratory distress, rhonchi, wheezes - Cardiovascular Cardiovascular exam: Present: distant heart sounds, RRR, +S1, +S2. Absent: diastolic murmur, JVD, systolic murmur - GI/Abdominal GI/Abdominal exam: Present: hypoactive bowel sounds, soft, tenderness (RUQ radiating to back/shoulder). Absent: guarding, hepatomegaly, mass, rebound, splenomegaly - Extremities Exam Extremities exam: Present: full ROM, warm. Absent: calf tenderness, tenderness Additional comments: right BKA - Back Exam Back exam: Present: tenderness (right side radiating from RUQ abdomen). Absent : CVA tenderness (L), CVA tenderness (R) - Neurological Exam Neurological exam: Present: alert, oriented X3, no focal deficits, strengths equal and symetr throughout - Psychiatric Psychiatric exam: Present: anxious - Skin Skin exam: Present: dry, warm. Absent: rash Internal Med - H&P Results - Labs CBC & Chem 7: 06/09/16 21:56 06/09/16 21:56 - Diagnostic Studies CT scan - abdomen Additional comments: Report reviewed
[2016-06-10] MEDS: *HR* Morphine 2 MG/ML SYRINGE IVP PRN (06:06)
[2016-06-10] MEDS: Insulin LISPRO 300 UNITS/3 ML VIAL SQ SCH ×3 (06:20→18:33)
[2016-06-10] MEDS: *HR* Heparin 5,000 UNIT/ML VIAL SQ SCH ×2 (06:22→18:32)
[2016-06-10 07:24] LABS: Basophils % 0.4 %; Eosinophils % 0.3 %; Hemoglobin 10.7 g/dL (12.9-16.9); Immature Granulocytes % 0.7 % (0-4); Lymphocytes # 0.4 K/mcL (0.6-4.6); Lymphocytes % 5.6 %; Mean Corpuscular HGB Conc 32.4 g/dL (31.6-35.5); Mean Corpuscular Hemoglobin 28.2 pg (28.0-33.3); Mean Corpuscular Volume 87.1 fL (83.0-100.0); Mean Platelet Volume 10.9 fL (9.4-12.4); Monocytes # 0.7 K/mcL (0.0-1.3); Neutrophils # 6.3 K/mcL (1.6-8.9); Platelet Count 168 K/mcL (140-400); Red Blood Count 3.79 M/mcL (4.19-5.50); Red Cell Distribution Width 18.4 % (11.5-14.5)
[2016-06-10 07:40] LABS: Albumin 2.9 g/dL (3.5-5.0); Albumin/Globulin Ratio 0.8 (1.1-2.2); Bilirubin,Total 1.2 mg/dL (0.2-1.2); Calcium 8.6 mg/dL (8.6-10.8); Globulin 3.7 g/dL (2.4-3.5); Hemoglobin A1C 6.9 %; Potassium 5.2 mEq/L (3.5-4.5); Total Protein 6.6 g/dL (6.0-8.3)
[2016-06-10] MEDS: MetroNIDAZOLE 500 MG/100 ML 500 MG/100 ML BAG IVPB SCH ×2 (08:54→16:33)
[2016-06-10] MEDS: Pantoprazole 40 MG VIAL IVP SCH (08:55)
[2016-06-10] MEDS: Ipratropium/Albuterol Neb 3 ML IH SCH ×3 (11:53→23:55)
[2016-06-10] MEDS ORDERED: Nitroglycerin 0.4 MG TAB.SUBL SL PRN (12:49)
[2016-06-10] MEDS ORDERED: Ondansetron 4 MG/2 ML VIAL IVP PRN (12:52)
--- NOTE | 2016-06-10 12:53 | Internal Med Progress Note ---
Date of Encounter: 06/10/16 Time of Encounter: 09:15 - Assessment and plan (1) Abdominal pain Current Visit: Yes Status: Acute Assessment and plan: At this time, I am suspecting gall bladder disease as cause of his abdominal pain and nausea He however, also has anasarca and his abdominal pain and nausea may be related to gut wall edema Will hold IVF for now , patient with anasarca and EF 15% Follow gall bladder USS Zofran for nausea Will consult surgery prn Continue Ciprofloxacin and Flagyl NPO except medications, resume home meds Qualifiers: Abdominal location: unspecified location Qualified Code(s): R10.9 - Unspecified abdominal pain (2) Hyperkalemia Current Visit: Yes Status: Acute Assessment and plan: K 5.5 Will avoid insulin as patient is NPO Will give 15g of kayexalate and monitor (3) Type 2 diabetes mellitus Current Visit: Yes Status: Chronic Assessment and plan: A1C 6.9 Patient is NPO for now Check FS q6h and low dose sliding scale insulin Qualifiers: Diabetes mellitus complication status: with kidney complications Diabetes mellitus complication detail: with chronic kidney disease 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: with chcf use Chronic kidney disease stage: stage 4 (severe) Qualified Code(s): E11.22 - Type 2 diabetes mellitus with diabetic chronic kidney disease; N18.4 - Chronic kidney disease, stage 4 (severe); 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 (4) Elevated troponin Current Visit: Yes Status: Chronic Assessment and plan: Chronic elevation due to patient's CKD IV, severe artherosclerosis and CAD Will continue to monitor Patient has no chest pain at this time (5) Anemia Current Visit: Yes Status: Chronic Assessment and plan: Chronic, stable Qualifiers: Anemia type: iron deficiency Iron deficiency anemia type: unspecified iron deficiency Qualified Code(s): D50.9 - Iron deficiency anemia, unspecified (6) Hypertension Current Visit: Yes Status: Chronic Assessment and plan: Controlled, resume and continue home meds Qualifiers: Hypertension type: essential hypertension Qualified Code(s): I10 - Essential (primary) hypertension (7) Chronic obstructive pulmonary disease Current Visit: Yes Status: Chronic Assessment and plan: NO wheezing on exam Duonebs prn for now Qualifiers: COPD type: unspecified COPD Qualified Code(s): J44.9 - Chronic obstructive pulmonary disease, unspecified (8) Dyslipidemia Current Visit: Yes Status: Chronic (9) CAD (coronary artery disease) Current Visit: Yes Status: Chronic Qualifiers: Coronary Disease-Associated Artery/Lesion type: unspecified vessel or lesion type [place] vs. transplanted heart: unspecified whether [place] or transplanted heart Associated angina: angina presence unspecified Qualified Code(s): I25.10 - Atherosclerotic heart disease of [place] coronary artery without angina pectoris (10) Peripheral vascular disease Current Visit: Yes Status: Chronic (11) Chronic disease anemia Current Visit: No Status: Chronic (12) BPH (benign prostatic hyperplasia) Current Visit: No Status: Chronic Qualifiers: Prostatic enlargement morphology: unspecified morphology Lower urinary tract symptom presence: symptoms present Qualified Code(s): N40.1 - Benign prostatic hyperplasia with lower urinary tract symptoms (13) Cardiomyopathy Current Visit: No Status: Chronic Qualifiers: Cardiomyopathy type: unspecified Qualified Code(s): I42.9 - Cardiomyopathy , unspecified (14) Chronic kidney disease, stage 4 (severe) Current Visit: No Status: Chronic (15) Heart failure with reduced ejection fraction Current Visit: Yes Status: Chronic Assessment and plan: Patient with EF 15% and anasarca with bilateral pleural effusion Will resume home meds including diuretics Qualifiers: Heart failure chronicity: acute on chronic Qualified Code(s): I50.23 - Acute on chronic systolic (congestive) heart failure - Subjective Interval history: 70-year-old male with past medical history of HTN, hyperlipidemia, type 1 diabetes, coronary artery disease status post CABG, peripheral vascular disease status post intervention and bypass and right BKA, CHF with reduced ejection fraction with ejection fraction of 15%, COPD, CKD stage IV. Patient is evaluated at bedside and he is complaining of abdominal pain He describes abdominal pain as located in the right lower quadrant and left lower quadrant, he describes pain as vague and non-radiating with associated nausea. He also reported that he feels his abdomen is bloated and distended. Patient is admitted and worked up for acute abdominal pain rule out gallbladder disease. Work up on admission revealed hemoglobin of 10.7 at baseline, no leukocytosis, hyperkalemia, creatinine 2.96 at baseline GFR of 21, hemoglobin A1c 6.9, his lactic acid was normal at 2.1, differential function tests were slightly elevated AST, troponin elevation 0.11, and lipase and amylase are within normal limits. Urine analysis is dirty, vomiting. Abdomen and pelvis CAT scan reveals ill-defined thickening of the gallbladder, gallstones , small to moderate bilateral pleural effusions with compressive atelectasis, diffuse anasarca , spleen and adrenals within normal limit. Suspected hemorrhagic proteinaceous is along the left renal pelvis poorly visualized pancreas bone density test and non-dilated. Bladder contains a small amount of air in the density seen within the bladder. Gallbladder ultrasound is pending. Patient has been on weight since admission chest nothing by mouth status. Will hold IVF For now due to patient's ejection fraction of 15% and anasarca. - Constitutional Vitals: Temp Pulse Resp BP Pulse Ox 100.1 F H 80 18 107/56 94 L 06/10/16 07:10 06/10/16 07:10 06/10/16 07:10 06/10/16 07:10 06/10/16 07:10 General appearance: Present: cooperative, mild distress, A&O X 3, pleasant, answers questions appropriately - Head Head exam: Present: atraumatic, normocephalic - Eye Eye exam: Present: PERRL, conjuntiva pink, sclera anicteric Pupils: Present: PERRL - Neck Neck exam general surgery: Present: supple, trachea midline. Absent: lymphadenopathy - Respiratory Respiratory exam: Present: CTAB. Absent: accessory muscle use, rales, rhonchi, wheezes - Cardiovascular Cardiovascular exam: Present: JVD, RRR, +S1, +S2, +S3 - GI/Abdominal GI/Abdominal exam: Present: normal bowel sounds, soft, tenderness (vague tenderness in RLQ and LLQ), no peritoneal signs. Absent: distended - Extremities Exam Additional comments: Bilateral edema, s/p R BKA, s/p L TMA Piting edema bilaterally LLE n dressing, not removed, patient is in pain - Neurological Exam Neurological exam: Present: alert, CN II-XII intact, oriented X3, no focal deficits. Absent: pronater drift, facial droop, speech deficit - Skin Skin exam: Present: dry, intact Internal Medicine: Result - Labs CBC & Chem 7: 06/10/16 07:03 06/10/16 07:03 Labs: Short CBC 06/10/16 Range/Units 07:03 WBC 7.5 (4.3-11.1) K/mcL Hgb 10.7 L (12.9-16.9) g/dL Hct 33.0 L (37.5-50.1) % Plt Count 168 (140-400) K/mcL Neutrophils # 6.3 (1.6-8.9) K/mcL BMP 06/10/16 07:03 Sodium 131 L Potassium 5.2 H Chloride 95 L Carbon Dioxide 21 BUN 76 H Creatinine 2.95 H Glucose 207 H Calcium 8.6 Cardiac Enzymes 06/10/16 Range/Units 07:03 Troponin I 0.11 H* (0-0.03) ng/mL Liver Function 06/10/16 Range/Units 07:03 Total Bilirubin 1.2 (0.2-1.2) mg/dL AST 64 H (5-34) Units/L ALT 22 (0-55) Units/L Alkaline Phosphatase 167 H (38-126) Units/L Albumin 2.9 L (3.5-5.0) g/dL - ABG Interpretation ABG results: PT/INR, D-dimer PT 17.0 Seconds (9.4-12.1) H 06/09/16 21:56 Consult Discharge Plan - Plan Referrals: Felix,Jennie Wang CNP [Primary Care Provider] -
[2016-06-10] MEDS: *HR* OxyCODONE/APAP 10/325 TABLET PO PRN (16:40)
[2016-06-10] MEDS ORDERED: traZODone 50 MG TABLET PO SCH (21:00)
--- NOTE | 2016-06-10 22:26 | General Surgery Consult Note ---
Date of Encounter: 06/10/16 Time of Encounter: 20:30 Assessment and Plan (1) Acute cholecystitis due to biliary calculus Current Visit: Yes Status: Acute The patient has acute cholecystitis clinically and by ultrasound right upper quadrant. Unfortunately he also has severe systolic heart disease. After below -knee dictation in January he developed severe hypotension that required intensive care unit management. Treatment of his acute cholecystitis should commence with nothing by mouth status, hydration, and antibiotic therapy. If he does not respond quickly a decision will need to be made whether to place a cholecystostomy drain or go to the operating room for laparoscopic cholecystectomy with expected systolic heart failure and anticipate intensive care unit stay with hypotension. I will work through this decision making process with you and I will be glad to follow along think it History of Present Illness Consult date: 06/10/16 Reason for consult: abdominal pain History of present illness: The patient states that he has been sick for several weeks. He indicates his upper abdomen as the central area of pain. He states that he is a continuous pain 8 out of 10. He presented to the hospitalist service and the diagnosis of cholecystitis was suspected. the gallbladder was obtained. an ultrasound demonstrated pericholecystic fluid and gallbladder wall thickening as well as cholelithiasis. findings are consistent with acute cholecystitis. after below-knee amputation in january of last year the patient went into systolic heart failure. this required an extended period of time the intensive care unit in aggressive treatment of hypotension. he has end-stage systolic heart failure and heart disease. Past Med Surg Social Fam HX - Past Medical History Medical history: arthritis, atrial fibrillation, cardiomyopathy, CHF, COPD, coronary artery disease, DVT, diabetes, GERD, GI bleed, hyperlipidemia, hypertension, myocardial infarction, osteoporosis, peripheral artery disease, renal disease, venous stasis Psychiatric history: no psych history - Past Surgical History Surgical History: angioplasty/stent, arthroscopy, cataract, coronary bypass ( CABG), LE Bypass, LE vascular intervention, orthopedic, other, pacemaker/AICD, vascular surgery (aortobifemoral bypass, left femoral to popliteal artery bypass , right below knee amputation), other, AICD, pacemaker - Social History Smoking Status: Former smoker Smokeless Tobacco Status: No Alcohol use: none Drug use: none - Family History Father Living Status: Mother Living Status: Hx Family Cardiac Disorders: No Hx Family Cancer: No Hx Family Endocrine Disorder: No Medications and Allergies Aspirin 81 mg PO DAILY 10/30/14 [History] Clopidogrel [Plavix] 75 mg PO DAILY 10/30/14 [History] Pravastatin Sodium 40 mg PO DAILY 10/30/14 [History] Tamsulosin [Flomax] 0.4 mg PO DAILY 10/30/14 [History] Ergocalciferol (VITAMIN D2) [Vitamin D2 (50,000 UNIT)] 50,000 unit PO MCGOWAN [History] Metoprolol XL (24 HR) Succ [Toprol XL] 25 mg PO DAILY 03/05/15 [History] Docusate [Colace] 100 mg PO BID PRN 12/01/15 [History] Nitroglycerin [Nitrostat] 0.4 mg SL AD PRN 12/01/15 [History] Epoetin Jonnie [Procrit] 2,000 unit IJ FR 01/13/16 [History] Promethazine [Phenergan] 12.5 mg PO Q8H PRN 03/08/16 [History] Insulin Glargine,Hum.rec.anlog [Lantus Solostar] 18 unit SQ HS 03/25/16 [History ] Insulin LISPRO [HumaLOG] 5 - 15 units SQ ACHS 03/25/16 [History] Ipratropium/Albuterol Neb [Duoneb] 3 ml IH Q6HR 03/25/16 [History] Furosemide [Lasix] 60 mg PO DAILY 06/10/16 [History] HYDROcodone/Acet 10/325 mg [[place] 10-325 mg] 1 tab PO QID PRN 06/10/16 [History] Metolazone [Zaroxolyn] 2.5 mg PO MOWEFR 06/10/16 [History] Omeprazole [PriLOSEC] 20 mg PO DAILY 06/10/16 [History] OxyCODONE/APAP 10/325 [Percocet 10/325 MG] 1 tab PO QID PRN 06/10/16 [History] TraZODone 50 mg PO HS 06/10/16 [History] Zolpidem [Ambien] 5 mg PO HS PRN 06/10/16 [History] Allergies No Known Allergies Allergy (Verified 05/18/16 16:53) Review of Systems All systems PM: reviewed and no additional remarkable complaints except as stated All systems PM: A 10-system review of systems was performed and is negative for pertinent findings except as documented above in the HPI. General Surgery Exam Initial Vital Signs Temp Pulse Resp BP Pulse Ox 99.3 F 73 22 96/47 97 06/09/16 21:28 06/09/16 21:28 06/09/16 21:28 06/09/16 21:28 06/09/16 21:28 - General physical appearance chronically ill - Respiratory crackles: bilateral, wheezing: bilateral - Cardiovascular Cardiovascular exam: Present: RRR - Abdomen Abdomen general surgery: Present: tender, guarding Abdominal Tenderness: Present: epigastic, RUQ - Neurologic Present: CN 2-12 grossly intact, normal coordination, normal sensation - Psychiatric Psychiatric general surgery: Present: appropriate, oriented to person, oriented to place, oriented to time, speech is normal, memory intact Exam Initial Vital Signs Temp Pulse Resp BP Pulse Ox 99.3 F 73 22 96/47 97 06/09/16 21:28 06/09/16 21:28 06/09/16 21:28 06/09/16 21:28 06/09/16 21:28 Results - Labs 06/10/16 07:03 06/10/16 07:03 Abnormal lab results RBC 3.79 M/mcL (4.19-5.50) L 06/10/16 07:03 Hgb 10.7 g/dL (12.9-16.9) L 06/10/16 07:03 Hct 33.0 % (37.5-50.1) L 06/10/16 07:03 RDW 18.4 % (11.5-14.5) H 06/10/16 07:03 Lymphocytes # 0.4 K/mcL (0.6-4.6) L 06/10/16 07:03 PT 17.0 Seconds (9.4-12.1) H 06/09/16 21:56 Sodium 131 mEq/L (136-145) L 06/10/16 07:03 Potassium 5.2 mEq/L (3.5-4.5) H 06/10/16 07:03 Chloride 95 mEq/L (98-109) L 06/10/16 07:03 BUN 76 mg/dL (8-26) H 06/10/16 07:03 Creatinine 2.95 mg/dL (0.72-1.25) H 06/10/16 07:03 Est GFR ( Amer) 26 (> 60) L 06/10/16 07:03 Est GFR (Non-Af Amer) 21 (> 60) L 06/10/16 07:03 Glucose 207 mg/dL (70-99) H 06/10/16 07:03 POC Glucose 230 (58-89) H 06/10/16 12:38 Hemoglobin A1c 6.9 % (-5.6) H 06/10/16 07:03 Calculated Osmolality 301 (280-300) H 06/10/16 07:03 AST 64 Units/L (5-34) H 06/10/16 07:03 Alkaline Phosphatase 167 Units/L (38-126) H 06/10/16 07:03 Troponin I 0.12 ng/mL (0-0.03) H* 06/10/16 18:50 Albumin 2.9 g/dL (3.5-5.0) L 06/10/16 07:03 Globulin 3.7 g/dL (2.4-3.5) H 06/10/16 07:03 Albumin/Globulin Ratio 0.8 (1.1-2.2) L 06/10/16 07:03 Amylase 24 Units/L (25-125) L 06/09/16 21:56 Lipase < 4 Units/L (8-78) L 06/09/16 21:56 Urine Clarity Turbid (Clear) A 06/09/16 23:33 Urine Protein 30 mg/dL (Neg-Trace) H 06/09/16 23:33 Urine Blood Moderate (Negative) H 06/09/16 23:33 Ur Leukocyte Esterase Large (Negative) H 06/09/16 23:33 Urine Microscopic RBC 5-15 per hpf (0-3) H 06/09/16 23:33 Urine Microscopic WBC TNTC per hpf (0-3) H 06/09/16 23:33 Ur Squamous Epith Cells Moderate per lpf (None-Few) H 06/09/16 23:33 Urine Bacteria Many per hpf (None-Few) H 06/09/16 23:33 Ur Culture Indicated? YES (NO) A 06/09/16 23:33 Diabetes panel 06/10/16 06/10/16 Range/Units 07:03 07:03 Sodium 131 L (136-145) mEq/L Potassium 5.2 H (3.5-4.5) mEq/L Chloride 95 L (98-109) mEq/L Carbon Dioxide 21 (19-29) mEq/L BUN 76 H (8-26) mg/dL Creatinine 2.95 H (0.72-1.25) mg/dL Glucose 207 H (70-99) mg/dL Hemoglobin A1c 6.9 H ( - 5.6) % Calcium 8.6 (8.6-10.8) mg/dL AST 64 H (5-34) Units/L ALT 22 (0-55) Units/L Alkaline Phosphatase 167 H (38-126) Units/L Albumin 2.9 L (3.5-5.0) g/dL Calcium panel 06/10/16 Range/Units 07:03 Calcium 8.6 (8.6-10.8) mg/dL Albumin 2.9 L (3.5-5.0) g/dL Pituitary panel 06/10/16 Range/Units 07:03 Sodium 131 L (136-145) mEq/L Potassium 5.2 H (3.5-4.5) mEq/L Chloride 95 L (98-109) mEq/L Carbon Dioxide 21 (19-29) mEq/L BUN 76 H (8-26) mg/dL Creatinine 2.95 H (0.72-1.25) mg/dL Glucose 207 H (70-99) mg/dL Calcium 8.6 (8.6-10.8) mg/dL Adrenal panel 06/10/16 Range/Units 07:03 Sodium 131 L (136-145) mEq/L Potassium 5.2 H (3.5-4.5) mEq/L Chloride 95 L (98-109) mEq/L Carbon Dioxide 21 (19-29) mEq/L BUN 76 H (8-26) mg/dL Creatinine 2.95 H (0.72-1.25) mg/dL Glucose 207 H (70-99) mg/dL Calcium 8.6 (8.6-10.8) mg/dL Total Bilirubin 1.2 (0.2-1.2) mg/dL AST 64 H (5-34) Units/L ALT 22 (0-55) Units/L Alkaline Phosphatase 167 H (38-126) Units/L Albumin 2.9 L (3.5-5.0) g/dL All other labs normal. - Imaging US - abdomen: image reviewed (I first reviewed the ultrasound right upper quadrant. He patient has evidence of acute cholecystitis with gallbladder wall thickening and pericholecystic fluid as well as cholelithiasis.) Consult Discharge Plan - Plan Referrals: Jennie Washington CNP [Primary Care Provider] -
[2016-06-11] MEDS: MetroNIDAZOLE 500 MG/100 ML 500 MG/100 ML BAG IVPB SCH ×3 (00:02→16:24)
[2016-06-11] MEDS: Insulin LISPRO 300 UNITS/3 ML VIAL SQ SCH ×4 (00:19→16:29)
[2016-06-11] MEDS: Ipratropium/Albuterol Neb 3 ML IH SCH ×4 (03:37→22:10)
[2016-06-11] MEDS: *HR* Heparin 5,000 UNIT/ML VIAL SQ SCH ×2 (06:30→18:38)
[2016-06-11 07:44] LABS: Albumin 2.5 g/dL (3.5-5.0); Albumin/Globulin Ratio 0.8 (1.1-2.2); Bilirubin,Total 1.2 mg/dL (0.2-1.2); Calcium 8.1 mg/dL (8.6-10.8); Globulin 3.3 g/dL (2.4-3.5); Potassium 4.8 mEq/L (3.5-4.5); Total Protein 5.8 g/dL (6.0-8.3)
[2016-06-11] MEDS ORDERED: 0.9 % Sodium Chloride 1,000 ML IVC SCH ×2 (07:45→20:01)
[2016-06-11] MEDS: Pantoprazole 40 MG VIAL IVP SCH (08:11)
[2016-06-11] MEDS: *HR* OxyCODONE/APAP 10/325 TABLET PO PRN (08:13)
[2016-06-11 08:22] LABS: Basophils % 0.3 %; Hemoglobin 9.6 g/dL (12.9-16.9); Immature Granulocytes % 0.6 % (0-4); Lymphocytes # 0.3 K/mcL (0.6-4.6); Lymphocytes % 4.1 %; Mean Corpuscular Hemoglobin 28.1 pg (28.0-33.3); Mean Corpuscular Volume 87.7 fL (83.0-100.0); Mean Platelet Volume 10.9 fL (9.4-12.4); Monocytes # 0.7 K/mcL (0.0-1.3); Monocytes % 9.8 %; Neutrophils # 5.9 K/mcL (1.6-8.9); Platelet Count 143 K/mcL (140-400); Red Blood Count 3.42 M/mcL (4.19-5.50); Red Cell Distribution Width 18.2 % (11.5-14.5); Segmented Neutrophils % 85.2 %
[2016-06-11] MEDS ORDERED: Furosemide 20 MG TABLET PO SCH (09:00)
[2016-06-11] MEDS ORDERED: Metoprolol XL (24 HR) Succ 50 MG TAB.ER.24H PO SCH (09:00)
--- NOTE | 2016-06-11 09:16 | Internal Med Progress Note ---
Date of Encounter: 06/11/16 Time of Encounter: 09:16 - Assessment and plan (1) Conjunctivitis Current Visit: Yes Status: Acute Assessment and plan: Cipro eye drop qid Qualifiers: Conjunctivitis type: unspecified Laterality: bilateral Qualified Code(s) : H10.9 - Unspecified conjunctivitis (2) Acute cholecystitis Current Visit: Yes Status: Acute Assessment and plan: Discussed with Dr. Fajardo For emergent surgery today Cardiology consulted for pre and post-op optimization recommendations Continue antibiotics Continue Zofran High risk patient, will need ICU monitoring post-op (3) Abdominal pain Current Visit: Yes Status: Acute Assessment and plan: As above Qualifiers: Abdominal location: unspecified location Qualified Code(s): R10.9 - Unspecified abdominal pain (4) Hyperkalemia Current Visit: Yes Status: Acute Assessment and plan: K 4.8, improved from 5.5 06/10 Continue to monitor closely (5) Type 2 diabetes mellitus Current Visit: Yes Status: Chronic Assessment and plan: A1C 6.9 Patient is NPO for now Check FS q6h and low dose sliding scale insulin Qualifiers: Diabetes mellitus complication status: with kidney complications Diabetes mellitus complication detail: with chronic kidney disease 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 mellitus termite technician insulin use: with intermediate use Chronic kidney disease stage: stage 4 (severe) Qualified Code(s): E11.22 - Type 2 diabetes mellitus with diabetic chronic kidney disease; N18.4 - Chronic kidney disease, stage 4 (severe); Z79.4 - technician terminal and repeater (current) use of insulin (6) Elevated troponin Current Visit: Yes Status: Chronic Assessment and plan: Chronic elevation due to patient's CKD IV, severe artherosclerosis and CAD Will continue to monitor Patient has no chest pain at this time (7) Anemia Current Visit: Yes Status: Chronic Assessment and plan: Chronic, stable Qualifiers: Anemia type: iron deficiency Iron deficiency anemia type: unspecified iron deficiency Qualified Code(s): D50.9 - Iron deficiency anemia, unspecified (8) Hypertension Current Visit: Yes Status: Chronic Assessment and plan: Controlled, continue home meds Qualifiers: Hypertension type: essential hypertension Qualified Code(s): I10 - Essential (primary) hypertension (9) Chronic obstructive pulmonary disease Current Visit: Yes Status: Chronic Assessment and plan: NO wheezing on exam Duonebs prn for now Qualifiers: COPD type: unspecified COPD Qualified Code(s): J44.9 - Chronic obstructive pulmonary disease, unspecified (10) Dyslipidemia Current Visit: Yes Status: Chronic Assessment and plan: Chronic, continue home meds (11) CAD (coronary artery disease) Current Visit: Yes Status: Chronic Qualifiers: Coronary Disease-Associated Artery/Lesion type: unspecified vessel or lesion type [place] vs. transplanted heart: unspecified whether [place] or transplanted heart Associated angina: angina presence unspecified Qualified Code(s): I25.10 - Atherosclerotic heart disease of [place] coronary artery without angina pectoris (12) Peripheral vascular disease Current Visit: Yes Status: Chronic (13) Chronic disease anemia Current Visit: No Status: Chronic (14) BPH (benign prostatic hyperplasia) Current Visit: No Status: Chronic Qualifiers: Prostatic enlargement morphology: unspecified morphology Lower urinary tract symptom presence: symptoms present Qualified Code(s): N40.1 - Benign prostatic hyperplasia with lower urinary tract symptoms (15) Cardiomyopathy Current Visit: Yes Status: Chronic Qualifiers: Cardiomyopathy type: unspecified Qualified Code(s): I42.9 - Cardiomyopathy , unspecified (16) Chronic kidney disease, stage 4 (severe) Current Visit: No Status: Chronic (17) Heart failure with reduced ejection fraction Current Visit: Yes Status: Chronic Assessment and plan: Patient with EF 15% and anasarca with bilateral pleural effusion Continue meds Card consult for pre and post-op recommendations Qualifiers: Heart failure chronicity: acute on chronic Qualified Code(s): I50.23 - Acute on chronic systolic (congestive) heart failure - Subjective Interval history: 70-year-old male with past medical history of HTN, hyperlipidemia, type 1 diabetes, coronary artery disease status post CABG, peripheral vascular disease status post intervention and bypass and right BKA, CHF with reduced ejection fraction with ejection fraction of 15%, COPD, CKD stage IV. 06/10 Patient is evaluated at bedside and he is complaining of abdominal pain He describes abdominal pain as located in the right lower quadrant and left lower quadrant, he describes pain as vague and non-radiating with associated nausea. He also reported that he feels his abdomen is bloated and distended. Patient is admitted and worked up for acute abdominal pain rule out gallbladder disease. Work up on admission revealed hemoglobin of 10.7 at baseline, no leukocytosis, hyperkalemia, creatinine 2.96 at baseline GFR of 21, hemoglobin A1c 6.9, his lactic acid was normal at 2.1, differential function tests were slightly elevated AST, troponin elevation 0.11, and lipase and amylase are within normal limits. Urine analysis is dirty, vomiting. Abdomen and pelvis CAT scan reveals ill-defined thickening of the gallbladder, gallstones , small to moderate bilateral pleural effusions with compressive atelectasis, diffuse anasarca , spleen and adrenals within normal limit. Suspected hemorrhagic proteinaceous is along the left renal pelvis poorly visualized pancreas bone density test and non-dilated. Bladder contains a small amount of air in the density seen within the bladder. 06/11 Seen at bedside Gall bladder USS with acute cholecystitis, Dr. Fajardo was contacted on phone yesterday and the plan is to have a cholecystostomy done if conservative management does not result in clinical improvement His eyes are swollen bilaterally today, L>R, with crusts , no redness. Patient reports his abdominal pain is the same, and he just wants to drink some water - Constitutional Vitals: Temp Pulse Resp BP Pulse Ox 98.1 F 88 16 105/41 98 06/11/16 06:49 06/11/16 06:49 06/11/16 06:49 06/11/16 06:49 06/11/16 06:49 General appearance: Present: cooperative, disheveled, mild distress, A&O X 3, pleasant, answers questions appropriately - Head Head exam: Present: atraumatic - Eye Eye exam: Present: periorbital swelling, conjuntiva pink Additional comments: Bilateral crusty eye discharge. L>R - Neck Neck exam general surgery: Present: supple, trachea midline. Absent: lymphadenopathy - Respiratory Respiratory exam: Present: CTAB. Absent: accessory muscle use, rales, rhonchi, wheezes - Cardiovascular Cardiovascular exam: Present: RRR, +S1, +S2, systolic murmur - GI/Abdominal GI/Abdominal exam: Present: guarding, normal bowel sounds, soft, tenderness - Extremities Exam Additional comments: s/p L TMA, s/p R BKA Bilateral pitting edema Dressings on stumps clean and dry - Neurological Exam Neurological exam: Present: alert, CN II-XII intact, oriented X3, no focal deficits. Absent: pronater drift, facial droop, speech deficit - Skin Skin exam: Present: dry Internal Medicine: Result - Labs CBC & Chem 7: 06/11/16 08:08 06/11/16 07:11 Labs: Short CBC 06/11/16 Range/Units 08:08 WBC 6.9 (4.3-11.1) K/mcL Hgb 9.6 L (12.9-16.9) g/dL Hct 30.0 L (37.5-50.1) % Plt Count 143 (140-400) K/mcL Neutrophils # 5.9 (1.6-8.9) K/mcL BMP 06/11/16 07:11 Sodium 128 L Potassium 4.8 H Chloride 94 L Carbon Dioxide 16 L BUN 81 H Creatinine 3.09 H Glucose 266 H Calcium 8.1 L Cardiac Enzymes 06/10/16 06/10/16 Range/Units 13:07 18:50 Troponin I 0.12 H* 0.12 H* (0-0.03) ng/mL Liver Function 06/11/16 Range/Units 07:11 Total Bilirubin 1.2 (0.2-1.2) mg/dL AST 71 H (5-34) Units/L ALT 20 (0-55) Units/L Alkaline Phosphatase 127 H (38-126) Units/L Albumin 2.5 L (3.5-5.0) g/dL - ABG Interpretation ABG results: PT/INR, D-dimer PT 17.0 Seconds (9.4-12.1) H 06/09/16 21:56 - Impressions Impressions Gallbladder Ultrasound 06/10/16 05:32 IMPRESSION: Findings suspicious for acute cholecystitis. HIDA scan can be performed for further evaluation if desired. The findings were sent to the Radiology Results Communication Center at 1:22 pm on 06/10/2016 to be communicated to a licensed caregiver. D/ / Arian Noland MD / Arian Noland MD Interpreting Provider: Arian Noland MD Consult Discharge Plan - Plan Referrals: Jennie Washington, BAND CUTTING MACHINE OPERATOR [Primary Care Provider] - (Requested 06-11-16)
--- NOTE | 2016-06-11 10:57 | Anesthesia Evaluation PreOp ---
Date of Encounter: 06/11/16 Time of Encounter: 13:40 - Past History Planned Operation: [facility]. Cardiac History: OR, CHF, HTN, Hyperlipidemia, Cardiac Surgery, Pacemaker/ICD ( [employer] AICD), Other (Cardiomyopathy (EF-15-20% 12/03/15)) Pulmonary History: Smoker, COPD, Snore GERIATRIC NURSE History: Denies Any Significant HX Other Medical History: Renal (CRI), Diabetes Type II Anesthesia History: Past Anesthesia (Right BKA), Problems Alcohol Use: none Drug use: none Medications and Allergies Aspirin 81 mg PO DAILY 10/30/14 [History] Clopidogrel [Plavix] 75 mg PO DAILY 10/30/14 [History] Pravastatin Sodium 40 mg PO DAILY 10/30/14 [History] Tamsulosin [Flomax] 0.4 mg PO DAILY 10/30/14 [History] Ergocalciferol (VITAMIN D2) [Vitamin D2 (50,000 UNIT)] 50,000 unit PO MCGOWAN [History] Metoprolol XL (24 HR) Succ [Toprol XL] 25 mg PO DAILY 03/05/15 [History] Docusate [Colace] 100 mg PO BID PRN 12/01/15 [History] Nitroglycerin [Nitrostat] 0.4 mg SL AD PRN 12/01/15 [History] Epoetin Jonnie [Procrit] 2,000 unit IJ FR 01/13/16 [History] Promethazine [Phenergan] 12.5 mg PO Q8H PRN 03/08/16 [History] Insulin Glargine,Hum.rec.anlog [Lantus Solostar] 18 unit SQ HS 03/25/16 [History ] Insulin LISPRO [HumaLOG] 5 - 15 units SQ ACHS 03/25/16 [History] Ipratropium/Albuterol Neb [Duoneb] 3 ml IH Q6HR 03/25/16 [History] Furosemide [Lasix] 60 mg PO DAILY 06/10/16 [History] HYDROcodone/Acet 10/325 mg [[place] 10-325 mg] 1 tab PO QID PRN 06/10/16 [History] Metolazone [Zaroxolyn] 2.5 mg PO MOWEFR 06/10/16 [History] Omeprazole [PriLOSEC] 20 mg PO DAILY 06/10/16 [History] OxyCODONE/APAP 10/325 [Percocet 10/325 MG] 1 tab PO QID PRN 06/10/16 [History] TraZODone 50 mg PO HS 06/10/16 [History] Zolpidem [Ambien] 5 mg PO HS PRN 06/10/16 [History] Allergies No Known Allergies Allergy (Verified 05/18/16 16:53) - Meds/Allergy Pre-op Review Medications Reviewed: Yes Allergies Reviewed: Yes Beta Blockers on Current Med List: Yes If Beta Blockers taken, Date/Time (Last Dose taken): 10:30 06/11/2016 Anesthesia Results - Labs 06/11/16 08:08 06/11/16 07:11 Echo 10-15% EF - Imaging EKG: image reviewed (Ventricular paced) Anesthesia Exam O2 Sat Weight 76.5 kg Weight 77.5 kg O2 Sat by Pulse Oximetry 98 O2 Sat by Pulse Oximetry 98 O2 Sat by Pulse Oximetry 91 O2 Sat by Pulse Oximetry 94 O2 Sat by Pulse Oximetry 93 O2 Sat by Pulse Oximetry 97 O2 Sat by Pulse Oximetry 97 O2 Sat by Pulse Oximetry 97 O2 Sat by Pulse Oximetry 98 Vital Signs Temp Pulse Resp BP Pulse Ox 99.3 F 73 22 96/47 97 06/09/16 21:28 06/09/16 21:28 06/09/16 21:28 06/09/16 21:28 06/09/16 21:28 Vital Signs/O2 Sat, Most Current Temp Pulse Resp BP Pulse Ox 98.1 F 88 16 105/41 98 06/11/16 06:49 06/11/16 06:49 06/11/16 06:49 06/11/16 06:49 06/11/16 08:38 Height: 5'9'' Weight: 168# NPO (# of Hours): > 8 hrs Pain Scale: 0 Pain Scale Used: Numeric (1 - 10) - HEENT Pupil (Motor): Pupils equal, EOMI Mallampati: III Teeth: Edentulous Oral Opening: Greater than 3 - GERIATRIC NURSE LOC: Oriented GERIATRIC NURSE Motor: Normal RUE, Normal LUE, Normal RLE, Normal LLE, Normal Face GERIATRIC NURSE Sensory: Normal: RUE, LUE, RLE, LLE, Face - Cardiac Rhythm: Regular Murmur: None JVD: No Carotid Bruit: No - Pulmonary Breath Sounds: bilateral Clear Respiratory Effort: Symmetrical Anesthesia Assess/Plan ASA Score: 4 Modified Franklin Scale for Level of Consciousness: Cooperative, oriented, and tranquil Anesthetic Plan: General Autologous Blood: Yes Monitoring Plan: Standard Monitors, A-Line Recovery Plan: PACU
--- NOTE | 2016-06-11 11:17 | ECHO - Doppler Report ---
Echocardiogram Name: Mika Mendez Date of Study: 06/10/2016 Date: 1945 Ht: 69.0 in Medical Record#: [id number] Age: 70 Wt: 170.0 lb Gender: Male BSA: 1.93 Order #: [id number] Location: [facility] IP Room #: [id number] Reading Physician: Ann Barnes DO Gravel Wheeler: ANETA FariaT, [facility] Ordering Physician: Kike Toro MD Primary Physician: Jennie Washington CNP Indications: known EF15%, assess EF, Anasarca Impressions: LVEF 10%. Severe global and segmental LV systolic dysfunction. Indeterminate left venticular diastolic function. Borderline evidence for LV dilation. RV is suboptimally evaluated. Mild mitral regurgitation. Mild-moderate tricuspid regurgitation. At least mild pulmonary hypertension by TR gradient, 45 mmHg. IVC is not well visualized. Left Ventricular Wall Motion: Rest Echo Findings The apex, apical inferior, mid inferior, basal inferior, apical anterior, mid anterior, basal anterior, apical septal, mid inferior septal, basal inferior septal, apical lateral, mid anterior lateral, basal anterior lateral, mid anterior septal, mid inferior lateral, basal anterior septal and basal inferior lateral clark were hypokinetic. Findings: Study Quality * Technically sub-optimal due to clinical status. ECG Findings * Probable paced rhythm. Left Ventricle * Indeterminate diastolic function. * LVEF 10%. * Borderline dilation of LV. Aortic Valve * No aortic regurgitation. * Aortic valve not well visualized. * No aortic stenosis. Mitral Valve * Mildly thickened mitral valve leaflets. * Mild mitral regurgitation. * No mitral stenosis although Doppler may be suboptimal. Tricuspid Valve * Normal tricuspid valve structure. * Mild-moderate tricuspid regurgitation. Pulmonic Valve * No pulmonic regurgitation. * Suboptimal Doppler evaluation. Pulmonary Artery * Pulmonary artery not well visualized. Device lead * A device lead was visualized in the right atrium and right ventricle. Right Atrium * Normal right atrial size. Left Atrium * Moderately dilated left atrium. Right Ventricle * RV is not foreshortened and not well evaluated. Interatrial Septum * Interatrial septum not well evaluated. IVC * The IVC is not well evaluated. Pericardium * There is no pericardial effusion present. Aorta * Suboptimally evaluated. History Hypertension Diabetes Hypercholesteremia History of CAD/PTCA Myocardial Infarction Congestive Heart Failure Pacer/ICD Implant 9-9-2016 a Previous Echo was performed. Measurements: BP: 109/ 46 2D Normal Values IVSd: .70 cm 0.6 - 1.0 cm LVIDd: 5.70 cm 3.7 - 5.6 cm LVPWd: 1.00 cm 0.6 - 1.1 cm LVIDs: 5.40 cm 1.5 - 3.6 cm AO: 2.50 cm < 4.0 cm LA: 4.10 cm 2.0 - 4.0cm %FS: 5.26 cm >25 % LA volume: 72 Mitral Valve Dec Time:218.00 msec Peak E:.92 m/sec Peak E' Lat Luis Armadno:4.87 cm/s Peak E' Med Luis Armando:5.07 cm/s E/E' Lat Ratio:18.9 E/E' Med Ratio:18.1 Tricuspid Valve TV Regurg Peak Grad: 45.00mmHg TV Regurg Peak Luis Armando: 3.36m/sec Updated by Ann Barnes on 06/11/2016 11:09:57 AM electronically signed on 06/11/2016 11:13:05 AM with status of Final Wall Motion Rodriguez: 1=Normal, 2=Hypokinesis, 3=Akinesis, 4=Dyskinesis, 5=Aneurysmal, 6=Hyperkinetic, X=Not Visualized (Blank)=Missing
--- NOTE | 2016-06-11 11:33 | Cardiology Consult Note ---
Date of Encounter: 06/11/16 Time of Encounter: 11:20 Assessment and Plan (1) Pre-operative cardiovascular examination Current Visit: Yes Status: Acute Pre-operative risk stratification for urgent cholecystecomy for acute cholecystitis. Longstanding history of systolic dysfunction s/p ICD secondary to severe ischemic cardiomyopathy. Poor functional capacity. Mr. Mendez is a very high risk candidate to proceed with surgery. There is a significant risk for from the procedure; the patient understands this and is aware of risks involved. Recommend continuing CV medications including betablocker during the jose m- operative period if able. Discussion w patient/family: The assessment and plan as outlined above was discussed with the patient and/or family members who expressed understanding and agreement. All questions were answered. Thank you for involving us in the care of your patient. Please call with any questions. The patient will be discussed and reviewed with Dr. Ernesto Krueger; changes to be made accordingly. History of Present Illness Consult date: 06/21/16 Requesting physician: Kike Toro Consult reason: Pre-operative risk stratification Chief complaint: Abdominal pain History of present illness: Mr. Mendez is a 70 year old male with a PMH of CAD, prior [place], CABG 2003, ischemic CMP, prior ICD placement, PVD s/p LLE toe(s) removal and R BKA, HTN, and HLD who presented to the ED with worsening abdominal pain; he reports pain has been near constant for the past month however worsened yesterday. CT abdomen /pelvic and US GB demonstrated acute cholecystitis. Cardiology consulted today for pre-operative risk stratification. He reports that his dyspnea is near baseline and denies chest pain. Prior CV testing includes: TTE 03/05/2015: EF 15-20%. Moderately dilated left ventricle, Akinetic basal mid inferior and inferolateral segments. Otherwise severe global hypokinesis. ICD check 12/02/15: BiV ICD, normal functioning device, no events. TTE (limited) 12/03/2015: EF 15-20%. Moderately dilated left ventricle. Severe global and segmental left ventricular systolic dysfunction. Past Med Surg Social Fam HX - Past Medical History Attestation: Yes The following information was validated with the patient. Source: patient, old records reviewed Medical history: arthritis, cardiomyopathy, CHF (chronic systolic), COPD, coronary artery disease, DVT, diabetes, GERD, GI bleed, hyperlipidemia, hypertension, myocardial infarction, osteoporosis, peripheral artery disease, renal disease, venous stasis Psychiatric history: no psych history - Past Surgical History Surgical History: angioplasty/stent, arthroscopy, cataract, coronary bypass ( CABG), LE Bypass, LE vascular intervention, orthopedic, other, vascular surgery (aortobifemoral bypass, left femoral to popliteal artery bypass, right below knee amputation), other, AICD - Social History Smoking Status: Former smoker Smokeless Tobacco Status: No Alcohol use: none Drug use: none - Family History Father Living Status: Mother Living Status: Hx Family Cardiac Disorders: No Hx Family Cancer: No Hx Family Endocrine Disorder: No Medications and Allergies Aspirin 81 mg PO DAILY 10/30/14 [History] Clopidogrel [Plavix] 75 mg PO DAILY 10/30/14 [History] Pravastatin Sodium 40 mg PO DAILY 10/30/14 [History] Tamsulosin [Flomax] 0.4 mg PO DAILY 10/30/14 [History] Ergocalciferol (VITAMIN D2) [Vitamin D2 (50,000 UNIT)] 50,000 unit PO MCGOWAN [History] Metoprolol XL (24 HR) Succ [Toprol XL] 25 mg PO DAILY 03/05/15 [History] Docusate [Colace] 100 mg PO BID PRN 12/01/15 [History] Nitroglycerin [Nitrostat] 0.4 mg SL AD PRN 12/01/15 [History] Epoetin Jonnie [Procrit] 2,000 unit IJ FR 01/13/16 [History] Promethazine [Phenergan] 12.5 mg PO Q8H PRN 03/08/16 [History] Insulin Glargine,Hum.rec.anlog [Lantus Solostar] 18 unit SQ HS 03/25/16 [History ] Insulin LISPRO [HumaLOG] 5 - 15 units SQ ACHS 03/25/16 [History] Ipratropium/Albuterol Neb [Duoneb] 3 ml IH Q6HR 03/25/16 [History] Furosemide [Lasix] 60 mg PO DAILY 06/10/16 [History] HYDROcodone/Acet 10/325 mg [Cody 10-325 mg] 1 tab PO QID PRN 06/10/16 [History] Metolazone [Zaroxolyn] 2.5 mg PO MOWEFR 06/10/16 [History] Omeprazole [PriLOSEC] 20 mg PO DAILY 06/10/16 [History] OxyCODONE/APAP 10/325 [Percocet 10/325 MG] 1 tab PO QID PRN 06/10/16 [History] TraZODone 50 mg PO HS 06/10/16 [History] Zolpidem [Ambien] 5 mg PO HS PRN 06/10/16 [History] Allergies No Known Allergies Allergy (Verified 05/18/16 16:53) All Systems Review: A 10-system review of systems was performed and is negative for pertinent findings except as documented above in the HPI. - Cardiovascular Cardiovascular: as per HPI Physical Examination Vital Signs, Last 4 Hours Resp Pulse Ox 06/11/16 10:20 18 98 06/11/16 08:38 98 General: Conversant, Other Cardiac: Reg Rate and Rhythm, Normal S1 and S2 Lungs: Other (Bibasilar rales) Neuro: Alert and responsive Abdomen: Soft, Other (tender x4 quads) Extremities: Other (LLE toe(s) amputations; R BKA) Results 06/11/16 08:08 06/11/16 07:11 Lab Results 06/10/16 06/10/16 06/11/16 13:07 18:50 07:11 WBC Hgb Hct Plt Count Sodium 128 L Potassium 4.8 H Chloride 94 L Carbon Dioxide 16 L BUN 81 H Creatinine 3.09 H Glucose 266 H Calcium 8.1 L Total Bilirubin 1.2 AST 71 H ALT 20 Alkaline Phosphatase 127 H Troponin I 0.12 H* 0.12 H* 06/11/16 08:08 WBC 6.9 Hgb 9.6 L Hct 30.0 L Plt Count 143 Sodium Potassium Chloride Carbon Dioxide BUN Creatinine Glucose Calcium Total Bilirubin AST ALT Alkaline Phosphatase Troponin I Active Medications Albuterol/Ipratropium (Duoneb) 3 ml IH [id number] KWABENA PRN Reason: Protocol Stop: 12/10/16 10:01 Last Admin: 06/11/16 10:20 Dose: 3 ml Ciprofloxacin HCl (Ciloxan Opth Soln) 2 drop RIGHT EYE Q4HR KWABENA Stop: 12/11/16 12:01 Ciprofloxacin HCl (Ciloxan Opth Soln) 2 drop LEFT EYE Q4HR KWABENA Stop: 12/11/16 12:01 Dextrose/Water (Dextrose 50% (Syg)) 25 ml IVP AD PRN PRN Reason: Hypoglycemia Stop: 12/10/16 05:33 Furosemide (Lasix) 60 mg PO DAILY [facility] Stop: 12/11/16 09:01 Last Admin: 06/11/16 08:09 Dose: 60 mg Glucagon (Glucagen) 1 mg IM ONCE PRN PRN Reason: Hypoglycemia Stop: 12/10/16 05:33 Glucose (Gluctose) 15 gm PO ONCE PRN PRN Reason: Hypoglycemia Stop: 12/10/16 05:33 Glucose (Gluctose) 30 gm PO ONCE PRN PRN Reason: Hypoglycemia Stop: 12/10/16 05:33 Heparin Sodium (Porcine) (Heparin) 5,000 unit SQ Q12HCO [facility] Stop: 12/10/16 06:01 Last Admin: 06/11/16 06:30 Dose: Not Given Ciprofloxacin Lactate (Cipro 200 Mg/100 Ml) 200 mg in 100 mls @ 100 mls/hr IVPB Q12HR [facility] Stop: 12/10/16 06:01 Last Infusion: 06/11/16 08:16 Dose: Infused Dextrose (Dextrose 5%) 1,000 mls @ 100 mls/hr IV CONT PRN PRN Reason: HYPOGLYCEMIA Stop: 12/10/16 05:33 Metronidazole (Flagyl 500 Mg/100 Ml) 500 mg in 100 mls @ 100 mls/hr IVPB Q8HR [facility] Stop: 12/10/16 08:01 Last Infusion: 06/11/16 10:35 Dose: Infused Sodium Chloride (0.9 % Sodium Chloride) 1,000 mls @ 50 mls/hr IVC .Q20H [facility] Stop: 12/11/16 07:46 Last Admin: 06/11/16 08:12 Dose: 50 mls/hr Insulin Human Lispro (Humalog) 0 units SQ Q6HR KWABENA PRN Reason: Protocol Stop: 12/10/16 06:01 Last Admin: 06/11/16 06:30 Dose: Not Given Metolazone (Zaroxolyn) 2.5 mg PO MOWEFR [facility] Stop: 12/12/16 12:50 Metoprolol Succinate (Toprol Xl) 25 mg PO DAILY [facility] Stop: 12/11/16 09:01 Last Admin: 06/11/16 08:10 Dose: 25 mg Morphine Sulfate (Morphine Sulfate) 2 mg IVP Q4HR PRN PRN Reason: Severe Pain (7-10) Stop: 12/10/16 05:33 Last Admin: 06/10/16 06:06 Dose: 2 mg Naloxone HCl (Narcan) 0.4 mg IVP Q2MIN PRN PRN Reason: Opioid Reversal Stop: 12/10/16 05:33 Nitroglycerin (Nitroglycerin) 0.4 mg SL AD PRN PRN Reason: Chest Pain Stop: 12/10/16 12:50 Omeprazole (Prilosec) 20 mg PO DAILY KWAEBNA PRN Reason: Protocol Stop: 12/11/16 09:01 Last Admin: 06/11/16 08:09 Dose: 20 mg Ondansetron HCl (Zofran) 4 mg IVP Q6HR PRN; Protocol PRN Reason: Nausea Stop: 12/10/16 12:53 Oxycodone/Acetaminophen (Percocet 10/325) 1 each PO QID PRN PRN Reason: Pain Stop: 12/10/16 12:50 Last Admin: 06/11/16 08:13 Dose: 1 each Pantoprazole Sodium (Protonix) 40 mg IVP DAILY KWABENA Stop: 12/10/16 09:01 Last Admin: 06/11/16 08:11 Dose: 40 mg Promethazine HCl (Phenergan) 12.5 mg PO Q8H PRN PRN Reason: Nausea Stop: 12/10/16 12:50 Simvastatin (Zocor) 40 mg PO DAILY KWABENA Stop: 12/11/16 09:01 Last Admin: 06/11/16 08:10 Dose: 40 mg Tamsulosin HCl (Flomax) 0.4 mg PO DAILY KWABENA PRN Reason: Protocol Stop: 12/11/16 09:01 Last Admin: 06/11/16 08:09 Dose: 0.4 mg Trazodone HCl (Trazodone) 50 mg PO HS KWABENA Stop: 12/10/16 21:01 Last Admin: 06/10/16 20:57 Dose: Not Given Zolpidem Tartrate (Ambien) 5 mg PO HS PRN; Protocol PRN Reason: Sleep Stop: 12/10/16 12:50 - Imaging and Cardiology Echo: report reviewed Other Results: 12 hour tele: avg HR=80 paced. No events noted. - EKG Interpretation EKG results cardiology: personally reviewed Consult Discharge Plan - Plan Referrals: Jennie Washington CNP [Primary Care Provider] - (Requested 06-11-16)
[2016-06-11] MEDS ORDERED: *HR* Rocuronium Bromide 50 MG/5 ML VIAL ONE (11:43)
[2016-06-11] MEDS ORDERED: Ondansetron 4 MG/2 ML VIAL ONE (11:43)
[2016-06-11] MEDS ORDERED: *HR* Succinylcholine 200 MG/10 ML VIAL IVP ONE (11:43)
[2016-06-11] MEDS ORDERED: Lidocaine -MPF 2% 2 ML VIAL ONE (11:43)
[2016-06-11] MEDS: Ciprofloxacin OPTH Soln 2.5 ML BOTTLE LEFT EYE SCH ×2 (11:54→16:23)
[2016-06-11] MEDS: Ciprofloxacin OPTH Soln 2.5 ML BOTTLE RIGHT EYE SCH ×2 (11:54→16:23)
[2016-06-11] MEDS ORDERED: *HR* FentaNYL (PF) 100 MCG/2 ML VIAL ONE (12:02)
--- NOTE | 2016-06-11 12:11 | Event Note ---
Date of Encounter: 06/11/16 Time of Encounter: 11:50 After carefully reviewing his case with the admission liaison and the hospitalist I feel strongly that the patient has symptomatic acute cholecystitis. He also has systolic cardiac failure. I discussed his case with our admission liaison and her come to the conclusion that he cannot be significantly improved over the next 6 weeks does ruling out a cholecystostomy tube as part of his management. I discussed the risks and benefits of surgery with him and he understands that he is at risk of cardiac and risk of postoperative hypotension. He has a high mortality rate from laparoscopic cholecystectomy for acute cholecystitis. He understands that he will go directly to the intensive care unit after surgery for aggressive cardiac management and still may have a bad outcome. Because of the degree of his abdominal pain and symptoms the patient wants to proceed despite the risks. We will proceed with urgent laparoscopic cholecystectomy later today. Case is discussed in depth with anesthesia.
[2016-06-11] MEDS ORDERED: Heparin 1,000 UNITS/500 mL NS 500 ML ONE (12:51)
[2016-06-11] MEDS ORDERED: *HR* Phenylephrine 10 MG/ML VIAL ONE (14:50)
--- NOTE | 2016-06-11 15:26 | Operative Note ---
Date of procedure: 06/11/16 Pre-op diagnosis: Acute cholecystitis cholelithiasis Post-op diagnosis: same Procedure: [place] cholecystectomy, cholangiogram +30% for reoperative abdomen and acute cholecystitis Anesthesia: ROSANA Surgeon: Arvind Fajardo Estimated blood loss (cc): 100 Specimen: Gallbladder and contents Condition: stable Disposition: ICU Procedure in Detail: The patient has known systolic heart failure. He has acute cholecystitis. After extensive discussions with the family and all medical team members we have decided to go to the operating room followed by intensive care unit therapy after laparoscopic cholecystectomy. Laparoscopic cholecystectomy and intraoperative cholangiogram, +30% for reoperative abdomen and acute cholecystitis Operative procedure after informed consent and appropriate patient identification timeout the patient's take major operating suite and placed supine position given adequate general endotracheal anesthesia the abdomen is prepped and draped in sterile fashion utilizing ChloraPrep standard draping techniques timeout was taken patient is identified. I made a vertical midline incision below the umbilicus dissected down to level of fascia there are 2 traction stitches placed in the abdominal cavity was entered visually. A Renteria trocar was placed in the abdomen and I was able to carefully negotiate the intra-abdominal scar tissue to gain visual access to a very small area in the right upper quadrant free of adhesions. Fortunately the obstructed gallbladder was in this field. the abdomen was insufflated to 15 mmHg pressure CO2 the gallbladder was visualized. A placement 11 port in the subxiphoid area and 2 5 mm ports in the subcostal area. The gallbladder was grasped and elevated. The gallbladder was acutely inflamed and surrounded with acute and chronic inflammatory adhesions. These were carefully lysed with electrocautery and the dissection took 15-20 minutes. A variety of blunt and sharp dissection techniques were used to isolate the cystic duct and cystic artery. The dissection took another 15-20 minutes due to dense chronic inflammatory changes at the neck of the gallbladder. The cystic artery was controlled with 2 surgical clips proximally and one distally and it was divided I placed a surgical clip on the neck the gallbladder and obtained an intraoperative cholangiogram using 10 mL of Isovue. Intraoperative cholangiogram was normal. The cholangiocatheter was removed and the cystic duct was controlled with 2 surgical clips proximally and was divided the gallbladder was removed from the gallbladder fossae using electrocautery. This took 15-20 minutes longer than normal because of the intense inflammatory response around the gallbladder. There was a combination blood loss from the adhesion dissection and removing the gallbladder of about 100 mL. The gallbladder was removed through the #11 port site using a specimen bag. I replaced the #11 port and irrigated with copious amounts of antibiotic containing solution. There is no evidence of bleeding or bile leak. A Robson- Mendoza drain was placed due to intense inflammatory changes in the right upper quadrant. All trochars were removed. Fascia was closed with 0 Vicryl skin with 2-0 and 4-0 Vicryl he tolerated the procedure well and was transferred to ICU in stable condition
--- NOTE | 2016-06-11 16:44 | Event Note ---
Date of Encounter: 06/11/16 Time of Encounter: 16:42 Seen in the ICU post-op, still drowsy from anesthesia, blood pressure running low, SBP in the 70s, diastolic in the 30-40s. Discussed with Dr. Kaufman , will start dobutamine Patient may need CVC and more pressors later Hold diuretics, antihypertensives for now Will officially consult critical care
[2016-06-11] MEDS: *HR* Morphine 2 MG/ML SYRINGE IVP PRN (17:57)
--- NOTE | 2016-06-11 18:37 | Anesthesia Evaluation Post Op ---
Date of Encounter: 06/11/16 Time of Encounter: 18:36 - Vital Signs Vital Signs: Vital Signs/O2 Sat, Most Current Temp Pulse Resp BP Pulse Ox 96.7 F L 84 18 110/45 100 06/11/16 15:51 06/11/16 16:59 06/11/16 16:59 06/11/16 16:59 06/11/16 16:59 - Lungs Lungs: Clear Ascult./Percussion - Airway Airway: Non-obstructed - Cardiovascular Regular Rate - Mental Status Mental Status: Alert & Oriented, Answers Appropriately - Pain Pain Scale: 0 Pain Scale used: Numeric (1 - 10) - Nausea Vomiting Nausea Vomiting: Not Present - Hydration Hydration: NPO, Has not voided - Discharge PostOp Status: Transfer Patient to floor
[2016-06-11] MEDS ORDERED: D5% in Water 1,000 ML IV PRN (20:01)
[2016-06-11] MEDS ORDERED: Dextrose Gel 15 GM PO PRN ×2 (20:01)
[2016-06-11] MEDS ORDERED: *HR* Dextrose 50 % in Water (Syg) 50 ML SYRINGE IVP PRN (20:01)
[2016-06-11] MEDS ORDERED: *HR* OxyCODONE/APAP 10/325 TABLET PO PRN (20:01)
[2016-06-11] MEDS ORDERED: Nitroglycerin 0.4 MG TAB.SUBL SL PRN (20:01)
[2016-06-11] MEDS ORDERED: Naloxone 0.4 MG/ML INJ IVP PRN (20:01)
[2016-06-11] MEDS: cefOXitin 2,000 MG in D5% in Water (Mini-Bag+) 100 ML IVPB SCH (22:09)
[2016-06-11] MEDS: traZODone 50 MG TABLET PO SCH (22:10)
[2016-06-12] MEDS: Insulin LISPRO 300 UNITS/3 ML VIAL SQ SCH ×5 (00:01→23:39)
[2016-06-12] MEDS: cefOXitin 2,000 MG in D5% in Water (Mini-Bag+) 100 ML IVPB SCH (00:02)
[2016-06-12] MEDS: MetroNIDAZOLE 500 MG/100 ML 500 MG/100 ML BAG IVPB SCH ×4 (00:02→23:27)
[2016-06-12 03:46] LABS: Basophils % 0.4 %; Eosinophils % 0.7 %; Hematocrit 25.1 % (37.5-50.1); Hemoglobin 8.1 g/dL (12.9-16.9); Immature Granulocytes % 0.7 % (0-4); Lymphocytes # 0.3 K/mcL (0.6-4.6); Mean Corpuscular HGB Conc 32.3 g/dL (31.6-35.5); Mean Corpuscular Hemoglobin 27.7 pg (28.0-33.3); Mean Platelet Volume 10.6 fL (9.4-12.4); Monocytes # 0.7 K/mcL (0.0-1.3); Monocytes % 12.6 %; Neutrophils # 4.5 K/mcL (1.6-8.9); Platelet Count 126 K/mcL (140-400); Red Blood Count 2.92 M/mcL (4.19-5.50); Red Cell Distribution Width 17.7 % (11.5-14.5); Segmented Neutrophils % 79.6 %
[2016-06-12] MEDS: Ipratropium/Albuterol Neb 3 ML IH SCH ×5 (03:52→21:53)
[2016-06-12 03:58] LABS: Calcium 7.5 mg/dL (8.6-10.8)
[2016-06-12 04:00] LABS: Potassium 3.6 mEq/L (3.5-4.5)
[2016-06-12] MEDS: Ciprofloxacin OPTH Soln 2.5 ML BOTTLE RIGHT EYE SCH ×7 (04:51→23:39)
[2016-06-12] MEDS: Ciprofloxacin OPTH Soln 2.5 ML BOTTLE LEFT EYE SCH ×7 (04:52→23:39)
[2016-06-12] MEDS: *HR* Heparin 5,000 UNIT/ML VIAL SQ SCH ×2 (04:56→17:59)
[2016-06-12] MEDS: Pantoprazole 40 MG VIAL IVP SCH (08:31)
--- NOTE | 2016-06-12 08:50 | Pulmonology History & Physical ---
<Mary Martin - Last Filed: 06/12/16 11:33> Date of Encounter: 06/12/16 Time of Encounter: 08:49 Assessment and Plan (1) Acute cholecystitis Current visit: Yes Status: Acute Day 1 status post cholecystectomy. Drain in place. This is draining a serosanguineous discharge. Complains of a diffuse abdominal pain. Bowel sounds are hypoactive. Plan: We will continue to monitor patient abdomen. We will continue to advance diet. Wound management to the drain. (2) CKD (chronic kidney disease) Current visit: Yes Status: Acute Patient has been refusing dialysis. He does have a Hall and makes some urine. Plan: We will continue to monitor kidney function. Qualifiers: Chronic kidney disease stage: unspecified stage Qualified Code(s): N18.9 - Chronic kidney disease, unspecified (3) DVT prophylaxis Current visit: Yes Status: Acute Plan: Heparin subcutaneous. (4) IDDM (insulin dependent diabetes mellitus) Current visit: Yes Status: Chronic Currently advancing diet. Plan: 10 mg Levemir daily. (5) Hypotension Current visit: Yes Status: Acute We are cautiously monitoring the patient. We are decreasing the dobutamine. Arterial line is in place. Plan: Decreasing dobutamine. Milrinone added. Stopped Toprol and Flomax. Qualifiers: Qualified Code(s): I95.9 - Hypotension, unspecified (6) UTI (urinary tract infection) Current visit: Yes Status: Acute Cultures pending. Plan: Patient on day 3 of Cipro. Day 3 Flagyl Adding Rocephin today. Qualifiers: Qualified Code(s): N39.0 - Urinary tract infection, site not specified History of Present Illness HPI: Mr. Mendez is a 70 year old male who is admitted to the hospital for cholecystitis. He underwent cholecystectomy yesterday. He was placed in the ICU after surgery. Does have an extensive cardiac history. Also has history of chronic kidney failure. Pt appears in poor health. He has a history of diabetes and has a right below the knee amputation. Also has a left forefoot amputation with nonhealing wounds. He has edema and erythema that extend up to about his knee area of the left lower extremity. These are bandaging covered. Patient indicates his treatment. He refuses several different meds and treatments while here. We will continue to encourage patient to abide by medical guidelines. Past Med Surg Social Fam HX - Past Medical History Medical history: arthritis, cardiomyopathy, CHF (chronic systolic), COPD, coronary artery disease, DVT, diabetes, GERD, GI bleed, hyperlipidemia, hypertension, myocardial infarction, osteoporosis, peripheral artery disease, renal disease, venous stasis Psychiatric history: no psych history - Past Surgical History Surgical History: angioplasty/stent, arthroscopy, cataract, coronary bypass ( CABG), LE Bypass, LE vascular intervention, orthopedic, other, vascular surgery (aortobifemoral bypass, left femoral to popliteal artery bypass, right below knee amputation), other, AICD - Social History Smoking Status: Former smoker Smokeless Tobacco Status: No Alcohol use: none Drug use: none - Family History Father Living Status: Mother Living Status: Hx Family Cardiac Disorders: No Hx Family Cancer: No Hx Family Endocrine Disorder: No Medications and Allergies Aspirin 81 mg PO DAILY 10/30/14 [History] Clopidogrel [Plavix] 75 mg PO DAILY 10/30/14 [History] Pravastatin Sodium 40 mg PO DAILY 10/30/14 [History] Tamsulosin [Flomax] 0.4 mg PO DAILY 10/30/14 [History] Ergocalciferol (VITAMIN D2) [Vitamin D2 (50,000 UNIT)] 50,000 unit PO MCGOWAN [History] Metoprolol XL (24 HR) Succ [Toprol XL] 25 mg PO DAILY 03/05/15 [History] Docusate [Colace] 100 mg PO BID PRN 12/01/15 [History] Nitroglycerin [Nitrostat] 0.4 mg SL AD PRN 12/01/15 [History] Epoetin Jonnie [Procrit] 2,000 unit IJ FR 01/13/16 [History] Promethazine [Phenergan] 12.5 mg PO Q8H PRN 03/08/16 [History] Insulin Glargine,Hum.rec.anlog [Lantus Solostar] 18 unit SQ HS 03/25/16 [History ] Insulin LISPRO [HumaLOG] 5 - 15 units SQ ACHS 03/25/16 [History] Ipratropium/Albuterol Neb [Duoneb] 3 ml IH Q6HR 03/25/16 [History] Furosemide [Lasix] 60 mg PO DAILY 06/10/16 [History] HYDROcodone/Acet 10/325 mg [[place] 10-325 mg] 1 tab PO QID PRN 06/10/16 [History] Metolazone [Zaroxolyn] 2.5 mg PO MOWEFR 06/10/16 [History] Omeprazole [PriLOSEC] 20 mg PO DAILY 06/10/16 [History] OxyCODONE/APAP 10/325 [Percocet 10/325 MG] 1 tab PO QID PRN 06/10/16 [History] TraZODone 50 mg PO HS 06/10/16 [History] Zolpidem [Ambien] 5 mg PO HS PRN 06/10/16 [History] Allergies No Known Allergies Allergy (Verified 05/18/16 16:53) All Systems: A 10-system review of systems was performed and is negative for pertinent findings except as documented above in the HPI. - Constitutional Constitutional: weakness, no fever(s) - EENT Eyes: no loss of vision Nose, mouth and throat: as per HPI - Cardiovascular Cardiovascular: no chest pain, no dyspnea - Respiratory Respiratory: no cough, no dyspnea - Gastrointestinal Gastrointestinal: abdominal pain - Genitourinary Genitourinary: as per HPI - Integumentary Integumentary: erythema (Left lower extremity.) - Neurological Neurological: as per HPI - Psychiatric Psychiatric: as per HPI - Hematologic/Lymphatic Hematologic/Lymphatic: as per HPI - Allergic/Immunologic Allergic/Immunologic: as per HPI Physical Examination Vital Signs: Vital Signs, Last 4 Hours Temp Pulse Resp BP Pulse Ox 06/12/16 08:00 89 18 107/33 99 06/12/16 07:42 97 17 88/28 96 06/12/16 07:00 98.0 F 06/12/16 06:00 93 16 110/30 97 06/12/16 05:15 97.6 F 06/12/16 05:00 91 16 111/30 98 General appearance: no acute distress, alert, other (Alert but does not keep attention.) Eyes: nonicteric ENT: oropharynx moist Neck: supple, no lymphadenopathy Effort: normal Inspection: normal Cardiovascular: regular rate and rhythm Gastrointestinal: hypoactive bowel sounds, soft, tender, non-distended Integumentary: normal Extremities: no cyanosis, other (Below the knee amputation of the right lower extremity. Amputation of distal foot on the left. Reddening and several wounds to the left lower extremity that is bandaged.) Musculoskeletal: other (Right below the knee amputation. Left forefoot amputation.) normal mental status, non-focal exam, pupils equal and round mood appropriate, affect normal Results - Laboratory Findings CBC and BMP: 06/12/16 03:39 06/12/16 03:39 PT/INR, D-dimer PT 17.0 Seconds (9.4-12.1) H 06/09/16 21:56 Abnormal lab findings: Abnormal lab results RBC 2.92 M/mcL (4.19-5.50) L 06/12/16 03:39 Hgb 8.1 g/dL (12.9-16.9) L D 06/12/16 03:39 Hct 25.1 % (37.5-50.1) L 06/12/16 03:39 MCH 27.7 pg (28.0-33.3) L 06/12/16 03:39 RDW 17.7 % (11.5-14.5) H 06/12/16 03:39 Plt Count 126 K/mcL (140-400) L 06/12/16 03:39 Lymphocytes # 0.3 K/mcL (0.6-4.6) L 06/12/16 03:39 PT 17.0 Seconds (9.4-12.1) H 06/09/16 21:56 Sodium 131 mEq/L (136-145) L 06/12/16 03:39 Chloride 97 mEq/L (98-109) L 06/12/16 03:39 BUN 83 mg/dL (8-26) H 06/12/16 03:39 Creatinine 3.47 mg/dL (0.72-1.25) H 06/12/16 03:39 Est GFR ( Amer) 21 (> 60) L 06/12/16 03:39 Est GFR (Non-Af Amer) 18 (> 60) L 06/12/16 03:39 Glucose 225 mg/dL (70-99) H 06/12/16 03:39 POC Glucose 274 (58-89) H 06/11/16 23:27 Hemoglobin A1c 6.9 % (-5.6) H 06/10/16 07:03 Calculated Osmolality 304 (280-300) H 06/12/16 03:39 Calcium 7.5 mg/dL (8.6-10.8) L 06/12/16 03:39 AST 71 Units/L (5-34) H 06/11/16 07:11 Alkaline Phosphatase 127 Units/L (38-126) H 06/11/16 07:11 Troponin I 0.12 ng/mL (0-0.03) H* 06/10/16 18:50 Serum Total Protein 5.8 g/dL (6.0-8.3) L 06/11/16 07:11 Albumin 2.5 g/dL (3.5-5.0) L 06/11/16 07:11 Albumin/Globulin Ratio 0.8 (1.1-2.2) L 06/11/16 07:11 Amylase 24 Units/L (25-125) L 06/09/16 21:56 Lipase < 4 Units/L (8-78) L 06/09/16 21:56 Urine Clarity Turbid (Clear) A 06/09/16 23:33 Urine Protein 30 mg/dL (Neg-Trace) H 06/09/16 23:33 Urine Blood Moderate (Negative) H 06/09/16 23:33 Ur Leukocyte Esterase Large (Negative) H 06/09/16 23:33 Urine Microscopic RBC 5-15 per hpf (0-3) H 06/09/16 23:33 Urine Microscopic WBC TNTC per hpf (0-3) H 06/09/16 23:33 Ur Squamous Epith Cells Moderate per lpf (None-Few) H 06/09/16 23:33 Urine Bacteria Many per hpf (None-Few) H 06/09/16 23:33 Ur Culture Indicated? YES (NO) A 06/09/16 23:33 - Diagnostic Findings Additional studies: Abdomen/Pelvis CT 06/09/16 21:43 IMPRESSION: 1. Gallstones are present. There is ill-defined thickening of the gallbladder wall and pericholecystic fluid. As the patient demonstrates diffuse third-spacing, this could be related to a diffuse edematous state. If there is clinical concern for acute cholecystitis, consider further evaluation with right upper quadrant ultrasound. 2. Moderate stool in the colon. 3. Small to moderate bilateral pleural effusions, with compressive atelectasis. Trace ascites. Diffuse anasarca in the soft tissues. 4. Small amount of air within the bladder lumen. Please correlate with recent catheterization. Layering density in the bladder may be related to hemorrhagic or proteinaceous debris. 5. Severe diffuse atherosclerosis. D/ : / 06/09/2016 22:56:45 Nolan Denny MD / michelle Interpreting Provider: Nolan Denny MD Gallbladder Ultrasound 06/10/16 05:32 IMPRESSION: Findings suspicious for acute cholecystitis. HIDA scan can be performed for further evaluation if desired. The findings were sent to the Radiology Results Communication Center at 1:22 pm on 06/10/2016 to be communicated to a licensed caregiver. D/ / Arian Noland MD / Arian Noland MD Interpreting Provider: Arian Noland MD Cholangiogram,Operative 06/11/16 00:00 IMPRESSION: Intraoperative cholangiogram without complication identified. D/ / Corey Juarez MD / Corey Juarez MD Interpreting Provider: Corey Juarez MD <Nancy Young M - Last Filed: 06/12/16 16:33> History of Present Illness HPI: Mr. Mendez is a 70 year old male All Systems: A 10-system review of systems was performed and is negative for pertinent findings except as documented above in the HPI. Physical Examination Vital Signs: Vital Signs, Last 4 Hours Temp Pulse Resp BP Pulse Ox 06/12/16 15:03 77 06/12/16 15:00 98.4 F 77 18 118/40 97 06/12/16 14:00 77 16 109/38 99 06/12/16 13:00 79 20 107/39 98 Results - Laboratory Findings CBC and BMP: 06/12/16 03:39 06/12/16 03:39 PT/INR, D-dimer PT 17.0 Seconds (9.4-12.1) H 06/09/16 21:56 Abnormal lab findings: Abnormal lab results RBC 2.92 M/mcL (4.19-5.50) L 06/12/16 03:39 Hgb 8.1 g/dL (12.9-16.9) L D 06/12/16 03:39 Hct 25.1 % (37.5-50.1) L 06/12/16 03:39 MCH 27.7 pg (28.0-33.3) L 06/12/16 03:39 RDW 17.7 % (11.5-14.5) H 06/12/16 03:39 Plt Count 126 K/mcL (140-400) L 06/12/16 03:39 Lymphocytes # 0.3 K/mcL (0.6-4.6) L 06/12/16 03:39 PT 17.0 Seconds (9.4-12.1) H 06/09/16 21:56 Sodium 131 mEq/L (136-145) L 06/12/16 03:39 Chloride 97 mEq/L (98-109) L 06/12/16 03:39 BUN 83 mg/dL (8-26) H 06/12/16 03:39 Creatinine 3.47 mg/dL (0.72-1.25) H 06/12/16 03:39 Est GFR ( Amer) 21 (> 60) L 06/12/16 03:39 Est GFR (Non-Af Amer) 18 (> 60) L 06/12/16 03:39 Glucose 225 mg/dL (70-99) H 06/12/16 03:39 POC Glucose 274 (58-89) H 06/11/16 23:27 Hemoglobin A1c 6.9 % (-5.6) H 06/10/16 07:03 Calculated Osmolality 304 (280-300) H 06/12/16 03:39 Calcium 7.5 mg/dL (8.6-10.8) L 06/12/16 03:39 AST 71 Units/L (5-34) H 06/11/16 07:11 Alkaline Phosphatase 127 Units/L (38-126) H 06/11/16 07:11 Troponin I 0.12 ng/mL (0-0.03) H* 06/10/16 18:50 Serum Total Protein 5.8 g/dL (6.0-8.3) L 06/11/16 07:11 Albumin 2.5 g/dL (3.5-5.0) L 06/11/16 07:11 Albumin/Globulin Ratio 0.8 (1.1-2.2) L 06/11/16 07:11 Amylase 24 Units/L (25-125) L 06/09/16 21:56 Lipase < 4 Units/L (8-78) L 06/09/16 21:56 Urine Clarity Turbid (Clear) A 06/09/16 23:33 Urine Protein 30 mg/dL (Neg-Trace) H 06/09/16 23:33 Urine Blood Moderate (Negative) H 06/09/16 23:33 Ur Leukocyte Esterase Large (Negative) H 06/09/16 23:33 Urine Microscopic RBC 5-15 per hpf (0-3) H 06/09/16 23:33 Urine Microscopic WBC TNTC per hpf (0-3) H 06/09/16 23:33 Ur Squamous Epith Cells Moderate per lpf (None-Few) H 06/09/16 23:33 Urine Bacteria Many per hpf (None-Few) H 06/09/16 23:33 Ur Culture Indicated? YES (NO) A 06/09/16 23:33 - Attending Attestation I examined this patient and my medical decision-making was reviewed with the RESIDENTIAL AIDE/PA/Advanced Practice Nurse/Resident Physician. I agree with the documented findings, disposition and treatment plan as described except to the extent set forth below. This is pulmonary and critical care consult Patient seen and examined. Labs, radiology, chart personally reviewed. 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 Cardiovascular: CHF and suspected the fact he is on Dobutamine, his BP will be even lower and shock, which could be multifactorial. I planned to wean off pressors and his BP has improved with adding Midodrine (not Milrinone) as well. Will have gentle diuresis and if BP remain stable will consider B- blanche. Patient has extremely poor prognosis. GI: Nutrition per dietary and GI prophylaxis per routine Heme: DVT prophylaxis per routine ID: Continue antibiotics and plan to de-escalation Renal; urine out put and renal funtion reviewed Endorcine: blood glucose is monitored Lines: all lines checked and no evidence of infections. Since BP has improved, then no need for central line at this time. Skin: skin care to prevent pressure ulcers per nursing routine care Discussed with surgeon. I spent 35 min of Critical Care time with this patient. It involved decision making of high complexity to assess, manipulate, and support vital organ system failure and/or to prevent further life threatening deterioration of the patient' s condition. The time involved in the performance of separately reportable procedures was not counted toward critical care time.
[2016-06-12] MEDS ORDERED: Metoprolol XL (24 HR) Succ 50 MG TAB.ER.24H PO SCH (09:00)
[2016-06-12] MEDS ORDERED: Furosemide 20 MG TABLET PO SCH (09:00)
[2016-06-12] MEDS ORDERED: *HR* OxyCODONE/APAP 10/325 TABLET PO PRN (10:47)
--- NOTE | 2016-06-12 11:19 | General Surgery Progress Note ---
Date of Encounter: 06/12/16 Time of Encounter: 11:17 - Assessment and Plan (1) Acute cholecystitis due to biliary calculus Current Visit: Yes Status: Acute POD #1 Laparoscopic cholecystectomy and intraoperative cholangiogram, +30% for reoperative abdomen and acute cholecystitis Pt. tolerated the procedure well. Pt. to begin post-operative period in ICU d/t severe systolic heart failure. Cardiology is following No bowel sounds, no flatus, no bm afebrile, HR: 97, BP: 110/30, O2: 96% on 2L nc wbc: 5.6 Abx: Cipro Clear liquid diet pain control, antiemetics Subjective Patient reports: still having pain, no flatus, no bowel movement Narrative: No nausea,vomiting, no pain. No flatus or BM. No ng tube. Afebrile. Initial post-op care in ICU d/t systolic HF w/EF of 15%. Objective Vital Signs - Last 8 Hours Temp Pulse Resp BP Pulse Ox 06/12/16 10:00 80 16 97/32 98 06/12/16 09:00 72 16 95/32 96 06/12/16 08:00 89 18 107/33 99 06/12/16 07:42 97 17 88/28 96 06/12/16 07:00 98.0 F 06/12/16 06:00 93 16 110/30 97 06/12/16 05:15 97.6 F 06/12/16 05:00 91 16 111/30 98 06/12/16 04:00 91 14 107/30 100 06/12/16 03:55 17 100 Intake and Output 06/11/16 06/12/16 06/12/16 23:59 07:59 15:59 Intake Total 685 / 685 122 / 122 750 / 750 Output Total 85 / 85 900 / 900 680 / 680 Balance 600 / 600 -778 / -778 70 / 70 Intake: IV Fluids 685 / 685 122 / 122 750 / 750 0.9 % Sodium Chloride 1, 700 / 700 000 ML @ 50 mls/hr IVC . Q20H [facility] Rx#:[id number] DOBUTamine 250 MG/250 ML 285 / 285 22 / 22 50 / 50 D5W 250 mg In 250 ml @ 2. 5 MCG/KG/MIN 11.505 mls/ hr IVC .[id number] KW[facility] Rx#: [id number] Mefoxin 2,000 MG In 100 / 100 Dextrose 5% (Minibag+) 100 ML 100 ML @ 200 mls/ hr IVPB Q8HR [facility] Rx#: [id number] Cipro 400 MG/200 ML 400 200 / 200 mg In 200 ml @ 200 mls/hr IVPB Q24H [facility] Rx#: [id number] Flagyl 500 MG/100 ML 500 100 / 100 100 / 100 mg In 100 ml @ 100 mls/hr IVPB Q8HR [facility] Rx#: [id number] Oral 0 / 0 0 / 0 Output: Urine 0 / 0 830 / 830 680 / 680 Urethral (Hall) 680 / 680 680 / 680 Wound Drainage 85 / 85 70 / 70 right upper abdomen 85 / 85 70 / 70 Other: Weight 76.1 kg 76.5 kg Blood Glucose* 274 Patient Weight 06/12/16 23:59 Weight 76.5 kg - Additional Exam - General physical appearance chronically ill - Respiratory crackles: bilateral, wheezing: bilateral - Cardiovascular Cardiovascular exam: Present: RRR - Abdomen Abdomen general surgery: Present: Expected post-op tenderness Absent: bowel sounds Abdominal Tenderness: Present: epigastic, RUQ - Neurologic Present: CN 2-12 grossly intact, normal coordination, normal sensation - Psychiatric Psychiatric general surgery: Present: appropriate, oriented to person, oriented to place, oriented to time, speech is normal, memory intact - Labs 06/12/16 03:39 06/12/16 03:39 Diabetes panel 06/12/16 Range/Units 03:39 Sodium 131 L (136-145) mEq/L Potassium 3.6 D (3.5-4.5) mEq/L Chloride 97 L (98-109) mEq/L Carbon Dioxide 22 (19-29) mEq/L BUN 83 H (8-26) mg/dL Creatinine 3.47 H (0.72-1.25) mg/dL Glucose 225 H (70-99) mg/dL Calcium 7.5 L (8.6-10.8) mg/dL Calcium panel 06/12/16 Range/Units 03:39 Calcium 7.5 L (8.6-10.8) mg/dL Pituitary panel 06/12/16 Range/Units 03:39 Sodium 131 L (136-145) mEq/L Potassium 3.6 D (3.5-4.5) mEq/L Chloride 97 L (98-109) mEq/L Carbon Dioxide 22 (19-29) mEq/L BUN 83 H (8-26) mg/dL Creatinine 3.47 H (0.72-1.25) mg/dL Glucose 225 H (70-99) mg/dL Calcium 7.5 L (8.6-10.8) mg/dL Adrenal panel 06/12/16 Range/Units 03:39 Sodium 131 L (136-145) mEq/L Potassium 3.6 D (3.5-4.5) mEq/L Chloride 97 L (98-109) mEq/L Carbon Dioxide 22 (19-29) mEq/L BUN 83 H (8-26) mg/dL Creatinine 3.47 H (0.72-1.25) mg/dL Glucose 225 H (70-99) mg/dL Calcium 7.5 L (8.6-10.8) mg/dL Consult Discharge Plan - Plan Referrals: Jennie Washington [employer] [Primary Care Provider] - (Requested 06-11-16) - Attending Attestation I examined this patient and my medical decision-making was reviewed with the SAW BOSS/PA/Advanced Practice Nurse/Resident Physician. I agree with the documented findings, disposition and treatment plan as described except to the extent set forth below. The patient is seen and evaluated with the resident morning rounds. He is in excellent condition after laparoscopic cholecystectomy. His preoperative pain is gone. He is weaning off pressor agents. He is awake and alert. His hemoglobin is somewhat decreased and we will need to watch this carefully for any signs of bleeding. Overall very pleased with this clinical course. Continue supportive care in the intensive care unit Arvind Fajardo MD FACS
--- NOTE | 2016-06-12 12:28 | Cardiology Progress Note ---
Date of Encounter: 06/12/16 Time of Encounter: 11:20 Assessment and Plan (1) Ischemic cardiomyopathy Current Visit: Yes Status: Acute Long-standing history of severe ischemic cardiomyopathy s/p BiV-ICD. TTE completed this admission demonstrated an EF of 10%. He is POD #1 s/p emergent open cholecystectomy and is relatively stable. Doubatamine started for hypotension, now being weaned off--2.5 mcg/kg/min. BP and HR stable. Resume home CV medications including betablocker and diuretic when hemodynamically stable. No further inpatient Cardiology recommendations; discussed with Dr. Virk and Cardiology will sign-off. Please call with questions. Will arrange for follow-up appointment with Dr. Laboy in a few weeks after discharge. Discussion w patient/family: The assessment and plan as outlined above was discussed with the patient and/or family members who expressed understanding and agreement. All questions were answered. Thank you for involving us in the care of your patient. Please call with any questions. The patient was discussed and reviewed with Dr. Virk; Cardiology will sign-off , please call with questions. Subjective Principal diagnosis: Acute cholecystitis Interval history: Seen and examined. Reports abdominal/incisional pain this morning. Denies chest pain, change in dyspnea, or any other symptoms. Objective Vital Signs, Last 4 Hours Pulse Resp BP Pulse Ox 06/12/16 12:16 80 06/12/16 12:00 81 18 107/38 99 06/12/16 10:00 80 16 97/32 98 06/12/16 09:00 72 16 95/32 96 General: Conversant, Other (drowsy) HEENT: Atraumatic, Normocephaly Cardiac: Other (paced) Lungs: Other (Diminished) Neuro: Alert and responsive Skin: Other (RLQ abominal incision. KYE drain) Extremities: Other (RLE BKA; LLE toe (s) amputated. ) Results 06/12/16 03:39 06/12/16 03:39 Lab Results 06/12/16 06/12/16 03:39 03:39 WBC 5.6 Hgb 8.1 L D Hct 25.1 L Plt Count 126 L Sodium 131 L Potassium 3.6 D Chloride 97 L Carbon Dioxide 22 BUN 83 H Creatinine 3.47 H Glucose 225 H Calcium 7.5 L Active Medications Albuterol/Ipratropium (Duoneb) 3 ml IH [id number] KW[facility] PRN Reason: Protocol Stop: 12/10/16 10:01 Last Admin: 06/12/16 10:53 Dose: Not Given Ciprofloxacin HCl (Ciloxan Opth Soln) 2 drop RIGHT EYE Q4HR K[facility] Stop: 12/11/16 12:01 Last Admin: 06/12/16 12:19 Dose: 2 drop Ciprofloxacin HCl (Ciloxan Opth Soln) 2 drop LEFT EYE Q4HR [facility] Stop: 12/11/16 12:01 Last Admin: 06/12/16 12:19 Dose: 2 drop Dextrose/Water (Dextrose 50% (Syg)) 25 ml IVP AD PRN PRN Reason: Hypoglycemia Stop: 12/10/16 05:33 Glucagon (Glucagen) 1 mg IM ONCE PRN PRN Reason: Hypoglycemia Stop: 12/10/16 05:33 Glucose (Gluctose) 15 gm PO ONCE PRN PRN Reason: Hypoglycemia Stop: 12/10/16 05:33 Glucose (Gluctose) 30 gm PO ONCE PRN PRN Reason: Hypoglycemia Stop: 12/10/16 05:33 Heparin Sodium (Porcine) (Heparin) 5,000 unit SQ Q12HCO [facility] Stop: 12/10/16 06:01 Last Admin: 06/12/16 04:56 Dose: Not Given Ciprofloxacin Lactate (Cipro 400 Mg/200 Ml) 400 mg in 200 mls @ 200 mls/hr IVPB Q24H [facility] Stop: 12/11/16 18:01 Dextrose (Dextrose 5%) 1,000 mls @ 100 mls/hr IV CONT PRN PRN Reason: HYPOGLYCEMIA Stop: 12/10/16 05:33 Dobutamine HCl/Dextrose (Dobutamine 250 Mg/250 Ml D5w) 250 mg in 250 mls @ 11.505 mls/hr IVC .[id number] KWABENA; 2.5 MCG/KG/MIN PRN Reason: Protocol Stop: 12/11/16 16:46 Last Titration: 06/12/16 09:40 Dose: 2.5 mcg/kg/min, 11.505 mls/hr Metronidazole (Flagyl 500 Mg/100 Ml) 500 mg in 100 mls @ 100 mls/hr IVPB Q8HR [facility] Stop: 12/10/16 08:01 Last Infusion: 06/12/16 09:30 Dose: Infused Ceftriaxone Sodium 1,000 mg/ (Dextrose) 100 mls @ 200 mls/hr IVPB Q24H [facility] Stop: 06/19/16 11:01 Last Admin: 06/12/16 11:45 Dose: 200 mls/hr Insulin Detemir (Levemir) 10 unit SQ HS [facility] Stop: 12/12/16 21:01 Insulin Human Lispro (Humalog) 0 units SQ Q6HR [facility] PRN Reason: Protocol Stop: 12/10/16 06:01 Last Admin: 06/12/16 12:20 Dose: Not Given Metolazone (Zaroxolyn) 2.5 mg PO MOWEFR [facility] Stop: 12/12/16 12:50 Midodrine (Proamatine) 5 mg PO 0800,1200,1700 [facility] Stop: 12/12/16 12:01 Last Admin: 06/12/16 11:45 Dose: 5 mg Morphine Sulfate (Morphine Sulfate) 2 mg IVP Q4HR PRN PRN Reason: Severe Pain (7-10) Stop: 12/10/16 05:33 Naloxone HCl (Narcan) 0.4 mg IVP Q2MIN PRN PRN Reason: Opioid Reversal Stop: 12/10/16 05:33 Nitroglycerin (Nitroglycerin) 0.4 mg SL AD PRN PRN Reason: Chest Pain Stop: 12/10/16 12:50 Ondansetron HCl (Zofran) 4 mg IVP Q6HR PRN; Protocol PRN Reason: Nausea Stop: 12/10/16 12:53 Oxycodone/Acetaminophen (Percocet 10/325) 1 each PO QID PRN PRN Reason: mild/ moderate Pain 1-7 Stop: 12/10/16 12:50 Pantoprazole Sodium (Protonix) 40 mg IVP DAILY [facility] Stop: 12/10/16 09:01 Last Admin: 06/12/16 08:31 Dose: 40 mg Promethazine HCl (Phenergan) 12.5 mg PO Q8H PRN PRN Reason: Nausea not relieved by Zofran Stop: 12/10/16 12:50 Simvastatin (Zocor) 40 mg PO DAILY [facility] Stop: 12/11/16 09:01 Last Admin: 06/12/16 08:31 Dose: 40 mg Trazodone HCl (Trazodone) 50 mg PO HS [facility] Stop: 12/10/16 21:01 Last Admin: 06/11/16 22:10 Dose: Not Given Zolpidem Tartrate (Ambien) 5 mg PO HS PRN; Protocol PRN Reason: Sleep Stop: 12/10/16 12:50 - Imaging and Cardiology Chest Xray: report reviewed Echo: report reviewed Other Results: 12 hour tele: avg HR=89 paced. - EKG Interpretation EKG results cardiology: personally reviewed Consult Discharge Plan - Plan Referrals: Jennie Washington, [facility]ER [Primary Care Provider] - (Requested 06-11-16)
[2016-06-12] MEDS ORDERED: metOLazone 2.5 MG TABLET PO SCH (12:49)
[2016-06-12] MEDS: metOLazone 2.5 MG TABLET PO SCH (13:59)
[2016-06-12] MEDS: Furosemide 20 MG TABLET PO SCH (17:16)
[2016-06-12] MEDS: Ondansetron 4 MG/2 ML VIAL IVP PRN (17:59)
[2016-06-12 21:39] LABS: Hematocrit 25.1 % (37.5-50.1); Hemoglobin 8.2 g/dL (12.9-16.9)
[2016-06-12] MEDS: Insulin DETEMIR 100 UNIT/ML X5UNITS SQ SCH (21:40)
[2016-06-12] MEDS: traZODone 50 MG TABLET PO SCH (21:41)
[2016-06-12] MEDS: *HR* Morphine 2 MG/ML SYRINGE IVP PRN (23:26)
[2016-06-13] MEDS: Ciprofloxacin OPTH Soln 2.5 ML BOTTLE RIGHT EYE SCH ×6 (03:27→23:59)
[2016-06-13] MEDS: Ciprofloxacin OPTH Soln 2.5 ML BOTTLE LEFT EYE SCH ×6 (03:27→23:59)
[2016-06-13 03:47] LABS: Hematocrit 24.8 % (37.5-50.1); Mean Corpuscular HGB Conc 32.3 g/dL (31.6-35.5); Mean Corpuscular Hemoglobin 27.5 pg (28.0-33.3); Mean Corpuscular Volume 85.2 fL (83.0-100.0); Mean Platelet Volume 10.7 fL (9.4-12.4); Platelet Count 117 K/mcL (140-400); Red Blood Count 2.91 M/mcL (4.19-5.50); Red Cell Distribution Width 17.7 % (11.5-14.5)
[2016-06-13] MEDS: Ipratropium/Albuterol Neb 3 ML IH SCH ×4 (03:55→22:23)
[2016-06-13 04:02] LABS: Calcium 7.5 mg/dL (8.6-10.8); Potassium 3.4 mEq/L (3.5-4.5)
[2016-06-13] MEDS: *HR* Heparin 5,000 UNIT/ML VIAL SQ SCH ×2 (07:34→18:31)
[2016-06-13] MEDS: Insulin LISPRO 300 UNITS/3 ML VIAL SQ SCH ×3 (07:35→20:35)
[2016-06-13] MEDS ORDERED: cefOXitin 2,000 MG in D5% in Water (Mini-Bag+) 100 ML IVPB SCH (08:00)
--- NOTE | 2016-06-13 08:35 | Pulmonology Progress Note ---
<Nancy Young M - Last Filed: 06/13/16 12:56> Objective PUL Vital signs: Last Vital Signs Temp 97.8 F 06/13/16 11:00 Pulse 81 06/13/16 12:00 Resp 14 06/13/16 12:00 BP 95/47 06/13/16 12:00 Pulse Ox 100 06/13/16 12:00 Results - Laboratory Findings CBC and BMP: 06/13/16 03:20 06/13/16 03:20 PT/INR, D-dimer PT 17.0 Seconds (9.4-12.1) H 06/09/16 21:56 Abnormal lab findings: Abnormal lab results RBC 2.91 M/mcL (4.19-5.50) L 06/13/16 03:20 Hgb 8.0 g/dL (12.9-16.9) L 06/13/16 03:20 Hct 24.8 % (37.5-50.1) L 06/13/16 03:20 MCH 27.5 pg (28.0-33.3) L 06/13/16 03:20 RDW 17.7 % (11.5-14.5) H 06/13/16 03:20 Plt Count 117 K/mcL (140-400) L 06/13/16 03:20 Lymphocytes # 0.3 K/mcL (0.6-4.6) L 06/12/16 03:39 PT 17.0 Seconds (9.4-12.1) H 06/09/16 21:56 Sodium 129 mEq/L (136-145) L 06/13/16 03:20 Potassium 3.4 mEq/L (3.5-4.5) L 06/13/16 03:20 Chloride 97 mEq/L (98-109) L 06/13/16 03:20 BUN 79 mg/dL (8-26) H 06/13/16 03:20 Creatinine 2.94 mg/dL (0.72-1.25) H 06/13/16 03:20 Est GFR ( Amer) 26 (> 60) L 06/13/16 03:20 Est GFR (Non-Af Amer) 21 (> 60) L 06/13/16 03:20 BUN/Creatinine Ratio 27 (6-26) H 06/13/16 03:20 Glucose 191 mg/dL (70-99) H 06/13/16 03:20 POC Glucose 304 (58-89) H 06/12/16 23:19 Hemoglobin A1c 6.9 % (-5.6) H 06/10/16 07:03 Calcium 7.5 mg/dL (8.6-10.8) L 06/13/16 03:20 AST 71 Units/L (5-34) H 06/11/16 07:11 Alkaline Phosphatase 127 Units/L (38-126) H 06/11/16 07:11 Troponin I 0.12 ng/mL (0-0.03) H* 06/10/16 18:50 Serum Total Protein 5.8 g/dL (6.0-8.3) L 06/11/16 07:11 Albumin 2.5 g/dL (3.5-5.0) L 06/11/16 07:11 Albumin/Globulin Ratio 0.8 (1.1-2.2) L 06/11/16 07:11 Amylase 24 Units/L (25-125) L 06/09/16 21:56 Lipase < 4 Units/L (8-78) L 06/09/16 21:56 Urine Clarity Turbid (Clear) A 06/09/16 23:33 Urine Protein 30 mg/dL (Neg-Trace) H 06/09/16 23:33 Urine Blood Moderate (Negative) H 06/09/16 23:33 Ur Leukocyte Esterase Large (Negative) H 06/09/16 23:33 Urine Microscopic RBC 5-15 per hpf (0-3) H 06/09/16 23:33 Urine Microscopic WBC TNTC per hpf (0-3) H 06/09/16 23:33 Ur Squamous Epith Cells Moderate per lpf (None-Few) H 06/09/16 23:33 Urine Bacteria Many per hpf (None-Few) H 06/09/16 23:33 Ur Culture Indicated? YES (NO) A 06/09/16 23:33 - Clinical Findings Intake & Output: Intake & Output 06/12/16 06/13/16 06/13/16 23:59 07:59 15:59 Intake Total 300 / 300 100 / 100 Output Total 655 / 655 730 / 730 225 / 225 Balance -355 / -355 -630 / -630 -225 / -225 Weight 75.16 kg 75.1 kg Consult Discharge Plan - Plan Referrals: Jennie Washington CNP [Primary Care Provider] - (Requested 06-11-16) - Attending Attestation I examined this patient and my medical decision-making was reviewed with the COTTON BROKER/PA/Advanced Practice Nurse/Resident Physician. I agree with the documented findings, disposition and treatment plan as described except to the extent set forth below. Patient seen and examined. Labs, radiology, chart personally reviewed. Agree with resident's history and physical, assessment, plan with following comments: HOUSING DIRECTOR: Patient follows commands, Pulmonary: Acceptable oxygenation and ventilation Cardiovascular: stable, however with his ICM and other medical problems, his prognosis is extremely poor and I feel palliative care is very appropriate to be seen by palliative care. Restart his cardiac medications as long as his BP tolerate. GI: Nutrition per dietary and GI prophylaxis per routine. To check with surgery team regarding advancing diet. Heme: DVT prophylaxis per routine ID: Continue antibiotics and plan to de-escalation Renal; urine out put and renal funtion reviewed Endorcine: blood glucose is monitored Lines: all lines checked and no evidence of infections Skin: skin care to prevent pressure ulcers per nursing routine care <Heath Pabon - Last Filed: 06/13/16 15:12> Date of Encounter: 06/13/16 Time of Encounter: 08:35 Assessment and Plan (1) Hypotension Current Visit: Yes Status: Acute Patient has a history of ischemic cardiomyopathy status post ICD placement, recent echo showed the left ventricular ejection fraction of 10-15%, after laparoscopic cholecystectomy, patient was transferred to ICU for close blood pressure monitoring, now the patient is off of dobutamine drip, SBP improved to above 90, his A-line reading was correlating well with BP cuff reading therefore A-line was removed this AM, he was started on low dose PO lasix yesterday, with hx of ischemic cardiomyopathy, will resume him on toprol xl home dosage today, and con't to closely monitor his BP in ICU. Qualifiers: Qualified Code(s): I95.9 - Hypotension, unspecified (2) Ischemic cardiomyopathy Current Visit: Yes Status: Acute Hx of CAD, VA, CABG, s/p ICD placement, recent echo showed LVEF of 10 to 15%, cardio signed off yesterday, SBP has improved to above 90, now off of dobutamine drip, started on low dose lasix and toprol xl, good urine output w/ in last 24 hrs, negative 2.6L fluid balance, con't to closely monitor his VS, overall he has poor prognosis, palliative has been consulted for goal of care today. (3) S/P laparoscopic cholecystectomy Current Visit: Yes Status: Acute Patient initially came to the hospital with right upper quadrant abdominal pain , CT of abdomen showed acute cholecystitis, patient was taken to the OR for laparoscopic cholecystectomy, postop day 3, KYE drain appears to be serosanguineous, patient has been doing well post operatively, systolic blood pressure has improved to above 90, now off of dobutamine drip, surgery has been following, continue postop care and IV pain/antiemetic meds prn. (4) UTI due to extended-spectrum beta lactamase (ESBL) producing Escherichia coli Current Visit: Yes Status: Acute Urine culture came back positive for ESBL producing Escherichia coli, resistant to Rocephin and Cipro, sensitive to ertapenem therefore she was started on ertapenem IV today for the total of 10 days for complicated UTI. (5) Hypokalemia Current Visit: Yes Status: Acute This was replaced by supplemental potassium by mouth today, magnesium level was normal 3 days ago, we will recheck potassium and magnesium level in the morning. (6) CKD (chronic kidney disease), stage IV Current Visit: Yes Status: Acute Patient's serum creatinine at baseline, patient's urine output is 4 L we seen the past 24 hours, -2.6 L fluid balance, patient was started on low-dose Lasix by mouth yesterday, continue to closely monitor patient's renal function and avoid nephrotoxic agents. (7) Type 2 diabetes mellitus Current Visit: Yes Status: Chronic Glucose stable, continue Levemir 10 units subcutaneous at bedtime and sliding scale insulin. Qualifiers: Diabetes mellitus complication status: with kidney complications Diabetes mellitus complication detail: with chronic kidney disease Diabetes mellitus terminal carman insulin use: with halfway use Chronic kidney disease stage: stage 4 (severe) Qualified Code(s): E11.22 - Type 2 diabetes mellitus with diabetic chronic kidney disease; N18.4 - Chronic kidney disease, stage 4 (severe); Z79.4 - FDC (current) use of insulin (8) DVT prophylaxis Current Visit: Yes Status: Acute Heparin SQ BID. Subjective Principal diagnosis: Acute cholecystitis Interval history: Patient is a 70 years old male with a history of ischemic cardiomyopathy status post ICD placement, recent echo showed left ventricular ejection fraction of 10- 15%, admitted to the hospital for acute cholecystitis, status post laparoscopic cholecystectomy and he was transferred to ICU for hypotension. Patient seen and examined. This morning patient was drowsy and sleepy, very hard to awake, patient was able to answer simple questions, he states that his abdominal pain is better than yesterday, patient will be started on clear liquid diet today. 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.) normal mental status, non-focal exam, pupils equal and round mood appropriate, affect normal Results - Laboratory Findings CBC and BMP: 06/13/16 03:20 06/13/16 03:20 PT/INR, D-dimer PT 17.0 Seconds (9.4-12.1) H 06/09/16 21:56 Abnormal lab findings: Abnormal lab results RBC 2.91 M/mcL (4.19-5.50) L 06/13/16 03:20 Hgb 8.0 g/dL (12.9-16.9) L 06/13/16 03:20 Hct 24.8 % (37.5-50.1) L 06/13/16 03:20 MCH 27.5 pg (28.0-33.3) L 06/13/16 03:20 RDW 17.7 % (11.5-14.5) H 06/13/16 03:20 Plt Count 117 K/mcL (140-400) L 06/13/16 03:20 Lymphocytes # 0.3 K/mcL (0.6-4.6) L 06/12/16 03:39 PT 17.0 Seconds (9.4-12.1) H 06/09/16 21:56 Sodium 129 mEq/L (136-145) L 06/13/16 03:20 Potassium 3.4 mEq/L (3.5-4.5) L 06/13/16 03:20 Chloride 97 mEq/L (98-109) L 06/13/16 03:20 BUN 79 mg/dL (8-26) H 06/13/16 03:20 Creatinine 2.94 mg/dL (0.72-1.25) H 06/13/16 03:20 Est GFR ( Amer) 26 (> 60) L 06/13/16 03:20 Est GFR (Non-Af Amer) 21 (> 60) L 06/13/16 03:20 BUN/Creatinine Ratio 27 (6-26) H 06/13/16 03:20 Glucose 191 mg/dL (70-99) H 06/13/16 03:20 POC Glucose 304 (58-89) H 06/12/16 23:19 Hemoglobin A1c 6.9 % (-5.6) H 06/10/16 07:03 Calcium 7.5 mg/dL (8.6-10.8) L 06/13/16 03:20 AST 71 Units/L (5-34) H 06/11/16 07:11 Alkaline Phosphatase 127 Units/L (38-126) H 06/11/16 07:11 Troponin I 0.12 ng/mL (0-0.03) H* 06/10/16 18:50 Serum Total Protein 5.8 g/dL (6.0-8.3) L 06/11/16 07:11 Albumin 2.5 g/dL (3.5-5.0) L 06/11/16 07:11 Albumin/Globulin Ratio 0.8 (1.1-2.2) L 06/11/16 07:11 Amylase 24 Units/L (25-125) L 06/09/16 21:56 Lipase < 4 Units/L (8-78) L 06/09/16 21:56 Urine Clarity Turbid (Clear) A 06/09/16 23:33 Urine Protein 30 mg/dL (Neg-Trace) H 06/09/16 23:33 Urine Blood Moderate (Negative) H 06/09/16 23:33 Ur Leukocyte Esterase Large (Negative) H 06/09/16 23:33 Urine Microscopic RBC 5-15 per hpf (0-3) H 06/09/16 23:33 Urine Microscopic WBC TNTC per hpf (0-3) H 06/09/16 23:33 Ur Squamous Epith Cells Moderate per lpf (None-Few) H 06/09/16 23:33 Urine Bacteria Many per hpf (None-Few) H 06/09/16 23:33 Ur Culture Indicated? YES (NO) A 06/09/16 23:33 - Clinical Findings Intake & Output: Intake & Output 06/12/16 06/13/16 06/13/16 23:59 07:59 15:59 Intake Total 300 / 300 100 / 100 Output Total 655 / 655 640 / 640 Balance -355 / -355 -540 / -540 Weight 75.16 kg
--- NOTE | 2016-06-13 09:00 | General Surgery Progress Note ---
Date of Encounter: 06/13/16 Time of Encounter: 07:30 - Assessment and Plan (1) Acute cholecystitis due to biliary calculus Current Visit: Yes Status: Acute POD #1 Laparoscopic cholecystectomy and intraoperative cholangiogram, +30% for reoperative abdomen and acute cholecystitis Pt. tolerated the procedure well. Pt. to begin post-operative period in ICU d/t severe systolic heart failure. Cardiology is following No bowel sounds, no flatus, no bm afebrile, HR: 97, BP: 110/30, O2: 96% on 2L nc wbc: 5.6 Abx: Cipro Clear liquid diet pain control, antiemetics 06/13/2016. 0901 The patient is seen and evaluated today. Successful laparoscopic cholecystectomy with cholangiogram. He is undergoing treatment for severe systolic heart failure. He is had sudden increase in his Robson-Mendoza drainage which appears to be serosanguineous. Watch for any signs of hemorrhage. There is no bile in the Robson-Mendoza drain. I am very pleased with his overall clinical course. Subjective Narrative: The patient has had resolution of his preoperative pain syndrome. He is now off inotropic agents. His abdomen is soft. He had a sudden increase in his Robson-Mendoza drainage. This is serosanguineous. I do not believe this represents active hemorrhage. I believe that a lot of this is irrigation fluid that is just now coming out of the drain. A very close eye on the amount of drainage throughout the day. His treatment at this point is based on his cardiac response to therapy Objective Vital Signs - Last 8 Hours Temp Pulse Resp BP Pulse Ox 06/13/16 08:50 98.3 F 06/13/16 07:00 86 14 105/57 97 06/13/16 06:00 84 15 104/39 97 06/13/16 05:00 86 15 107/39 96 06/13/16 04:50 96.9 F L 06/13/16 04:00 76 14 98/38 100 06/13/16 03:00 74 11 91/37 98 06/13/16 02:00 75 11 100/36 97 06/13/16 01:00 79 14 100/38 97 Intake and Output 06/12/16 06/13/16 06/13/16 23:59 07:59 15:59 Intake Total 300 / 300 100 / 100 Output Total 655 / 655 640 / 640 75 / 75 Balance -355 / -355 -540 / -540 -75 / -75 Intake: IV Fluids 300 / 300 100 / 100 Cipro 400 MG/200 ML 400 200 / 200 mg In 200 ml @ 200 mls/hr IVPB Q24H [facility] Rx#: [id number] Flagyl 500 MG/100 ML 500 100 / 100 100 / 100 mg In 100 ml @ 100 mls/hr IVPB Q8HR [facility] Rx#: [id number] Output: Catheter 200 / 200 500 / 500 75 / 75 Wound Drainage 455 / 455 140 / 140 right upper abdomen 455 / 455 140 / 140 Other: Weight 75.16 kg Blood Glucose* 124 Patient Weight 06/13/16 23:59 Weight 75.16 kg - General physical appearance chronically ill - Respiratory crackles: bilateral - Cardiovascular Cardiovascular exam: Present: RRR, no murmurs/rubs/gallops - Abdomen Abdomen: Present: bowel sounds present, soft - Incision Incision: Present: clean and dry (Robson-Mendoza drain with serosanguineous drainage.) - Psychiatric oriented to time, oriented to person, oriented to place, speech is normal, memory intact - Labs 06/13/16 03:20 06/13/16 03:20 Diabetes panel 06/13/16 Range/Units 03:20 Sodium 129 L (136-145) mEq/L Potassium 3.4 L (3.5-4.5) mEq/L Chloride 97 L (98-109) mEq/L Carbon Dioxide 22 (19-29) mEq/L BUN 79 H (8-26) mg/dL Creatinine 2.94 H (0.72-1.25) mg/dL Glucose 191 H (70-99) mg/dL Calcium 7.5 L (8.6-10.8) mg/dL Calcium panel 06/13/16 Range/Units 03:20 Calcium 7.5 L (8.6-10.8) mg/dL Pituitary panel 06/13/16 Range/Units 03:20 Sodium 129 L (136-145) mEq/L Potassium 3.4 L (3.5-4.5) mEq/L Chloride 97 L (98-109) mEq/L Carbon Dioxide 22 (19-29) mEq/L BUN 79 H (8-26) mg/dL Creatinine 2.94 H (0.72-1.25) mg/dL Glucose 191 H (70-99) mg/dL Calcium 7.5 L (8.6-10.8) mg/dL Adrenal panel 06/13/16 Range/Units 03:20 Sodium 129 L (136-145) mEq/L Potassium 3.4 L (3.5-4.5) mEq/L Chloride 97 L (98-109) mEq/L Carbon Dioxide 22 (19-29) mEq/L BUN 79 H (8-26) mg/dL Creatinine 2.94 H (0.72-1.25) mg/dL Glucose 191 H (70-99) mg/dL Calcium 7.5 L (8.6-10.8) mg/dL Consult Discharge Plan - Plan Referrals: Jennie Washington CNP [Primary Care Provider] - (Requested 06-11-16)
[2016-06-13] MEDS: Pantoprazole 40 MG VIAL IVP SCH (10:20)
[2016-06-13] MEDS: Metoprolol XL (24 HR) Succ 25 MG TAB.ER.24H PO SCH (10:20)
[2016-06-13] MEDS: Furosemide 20 MG TABLET PO SCH (10:20)
--- NOTE | 2016-06-13 10:38 | Palliative - Consult Note ---
Date of Encounter: 06/13/16 Time of Encounter: 14:30 - Assessment and Plan (1) Goals of care, counseling/discussion Current Visit: Yes Status: Acute Assessment and plan: Discuss goals of care with the patient's , as he is unable to participate in conversation due to nausea. She does report prior conversations about goals of care. There is a living will and healthcare power of senior attorney in place, but Mrs. Mendez does not have copies with her. These copies were requested. According to the patient's , cardiology has discussed deactivation of the ICD in the past during outpatient follow-ups, but Mr. Mendez has been very resistant. From their prior conversations, she was able to tell me he did not want long-term life support in the event that "machines were the only thing keeping him going". The palliative care team will follow-up with additional conversations once the patient is able to participate. In regards to discharge planning, the patient will be returning home with a renewal of [facility] services. His spouse reports that he is "out of Medicare days" ECF. consumer services consultant following for discharge needs. (2) Nausea Current Visit: No Status: Acute Assessment and plan: Zofran 4 mg IVP every 6 hours as needed for nausea. He is currently on a clear liquid diet. Continue to monitor, diet management per surgical services. (3) Dyspnea Current Visit: No Status: Acute Assessment and plan: Supplemental O2, activity as tolerated Qualifiers: Dyspnea type: shortness of breath Qualified Code(s): R06.02 - Shortness of breath (4) Abdominal pain Current Visit: Yes Status: Acute Assessment and plan: Morphine 2 mg IV every 4 hours as needed for pain. We will discontinue Percocet . According to her outpatient records, the patient felt that Percocet was causing him increasing confusion with hallucinations. This may also be contributing to his increase in drowsiness. Qualifiers: Abdominal location: unspecified location Qualified Code(s): R10.9 - Unspecified abdominal pain (5) Acute cholecystitis Current Visit: Yes Status: Acute Assessment and plan: Status post laparoscopic cholecystectomy. Further management per surgical services. (6) Ischemic cardiomyopathy Current Visit: Yes Status: Acute Assessment and plan: Cardiology following with the patient. Palliative-CN HPI - Data of Consult Patient: new to practice Consult date: 06/13/16 Requesting Physician: Kike Toro MD Primary Care Provider: Jennie Washington CNP - Consult Narrative Palliative Care/Comfort Measures: Palliative care Reason for consult: Goals of care History of present illness: Mr. Mendez is a 70 year old male presenting to [facility] with complaints of right upper quadrant abdominal pain, nausea vomiting. Symptoms have been present for several planning up to admission. Workup and evaluation revealed concerns for acute cholecystitis. The patient was admitted for further workup and care. Mr. Mendez has a known history of ischemic cardiomyopathy with reduced ejection fraction of 10-15%. He has had an ICD that was placed in 2003, and follows with [facility]. The patient was treated initially with conservative measures: Nothing by mouth, IV hydration, antibiotic therapy. However, the patient did not appear to be responding to conservative measures, and the patient was taken to the OR for laparoscopic cholecystectomy. Following surgery, the patient was transitioned to the intensive care unit for further treatment. He was placed on a dobutamine drip for blood pressure support. Further evaluation also revealed a urinary tract infection positive for ESBL. Antibiotic therapy was adjusted accordingly. The palliative care team was consulted to assist with goals of care planning giving the patient's chronic medical conditions. Prior to his hospitalization, Mr. Mendez had 3 hospitalizations since March 2016. Has had multiple orthopedic surgeries including a Right BKA and amputation of left toes. He completed rehabilitation at a local [facility] and was able to stand when utilizing his prosthesis. Otherwise, he was sedentary in his activity. He resides in his home with his Manuela. He has home health services provided by [facility] health. CC: Kike Toro MD Past Med Surg Social Fam HX - Past Medical History Source: old records reviewed Medical history: arthritis, cardiomyopathy, CHF (chronic systolic), COPD, coronary artery disease, DVT, diabetes, GERD, GI bleed, hyperlipidemia, hypertension, myocardial infarction, osteoporosis, peripheral artery disease, renal disease, venous stasis Psychiatric history: no psych history - Past Surgical History Surgical History: angioplasty/stent, arthroscopy, cataract, coronary bypass ( CABG) (2003), LE Bypass, LE vascular intervention, orthopedic, other (left ankle ORIF, amputation of toes on left foot, ), vascular surgery ( aortobifemoral bypass, left femoral to popliteal artery bypass, right below knee amputation), other, AICD (implanted 2003) - Social History Smoking Status: Former smoker Smokeless Tobacco Status: No Alcohol use: none Drug use: none - Family History Father Living Status: Mother Living Status: Hx Family Cardiac Disorders: No Hx Family Cancer: No Hx Family Endocrine Disorder: No - Additional Family History Additional family history: Brother-heart disease Medications and Allergies Aspirin 81 mg PO DAILY 10/30/14 [History] Clopidogrel [Plavix] 75 mg PO DAILY 10/30/14 [History] Pravastatin Sodium 40 mg PO DAILY 10/30/14 [History] Tamsulosin [Flomax] 0.4 mg PO DAILY 10/30/14 [History] Ergocalciferol (VITAMIN D2) [Vitamin D2 (50,000 UNIT)] 50,000 unit PO MCGOWAN [History] Metoprolol XL (24 HR) Succ [Toprol XL] 25 mg PO DAILY 03/05/15 [History] Docusate [Colace] 100 mg PO BID PRN 12/01/15 [History] Nitroglycerin [Nitrostat] 0.4 mg SL AD PRN 12/01/15 [History] Epoetin Jonnie [Procrit] 2,000 unit IJ FR 01/13/16 [History] Promethazine [Phenergan] 12.5 mg PO Q8H PRN 03/08/16 [History] Insulin Glargine,Hum.rec.anlog [Lantus Solostar] 18 unit SQ HS 03/25/16 [History ] Insulin LISPRO [HumaLOG] 5 - 15 units SQ ACHS 03/25/16 [History] Ipratropium/Albuterol Neb [Duoneb] 3 ml IH Q6HR 03/25/16 [History] Furosemide [Lasix] 60 mg PO DAILY 06/10/16 [History] HYDROcodone/Acet 10/325 mg [[place] 10-325 mg] 1 tab PO QID PRN 06/10/16 [History] Metolazone [Zaroxolyn] 2.5 mg PO MOWEFR 06/10/16 [History] Omeprazole [PriLOSEC] 20 mg PO DAILY 06/10/16 [History] OxyCODONE/APAP 10/325 [Percocet 10/325 MG] 1 tab PO QID PRN 06/10/16 [History] TraZODone 50 mg PO HS 06/10/16 [History] Zolpidem [Ambien] 5 mg PO HS PRN 06/10/16 [History] Allergies No Known Allergies Allergy (Verified 05/18/16 16:53) - Constitutional Constitutional ROS PAL: decreased appetite - EENT Eyes: no change in vision Ears: no decreased hearing Ears, nose, mouth, throat: no dysphagia, no mouth pain, no sore throat - Cardiovascular Cardiovascular ROS: dyspnea on exertion, irregular heart rhythm, no chest pain - Respiratory Respiratory: cough - Gastrointestinal Gastrointestinal: abdominal pain, bloating, nausea, no constipation, no diarrhea - Genitourinary Genitourinary ROS male: no difficulty urinating - Musculoskeletal Musculoskeletal ROS IM: arthralgias, other (Right BKA) - Integumentary ROS Integumentary: wounds (Related to venous stasis ulcers on the left lower extremity) - Neurological Neurological ROS: confusion, weakness - Psychiatric Psychiatric general PM: no anxiety Palliative Care-Exam - Constitutional Vitals: Temp Pulse Resp BP Pulse Ox 98.3 F 89 14 105/57 97 06/13/16 08:50 06/13/16 07:00 06/13/16 07:00 06/13/16 07:00 06/13/16 07:00 General appearance: Present: mild distress (Related nausea) Exam: 70-year-old male patient in the intensive care unit. Appears chronically ill. - Head Head Exam: Present: atraumatic - Eye Eye exam: Present: EOMI Pupils: Present: PERRL - ENT ENT exam: Present: mucous membranes dry - Respiratory Respiratory exam: Present: decreased breath sounds. 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 - GI/Abdominal Exam GI/Abdominal exam: Present: normal bowel sounds, soft, tenderness (Mild tenderness to palpation) - Catheter Type: Urethral (Hall) - Extremities Exam Extremities exam: Absent: normal inspection Additional comments: Dressing intact to left lower extremity due to venous stasis ulcers, compression sock in place to right BKA - Neurological Exam Neurological exam: Present: alert (Oriented to person and place), no focal deficits - Psychiatric Psychiatric exam: Present: flat affect - Skin Skin exam: Present: dry, warm Internal Medicine - CN: Reslt - Labs CBC & Chem 7: 06/13/16 03:20 06/13/16 03:20 Labs: Short CBC 06/12/16 06/13/16 Range/Units 21:30 03:20 WBC 4.3 (4.3-11.1) K/mcL Hgb 8.2 L 8.0 L (12.9-16.9) g/dL Hct 25.1 L 24.8 L (37.5-50.1) % Plt Count 117 L (140-400) K/mcL BMP 06/13/16 03:20 Sodium 129 L Potassium 3.4 L Chloride 97 L Carbon Dioxide 22 BUN 79 H Creatinine 2.94 H Glucose 191 H Calcium 7.5 L - ABG Interpretation ABG results: PT/INR, D-dimer PT 17.0 Seconds (9.4-12.1) H 06/09/16 21:56 Consult Discharge Plan - Plan Referrals: Felix,Jennie Wang CNP [Primary Care Provider] - (Requested 06-11-16) Palliative Quality Palliative Quality: Screen for Code Status: Yes, Screen for Goals of Care: Yes, Screen for Pain: Yes, If Pain Regimen Started, Initiate Bowel Regimen: NA, Screen for Nausea/Vomitting: Yes
[2016-06-13] MEDS: Ondansetron 4 MG/2 ML VIAL IVP PRN (11:15)
[2016-06-13] MEDS: traZODone 50 MG TABLET PO SCH (20:27)
[2016-06-13] MEDS: Insulin DETEMIR 100 UNIT/ML X5UNITS SQ SCH (20:28)
[2016-06-13] MEDS: *HR* Morphine 2 MG/ML SYRINGE IVP PRN (23:59)
[2016-06-14] MEDS: Ciprofloxacin OPTH Soln 2.5 ML BOTTLE LEFT EYE SCH ×5 (03:54→21:12)
[2016-06-14] MEDS: Ciprofloxacin OPTH Soln 2.5 ML BOTTLE RIGHT EYE SCH ×5 (03:54→21:11)
[2016-06-14] MEDS: *HR* Morphine 2 MG/ML SYRINGE IVP PRN (03:57)
[2016-06-14] MEDS: Ipratropium/Albuterol Neb 3 ML IH SCH ×4 (04:29→20:05)
[2016-06-14 04:37] LABS: Basophils % 0.6 %; Eosinophils # 0.1 K/mcL (0.0-0.6); Eosinophils % 2.3 %; Hematocrit 27.1 % (37.5-50.1); Hemoglobin 8.8 g/dL (12.9-16.9); Immature Granulocytes % 0.9 % (0-4); Lymphocytes # 0.6 K/mcL (0.6-4.6); Lymphocytes % 11.7 %; Mean Corpuscular HGB Conc 32.5 g/dL (31.6-35.5); Mean Corpuscular Hemoglobin 27.9 pg (28.0-33.3); Mean Platelet Volume 11.1 fL (9.4-12.4); Monocytes # 0.6 K/mcL (0.0-1.3); Monocytes % 11.6 %; Neutrophils # 3.9 K/mcL (1.6-8.9); Platelet Count 118 K/mcL (140-400); Red Blood Count 3.15 M/mcL (4.19-5.50); Red Cell Distribution Width 17.9 % (11.5-14.5); Segmented Neutrophils % 72.9 %
[2016-06-14 04:57] LABS: Magnesium 1.4 mg/dL (1.6-2.6); Potassium 3.9 mEq/L (3.5-4.5)
[2016-06-14] MEDS: Insulin LISPRO 300 UNITS/3 ML VIAL SQ SCH ×4 (05:09→18:33)
[2016-06-14 05:12] LABS: Platelet Estimate Normal (Normal)
[2016-06-14] MEDS ORDERED: Magnesium Sulfate 2 GM in D5% in Water 100 ML IVPB ONE (05:55)
[2016-06-14] MEDS: *HR* Heparin 5,000 UNIT/ML VIAL SQ SCH ×2 (06:21→18:33)
[2016-06-14] MEDS: Furosemide 20 MG TABLET PO SCH (08:18)
[2016-06-14] MEDS: Metoprolol XL (24 HR) Succ 25 MG TAB.ER.24H PO SCH (08:18)
--- NOTE | 2016-06-14 08:19 | Pulmonology Progress Note ---
<Nancy Young M - Last Filed: 06/14/16 09:07> Objective PUL Vital signs: Last Vital Signs Temp 97.2 F L 06/14/16 08:00 Pulse 78 06/14/16 08:00 Resp 16 06/14/16 08:00 BP 100/48 06/14/16 08:00 Pulse Ox 99 06/14/16 08:00 Results - Laboratory Findings CBC and BMP: 06/14/16 04:02 06/14/16 04:02 PT/INR, D-dimer PT 17.0 Seconds (9.4-12.1) H 06/09/16 21:56 Abnormal lab findings: Abnormal lab results RBC 3.15 M/mcL (4.19-5.50) L 06/14/16 04:02 Hgb 8.8 g/dL (12.9-16.9) L 06/14/16 04:02 Hct 27.1 % (37.5-50.1) L 06/14/16 04:02 MCH 27.9 pg (28.0-33.3) L 06/14/16 04:02 RDW 17.9 % (11.5-14.5) H 06/14/16 04:02 Plt Count 118 K/mcL (140-400) L 06/14/16 04:02 PT 17.0 Seconds (9.4-12.1) H 06/09/16 21:56 Sodium 134 mEq/L (136-145) L 06/14/16 04:02 BUN 71 mg/dL (8-26) H 06/14/16 04:02 Creatinine 2.47 mg/dL (0.72-1.25) H 06/14/16 04:02 Est GFR ( Amer) 32 (> 60) L 06/14/16 04:02 Est GFR (Non-Af Amer) 26 (> 60) L 06/14/16 04:02 BUN/Creatinine Ratio 29 (6-26) H 06/14/16 04:02 Glucose 112 mg/dL (70-99) H 06/14/16 04:02 POC Glucose 93 (58-89) H 06/13/16 23:31 Hemoglobin A1c 6.9 % (-5.6) H 06/10/16 07:03 Calcium 8.0 mg/dL (8.6-10.8) L 06/14/16 04:02 Magnesium 1.4 mg/dL (1.6-2.6) L 06/14/16 04:02 AST 71 Units/L (5-34) H 06/11/16 07:11 Alkaline Phosphatase 127 Units/L (38-126) H 06/11/16 07:11 Troponin I 0.12 ng/mL (0-0.03) H* 06/10/16 18:50 Serum Total Protein 5.8 g/dL (6.0-8.3) L 06/11/16 07:11 Albumin 2.5 g/dL (3.5-5.0) L 06/11/16 07:11 Albumin/Globulin Ratio 0.8 (1.1-2.2) L 06/11/16 07:11 Amylase 24 Units/L (25-125) L 06/09/16 21:56 Lipase < 4 Units/L (8-78) L 06/09/16 21:56 Urine Clarity Turbid (Clear) A 06/09/16 23:33 Urine Protein 30 mg/dL (Neg-Trace) H 06/09/16 23:33 Urine Blood Moderate (Negative) H 06/09/16 23:33 Ur Leukocyte Esterase Large (Negative) H 06/09/16 23:33 Urine Microscopic RBC 5-15 per hpf (0-3) H 06/09/16 23:33 Urine Microscopic WBC TNTC per hpf (0-3) H 06/09/16 23:33 Ur Squamous Epith Cells Moderate per lpf (None-Few) H 06/09/16 23:33 Urine Bacteria Many per hpf (None-Few) H 06/09/16 23:33 Ur Culture Indicated? YES (NO) A 06/09/16 23:33 - Clinical Findings Intake & Output: Intake & Output 06/13/16 06/14/16 06/14/16 23:59 07:59 15:59 Intake Total 104 / 104 Output Total 460 / 460 1330 / 1330 Balance -460 / -460 -1226 / -1226 Weight 72.62 kg Consult Discharge Plan - Plan Referrals: Jennie Washington COMPENSATION AND HRIS ANALYST [Primary Care Provider] - (Requested 06-11-16) - Attending Attestation I examined this patient and my medical decision-making was reviewed with the UNEMPLOYMENT BENEFITS CLAIMS TAKER/PA/Advanced Practice Nurse/Resident Physician. I agree with the documented findings, disposition and treatment plan as described except to the extent set forth below. Patient seen and examined. Labs, radiology, chart personally reviewed. Agree with resident's history and physical, assessment, plan with following comments: FOOD CONCESSION MANAGER: Patient follows commands, Pulmonary: Acceptable oxygenation and ventilation Cardiovascular: CHF, patient condition tenuous due to his heart failure and he has poor prognosis. Patient wants to go home and palliative care follow up GI: Nutrition per dietary and GI prophylaxis per routine Heme: DVT prophylaxis per routine. Not able to use mechanical prophylaxis ID: Continue antibiotics and plan to de-escalation. I'm very concerned about his immune system and infection. ID consult. Renal; urine out put and renal funtion reviewed Endorcine: blood glucose is monitored Lines: all lines checked and no evidence of infections Skin: skin care to prevent pressure ulcers per nursing routine care <[facility]ath - Last Filed: 06/14/16 09:54> Date of Encounter: 06/14/16 Time of Encounter: 08:19 Assessment and Plan (1) Hypotension Current Visit: Yes Status: Acute Patient has a history of ischemic cardiomyopathy status post ICD placement, recent echo showed the left ventricular ejection fraction of 10-15%, after laparoscopic cholecystectomy, patient was transferred to ICU for close blood pressure monitoring, now the patient is off of dobutamine drip, SBP improved to above 90, his A-line reading was correlating well with BP cuff reading therefore A-line was removed yesterday, he was started on low dose PO lasix and toprol xl home dosage, still SBP remains above 90, con't to closely monitor his BP in ICU. Qualifiers: Qualified Code(s): I95.9 - Hypotension, unspecified (2) Ischemic cardiomyopathy Current Visit: Yes Status: Acute Hx of CAD, [place], CABG, s/p ICD placement, recent echo showed LVEF of 10 to 15%, SBP has improved to above 90, now off of dobutamine drip, started on low dose lasix and toprol xl, good urine output w/in last 24 hrs, negative 1.5L fluid balance, con't to closely monitor his VS, overall he has poor prognosis, palliative has been consulted for goal of care. (3) S/P laparoscopic cholecystectomy Current Visit: Yes Status: Acute Patient initially came to the hospital with right upper quadrant abdominal pain , CT of abdomen showed acute cholecystitis, patient was taken to the OR for laparoscopic cholecystectomy, postop day 4, patient has been doing well post operatively, systolic blood pressure has improved to above 90, now off of dobutamine drip, surgery has been following, continue postop care and IV pain/ antiemetic meds prn. (4) UTI due to extended-spectrum beta lactamase (ESBL) producing Escherichia coli Current Visit: Yes Status: Acute Urine culture came back positive for ESBL producing Escherichia coli, resistant to Rocephin and Cipro, sensitive to ertapenem therefore he was started on ertapenem IV, ID has been consulted. (5) CKD (chronic kidney disease), stage IV Current Visit: Yes Status: Acute Patient's serum creatinine improved with good urine output, -1.5 L fluid balance , patient was started on low-dose Lasix by mouth, continue to closely monitor patient's renal function and avoid nephrotoxic agents. (6) Type 2 diabetes mellitus Current Visit: Yes Status: Chronic Glucose stable, continue Levemir 10 units subcutaneous at bedtime and sliding scale insulin. Qualifiers: Diabetes mellitus complication status: with kidney complications Diabetes mellitus complication detail: with chronic kidney disease Diabetes mellitus extermination supervisor insulin use: with extermination supervisor use Chronic kidney disease stage: stage 4 (severe) Qualified Code(s): E11.22 - Type 2 diabetes mellitus with diabetic chronic kidney disease; N18.4 - Chronic kidney disease, stage 4 (severe); Z79.4 - [facility] (current) use of insulin (7) DVT prophylaxis Current Visit: Yes Status: Acute Heparin SQ BID. Subjective Principal diagnosis: Acute cholecystitis Interval history: Patient is a 70 years old male with a history of ischemic cardiomyopathy status post ICD placement, recent echo showed left ventricular ejection fraction of 10- 15%, admitted to the hospital for acute cholecystitis, status post laparoscopic cholecystectomy and he was transferred to ICU for hypotension. Patient seen and examined. This morning patient was wake, ate breakfast fine, denies nausea/emesis, abdominal pain improved, still no gas or bowel movement, clinically looks better than yesterday. Objective PUL Vital signs: Last Vital Signs Temp 97.2 F L 06/14/16 07:23 Pulse 85 06/14/16 06:00 Resp 17 06/14/16 06:00 BP 103/51 06/14/16 06:00 Pulse Ox 98 06/14/16 06:00 General appearance: no acute distress, alert Eyes: nonicteric ENT: oropharynx moist Neck: supple Effort: normal Auscultation: bilateral: rales (at base) Cardiovascular: regular rate and rhythm Gastrointestinal: normoactive bowel sounds, soft, tender (slight tender to palpate in surgical site), non-distended, other (dressing c/d/i in middle of abd ) Integumentary: normal Extremities: other (Right below the knee amputation, skin intact, does not look infected. Left forefoot amputation, dressing on.) normal mental status, non-focal exam, CN II-XII normal mood appropriate, affect normal Results - Laboratory Findings CBC and BMP: 06/14/16 04:02 06/14/16 04:02 PT/INR, D-dimer PT 17.0 Seconds (9.4-12.1) H 06/09/16 21:56 Abnormal lab findings: Abnormal lab results RBC 3.15 M/mcL (4.19-5.50) L 06/14/16 04:02 Hgb 8.8 g/dL (12.9-16.9) L 06/14/16 04:02 Hct 27.1 % (37.5-50.1) L 06/14/16 04:02 MCH 27.9 pg (28.0-33.3) L 06/14/16 04:02 RDW 17.9 % (11.5-14.5) H 06/14/16 04:02 Plt Count 118 K/mcL (140-400) L 06/14/16 04:02 PT 17.0 Seconds (9.4-12.1) H 06/09/16 21:56 Sodium 134 mEq/L (136-145) L 06/14/16 04:02 BUN 71 mg/dL (8-26) H 06/14/16 04:02 Creatinine 2.47 mg/dL (0.72-1.25) H 06/14/16 04:02 Est GFR ( Amer) 32 (> 60) L 06/14/16 04:02 Est GFR (Non-Af Amer) 26 (> 60) L 06/14/16 04:02 BUN/Creatinine Ratio 29 (6-26) H 06/14/16 04:02 Glucose 112 mg/dL (70-99) H 06/14/16 04:02 POC Glucose 93 (58-89) H 06/13/16 23:31 Hemoglobin A1c 6.9 % (-5.6) H 06/10/16 07:03 Calcium 8.0 mg/dL (8.6-10.8) L 06/14/16 04:02 Magnesium 1.4 mg/dL (1.6-2.6) L 06/14/16 04:02 AST 71 Units/L (5-34) H 06/11/16 07:11 Alkaline Phosphatase 127 Units/L (38-126) H 06/11/16 07:11 Troponin I 0.12 ng/mL (0-0.03) H* 06/10/16 18:50 Serum Total Protein 5.8 g/dL (6.0-8.3) L 06/11/16 07:11 Albumin 2.5 g/dL (3.5-5.0) L 06/11/16 07:11 Albumin/Globulin Ratio 0.8 (1.1-2.2) L 06/11/16 07:11 Amylase 24 Units/L (25-125) L 06/09/16 21:56 Lipase < 4 Units/L (8-78) L 06/09/16 21:56 Urine Clarity Turbid (Clear) A 06/09/16 23:33 Urine Protein 30 mg/dL (Neg-Trace) H 06/09/16 23:33 Urine Blood Moderate (Negative) H 06/09/16 23:33 Ur Leukocyte Esterase Large (Negative) H 06/09/16 23:33 Urine Microscopic RBC 5-15 per hpf (0-3) H 06/09/16 23:33 Urine Microscopic WBC TNTC per hpf (0-3) H 06/09/16 23:33 Ur Squamous Epith Cells Moderate per lpf (None-Few) H 06/09/16 23:33 Urine Bacteria Many per hpf (None-Few) H 06/09/16 23:33 Ur Culture Indicated? YES (NO) A 06/09/16 23:33 - Clinical Findings Intake & Output: Intake & Output 06/13/16 06/14/16 06/14/16 23:59 07:59 15:59 Intake Total 104 / 104 Output Total 460 / 460 1330 / 1330 Balance -460 / -460 -1226 / -1226 Weight 72.62 kg
--- NOTE | 2016-06-14 11:08 | Infectious Disease Consult ---
Date of Encounter: 06/14/16 Time of Encounter: 11:06 Assessment and Plan (1) Hypotension Status: Acute Assessment and plan: Noted on arrival to the ED. Responded well to gentle IV hydration. Resolved. Qualifiers: Hypotension type: unspecified hypotension type Qualified Code(s): I95.9 - Hypotension, unspecified (2) UTI due to extended-spectrum beta lactamase (ESBL) producing Escherichia coli Status: Acute Assessment and plan: Urine culture grew E. coli ESBL. No blood cultures have been drawn. The patient has been on antibiotics for six days now. Continue Ertapenem 500mg PO daily (dosed for low CrCl). Duration of treatment depends on the clinical picture, but likely 14 days. Monitor renal function and dose-adjust antibiotics. (3) Acute cholecystitis due to biliary calculus Status: Acute Assessment and plan: CT of the abdomen and pelvis 06/09/16 showed findings consistent with possible cholecystitis. RUQ UTS completed 06/10/16 confirmed diagnosis of acute cholecystitis. General surgery was consulted. Status post lap cholecystectomy with cholangiogram 06/11/16. KYE drain placed. Large amount of serosanguinous drainage noted coming out around the KYE drain tubing. Clinically appears to be doing well. Management per the general surgery team. (4) S/P laparoscopic cholecystectomy Status: Acute (5) Intractable nausea and vomiting Status: Resolved Assessment and plan: Secondary to acute cholecystitis. Resolved. Qualifiers: Vomiting type: unspecified Qualified Code(s): R11.2 - Nausea with vomiting , unspecified (6) Abdominal pain Status: Acute Assessment and plan: Secondary to acute cholecystitis. Improved, but complains of post-op pain. Management per the surgery team. Qualifiers: Abdominal location: unspecified location Qualified Code(s): R10.9 - Unspecified abdominal pain (7) Conjunctivitis Status: Acute Assessment and plan: Crusted drainage noted to the right eye today. Continue Cipro eye drops as prescribed. Qualifiers: Conjunctivitis type: unspecified Laterality: bilateral Qualified Code(s) : H10.9 - Unspecified conjunctivitis (8) Ulcer of left lower extremity Status: Acute Assessment and plan: Follows with [facility]. Recommend consulting wound care for dressing change recommendations. Clinically does not appear infected, but may benefit from debridement. Qualifiers: Non-pressure ulcer stage: unspecified non-pressure ulcer stage Qualified Code(s): L97.929 - Non-pressure chronic ulcer of unspecified part of left lower leg with unspecified severity (9) Ischemic cardiomyopathy Status: Chronic Assessment and plan: TTE shows EF of 10%. (10) CKD (chronic kidney disease), stage IV Status: Acute Assessment and plan: Serum creatinine appears to be at baseline. Continue to monitor closely and dose-adjust antibiotics. Avoid nephrotoxins as able. (11) IDDM (insulin dependent diabetes mellitus) Status: Chronic Assessment and plan: HgA1c 6.9. Recommend aggressive glucose monitoring and control to promote wound healing and prevent complications. Infectious Disease HPI - Data of Consult Patient: known to practice within the last 3 years Consult date: 06/14/16 Requesting Physician: Kike Toro MD Primary Care Provider: Jennie Washington CNP - Consult Narrative Reason for consult: E. coli ESBL UTI History of present illness: Mr. Mendez is a 70 year old male with an extensive past medical history including A. fib, severe cardiomyopathy with an EF of approximately 10%, CHF, COPD, DVT, PAD, CAD, and diabetes. The patient was admitted to the hospital for for cholelithiasis. We are consulted June 14 for further evaluation and treatment recommendations are ESBL UTI. The patient is a 70-year-old male, known to the infectious disease service as we have been consulted on this case in the past for osteomyelitis of the right foot. The patient presented to the emergency department on the day of admission with complaints of severe abdominal pain, nausea, and vomiting. Upon arrival, the patient was afebrile, but he was mildly hypotensive. White blood cell count was normal. LFTs were mildly elevated. Basic metabolic panel was significant for a serum creatinine of 2.96. Lactic acid was normal. A urinalysis was obtained that was positive for pyuria. Urine culture grew out Escherichia coli ESBL. CT abdomen and pelvis done in the emergency department showed gallstones and possible cholecystitis. The patient was admitted to the hospital and underwent a right upper quadrant ultrasound that revealed acute cholecystitis. General surgery was consulted and despite the patient's high surgical risk, the patient opted to undergo a lap cholecystectomy. The patient had the surgery on June [address] Fajardo. He did well postoperatively. His white blood cell count remains normal. He is afebrile. Currently, he is on IV ertapenem. We've been asked to evaluate and make further recommendations. During my exam today, the patient endorsed a history as stated above. The patient denies any recent fevers or chills or rigors. He denies any headache or neck pain. He denies any congestion, earache, or sore throat. He denies chest pain, shortness of breath, or cough. He does endorse the history of nausea vomiting and severe abdominal pain to the upper abdomen that was sharp in nature prior to his surgery. He does complain of some diffuse abdominal pain at this time, but states that overall is better. He reports that he is passing gas but has not had a bowel movement since surgery. He has a Hall catheter that is patent with clear yellow urine. He does report that he had some difficulty starting his urine stream prior to hospitalization, but denied any dysuria or hematuria. He denies any flank pain. He complains of severe pain to the left lower extremity and states that he has seen podiatry for the wounds and ulcers to his left lower extremity. 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 A complete 10 point review of systems was completed and is otherwise essentially negative except as mentioned above. CC: Kike Toro MD Past Med Surg Social Fam HX - Past Medical History Attestation: Yes The following information was validated with the patient. Source: patient, old records reviewed, nursing notes reviewed Medical history: arthritis, cardiomyopathy, CHF (chronic systolic), COPD, coronary artery disease, DVT, diabetes, GERD, GI bleed, hyperlipidemia, hypertension, myocardial infarction, osteoporosis, peripheral artery disease, renal disease, venous stasis Psychiatric history: no psych history - Past Surgical History Surgical History: angioplasty/stent, arthroscopy, cataract, coronary bypass ( CABG) (2003), LE Bypass, LE vascular intervention, orthopedic, other (left ankle ORIF, amputation of toes on left foot), vascular surgery (aortobifemoral bypass, left femoral to popliteal artery bypass, right below knee amputation), other, AICD (implanted 2003) - Social History Smoking Status: Former smoker Smokeless Tobacco Status: No Alcohol use: none Drug use: none Occupational status: retired Current living situation: Home, With Family Activity Level: Uses cane/walker Recent Out of Country Travel Within the Last 8 Weeks: No Exposure or Possible Exposure to Illness During Travel: No - Family History Father Living Status: Mother Living Status: Hx Family Cardiac Disorders: No Hx Family Cancer: No Hx Family Endocrine Disorder: No Infectious Disease-CN:Meds Aspirin 81 mg PO DAILY 10/30/14 [History] Clopidogrel [Plavix] 75 mg PO DAILY 10/30/14 [History] Pravastatin Sodium 40 mg PO DAILY 10/30/14 [History] Tamsulosin [Flomax] 0.4 mg PO DAILY 10/30/14 [History] Ergocalciferol (VITAMIN D2) [Vitamin D2 (50,000 UNIT)] 50,000 unit PO MCGOWAN [History] Metoprolol XL (24 HR) Succ [Toprol XL] 25 mg PO DAILY 03/05/15 [History] Docusate [Colace] 100 mg PO BID PRN 12/01/15 [History] Nitroglycerin [Nitrostat] 0.4 mg SL AD PRN 12/01/15 [History] Epoetin Jonnie [Procrit] 2,000 unit IJ FR 01/13/16 [History] Promethazine [Phenergan] 12.5 mg PO Q8H PRN 03/08/16 [History] Insulin Glargine,Hum.rec.anlog [Lantus Solostar] 18 unit SQ HS 03/25/16 [History ] Insulin LISPRO [HumaLOG] 5 - 15 units SQ ACHS 03/25/16 [History] Ipratropium/Albuterol Neb [Duoneb] 3 ml IH Q6HR 03/25/16 [History] Furosemide [Lasix] 60 mg PO DAILY 06/10/16 [History] HYDROcodone/Acet 10/325 mg [[facility] 10-325 mg] 1 tab PO QID PRN 06/10/16 [History] Metolazone [Zaroxolyn] 2.5 mg PO MOWEFR 06/10/16 [History] Omeprazole [PriLOSEC] 20 mg PO DAILY 06/10/16 [History] OxyCODONE/APAP 10/325 [Percocet 10/325 MG] 1 tab PO QID PRN 06/10/16 [History] TraZODone 50 mg PO HS 06/10/16 [History] Zolpidem [Ambien] 5 mg PO HS PRN 06/10/16 [History] Allergies No Known Allergies Allergy (Verified 05/18/16 16:53) All systems: reviewed and no additional remarkable complaints except as stated Exam - Constitutional Vitals: Temp Pulse Resp BP Pulse Ox 97.2 F L 82 16 114/43 100 06/14/16 08:00 06/14/16 09:00 06/14/16 09:00 06/14/16 09:00 06/14/16 09:00 General appearance: average body habitus, cooperative, no acute distress - Head Head exam: Present: atraumatic, normal inspection, normocephalic - Eye Eye exam: Present: EOMI, PERRL Pupils: Present: normal accommodation Additional comments: Light yellow crusted drainage noted to the right upper and lower lids. No erythema noted. - ENT ENT exam: Present: mucous membranes moist - Neck Neck exam: Present: normal inspection - Respiratory Respiratory exam: Present: CTAB. Absent: rales, respiratory distress, rhonchi, wheezes - Cardiovascular Cardiovascular exam: Present: irregular rhythm. Absent: tachycardia - GI/Abdominal GI/Abdominal exam: Present: firm, hypoactive bowel sounds, tenderness ( Generalized). Absent: distended Additional comments: KYE drain noted to the RUQ with small amount of sersanguinous drainage noted in the KYE bulb. Dressing around the KYE drain insertion site is saturated with serosanguinous drainage. Stab surgical incisions [employer]IC with wound edges well- approximated. Hall catheter noted to be draining clear yellow urine. - Extremities Exam Extremities exam: Present: tenderness (LLE). Absent: joint swelling Additional comments: Right AKA stump without open wound or warmth. 0.5cm lesion noted to the anterior aspect of the right knee. Wound bed light yellow without erythema or drainage. Non-tender. - Expanded Lower Extremity Exam 1 - Stage II ulcer noted to the dorsal aspect of the left foot. No drainage noted. Wound bed without eschar. 2 - 1cm x 1 cm scabbed lesion noted to the distal aspect of the prior TMA site. No drainage or erythema noted. 3 - 2.5cm x 2.5cm lesion noted to the medial aspect of the left ankle. Dark scab noted. No erythema or drainage. - Neurological Exam Neurological exam: Present: alert, oriented X3, no focal deficits - Psychiatric Psychiatric exam: Present: normal affect, normal mood - Skin Skin exam: Present: dry, intact, normal color, warm Infectious Disease CN: Results - Labs CBC & Chem 7: 06/14/16 04:02 06/15/16 03:30 Cultures: Cultures 06/09/16 23:33 Urine Culture - Final Urine,Clean Catch Escherichia coli ESBL Serology: Serology 06/09/16 Range/Units 23:33 Urine Color Yellow (Yellow) Urine Clarity Turbid A (Clear) Urine pH 6.0 (5.0-8.0) pH Units Ur Specific Tinnie 1.012 (1.010-1.025) Urine Protein 30 H (Neg-Trace) mg/dL Urine Glucose (UA) Normal (Normal) mg/dL Urine Ketones Negative (Negative) mg/dL Urine Blood Moderate H (Negative) Urine Nitrite Negative (Negative) Urine Bilirubin Negative (Negative) Urine Urobilinogen Normal (Normal) mg/dL Ur Leukocyte Esterase Large H (Negative) Urine Microscopic RBC 5-15 H (0-3) per hpf Urine Microscopic WBC TNTC H (0-3) per hpf Ur Squamous Epith Cells Moderate H (None-Few) per lpf Urine Bacteria Many H (None-Few) per hpf Hyaline Casts None Seen (None-Few) per lpf Ur Culture Indicated? YES A (NO) Consult Discharge Plan - Plan Referrals: Jennie Washington CNP [Primary Care Provider] - (Requested 06-11-16)
--- NOTE | 2016-06-14 12:14 | General Surgery Progress Note ---
Date of Encounter: 06/14/16 Time of Encounter: 12:12 - Assessment and Plan (1) Acute cholecystitis due to biliary calculus Current Visit: Yes Status: Acute POD #3 Laparoscopic cholecystectomy and intraoperative cholangiogram, +30% for reoperative abdomen and acute cholecystitis Pt. tolerated the procedure well. Pt. to begin post-operative period in ICU d/t severe systolic heart failure. Cardiology is following not requiring any inotropes at this time He had an increase in KYE drainage yesterday, which was serosanguineous. Today the output is decreased and remains serosanguineous. continue to monitor for hemorrhage remains afebrile Clear liquid diet pain control, antiemetics Subjective Patient reports: feels better Narrative: Patient seen and examined. KYE drainage decreased from yesterday. Objective Vital Signs - Last 8 Hours Temp Pulse Resp BP Pulse Ox 06/14/16 12:07 97.6 F 06/14/16 11:00 76 16 102/48 99 06/14/16 10:00 76 16 99/65 99 06/14/16 09:00 82 16 114/43 100 06/14/16 08:00 97.2 F L 78 16 100/48 99 06/14/16 07:23 97.2 F L 06/14/16 07:00 70 16 96/43 99 06/14/16 06:00 85 17 103/51 98 06/14/16 05:06 81 17 102/54 98 06/14/16 04:20 97.5 F L Intake and Output 06/13/16 06/14/16 06/14/16 23:59 07:59 15:59 Intake Total 104 / 104 720 / 720 Output Total 460 / 460 1330 / 1330 470 / 470 Balance -460 / -460 -1226 / -1226 250 / 250 Intake: IV Fluids 104 / 104 Magnesium Sulfate 2 GM In 104 / 104 Dextrose 5% 100 ML @ 100 mls/hr IVPB ONCE ONE Rx# :[id number] Oral 720 / 720 Output: Catheter 400 / 400 1100 / 1100 450 / 450 Wound Drainage 60 / 60 230 / 230 20 / 20 right upper abdomen 60 / 60 230 / 230 20 / 20 Other: Meal Lunch Percent of Meal Consumed 50% # Bowel Movements 0 Weight 72.62 kg Blood Glucose* 93 187 Patient Weight 06/14/16 23:59 Weight 72.62 kg - Additional Exam - General physical appearance chronically ill - Respiratory crackles: bilateral - Cardiovascular Cardiovascular exam: Present: RRR, no murmurs/rubs/gallops - Abdomen Abdomen: Present: bowel sounds present, soft - Incision Incision: Present: clean and dry (Robson-Mendoza drain with serosanguineous drainage.) - Psychiatric oriented to time, oriented to person, oriented to place, speech is normal, memory intact - Labs 06/14/16 04:02 06/14/16 04:02 Diabetes panel 06/14/16 Range/Units 04:02 Sodium 134 L (136-145) mEq/L Potassium 3.9 (3.5-4.5) mEq/L Chloride 98 (98-109) mEq/L Carbon Dioxide 26 (19-29) mEq/L BUN 71 H (8-26) mg/dL Creatinine 2.47 H (0.72-1.25) mg/dL Glucose 112 H (70-99) mg/dL Calcium 8.0 L (8.6-10.8) mg/dL Calcium panel 06/14/16 Range/Units 04:02 Calcium 8.0 L (8.6-10.8) mg/dL Pituitary panel 06/14/16 Range/Units 04:02 Sodium 134 L (136-145) mEq/L Potassium 3.9 (3.5-4.5) mEq/L Chloride 98 (98-109) mEq/L Carbon Dioxide 26 (19-29) mEq/L BUN 71 H (8-26) mg/dL Creatinine 2.47 H (0.72-1.25) mg/dL Glucose 112 H (70-99) mg/dL Calcium 8.0 L (8.6-10.8) mg/dL Adrenal panel 06/14/16 Range/Units 04:02 Sodium 134 L (136-145) mEq/L Potassium 3.9 (3.5-4.5) mEq/L Chloride 98 (98-109) mEq/L Carbon Dioxide 26 (19-29) mEq/L BUN 71 H (8-26) mg/dL Creatinine 2.47 H (0.72-1.25) mg/dL Glucose 112 H (70-99) mg/dL Calcium 8.0 L (8.6-10.8) mg/dL Consult Discharge Plan - Plan Referrals: Washington,Jennie L, [employer] [Primary Care Provider] - (Requested 06-11-16) - Attending Attestation I examined this patient and my medical decision-making was reviewed with the OUTCOME ANALYST/PA/Advanced Practice Nurse/Resident Physician. I agree with the documented findings, disposition and treatment plan as described except to the extent set forth below. The patient was seen and evaluated with the resident on morning rounds. He is not having any abdominal pain. The Robson-Mendoza drainage is falling off. He is progressing well. Arvind Fajardo MD FACS
--- NOTE | 2016-06-14 12:46 | Palliative Progress Note ---
Date of Encounter: 06/14/16 Time of Encounter: 12:00 - Assessment and plan (1) Goals of care, counseling/discussion Current Visit: Yes Status: Acute Assessment and plan: Patient alone in the room. Alert and on MRSA precautions. Patient open to having conversation. Follow-up regarding advanced directives and he reports that his takes care of all of that stuff. I discussed his desires related to having CPR and mechanical intubation. He reports that he is not sure what he desires and wants to talk more with . I explained all code status information and will make an attempt to call his to f/u on advanced directives. Remains FULL CODE per his current wishes. (2) Abdominal pain Current Visit: No Status: Acute Assessment and plan: Patient has utilized 2 doses of morphine in past 24 hrs. Patient is POD day #1. Reports tenderness at surgical site. Dressing CDI. Qualifiers: Abdominal location: lower abdomen, unspecified Qualified Code(s): R10.30 - Lower abdominal pain, unspecified (3) Nausea Current Visit: No Status: Acute Assessment and plan: Patient reports decrease in nausea. No zofran given in past 24hrs. Diet advanced and tolerating food well. - Time Spent With Patient Total time spent is greater than 50% in coordination of care (as documented) at patient's floor/unit and/or counseling patient: 25 - 35 minutes - Subjective Interval history: Patient sitting up in bed and c/o slight tenderness to surgical site to RUQ. KYE drain with small amount serosanguineous drainage. Reports feeling a little nauseated but reports that it is better that yesterday. Chart reviewed and assessment complete. - Constitutional Vitals: Abnormal lab results RBC 3.15 M/mcL (4.19-5.50) L 06/14/16 04:02 Hgb 8.8 g/dL (12.9-16.9) L 06/14/16 04:02 Hct 27.1 % (37.5-50.1) L 06/14/16 04:02 MCH 27.9 pg (28.0-33.3) L 06/14/16 04:02 RDW 17.9 % (11.5-14.5) H 06/14/16 04:02 Plt Count 118 K/mcL (140-400) L 06/14/16 04:02 PT 17.0 Seconds (9.4-12.1) H 06/09/16 21:56 Sodium 134 mEq/L (136-145) L 06/14/16 04:02 BUN 71 mg/dL (8-26) H 06/14/16 04:02 Creatinine 2.47 mg/dL (0.72-1.25) H 06/14/16 04:02 Est GFR ( Amer) 32 (> 60) L 06/14/16 04:02 Est GFR (Non-Af Amer) 26 (> 60) L 06/14/16 04:02 BUN/Creatinine Ratio 29 (6-26) H 06/14/16 04:02 Glucose 112 mg/dL (70-99) H 06/14/16 04:02 POC Glucose 93 (58-89) H 06/13/16 23:31 Hemoglobin A1c 6.9 % (-5.6) H 06/10/16 07:03 Calcium 8.0 mg/dL (8.6-10.8) L 06/14/16 04:02 Magnesium 1.4 mg/dL (1.6-2.6) L 06/14/16 04:02 AST 71 Units/L (5-34) H 06/11/16 07:11 Alkaline Phosphatase 127 Units/L (38-126) H 06/11/16 07:11 Troponin I 0.12 ng/mL (0-0.03) H* 06/10/16 18:50 Serum Total Protein 5.8 g/dL (6.0-8.3) L 06/11/16 07:11 Albumin 2.5 g/dL (3.5-5.0) L 06/11/16 07:11 Albumin/Globulin Ratio 0.8 (1.1-2.2) L 06/11/16 07:11 Amylase 24 Units/L (25-125) L 06/09/16 21:56 Lipase < 4 Units/L (8-78) L 06/09/16 21:56 Urine Clarity Turbid (Clear) A 06/09/16 23:33 Urine Protein 30 mg/dL (Neg-Trace) H 06/09/16 23:33 Urine Blood Moderate (Negative) H 06/09/16 23:33 Ur Leukocyte Esterase Large (Negative) H 06/09/16 23:33 Urine Microscopic RBC 5-15 per hpf (0-3) H 06/09/16 23:33 Urine Microscopic WBC TNTC per hpf (0-3) H 06/09/16 23:33 Ur Squamous Epith Cells Moderate per lpf (None-Few) H 06/09/16 23:33 Urine Bacteria Many per hpf (None-Few) H 06/09/16 23:33 Ur Culture Indicated? YES (NO) A 06/09/16 23:33 - Head Head exam: Present: atraumatic - Eye Eye exam: Present: PERRL Pupils: Present: PERRL - ENT ENT exam: Present: mucous membranes moist - Neck Neck exam: Present: full ROM - Respiratory Respiratory exam: Present: decreased breath sounds - Expanded Respiratory Exam Location: decreased breath sounds: Left, Right, Lower (Instructed to CDB) - Cardiovascular Cardiovascular exam: Present: +S1, +S2 - Expanded Cardiovascular Exam Peripheral pulses: 1+: Femoral (L) PM, Femoral (R) PM, 2+: Carotid (L) PM, Carotid (R) PM, Radial (L), Radial (R) - Extremities Exam Additional comments: Right BKA stump dressing clean dry and intact with socking. Left foot dressing with kerlex and elly wrap. - Neurological Exam Neurological exam: Present: alert, oriented X3 - Psychiatric Psychiatric exam: Present: normal affect - Skin Skin exam: Present: dry, warm Palliative Quality Palliative Quality: Screen for Code Status: Yes, Screen for Goals of Care: Yes, Screen for Pain: Yes, If Pain Regimen Started, Initiate Bowel Regimen: NA, Screen for Nausea/Vomitting: Yes - Labs CBC & Chem 7: 06/14/16 04:02 06/14/16 04:02 Labs: Laboratory Results - last 24 hr 06/13/16 06/13/16 06/13/16 07:14 11:48 15:27 WBC RBC Hgb Hct MCV MCH MCHC RDW Plt Count MPV Immature Gran % Seg Neutrophils % Lymphocytes % Monocytes % Eosinophils % Basophils % Neutrophils # Lymphocytes # Monocytes # Eosinophils # Basophils # Platelet Estimate Sodium Potassium Chloride Carbon Dioxide BUN Creatinine Est GFR ( Amer) Est GFR (Non-Af Amer) BUN/Creatinine Ratio Glucose POC Glucose 124 H 66 61 Calculated Osmolality Calcium Magnesium 06/13/16 06/14/16 06/14/16 23:31 04:02 04:02 WBC 5.3 RBC 3.15 L Hgb 8.8 L Hct 27.1 L MCV 86.0 MCH 27.9 L MCHC 32.5 RDW 17.9 H Plt Count 118 L MPV 11.1 Immature Gran % 0.9 Seg Neutrophils % 72.9 Lymphocytes % 11.7 Monocytes % 11.6 Eosinophils % 2.3 Basophils % 0.6 Neutrophils # 3.9 Lymphocytes # 0.6 Monocytes # 0.6 Eosinophils # 0.1 Basophils # 0.0 Platelet Estimate Normal Sodium 134 L Potassium 3.9 Chloride 98 Carbon Dioxide 26 BUN 71 H Creatinine 2.47 H Est GFR ( Amer) 32 L Est GFR (Non-Af Amer) 26 L BUN/Creatinine Ratio 29 H Glucose 112 H POC Glucose 93 H Calculated Osmolality 300 Calcium 8.0 L Magnesium 1.4 L - ABG Interpretation ABG results: PT/INR, D-dimer PT 17.0 Seconds (9.4-12.1) H 06/09/16 21:56 Consult Discharge Plan - Plan Referrals: Jennie Washington CNP [Primary Care Provider] - (Requested 06-11-16)
[2016-06-14] MEDS: metOLazone 2.5 MG TABLET PO SCH (13:05)
--- NOTE | 2016-06-14 15:41 | Event Note ---
Date of Encounter: 06/14/16 Time of Encounter: 14:00 Patients brought in advanced directives. Made copies and placed in file and EMR to be scanned. Reviewed content with and patient was sleeping. Attempted to wake patient up but he refused too. Discussed desires for no intubation but he would not clarify his desires with . I instructed her to have this discussion with him once he awakens more and that the PC team would once again f/u tomorrow. She verbalized understanding.
[2016-06-14] MEDS: traZODone 50 MG TABLET PO SCH (21:12)
[2016-06-14] MEDS: Insulin DETEMIR 100 UNIT/ML X5UNITS SQ SCH (21:12)
[2016-06-15] MEDS: Insulin LISPRO 300 UNITS/3 ML VIAL SQ SCH ×4 (00:15→21:37)
[2016-06-15] MEDS: Ciprofloxacin OPTH Soln 2.5 ML BOTTLE RIGHT EYE SCH ×7 (00:15→21:31)
[2016-06-15] MEDS: Ciprofloxacin OPTH Soln 2.5 ML BOTTLE LEFT EYE SCH ×6 (00:15→21:32)
[2016-06-15] MEDS: *HR* Morphine 2 MG/ML SYRINGE IVP PRN ×2 (00:26→06:12)
[2016-06-15] MEDS: Ipratropium/Albuterol Neb 3 ML IH SCH ×4 (03:11→23:32)
[2016-06-15 04:23] LABS: Calcium 7.8 mg/dL (8.6-10.8); Magnesium 1.6 mg/dL (1.6-2.6)
[2016-06-15 04:24] LABS: Potassium 3.6 mEq/L (3.5-4.5)
[2016-06-15] MEDS: *HR* Heparin 5,000 UNIT/ML VIAL SQ SCH ×2 (06:00→16:47)
[2016-06-15] MEDS: Furosemide 20 MG TABLET PO SCH (08:10)
[2016-06-15] MEDS: Metoprolol XL (24 HR) Succ 25 MG TAB.ER.24H PO SCH (08:11)
--- NOTE | 2016-06-15 08:21 | Pulmonology Progress Note ---
<Heath Pabon - Last Filed: 06/15/16 11:13> Date of Encounter: 06/15/16 Time of Encounter: 08:21 Assessment and Plan (1) Hypotension Current Visit: Yes Status: Acute SBP remains above 90, patient has a history of ischemic cardiomyopathy status post ICD placement, recent echo showed the left ventricular ejection fraction of 10-15%, after laparoscopic cholecystectomy, patient was transferred to ICU for close blood pressure monitoring, now the patient is off of dobutamine drip, A-line removed, he was started on low dose PO lasix and toprol xl home dosage, hemodynamically stable, pt will be transferred from ICU to medical floor today. Qualifiers: Hypotension type: unspecified hypotension type Qualified Code(s): I95.9 - Hypotension, unspecified (2) UTI due to extended-spectrum beta lactamase (ESBL) producing Escherichia coli Current Visit: Yes Status: Acute Urine culture came back positive for ESBL producing Escherichia coli, resistant to Rocephin and Cipro, sensitive to ertapenem therefore he was started on ertapenem IV, ID has been consulted, likely he will need total of 14 days of abx , clinically he is not septic. (3) Ischemic cardiomyopathy Current Visit: Yes Status: Chronic Hx of CAD, NH, CABG, s/p ICD placement, recent echo showed LVEF of 10 to 15%, SBP has improved to above 90, now off of dobutamine drip, started on low dose lasix and toprol xl, good urine output w/in last 24 hrs, negative 1.3L fluid balance, con't to closely monitor his VS, palliative has been consulted for goal of care. (4) S/P laparoscopic cholecystectomy Current Visit: Yes Status: Acute Patient initially came to the hospital with right upper quadrant abdominal pain , CT of abdomen showed acute cholecystitis, patient was taken to the OR for laparoscopic cholecystectomy, postop day 4, patient has been doing well post operatively, systolic blood pressure has improved to above 90, now off of dobutamine drip, surgery has been following, continue postop care and IV pain/ antiemetic meds prn. (5) CKD (chronic kidney disease), stage IV Current Visit: Yes Status: Acute Patient's serum creatinine improved with good urine output, -1.3 L fluid balance , patient was started on low-dose Lasix by mouth, continue to closely monitor patient's renal function and avoid nephrotoxic agents. (6) Type 2 diabetes mellitus Current Visit: Yes Status: Chronic Hypoglycemic this AM, will hold basal dosage, since he is eating now, will switch to accucheck ACHS with SSI. Qualifiers: Diabetes mellitus complication status: with kidney complications Diabetes mellitus complication detail: with chronic kidney disease Diabetes mellitus nursing home insulin use: with intermediate teacher use Chronic kidney disease stage: stage 4 (severe) Qualified Code(s): E11.22 - Type 2 diabetes mellitus with diabetic chronic kidney disease; N18.4 - Chronic kidney disease, stage 4 (severe); Z79.4 - tank terminal gauger (current) use of insulin (7) DVT prophylaxis Current Visit: Yes Status: Acute Heparin SQ BID. Subjective Principal diagnosis: Acute cholecystitis Interval history: Patient is a 70 years old male with a history of ischemic cardiomyopathy status post ICD placement, recent echo showed left ventricular ejection fraction of 10- 15%, admitted to the hospital for acute cholecystitis, status post laparoscopic cholecystectomy and he was transferred to ICU for hypotension. Patient seen and examined. This morning patient was wake, tolerated breakfast fine, abd pain better than yesterday, still no gas or bowel movement, denies chest pain or shortness of breath. Objective PUL Vital signs: Last Vital Signs Temp 98.0 F 06/15/16 04:00 Pulse 68 06/15/16 05:58 Resp 14 06/15/16 05:58 BP 107/46 06/15/16 05:58 Pulse Ox 97 06/15/16 05:58 General appearance: no acute distress, alert Eyes: nonicteric ENT: oropharynx moist Neck: supple Effort: normal Auscultation: bilateral: rales (at base) Cardiovascular: regular rate and rhythm Gastrointestinal: hypoactive bowel sounds, soft, tender (around surgical site), non-distended, other (dressing c/d/i in middle of abd) Integumentary: normal Extremities: other (Right below the knee amputation, skin intact. Left forefoot amputation, dressing on, chronic ulcers do not look infected.) normal mental status, non-focal exam, pupils equal and round, CN II-XII normal mood appropriate, affect normal Results - Laboratory Findings CBC and BMP: 06/14/16 04:02 06/15/16 03:30 PT/INR, D-dimer PT 17.0 Seconds (9.4-12.1) H 06/09/16 21:56 Abnormal lab findings: Abnormal lab results RBC 3.15 M/mcL (4.19-5.50) L 06/14/16 04:02 Hgb 8.8 g/dL (12.9-16.9) L 06/14/16 04:02 Hct 27.1 % (37.5-50.1) L 06/14/16 04:02 MCH 27.9 pg (28.0-33.3) L 06/14/16 04:02 RDW 17.9 % (11.5-14.5) H 06/14/16 04:02 Plt Count 118 K/mcL (140-400) L 06/14/16 04:02 PT 17.0 Seconds (9.4-12.1) H 06/09/16 21:56 BUN 67 mg/dL (8-26) H 06/15/16 03:30 Creatinine 2.01 mg/dL (0.72-1.25) H 06/15/16 03:30 Est GFR ( Amer) 40 (> 60) L 06/15/16 03:30 Est GFR (Non-Af Amer) 33 (> 60) L 06/15/16 03:30 BUN/Creatinine Ratio 33 (6-26) H 06/15/16 03:30 Glucose 53 mg/dL (70-99) L 06/15/16 03:30 POC Glucose 33 (58-89) L* 06/15/16 05:28 Hemoglobin A1c 6.9 % (-5.6) H 06/10/16 07:03 Calculated Osmolality 301 (280-300) H 06/15/16 03:30 Calcium 7.8 mg/dL (8.6-10.8) L 06/15/16 03:30 AST 71 Units/L (5-34) H 06/11/16 07:11 Alkaline Phosphatase 127 Units/L (38-126) H 06/11/16 07:11 Troponin I 0.12 ng/mL (0-0.03) H* 06/10/16 18:50 Serum Total Protein 5.8 g/dL (6.0-8.3) L 06/11/16 07:11 Albumin 2.5 g/dL (3.5-5.0) L 06/11/16 07:11 Albumin/Globulin Ratio 0.8 (1.1-2.2) L 06/11/16 07:11 Amylase 24 Units/L (25-125) L 06/09/16 21:56 Lipase < 4 Units/L (8-78) L 06/09/16 21:56 Urine Clarity Turbid (Clear) A 06/09/16 23:33 Urine Protein 30 mg/dL (Neg-Trace) H 06/09/16 23:33 Urine Blood Moderate (Negative) H 06/09/16 23:33 Ur Leukocyte Esterase Large (Negative) H 06/09/16 23:33 Urine Microscopic RBC 5-15 per hpf (0-3) H 06/09/16 23:33 Urine Microscopic WBC TNTC per hpf (0-3) H 06/09/16 23:33 Ur Squamous Epith Cells Moderate per lpf (None-Few) H 06/09/16 23:33 Urine Bacteria Many per hpf (None-Few) H 06/09/16 23:33 Ur Culture Indicated? YES (NO) A 06/09/16 23:33 - Clinical Findings Intake & Output: Intake & Output 06/14/16 06/15/16 06/15/16 23:59 07:59 15:59 Intake Total 120 / 120 Output Total 425 / 425 1025 / 1025 Balance -425 / -425 -905 / -905 Weight 74 kg Consult Discharge Plan - Plan Referrals: [place],Jennie Wang FOREPART ROUNDER [Primary Care Provider] - (Requested 06-11-16) <Nancy Young - Last Filed: 06/15/16 15:57> Objective PUL Vital signs: Last Vital Signs Temp 96.8 F L 06/15/16 12:00 Pulse 80 06/15/16 14:00 Resp 14 06/15/16 14:00 BP 110/53 06/15/16 14:00 Pulse Ox 99 06/15/16 14:00 Results - Laboratory Findings CBC and BMP: 06/14/16 04:02 06/15/16 03:30 PT/INR, D-dimer PT 17.0 Seconds (9.4-12.1) H 06/09/16 21:56 Abnormal lab findings: Abnormal lab results RBC 3.15 M/mcL (4.19-5.50) L 06/14/16 04:02 Hgb 8.8 g/dL (12.9-16.9) L 06/14/16 04:02 Hct 27.1 % (37.5-50.1) L 06/14/16 04:02 MCH 27.9 pg (28.0-33.3) L 06/14/16 04:02 RDW 17.9 % (11.5-14.5) H 06/14/16 04:02 Plt Count 118 K/mcL (140-400) L 06/14/16 04:02 PT 17.0 Seconds (9.4-12.1) H 06/09/16 21:56 BUN 67 mg/dL (8-26) H 06/15/16 03:30 Creatinine 2.01 mg/dL (0.72-1.25) H 06/15/16 03:30 Est GFR ( Amer) 40 (> 60) L 06/15/16 03:30 Est GFR (Non-Af Amer) 33 (> 60) L 06/15/16 03:30 BUN/Creatinine Ratio 33 (6-26) H 06/15/16 03:30 Glucose 53 mg/dL (70-99) L 06/15/16 03:30 POC Glucose 134 (58-89) H 06/15/16 10:50 Hemoglobin A1c 6.9 % (-5.6) H 06/10/16 07:03 Calculated Osmolality 301 (280-300) H 06/15/16 03:30 Calcium 7.8 mg/dL (8.6-10.8) L 06/15/16 03:30 AST 71 Units/L (5-34) H 06/11/16 07:11 Alkaline Phosphatase 127 Units/L (38-126) H 06/11/16 07:11 Troponin I 0.12 ng/mL (0-0.03) H* 06/10/16 18:50 Serum Total Protein 5.8 g/dL (6.0-8.3) L 06/11/16 07:11 Albumin 2.5 g/dL (3.5-5.0) L 06/11/16 07:11 Albumin/Globulin Ratio 0.8 (1.1-2.2) L 06/11/16 07:11 Amylase 24 Units/L (25-125) L 06/09/16 21:56 Lipase < 4 Units/L (8-78) L 06/09/16 21:56 Urine Clarity Turbid (Clear) A 06/09/16 23:33 Urine Protein 30 mg/dL (Neg-Trace) H 06/09/16 23:33 Urine Blood Moderate (Negative) H 06/09/16 23:33 Ur Leukocyte Esterase Large (Negative) H 06/09/16 23:33 Urine Microscopic RBC 5-15 per hpf (0-3) H 06/09/16 23:33 Urine Microscopic WBC TNTC per hpf (0-3) H 06/09/16 23:33 Ur Squamous Epith Cells Moderate per lpf (None-Few) H 06/09/16 23:33 Urine Bacteria Many per hpf (None-Few) H 06/09/16 23:33 Ur Culture Indicated? YES (NO) A 06/09/16 23:33 - Clinical Findings Intake & Output: Intake & Output 06/14/16 06/15/16 06/15/16 23:59 07:59 15:59 Intake Total 120 / 120 300 / 300 Output Total 425 / 425 1025 / 1025 520 / 520 Balance -425 / -425 -905 / -905 -220 / -220 Weight 74 kg - Attending Attestation I examined this patient and my medical decision-making was reviewed with the ALARM ADJUSTER/PA/Advanced Practice Nurse/Resident Physician. I agree with the documented findings, disposition and treatment plan as described except to the extent set forth below. Patient seen and examined. Labs, radiology, chart personally reviewed. 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
--- NOTE | 2016-06-15 10:04 | General Surgery Progress Note ---
Date of Encounter: 06/15/16 Time of Encounter: 10:02 - Assessment and Plan (1) Acute cholecystitis due to biliary calculus Current Visit: Yes Status: Acute POD #4 Laparoscopic cholecystectomy and intraoperative cholangiogram, +30% for reoperative abdomen and acute cholecystitis Pt. tolerated the procedure well. Pt. to begin post-operative period in ICU d/t severe systolic heart failure. Cardiology is following not requiring any inotropes at this time KYE drainage output remains stable over last 48hrs, about 390ml out, is serosanguineous. continue to monitor for hemorrhage Has been having flatus and has bowel sounds, but no bm yet. remains afebrile To be transferred out of ICU when pulmonology/cardiology feels is approrpiate. full liquid diet pain control, antiemetics Subjective Patient reports: feels better, still having pain, tolerating liquids well, flatus, no bowel movement, afebrile Narrative: Patient seen and examined. Is feeling better. Tolerating full liquids without nause/vomiting. NG remains out. No BM yet, but is having flatus, and has positive bowel sounds. Objective Vital Signs - Last 8 Hours Temp Pulse Resp BP Pulse Ox 06/15/16 09:00 83 14 93/50 98 06/15/16 08:00 97.9 F 64 14 94/49 100 06/15/16 07:00 69 14 94/43 100 06/15/16 05:58 68 14 107/46 97 06/15/16 05:00 77 15 101/49 96 06/15/16 04:00 98.0 F 76 14 97/51 97 06/15/16 03:00 76 20 99/55 98 Intake and Output 06/14/16 06/15/16 06/15/16 23:59 07:59 15:59 Intake Total 120 / 120 300 / 300 Output Total 425 / 425 1025 / 1025 340 / 340 Balance -425 / -425 -905 / -905 -40 / -40 Intake: Oral 120 / 120 300 / 300 Output: Catheter 325 / 325 775 / 775 200 / 200 Wound Drainage 100 / 100 250 / 250 140 / 140 right upper abdomen 100 / 100 250 / 250 140 / 140 Other: Meal Breakfast Percent of Meal Consumed 75% Weight 74 kg Blood Glucose* 159 Patient Weight 06/15/16 23:59 Weight 74 kg - General physical appearance no distress, chronically ill - Eyes normal ocular movement - Neck Neck exam: trachea midline - Respiratory normal expansion, clear to auscultation - Cardiovascular Cardiovascular exam: Present: RRR - Abdomen Abdomen: Present: bowel sounds present, soft, tender (expected post-op tenderness) - Neurologic CN 2-12 grossly intact - Psychiatric oriented to time, oriented to person, oriented to place - Labs 06/14/16 04:02 06/15/16 03:30 Diabetes panel 06/15/16 Range/Units 03:30 Sodium 137 (136-145) mEq/L Potassium 3.6 (3.5-4.5) mEq/L Chloride 101 (98-109) mEq/L Carbon Dioxide 27 (19-29) mEq/L BUN 67 H (8-26) mg/dL Creatinine 2.01 H (0.72-1.25) mg/dL Glucose 53 L (70-99) mg/dL Calcium 7.8 L (8.6-10.8) mg/dL Calcium panel 06/15/16 Range/Units 03:30 Calcium 7.8 L (8.6-10.8) mg/dL Pituitary panel 06/15/16 Range/Units 03:30 Sodium 137 (136-145) mEq/L Potassium 3.6 (3.5-4.5) mEq/L Chloride 101 (98-109) mEq/L Carbon Dioxide 27 (19-29) mEq/L BUN 67 H (8-26) mg/dL Creatinine 2.01 H (0.72-1.25) mg/dL Glucose 53 L (70-99) mg/dL Calcium 7.8 L (8.6-10.8) mg/dL Adrenal panel 06/15/16 Range/Units 03:30 Sodium 137 (136-145) mEq/L Potassium 3.6 (3.5-4.5) mEq/L Chloride 101 (98-109) mEq/L Carbon Dioxide 27 (19-29) mEq/L BUN 67 H (8-26) mg/dL Creatinine 2.01 H (0.72-1.25) mg/dL Glucose 53 L (70-99) mg/dL Calcium 7.8 L (8.6-10.8) mg/dL Consult Discharge Plan - Plan Referrals: Jennie Washington CNP [Primary Care Provider] - (Requested 06-11-16) - Attending Attestation I examined this patient and my medical decision-making was reviewed with the RECEPTION CLERK/PA/Advanced Practice Nurse/Resident Physician. I agree with the documented findings, disposition and treatment plan as described except to the extent set forth below. The patient is seen and evaluated with resident on morning rounds. He has essentially recovered from laparoscopic cholecystectomy. His abdominal pain is gone. He is approaching his baseline but continues to suffer from severe systolic heart failure as well as chronic wound infection on his lower extremity amputation.
--- NOTE | 2016-06-15 10:17 | Infectious Disease Progress No ---
Date of Encounter: 06/15/16 Time of Encounter: 10:14 - Assessment and Plan (1) Hypotension Current Visit: Yes Status: Acute Noted on arrival to the ED. Responded well to gentle IV hydration. Resolved. Qualifiers: Qualified Code(s): I95.9 - Hypotension, unspecified (2) UTI due to extended-spectrum beta lactamase (ESBL) producing Escherichia coli Current Visit: Yes Status: Acute Urine culture grew E. coli ESBL. No blood cultures have been drawn. The patient has been on antibiotics for six days now. Continue Ertapenem 500mg PO daily (dosed for low CrCl). Duration of treatment depends on the clinical picture, but likely 14 days. Monitor renal function and dose-adjust antibiotics. (3) Acute cholecystitis due to biliary calculus Current Visit: Yes Status: Acute CT of the abdomen and pelvis 06/09/16 showed findings consistent with possible cholecystitis. RUQ UTS completed 06/10/16 confirmed diagnosis of acute cholecystitis. General surgery was consulted. Status post lap cholecystectomy with cholangiogram 06/11/16. KYE drain placed. Large amount of serosanguinous drainage noted coming out around the KYE drain tubing. Clinically appears to be doing well. Management per the general surgery team. (4) S/P laparoscopic cholecystectomy Current Visit: Yes Status: Acute (5) Intractable nausea and vomiting Current Visit: Yes Status: Resolved Secondary to acute cholecystitis. Resolved. Qualifiers: Qualified Code(s): R11.2 - Nausea with vomiting, unspecified (6) Abdominal pain Current Visit: Yes Status: Acute Secondary to acute cholecystitis. Improved, but complains of post-op pain. Management per the surgery team. Qualifiers: Qualified Code(s): R10.9 - Unspecified abdominal pain (7) Conjunctivitis Current Visit: Yes Status: Acute Continue Cipro eye drops as prescribed. Improved. Qualifiers: Qualified Code(s): H10.9 - Unspecified conjunctivitis (8) Ulcer of left lower extremity Current Visit: Yes Status: Acute Follows with [facility]. Recommend consulting wound care for dressing change recommendations. Clinically does not appear infected, but may benefit from debridement. Qualifiers: Qualified Code(s): L97.929 - Non-pressure chronic ulcer of unspecified part of left lower leg with unspecified severity (9) Ischemic cardiomyopathy Current Visit: Yes Status: Chronic TTE shows EF of 10%. (10) CKD (chronic kidney disease), stage IV Current Visit: Yes Status: Acute Serum creatinine appears to be at baseline. Continue to monitor closely and dose-adjust antibiotics. Avoid nephrotoxins as able. (11) IDDM (insulin dependent diabetes mellitus) Current Visit: Yes Status: Chronic HgA1c 6.9. Recommend aggressive glucose monitoring and control to promote wound healing and prevent complications. - Subjective Interval history: Patient seen and examined. No acute events noted overnight. Patient resting quietly in bed, comfortable. Denies fevers or chills. Denies chest pain, shortness of breath, or cough. Denies nausea, vomiting, or diarrhea. Was able to eat breakfast this morning without a problem. +flatus, no BM since surgery. Hall catheter remains in place, patent. Complains of pain to the left ankle and foot. Denies oral thrush. Infect Dis PN-Objective Data - Labs CBC & Chem 7: 06/14/16 04:02 06/15/16 03:30 Labs: Laboratory Results - last 24 hr 06/14/16 06/14/16 06/14/16 11:47 18:32 23:55 Sodium Potassium Chloride Carbon Dioxide BUN Creatinine Est GFR ( Amer) Est GFR (Non-Af Amer) BUN/Creatinine Ratio Glucose POC Glucose 187 H 177 H 159 H Calculated Osmolality Calcium Magnesium 06/15/16 06/15/16 03:30 05:28 Sodium 137 Potassium 3.6 Chloride 101 Carbon Dioxide 27 BUN 67 H Creatinine 2.01 H Est GFR ( Amer) 40 L Est GFR (Non-Af Amer) 33 L BUN/Creatinine Ratio 33 H Glucose 53 L POC Glucose 33 L* Calculated Osmolality 301 H Calcium 7.8 L Magnesium 1.6 Exam - Constitutional Vitals: Temp Pulse Resp BP Pulse Ox 97.9 F 83 14 93/50 98 06/15/16 08:00 06/15/16 09:00 06/15/16 09:00 06/15/16 09:00 06/15/16 09:00 General appearance: average body habitus, cooperative, no acute distress - Head Head exam: Present: atraumatic, normal inspection, normocephalic - Eye Eye exam: Present: EOMI, normal appearance, PERRL Pupils: Present: normal accommodation - ENT ENT exam: Present: mucous membranes moist - Neck Neck exam: Present: normal inspection - Respiratory Respiratory exam: Present: CTAB. Absent: rales, respiratory distress, rhonchi, wheezes - Cardiovascular Cardiovascular exam: Present: RRR, +S1, +S2 - GI/Abdominal GI/Abdominal exam: Present: normal bowel sounds, soft, tenderness (generalized) . Absent: distended Additional comments: KYE drain to the RUQ with moderate amount of sero-sanguinous drainage noted. Dressing with small amount of shadow drainage. Stab surgical incisions intact without erythema or drainage. Hall catheter noted to be draining clear yellow urine. - Extremities Exam Extremities exam: Present: tenderness (Left ankle/foot). 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 Right anterior knee dressing C/D/ I. Left lower leg dressing C/D/I. - Neurological Exam Neurological exam: Present: alert, oriented X3, no focal deficits - Psychiatric Psychiatric exam: Present: normal affect, normal mood - Skin Skin exam: Present: dry, intact, normal color, warm Consult Discharge Plan - Plan Referrals: Jennie Washington BLOW MOLDING MACHINE OPERATOR [Primary Care Provider] - (Requested 06-11-16)
[2016-06-15] MEDS ORDERED: Insulin LISPRO 300 UNITS/3 ML VIAL SQ SCH ×2 (11:30→21:00)
[2016-06-15] MEDS ORDERED: Naloxone 0.4 MG/ML INJ IVP PRN (14:00)
[2016-06-15] MEDS ORDERED: Nitroglycerin 0.4 MG TAB.SUBL SL PRN (14:00)
[2016-06-15] MEDS ORDERED: *HR* Dextrose 50 % in Water (Syg) 50 ML SYRINGE IVP PRN (14:00)
[2016-06-15] MEDS ORDERED: Dextrose Gel 15 GM PO PRN ×2 (14:00)
[2016-06-15] MEDS ORDERED: D5% in Water 1,000 ML IV PRN (14:00)
--- NOTE | 2016-06-15 14:37 | Event Note ---
Date of Encounter: 06/15/16 Time of Encounter: 14:22 Met with Mr. Mendez and his , Manuela, to discuss goals of care. Mr. Mendez once again indicated that he will be returning home with home health services. His was able to bring advanced directives in yesterday. Discussed code status options with and Mrs. Mendez. Mr. Mendez was very clear that he would like to remain FULL CODE with an active ICD. Cardiology follows as an outpatient. The palliative care team will sign off. Please re-consult as needed.
[2016-06-15] MEDS ORDERED: Insulin DETEMIR 100 UNIT/ML X5UNITS SQ SCH (21:00)
[2016-06-15] MEDS: traZODone 50 MG TABLET PO SCH (21:31)
[2016-06-16] MEDS: Ciprofloxacin OPTH Soln 2.5 ML BOTTLE LEFT EYE SCH ×6 (00:34→20:45)
[2016-06-16] MEDS: Ciprofloxacin OPTH Soln 2.5 ML BOTTLE RIGHT EYE SCH ×5 (03:16→20:44)
[2016-06-16] MEDS: *HR* Morphine 2 MG/ML SYRINGE IVP PRN ×3 (03:17→20:45)
[2016-06-16] MEDS: Ipratropium/Albuterol Neb 3 ML IH SCH ×4 (04:25→23:02)
[2016-06-16 05:01] LABS: Basophils % 0.5 %; Eosinophils # 0.2 K/mcL (0.0-0.6); Eosinophils % 2.6 %; Hemoglobin 9.8 g/dL (12.9-16.9); Lymphocytes # 0.8 K/mcL (0.6-4.6); Lymphocytes % 13.3 %; Mean Corpuscular HGB Conc 31.6 g/dL (31.6-35.5); Mean Corpuscular Hemoglobin 27.4 pg (28.0-33.3); Mean Corpuscular Volume 86.6 fL (83.0-100.0); Mean Platelet Volume 10.5 fL (9.4-12.4); Monocytes # 0.5 K/mcL (0.0-1.3); Monocytes % 8.4 %; Neutrophils # 4.3 K/mcL (1.6-8.9); Platelet Count 138 K/mcL (140-400); Red Blood Count 3.58 M/mcL (4.19-5.50); Red Cell Distribution Width 17.8 % (11.5-14.5); Segmented Neutrophils % 74.2 %
[2016-06-16 05:20] LABS: Calcium 8.1 mg/dL (8.6-10.8); Potassium 4.1 mEq/L (3.5-4.5)
[2016-06-16] MEDS: *HR* Heparin 5,000 UNIT/ML VIAL SQ SCH ×2 (05:46→17:34)
[2016-06-16] MEDS: Insulin LISPRO 300 UNITS/3 ML VIAL SQ SCH ×4 (08:05→20:46)
[2016-06-16] MEDS: Metoprolol XL (24 HR) Succ 25 MG TAB.ER.24H PO SCH (08:06)
[2016-06-16] MEDS: Furosemide 20 MG TABLET PO SCH (08:06)
--- NOTE | 2016-06-16 11:40 | General Surgery Progress Note ---
Date of Encounter: 06/16/16 Time of Encounter: 11:35 - Assessment and Plan (1) Acute cholecystitis due to biliary calculus Current Visit: Yes Status: Acute POD #5 Laparoscopic cholecystectomy and intraoperative cholangiogram, +30% for reoperative abdomen and acute cholecystitis Pt. tolerated the procedure well. Improving. He was transferred to [facility] from ICU yesterday KYE drainage last 24 hrs 710ml, is serosanguineous. continue to monitor for hemorrhage Has been having a lot of flatus and has bowel sounds, but no bm yet. remains afebrile Will add miralax one time dose and docuste BID pain control, antiemetics Subjective Patient reports: feels better, still having pain, pain is less, tolerating a regular diet Narrative: Patient seen and examined. Feeling better. Tolerating soft foods. No nausea. No BM but he is having flatus and bowel sounds. Afebrile. WBC 5.8 Objective Vital Signs - Last 8 Hours Temp Pulse Resp BP Pulse Ox 06/16/16 07:18 98.7 F 80 16 107/65 96 06/16/16 05:09 98.0 F 85 16 103/58 98 Intake and Output 06/15/16 06/16/16 06/16/16 23:59 07:59 15:59 Intake Total 340 / 340 Output Total 640 / 640 940 / 940 550 / 550 Balance -640 / -640 -940 / -940 -210 / -210 Intake: IV Fluids 100 / 100 INVanz 500 MG In 0.9 % 100 / 100 Sodium Chloride 100 ML @ 100 mls/hr IVPB DAILY [facility] Rx#:[id number] Oral 240 / 240 Output: Urine 500 / 500 Urethral (Hall) 500 / 500 Catheter 400 / 400 700 / 700 Wound Drainage 240 / 240 240 / 240 50 / 50 right upper abdomen 240 / 240 240 / 240 50 / 50 Other: Meal Breakfast Percent of Meal Consumed 15% # Bowel Movements 0 Blood Glucose* 175 169 - Additional Exam - General physical appearance no distress, chronically ill - Eyes normal ocular movement - Neck Neck exam: trachea midline - Respiratory normal expansion, clear to auscultation - Cardiovascular Cardiovascular exam: Present: RRR - Abdomen Abdomen: Present: bowel sounds present, soft, tender (expected post-op tenderness) KYE drain in right abdomen with serosanguineous fluid - Neurologic CN 2-12 grossly intact - Psychiatric oriented to time, oriented to person, oriented to place - Labs 06/16/16 04:36 06/16/16 04:36 Diabetes panel 06/16/16 Range/Units 04:36 Sodium 135 L (136-145) mEq/L Potassium 4.1 (3.5-4.5) mEq/L Chloride 98 (98-109) mEq/L Carbon Dioxide 30 H (19-29) mEq/L BUN 59 H (8-26) mg/dL Creatinine 1.82 H (0.72-1.25) mg/dL Glucose 157 H (70-99) mg/dL Calcium 8.1 L (8.6-10.8) mg/dL Calcium panel 06/16/16 Range/Units 04:36 Calcium 8.1 L (8.6-10.8) mg/dL Pituitary panel 06/16/16 Range/Units 04:36 Sodium 135 L (136-145) mEq/L Potassium 4.1 (3.5-4.5) mEq/L Chloride 98 (98-109) mEq/L Carbon Dioxide 30 H (19-29) mEq/L BUN 59 H (8-26) mg/dL Creatinine 1.82 H (0.72-1.25) mg/dL Glucose 157 H (70-99) mg/dL Calcium 8.1 L (8.6-10.8) mg/dL Adrenal panel 06/16/16 Range/Units 04:36 Sodium 135 L (136-145) mEq/L Potassium 4.1 (3.5-4.5) mEq/L Chloride 98 (98-109) mEq/L Carbon Dioxide 30 H (19-29) mEq/L BUN 59 H (8-26) mg/dL Creatinine 1.82 H (0.72-1.25) mg/dL Glucose 157 H (70-99) mg/dL Calcium 8.1 L (8.6-10.8) mg/dL Consult Discharge Plan - Plan Referrals: Jennie Washington CNP [Primary Care Provider] - (Requested 06-11-16) - Attending Attestation I examined this patient and my medical decision-making was reviewed with the RN INTENSIVE CARE UNIT/PA/Advanced Practice Nurse/Resident Physician. I agree with the documented findings, disposition and treatment plan as described except to the extent set forth below. The patient is seen and evaluated. He has made a complete recovery from laparoscopic cholecystectomy. He continues to struggle with chronic medical issues. At this point we will sign off. Arvind Fajardo MD FACS
[2016-06-16] MEDS: metOLazone 2.5 MG TABLET PO SCH (12:43)
--- NOTE | 2016-06-16 13:35 | Infectious Disease Progress No ---
Date of Encounter: 06/16/16 Time of Encounter: 13:33 - Assessment and Plan (1) Hypotension Current Visit: Yes Status: Resolved Noted on arrival to the ED. Responded well to gentle IV hydration. Resolved. Qualifiers: Hypotension type: unspecified hypotension type Qualified Code(s): I95.9 - Hypotension, unspecified (2) UTI due to extended-spectrum beta lactamase (ESBL) producing Escherichia coli Current Visit: Yes Status: Acute Urine culture grew E. coli ESBL. No blood cultures have been drawn. Continue Ertapenem 500mg PO daily (dosed for low CrCl) (day 4). Duration of treatment depends on the clinical picture, but likely 14 days. Treat through 06/26/16. Monitor renal function and dose-adjust antibiotics. No further recommendations from the ID team. Will sign off. Re-consult if needed. (3) Acute cholecystitis due to biliary calculus Current Visit: Yes Status: Acute CT of the abdomen and pelvis 06/09/16 showed findings consistent with possible cholecystitis. RUQ UTS completed 06/10/16 confirmed diagnosis of acute cholecystitis. General surgery was consulted. Status post lap cholecystectomy with cholangiogram 06/11/16. KYE drain placed. Large amount of serosanguinous drainage noted coming out around the KYE drain tubing. Clinically appears to be doing well. Management per the general surgery team. (4) S/P laparoscopic cholecystectomy Current Visit: Yes Status: Acute (5) Intractable nausea and vomiting Current Visit: Yes Status: Resolved Secondary to acute cholecystitis. Resolved. Qualifiers: Vomiting type: unspecified Qualified Code(s): R11.2 - Nausea with vomiting , unspecified (6) Abdominal pain Current Visit: Yes Status: Acute Secondary to acute cholecystitis. Improved, but complains of post-op pain. Management per the surgery team. Qualifiers: Abdominal location: unspecified location Qualified Code(s): R10.9 - Unspecified abdominal pain (7) Conjunctivitis Current Visit: Yes Status: Acute Continue Cipro eye drops as prescribed. Improved. Qualifiers: Conjunctivitis type: unspecified Laterality: bilateral Qualified Code(s) : H10.9 - Unspecified conjunctivitis (8) Ulcer of left lower extremity Current Visit: Yes Status: Acute Follows with [facility]. Recommend consulting wound care for dressing change recommendations. Clinically does not appear infected, but may benefit from debridement. Qualifiers: Non-pressure ulcer stage: unspecified non-pressure ulcer stage Qualified Code(s): L97.929 - Non-pressure chronic ulcer of unspecified part of left lower leg with unspecified severity (9) Ischemic cardiomyopathy Current Visit: Yes Status: Chronic TTE shows EF of 10%. (10) CKD (chronic kidney disease), stage IV Current Visit: Yes Status: Acute Serum creatinine appears to be at baseline. Continue to monitor closely and dose-adjust antibiotics. Avoid nephrotoxins as able. (11) IDDM (insulin dependent diabetes mellitus) Current Visit: Yes Status: Chronic HgA1c 6.9. Recommend aggressive glucose monitoring and control to promote wound healing and prevent complications. - Subjective Interval history: Patient seen and examined. No acute events noted overnight. Patient sitting up in bed eating lunch. Denies fevers or chills. Denies chest pain, shortness of breath, or cough. Denies vomiting or diarrhea, but does report some nausea since trying to eat lunch. Was able to eat breakfast this morning without a problem. +flatus, no BM since surgery. Hall catheter remains in place, patent. Complains of pain to the left ankle and foot and up the posterior calf. Denies oral thrush. Infect Dis PN-Objective Data - Labs CBC & Chem 7: 06/16/16 04:36 06/16/16 04:36 Labs: Laboratory Results - last 24 hr 06/15/16 06/15/16 06/16/16 17:07 21:37 04:36 WBC 5.8 RBC 3.58 L Hgb 9.8 L Hct 31.0 L MCV 86.6 MCH 27.4 L MCHC 31.6 RDW 17.8 H Plt Count 138 L MPV 10.5 Immature Gran % 1.0 Seg Neutrophils % 74.2 Lymphocytes % 13.3 Monocytes % 8.4 Eosinophils % 2.6 Basophils % 0.5 Neutrophils # 4.3 Lymphocytes # 0.8 Monocytes # 0.5 Eosinophils # 0.2 Basophils # 0.0 Sodium Potassium Chloride Carbon Dioxide BUN Creatinine Est GFR ( Amer) Est GFR (Non-Af Amer) BUN/Creatinine Ratio Glucose POC Glucose 175 H 234 H Calculated Osmolality Calcium 06/16/16 06/16/16 04:36 11:44 WBC RBC Hgb Hct MCV MCH MCHC RDW Plt Count MPV Immature Gran % Seg Neutrophils % Lymphocytes % Monocytes % Eosinophils % Basophils % Neutrophils # Lymphocytes # Monocytes # Eosinophils # Basophils # Sodium 135 L Potassium 4.1 Chloride 98 Carbon Dioxide 30 H BUN 59 H Creatinine 1.82 H Est GFR ( Amer) 45 L Est GFR (Non-Af Amer) 37 L BUN/Creatinine Ratio 32 H Glucose 157 H POC Glucose 134 H Calculated Osmolality 300 Calcium 8.1 L Exam - Constitutional Vitals: Temp Pulse Resp BP Pulse Ox 98.4 F 80 16 97/56 99 06/16/16 11:48 06/16/16 11:48 06/16/16 11:48 06/16/16 11:48 06/16/16 11:48 General appearance: average body habitus, cooperative, no acute distress - Head Head exam: Present: atraumatic, normal inspection, normocephalic - Eye Eye exam: Present: EOMI, normal appearance, PERRL Pupils: Present: normal accommodation - ENT ENT exam: Present: mucous membranes moist - Neck Neck exam: Present: normal inspection - Respiratory Respiratory exam: Present: CTAB. Absent: rales, respiratory distress, rhonchi, wheezes - Cardiovascular Cardiovascular exam: Present: RRR, +S1, +S2 - GI/Abdominal GI/Abdominal exam: Present: distended, firm, normal bowel sounds, tenderness ( generalized) Additional comments: KYE drain noted to the RUQ with moderate amount of serosanguinous drainage. Stab surgical incisions with wound edges intact. Hall catheter patent draining clear yellow urine. - Extremities Exam Extremities exam: Present: pedal edema (+ LLE), tenderness (Left posterior calf , ankle, foot) Additional comments: LLE dressing C/D/I. Right BKA stump without erythema, edema, or wounds. - Neurological Exam Neurological exam: Present: alert, oriented X3, no focal deficits - Psychiatric Psychiatric exam: Present: normal affect, normal mood - Skin Skin exam: Present: dry, intact, normal color, warm Consult Discharge Plan - Plan Referrals: Felix,Jennie Wang CNP [Primary Care Provider] - (Requested 06-11-16)
[2016-06-16] MEDS: Ondansetron 4 MG/2 ML VIAL IVP PRN ×2 (13:37→20:45)
--- NOTE | 2016-06-16 18:45 | Internal Med Progress Note ---
Date of Encounter: 06/16/16 Time of Encounter: 09:30 - Assessment and plan (1) Acute cholecystitis due to biliary calculus Current Visit: Yes Status: Acute Assessment and plan: 06/11: Pt underwent lap cholecystectomy, cholangiogram. REquired ICU post-op care due to severe systolic HF. POD #5 Appreciate surgery input. continue Ertapenem. Requiring morphine 2 mg every 4 hours for pain control. laxatives. no BM yet. (2) Shock Current Visit: Yes Status: Resolved Assessment and plan: cardiac in nature given ICMP LVEF 10-15%. Post-operative hypotension requiring IV dobutamine drip and ICU management. (3) CKD (chronic kidney disease), stage IV Current Visit: Yes Status: Acute Assessment and plan: Patient's kidney function at baseline. Good urine output. Does monitor his kidney function. Avoid nephrotoxic agents as possible. (4) Ischemic cardiomyopathy Current Visit: Yes Status: Acute Assessment and plan: Hx of CAD, [place], CABG, s/p ICD placement, recent echo showed LVEF of 10 to 15% Continue low dose lasix and toprol xl. (5) Type 2 diabetes mellitus Current Visit: Yes Status: Chronic Assessment and plan: A1C 6.9 Fasting glucose 134. Continue sliding scale. 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 no nausea. no vomiting. no BM. - Constitutional Vitals: Temp Pulse Resp BP Pulse Ox 97.8 F 80 16 102/59 98 06/16/16 15:01 06/16/16 15:01 06/16/16 15:01 06/16/16 15:01 06/16/16 15:01 General appearance: Present: cooperative, disheveled, mild distress, A&O X 3, pleasant, answers questions appropriately - Eye Eye exam: Present: PERRL, sclera anicteric - Neck Neck exam general surgery: Present: supple, trachea midline. Absent: lymphadenopathy - Respiratory Respiratory exam: Present: decreased breath sounds (at bases), rhonchi - Cardiovascular Cardiovascular exam: Present: RRR - GI/Abdominal GI/Abdominal exam: Present: normal bowel sounds, soft, tenderness (mild, expected post surgery). Absent: distended Additional comments: surgical wound is intact. KYE drain in Right abdomen. - Extremities Exam Extremities exam: Present: pedal edema - Neurological Exam Neurological exam: Present: alert, oriented X3, strengths equal and symetr throughout. Absent: facial droop, speech deficit Internal Medicine: Result - Labs CBC & Chem 7: 06/16/16 04:36 06/16/16 04:36 Labs: Short CBC 06/16/16 Range/Units 04:36 WBC 5.8 (4.3-11.1) K/mcL Hgb 9.8 L (12.9-16.9) g/dL Hct 31.0 L (37.5-50.1) % Plt Count 138 L (140-400) K/mcL Neutrophils # 4.3 (1.6-8.9) K/mcL BMP 06/16/16 04:36 Sodium 135 L Potassium 4.1 Chloride 98 Carbon Dioxide 30 H BUN 59 H Creatinine 1.82 H Glucose 157 H Calcium 8.1 L - ABG Interpretation ABG results: PT/INR, D-dimer PT 17.0 Seconds (9.4-12.1) H 06/09/16 21:56 Consult Discharge Plan - Plan Referrals: Jennie Washington CNP [Primary Care Provider] - (Requested 06-11-16)
[2016-06-16] MEDS: traZODone 50 MG TABLET PO SCH (20:42)
[2016-06-17] MEDS: Ciprofloxacin OPTH Soln 2.5 ML BOTTLE LEFT EYE SCH ×6 (00:22→20:30)
[2016-06-17] MEDS: Ciprofloxacin OPTH Soln 2.5 ML BOTTLE RIGHT EYE SCH ×6 (00:22→20:30)
[2016-06-17] MEDS: *HR* Morphine 2 MG/ML SYRINGE IVP PRN ×4 (00:51→20:25)
[2016-06-17] MEDS: Ipratropium/Albuterol Neb 3 ML IH SCH ×4 (05:09→21:37)
[2016-06-17 05:16] LABS: Basophils # 0.1 K/mcL (0.0-0.2); Basophils % 0.9 %; Eosinophils # 0.2 K/mcL (0.0-0.6); Eosinophils % 2.9 %; Hematocrit 30.8 % (37.5-50.1); Hemoglobin 9.6 g/dL (12.9-16.9); Immature Granulocytes % 1.3 % (0-4); Lymphocytes # 1.1 K/mcL (0.6-4.6); Lymphocytes % 15.3 %; Mean Corpuscular HGB Conc 31.2 g/dL (31.6-35.5); Mean Corpuscular Hemoglobin 27.4 pg (28.0-33.3); Mean Corpuscular Volume 87.7 fL (83.0-100.0); Monocytes # 0.7 K/mcL (0.0-1.3); Monocytes % 9.9 %; Neutrophils # 4.8 K/mcL (1.6-8.9); Platelet Count 178 K/mcL (140-400); Red Blood Count 3.51 M/mcL (4.19-5.50); Red Cell Distribution Width 17.9 % (11.5-14.5); Segmented Neutrophils % 69.7 %
[2016-06-17 05:27] LABS: Calcium 8.3 mg/dL (8.6-10.8); Magnesium 1.3 mg/dL (1.6-2.6); Potassium 4.3 mEq/L (3.5-4.5)
[2016-06-17] MEDS: *HR* Heparin 5,000 UNIT/ML VIAL SQ SCH ×3 (06:16→17:38)
[2016-06-17] MEDS: Furosemide 20 MG TABLET PO SCH (10:54)
[2016-06-17] MEDS: Metoprolol XL (24 HR) Succ 25 MG TAB.ER.24H PO SCH (10:55)
[2016-06-17] MEDS: Ertapenem 1,000 MG in 0.9 % Sodium Chloride Mini Bag 100 ML IVPB SCH (10:59)
[2016-06-17] MEDS: Insulin LISPRO 300 UNITS/3 ML VIAL SQ SCH ×4 (11:01→20:41)
[2016-06-17] MEDS: Ondansetron 4 MG/2 ML VIAL IVP PRN (12:54)
[2016-06-17] MEDS ORDERED: Magnesium Sulfate 2 GM in D5% in Water 100 ML IVPB ONE (13:45)
--- NOTE | 2016-06-17 17:35 | Internal Med Progress Note ---
Date of Encounter: 06/17/16 Time of Encounter: 13:00 - Assessment and plan (1) Acute cholecystitis due to biliary calculus Current Visit: Yes Status: Acute Assessment and plan: Patient presented with nausea, vomiting and right upper quadrant pain to our ED. 06/09: CT of the abdomen and pelvis showed ill-defined thickening of the gallbladder wall and pericholecystic fluid. 06/10: RUQ US was suspicious for acute cholecystitis. 06/11: Pt underwent lap cholecystectomy, cholangiogram. Required ICU post-op care due to severe systolic HF. POD #6 Appreciate surgery input. Requiring morphine 2 mg every 4 hours for pain control. no BM yet. Magnesium citrate x1. (2) Shock Current Visit: Yes Status: Resolved Assessment and plan: resolved. cardiac in nature given ICMP LVEF 10-15%. Post-operative hypotension requiring IV dobutamine drip and ICU management. (3) UTI due to extended-spectrum beta lactamase (ESBL) producing Escherichia coli Current Visit: Yes Status: Acute Assessment and plan: Complicated E coli ESBL UTI, suspected emphysematous UTI. 06/09/16: Urine culture grew Escherichia coli ESBL. CT Abd/pelvis showed air within the bladder lumen. Appreciate ID input. Ertapenem 500 mg PO daily, day 5. Patient will likely require 14 days of antibiotics (last day 06/26/16) (4) CKD (chronic kidney disease), stage IV Current Visit: Yes Status: Acute Assessment and plan: Patient's kidney function at baseline. Good urine output. close monitor of his kidney function. Avoid nephrotoxic agents as possible. (5) Ischemic cardiomyopathy Current Visit: Yes Status: Acute Assessment and plan: Hx of CAD, [place], CABG, s/p ICD placement, recent echo showed LVEF of 10 to 15% Continue low dose lasix and toprol xl. (6) Type 2 diabetes mellitus Current Visit: Yes Status: Chronic Assessment and plan: A1C 6.9 Fasting glucose 119. Continue sliding scale. Qualifiers: Diabetes mellitus complication status: with kidney complications Diabetes mellitus complication detail: with chronic kidney disease Diabetes mellitus prison insulin use: with prison use Chronic kidney disease stage: stage 4 (severe) Qualified Code(s): E11.22 - Type 2 diabetes mellitus with diabetic chronic kidney disease; N18.4 - Chronic kidney disease, stage 4 (severe); Z79.4 - [facility] (current) use of insulin - Subjective Interval history: patient is sleepy. no nausea. no vomiting. no BM. - Constitutional Vitals: Temp Pulse Resp BP Pulse Ox 97.9 F 89 16 114/69 99 06/17/16 16:49 06/17/16 16:49 06/17/16 16:49 06/17/16 16:49 06/17/16 16:49 General appearance: Present: cooperative, disheveled, mild distress, A&O X 3, pleasant, answers questions appropriately - Respiratory Respiratory exam: Present: decreased breath sounds (at lung bases) - Cardiovascular Cardiovascular exam: Present: irregular rhythm - GI/Abdominal GI/Abdominal exam: Present: normal bowel sounds, soft, tenderness. Absent: distended Additional comments: surgical wound is intact. RUQ KYE catheter draining serosanguinoleous fluid. - Extremities Exam Extremities exam: Absent: pedal edema - Back Exam Back exam: Absent: CVA tenderness (L), CVA tenderness (R) - Neurological Exam Additional comments: sleepy but easy to arouse. follows commands. Internal Medicine: Result - Labs CBC & Chem 7: 06/17/16 04:38 06/17/16 04:38 Labs: Short CBC 06/17/16 Range/Units 04:38 WBC 6.9 (4.3-11.1) K/mcL Hgb 9.6 L (12.9-16.9) g/dL Hct 30.8 L (37.5-50.1) % Plt Count 178 (140-400) K/mcL Neutrophils # 4.8 (1.6-8.9) K/mcL BMP 06/17/16 04:38 Sodium 133 L Potassium 4.3 Chloride 97 L Carbon Dioxide 30 H BUN 52 H Creatinine 1.74 H Glucose 119 H Calcium 8.3 L - ABG Interpretation ABG results: PT/INR, D-dimer PT 17.0 Seconds (9.4-12.1) H 06/09/16 21:56 Consult Discharge Plan - Plan Referrals: Jennie Washington CNP [Primary Care Provider] - (Requested 06-11-16)
[2016-06-17] MEDS: traZODone 50 MG TABLET PO SCH (20:24)
[2016-06-18] MEDS: *HR* Morphine 2 MG/ML SYRINGE IVP PRN ×4 (02:41→21:57)
[2016-06-18] MEDS: Ciprofloxacin OPTH Soln 2.5 ML BOTTLE RIGHT EYE SCH ×7 (04:15→23:46)
[2016-06-18] MEDS: Ciprofloxacin OPTH Soln 2.5 ML BOTTLE LEFT EYE SCH ×7 (04:15→23:46)
[2016-06-18] MEDS: *HR* Heparin 5,000 UNIT/ML VIAL SQ SCH ×2 (04:16→17:27)
[2016-06-18] MEDS: Ipratropium/Albuterol Neb 3 ML IH SCH ×5 (04:37→21:33)
[2016-06-18 06:06] LABS: Calcium 8.5 mg/dL (8.6-10.8); Magnesium 1.9 mg/dL (1.6-2.6); Potassium 4.8 mEq/L (3.5-4.5)
[2016-06-18] MEDS: Ertapenem 1,000 MG in 0.9 % Sodium Chloride Mini Bag 100 ML IVPB SCH (08:59)
[2016-06-18] MEDS: Metoprolol XL (24 HR) Succ 25 MG TAB.ER.24H PO SCH (09:00)
[2016-06-18] MEDS: Furosemide 20 MG TABLET PO SCH (09:00)
[2016-06-18] MEDS: Insulin LISPRO 300 UNITS/3 ML VIAL SQ SCH ×4 (09:01→22:22)
--- NOTE | 2016-06-18 14:56 | Internal Med Progress Note ---
Date of Encounter: 06/18/16 Time of Encounter: 12:30 - Assessment and plan (1) Acute cholecystitis due to biliary calculus Current Visit: Yes Status: Acute Assessment and plan: Patient presented with nausea, vomiting and right upper quadrant pain to our ED. 06/09: CT of the abdomen and pelvis showed ill-defined thickening of the gallbladder wall and pericholecystic fluid. 06/10: RUQ US was suspicious for acute cholecystitis. 06/11: Pt underwent lap cholecystectomy, cholangiogram. Required ICU post-op care due to severe systolic HF. POD #7 Appreciate surgery input. Requiring IV morphine 2 mg every 4 hours for pain control. Patient had a large BM. KYE drain. (2) Shock Current Visit: Yes Status: Resolved Assessment and plan: resolved. cardiac in nature given ICMP LVEF 10-15%. Post-operative hypotension requiring IV dobutamine drip and ICU management. (3) UTI due to extended-spectrum beta lactamase (ESBL) producing Escherichia coli Current Visit: Yes Status: Acute Assessment and plan: Complicated E coli ESBL UTI, suspected emphysematous UTI. 06/09/16: Urine culture grew Escherichia coli ESBL. CT Abd/pelvis showed air within the bladder lumen. Appreciate ID input. Ertapenem 500 mg PO daily, day 6. Patient will likely require 14 days of antibiotics (last day 06/26/16) (4) CKD (chronic kidney disease), stage IV Current Visit: Yes Status: Acute Assessment and plan: Patient's kidney function at baseline. Good urine output. close monitor of his kidney function. Avoid nephrotoxic agents as possible. (5) Ischemic cardiomyopathy Current Visit: Yes Status: Acute Assessment and plan: Hx of CAD, [place], CABG, s/p ICD placement, recent echo showed LVEF of 10 to 15% Continue low dose lasix and toprol xl. (6) Type 2 diabetes mellitus Current Visit: Yes Status: Chronic Assessment and plan: A1C 6.9 Fasting glucose 213. Continue sliding scale. Qualifiers: Diabetes mellitus complication status: with kidney complications Diabetes mellitus complication detail: with chronic kidney disease Diabetes mellitus account services specialist insulin use: with account services specialist use Chronic kidney disease stage: stage 4 (severe) Qualified Code(s): E11.22 - Type 2 diabetes mellitus with diabetic chronic kidney disease; N18.4 - Chronic kidney disease, stage 4 (severe); Z79.4 - retirement (current) use of insulin - Subjective Interval history: patient complains of mild abdominal pain. he is eating well. no nausea. no vomiting. - Constitutional Vitals: Temp Pulse Resp BP Pulse Ox 98.2 F 76 18 99/58 99 06/18/16 10:42 06/18/16 10:42 06/18/16 10:42 06/18/16 10:42 06/18/16 10:42 General appearance: Present: cooperative, disheveled, mild distress, A&O X 3, pleasant, answers questions appropriately - Respiratory Respiratory exam: Present: rhonchi - Cardiovascular Cardiovascular exam: Present: irregular rhythm - GI/Abdominal GI/Abdominal exam: Present: soft, tenderness (KYE catheter with serosanguinolent fluid.). Absent: distended - Extremities Exam Extremities exam: Present: pedal edema Additional comments: LUE is swollen > right - Back Exam Back exam: Absent: CVA tenderness (L), CVA tenderness (R) - Neurological Exam Neurological exam: Present: alert, oriented X3, no focal deficits, strengths equal and symetr throughout. Absent: facial droop, speech deficit Internal Medicine: Result - Labs CBC & Chem 7: 06/17/16 04:38 06/18/16 04:55 Labs: BMP 06/18/16 04:55 Sodium 135 L Potassium 4.8 H Chloride 96 L Carbon Dioxide 27 BUN 51 H Creatinine 1.84 H Glucose 177 H Calcium 8.5 L - ABG Interpretation ABG results: PT/INR, D-dimer PT 17.0 Seconds (9.4-12.1) H 06/09/16 21:56 Consult Discharge Plan - Plan Referrals: Jennie Washington CNP [Primary Care Provider] - (Requested 06-11-16)
[2016-06-18 15:01] LABS: Calcium 8.4 mg/dL (8.6-10.8); Potassium 4.6 mEq/L (3.5-4.5)
[2016-06-18] MEDS: Ondansetron 4 MG/2 ML VIAL IVP PRN (21:56)
[2016-06-18] MEDS: traZODone 50 MG TABLET PO SCH (21:56)
[2016-06-19] MEDS: Ipratropium/Albuterol Neb 3 ML IH SCH ×4 (04:10→22:21)
[2016-06-19] MEDS: Ciprofloxacin OPTH Soln 2.5 ML BOTTLE LEFT EYE SCH ×5 (05:06→21:31)
[2016-06-19] MEDS: Ciprofloxacin OPTH Soln 2.5 ML BOTTLE RIGHT EYE SCH ×5 (05:06→21:30)
[2016-06-19] MEDS: *HR* Heparin 5,000 UNIT/ML VIAL SQ SCH ×2 (06:19→17:04)
--- NOTE | 2016-06-19 06:27 | Venous Imaging Report ---
UE Venous Duplex Patient Name:Mika Mendez Order Number:[id number] Procedure Date:06/18/2016 Date:1945ge:70 yrs Gender:Male Location:[facility] Room #: [id number] Wood Type Finisher:Dana Wilcox RVT Referring MD:Amelia Benavides MD pet handler:Jennie Washington, ELECTRICAL CONTROLS ENGINEER Reading MD:Heath Bob MD Primary Indications:left arm swelling Secondary Indications: Risk Factors Yes/No Hx of DVT No Recent IV therapy ( past 2 weeks) Yes Impressions: Acute deep venous thrombosis is present in the left subclavian vein. Normal left upper extremity superficial venous exam. Recommendations: Critical findings reported to Nurse in person by Dana Wilcox RVT. Findings Venous Duplex Results: Left: Venous imaging of the upper extremity reveals full patency and normal vessel compressibility of the left jugular, left axillary, left brachial, left cephalic, left basilic, left radial and left ulnar. Doppler signals in the evaluated veins were normal. There is an acute partially occlusive thrombus seen in the left subclavian. It demonstrates a partially compressible vein. Flow was phasic and it did augment. Prior Study: No prior study available for comparison. Upper Extremity Venous Duplex Side Vein Compress Spontaneous Flow Augment Left Jugular Normal yes Phasic yes Left Subclavian Partial yes Phasic yes Left Axillary Normal yes Phasic yes Left Brachial Normal yes Phasic yes Left Cephalic Normal yes Phasic yes Left Basilic Normal yes Phasic yes Left Radial Normal yes Phasic yes Left Ulnar Normal yes Phasic yes Updated by Heath Bob MD on 06/19/2016 6:21:27 AM electronically signed on 06/19/2016 6:21:50 AM with status of Final
[2016-06-19] MEDS: Insulin LISPRO 300 UNITS/3 ML VIAL SQ SCH ×4 (08:25→21:29)
[2016-06-19] MEDS: Ertapenem 1,000 MG in 0.9 % Sodium Chloride Mini Bag 100 ML IVPB SCH (08:25)
[2016-06-19] MEDS: Metoprolol XL (24 HR) Succ 25 MG TAB.ER.24H PO SCH (08:26)
[2016-06-19] MEDS: Furosemide 20 MG TABLET PO SCH (08:26)
[2016-06-19 09:13] LABS: Basophils % 0.5 %; Eosinophils # 0.1 K/mcL (0.0-0.6); Eosinophils % 0.8 %; Hemoglobin 9.8 g/dL (12.9-16.9); Immature Granulocytes % 3.8 % (0-4); Lymphocytes # 1.3 K/mcL (0.6-4.6); Lymphocytes % 14.9 %; Mean Corpuscular HGB Conc 31.6 g/dL (31.6-35.5); Mean Corpuscular Hemoglobin 27.8 pg (28.0-33.3); Mean Corpuscular Volume 88.1 fL (83.0-100.0); Mean Platelet Volume 10.6 fL (9.4-12.4); Monocytes # 0.4 K/mcL (0.0-1.3); Monocytes % 4.3 %; Neutrophils # 6.4 K/mcL (1.6-8.9); Platelet Count 214 K/mcL (140-400); Red Blood Count 3.52 M/mcL (4.19-5.50); Red Cell Distribution Width 17.9 % (11.5-14.5); Segmented Neutrophils % 75.7 %
[2016-06-19 09:32] LABS: Albumin 2.2 g/dL (3.5-5.0); Albumin/Globulin Ratio 0.6 (1.1-2.2); Bilirubin,Direct 0.5 mg/dL (0.0-0.5); Bilirubin,Indirect 0.5 mg/dL (0.0-1.2); Calcium 8.4 mg/dL (8.6-10.8); Globulin 3.4 g/dL (2.4-3.5); Total Protein 5.6 g/dL (6.0-8.3)
[2016-06-19 09:40] LABS: Potassium 6.2 mEq/L (3.5-4.5)
[2016-06-19] MEDS: metOLazone 2.5 MG TABLET PO SCH (11:33)
[2016-06-19] MEDS: *HR* Morphine 2 MG/ML SYRINGE IVP PRN ×2 (11:38→17:00)
--- NOTE | 2016-06-19 18:48 | Internal Med Progress Note ---
Date of Encounter: 06/19/16 Time of Encounter: 13:00 - Assessment and plan (1) Acute cholecystitis due to biliary calculus Current Visit: Yes Status: Acute Assessment and plan: Patient presented with nausea, vomiting and right upper quadrant pain to our ED. 06/09: CT of the abdomen and pelvis showed ill-defined thickening of the gallbladder wall and pericholecystic fluid. 06/10: RUQ US was suspicious for acute cholecystitis. 06/11: Pt underwent lap cholecystectomy, cholangiogram. Required ICU post-op care due to severe systolic HF. POD #9 Appreciate surgery input. Requiring IV morphine 2 mg every 4 hours for pain control. KYE drain. (2) Shock Current Visit: Yes Status: Resolved Assessment and plan: resolved. cardiac in nature given ICMP LVEF 10-15%. Post-operative hypotension requiring IV dobutamine drip and ICU management. (3) UTI due to extended-spectrum beta lactamase (ESBL) producing Escherichia coli Current Visit: Yes Status: Acute Assessment and plan: Complicated E coli ESBL UTI, suspected emphysematous UTI. 06/09/16: Urine culture grew Escherichia coli ESBL. CT Abd/pelvis showed air within the bladder lumen. Appreciate ID input. Ertapenem 500 mg PO daily, day 6. Patient will likely require 14 days of antibiotics (last day 06/26/16) Code(s): N39.0 - Urinary tract infection, site not specified; A49.8 - Other bacterial infections of unspecified site; Z16.12 - Extended spectrum beta lactamase (ESBL) resistance (4) CKD (chronic kidney disease), stage IV Current Visit: Yes Status: Acute Assessment and plan: Patient's kidney function at baseline. Good urine output. close monitor of his kidney function. Avoid nephrotoxic agents as possible. (5) Ischemic cardiomyopathy Current Visit: Yes Status: Acute Assessment and plan: Hx of CAD, [place], CABG, s/p ICD placement, recent echo showed LVEF of 10 to 15% Continue low dose lasix and toprol xl. (6) Type 2 diabetes mellitus Current Visit: Yes Status: Chronic Assessment and plan: A1C 6.9 Fasting glucose 213. Continue sliding scale. Qualifiers: Diabetes mellitus complication status: with kidney complications Diabetes mellitus complication detail: with chronic kidney disease Diabetes mellitus fpc insulin use: with ad terminal makeup operator use Chronic kidney disease stage: stage 4 (severe) Qualified Code(s): E11.22 - Type 2 diabetes mellitus with diabetic chronic kidney disease; N18.4 - Chronic kidney disease, stage 4 (severe); Z79.4 - penitentiary (current) use of insulin - Subjective Interval history: pt reports mild pain in RUQ. no nausea. no vomiting. poor oral intake, likes the ensure. - Constitutional Vitals: Temp Pulse Resp BP Pulse Ox 97.7 F 71 18 101/52 100 06/19/16 15:03 06/19/16 15:03 06/19/16 15:03 06/19/16 15:03 06/19/16 15:03 General appearance: Present: cooperative, disheveled, mild distress, A&O X 3, pleasant, answers questions appropriately - Respiratory Respiratory exam: Present: CTAB - Cardiovascular Cardiovascular exam: Present: RRR - GI/Abdominal GI/Abdominal exam: Present: normal bowel sounds, soft, tenderness (Right upper abdomen. KYE drain with serosanguinolent. Brownish discoloration of dressing covering KYE drain.). Absent: distended - Extremities Exam Extremities exam: Present: pedal edema - Neurological Exam Neurological exam: Present: alert, oriented X3, no focal deficits, strengths equal and symetr throughout. Absent: facial droop, speech deficit Internal Medicine: Result - Labs CBC & Chem 7: 06/19/16 08:55 06/19/16 08:55 Labs: Short CBC 06/19/16 Range/Units 08:55 WBC 8.5 (4.3-11.1) K/mcL Hgb 9.8 L (12.9-16.9) g/dL Hct 31.0 L (37.5-50.1) % Plt Count 214 (140-400) K/mcL Neutrophils # 6.4 (1.6-8.9) K/mcL BMP 06/19/16 08:55 Sodium 133 L Potassium 6.2 H D Chloride 95 L Carbon Dioxide 19 BUN 53 H Creatinine 2.07 H Glucose 299 H Calcium 8.4 L Liver Function 06/19/16 Range/Units 08:55 Total Bilirubin 1.0 (0.2-1.2) mg/dL Direct Bilirubin 0.5 (0.0-0.5) mg/dL AST 28 (5-34) Units/L ALT 11 (0-55) Units/L Alkaline Phosphatase 101 (38-126) Units/L Albumin 2.2 L (3.5-5.0) g/dL - ABG Interpretation ABG results: PT/INR, D-dimer PT 17.0 Seconds (9.4-12.1) H 06/09/16 21:56 - VTE Documentation of Mechanical Device: Graduated compression elastic hosiery Consult Discharge Plan - Plan Referrals: Jennie Washington CNP [Primary Care Provider] - (Requested 06-11-16)
[2016-06-19] MEDS: traZODone 50 MG TABLET PO SCH (21:28)
[2016-06-20] MEDS: Ciprofloxacin OPTH Soln 2.5 ML BOTTLE RIGHT EYE SCH ×7 (00:35→23:39)
[2016-06-20] MEDS: Ciprofloxacin OPTH Soln 2.5 ML BOTTLE LEFT EYE SCH ×7 (00:35→23:39)
[2016-06-20] MEDS: *HR* Morphine 2 MG/ML SYRINGE IVP PRN ×4 (02:33→22:20)
[2016-06-20] MEDS: Ipratropium/Albuterol Neb 3 ML IH SCH ×2 (03:50→10:22)
[2016-06-20 04:56] LABS: Basophils # 0.1 K/mcL (0.0-0.2); Basophils % 0.8 %; Eosinophils # 0.2 K/mcL (0.0-0.6); Eosinophils % 3.3 %; Hematocrit 29.7 % (37.5-50.1); Hemoglobin 9.8 g/dL (12.9-16.9); Lymphocytes # 1.1 K/mcL (0.6-4.6); Lymphocytes % 16.1 %; Mean Corpuscular Hemoglobin 28.2 pg (28.0-33.3); Mean Corpuscular Volume 85.3 fL (83.0-100.0); Mean Platelet Volume 11.2 fL (9.4-12.4); Monocytes # 0.5 K/mcL (0.0-1.3); Neutrophils # 4.7 K/mcL (1.6-8.9); Platelet Count 166 K/mcL (140-400); Red Blood Count 3.48 M/mcL (4.19-5.50); Red Cell Distribution Width 17.8 % (11.5-14.5); Segmented Neutrophils % 70.8 %
[2016-06-20] MEDS: *HR* Heparin 5,000 UNIT/ML VIAL SQ SCH ×2 (05:10→17:34)
[2016-06-20] MEDS: Ondansetron 4 MG/2 ML VIAL IVP PRN (05:10)
[2016-06-20 05:22] LABS: Anisocytosis 1+ (Not Present); Platelet Estimate Normal (Normal)
[2016-06-20 07:21] LABS: Albumin 2.1 g/dL (3.5-5.0); Albumin/Globulin Ratio 0.6 (1.1-2.2); Bilirubin,Direct 0.5 mg/dL (0.0-0.5); Bilirubin,Indirect 0.2 mg/dL (0.0-1.2); Bilirubin,Total 0.7 mg/dL (0.2-1.2); Calcium 8.7 mg/dL (8.6-10.8); Globulin 3.3 g/dL (2.4-3.5); Potassium 5.6 mEq/L (3.5-4.5); Total Protein 5.4 g/dL (6.0-8.3)
[2016-06-20] MEDS: Furosemide 20 MG TABLET PO SCH (08:58)
[2016-06-20] MEDS: Insulin LISPRO 300 UNITS/3 ML VIAL SQ SCH ×4 (08:58→22:45)
[2016-06-20] MEDS: Ertapenem 1,000 MG in 0.9 % Sodium Chloride Mini Bag 100 ML IVPB SCH (08:59)
[2016-06-20] MEDS: Metoprolol XL (24 HR) Succ 25 MG TAB.ER.24H PO SCH (08:59)
[2016-06-20] MEDS ORDERED: Insulin DETEMIR 100 UNIT/ML X5UNITS SQ ONE (10:50)
[2016-06-20] MEDS ORDERED: Ipratropium/Albuterol Neb 3 ML IH PRN (10:53)
[2016-06-20] MEDS ORDERED: 0.9 % Sodium Chloride 250 ML IVC ONE (10:58)
--- NOTE | 2016-06-20 12:00 | Internal Med Progress Note ---
Date of Encounter: 06/20/16 Time of Encounter: 12:30 - Assessment and plan (1) Acute cholecystitis due to biliary calculus Current Visit: Yes Status: Acute Assessment and plan: Patient presented with nausea, vomiting and right upper quadrant pain to our ED. 06/09: CT of the abdomen and pelvis showed ill-defined thickening of the gallbladder wall and pericholecystic fluid. 06/10: RUQ US was suspicious for acute cholecystitis. 06/11: Pt underwent lap cholecystectomy, cholangiogram. Required ICU post-op care due to severe systolic HF. POD #9 Appreciate surgery input. Requiring IV morphine 2 mg every 4 hours for pain control. KYE drain. (2) Shock Current Visit: Yes Status: Resolved Assessment and plan: resolved. cardiac in nature given ICMP LVEF 10-15%. Post-operative hypotension requiring IV dobutamine drip and ICU management. (3) UTI due to extended-spectrum beta lactamase (ESBL) producing Escherichia coli Current Visit: Yes Status: Acute Assessment and plan: Complicated E coli ESBL UTI, suspected emphysematous UTI. 06/09/16: Urine culture grew Escherichia coli ESBL. CT Abd/pelvis showed air within the bladder lumen. Appreciate ID input. Ertapenem 500 mg PO daily, day 6. Patient will likely require 14 days of antibiotics (last day 06/26/16) Code(s): N39.0 - Urinary tract infection, site not specified; A49.8 - Other bacterial infections of unspecified site; Z16.12 - Extended spectrum beta lactamase (ESBL) resistance (4) CKD (chronic kidney disease), stage IV Current Visit: Yes Status: Acute Assessment and plan: 06/20: BUN and cr slowly trending up and elevated K. could be due to poor oral intake and lasix/zaroxolyn. give small bolus 250 ml NS. hold zaroxolyn. give kayexalate. repeat BMP this afternoon. Good urine output. Avoid nephrotoxic agents as possible. (5) Ischemic cardiomyopathy Current Visit: Yes Status: Acute Assessment and plan: Hx of CAD, MT, CABG, s/p ICD placement, recent echo showed LVEF of 10 to 15% Continue low dose lasix and toprol xl. (6) Type 2 diabetes mellitus Current Visit: Yes Status: Chronic Assessment and plan: A1C 6.9 Fasting glucose 330. start levemir 7 units daily. Continue sliding scale. Qualifiers: Diabetes mellitus complication status: with kidney complications Diabetes mellitus complication detail: with chronic kidney disease Diabetes mellitus residential insulin use: with residential use Chronic kidney disease stage: stage 4 (severe) Qualified Code(s): E11.22 - Type 2 diabetes mellitus with diabetic chronic kidney disease; N18.4 - Chronic kidney disease, stage 4 (severe); Z79.4 - assisted (current) use of insulin (7) Left upper extremity deep vein thrombosis Current Visit: Yes Status: Acute Assessment and plan: 06/18: acute DVT in left subclavian vein. Powerwand IV access removed from left arm. Swelling is decreasing. elevate left arm. Qualifiers: Affected thrombotic vein of extremity: other upper extremity vein Chronicity: acute Qualified Code(s): I82.622 - Acute embolism and thrombosis of deep veins of left upper extremity - Subjective Interval history: Patient reports pain in RUQ but it has improved since admission. - Constitutional Vitals: Temp Pulse Resp BP Pulse Ox 98.0 F 75 18 100/60 96 06/20/16 11:05 06/20/16 11:05 06/20/16 11:05 06/20/16 11:05 06/20/16 11:05 General appearance: Present: cooperative, disheveled, mild distress, A&O X 3, pleasant, answers questions appropriately - Respiratory Respiratory exam: Present: rhonchi - Cardiovascular Cardiovascular exam: Present: RRR - GI/Abdominal GI/Abdominal exam: Present: normal bowel sounds, soft. Absent: distended, tenderness Additional comments: surgical wound is intact. KYE drain in Right abdomen. - Extremities Exam Additional comments: LUE swelling R BKA. - Neurological Exam Neurological exam: Present: alert, oriented X3, no focal deficits, strengths equal and symetr throughout. Absent: facial droop, speech deficit - Skin Skin exam: Absent: rash Internal Medicine: Result - Labs CBC & Chem 7: 06/20/16 04:45 06/20/16 05:44 Labs: Short CBC 06/20/16 Range/Units 04:45 WBC 6.6 (4.3-11.1) K/mcL Hgb 9.8 L (12.9-16.9) g/dL Hct 29.7 L (37.5-50.1) % Plt Count 166 (140-400) K/mcL Neutrophils # 4.7 (1.6-8.9) K/mcL BMP 06/20/16 05:44 Sodium 132 L Potassium 5.6 H Chloride 93 L Carbon Dioxide 25 BUN 50 H Creatinine 2.21 H Glucose 268 H Calcium 8.7 Liver Function 06/20/16 Range/Units 05:44 Total Bilirubin 0.7 (0.2-1.2) mg/dL Direct Bilirubin 0.5 (0.0-0.5) mg/dL AST 26 (5-34) Units/L ALT 14 (0-55) Units/L Alkaline Phosphatase 101 (38-126) Units/L Albumin 2.1 L (3.5-5.0) g/dL - ABG Interpretation ABG results: PT/INR, D-dimer PT 17.0 Seconds (9.4-12.1) H 06/09/16 21:56 - VTE Documentation of Mechanical Device: Graduated compression elastic hosiery Consult Discharge Plan - Plan Referrals: Jennie Washington CNP [Primary Care Provider] - (Requested 06-11-16)
[2016-06-20 17:48] LABS: Calcium 8.4 mg/dL (8.6-10.8)
[2016-06-20 17:49] LABS: Potassium 4.9 mEq/L (3.5-4.5)
[2016-06-20] MEDS: traZODone 50 MG TABLET PO SCH (22:20)
[2016-06-21] MEDS: Ciprofloxacin OPTH Soln 2.5 ML BOTTLE RIGHT EYE SCH ×5 (03:00→21:25)
[2016-06-21] MEDS: Ciprofloxacin OPTH Soln 2.5 ML BOTTLE LEFT EYE SCH ×5 (03:01→21:25)
[2016-06-21] MEDS: *HR* Morphine 2 MG/ML SYRINGE IVP PRN ×2 (04:11→09:52)
[2016-06-21 05:01] LABS: Basophils # 0.1 K/mcL (0.0-0.2); Basophils % 0.9 %; Eosinophils # 0.2 K/mcL (0.0-0.6); Eosinophils % 2.6 %; Hematocrit 28.9 % (37.5-50.1); Hemoglobin 9.3 g/dL (12.9-16.9); Immature Granulocytes % 0.9 % (0-4); Lymphocytes # 0.9 K/mcL (0.6-4.6); Lymphocytes % 14.8 %; Mean Corpuscular HGB Conc 32.2 g/dL (31.6-35.5); Mean Corpuscular Hemoglobin 27.9 pg (28.0-33.3); Mean Corpuscular Volume 86.8 fL (83.0-100.0); Mean Platelet Volume 10.5 fL (9.4-12.4); Monocytes # 0.5 K/mcL (0.0-1.3); Monocytes % 9.2 %; Neutrophils # 4.1 K/mcL (1.6-8.9); Platelet Count 277 K/mcL (140-400); Red Blood Count 3.33 M/mcL (4.19-5.50); Red Cell Distribution Width 18.2 % (11.5-14.5); Segmented Neutrophils % 71.6 %
[2016-06-21] MEDS: *HR* Heparin 5,000 UNIT/ML VIAL SQ SCH (05:08)
[2016-06-21 05:13] LABS: Calcium 8.4 mg/dL (8.6-10.8); Magnesium 1.8 mg/dL (1.6-2.6); Phosphorous 2.7 mg/dL (2.3-4.7); Potassium 4.7 mEq/L (3.5-4.5)
[2016-06-21] MEDS: Insulin LISPRO 300 UNITS/3 ML VIAL SQ SCH ×4 (08:01→21:17)
[2016-06-21] MEDS: Metoprolol XL (24 HR) Succ 25 MG TAB.ER.24H PO SCH (08:08)
[2016-06-21] MEDS ORDERED: Scopolamine Patch 1.5 MG PATCH.TD72 TD ONE (11:30)
--- NOTE | 2016-06-21 16:52 | Internal Med Progress Note ---
Date of Encounter: 06/21/16 Time of Encounter: 09:15 - Assessment and plan (1) Acute cholecystitis due to biliary calculus Current Visit: Yes Status: Acute Assessment and plan: Status post laparoscopic cholecystectomy. Tolerating diet well. Awaiting placement to skilled rehabilitation. (2) Chronic kidney disease, stage 4 (severe) Current Visit: Yes Status: Chronic Assessment and plan: Renal function at baseline. GFR 40. (3) Ischemic cardiomyopathy Current Visit: Yes Status: Acute Assessment and plan: Continue metoprolol, statin. (4) Left upper extremity deep vein thrombosis Current Visit: Yes Status: Acute Assessment and plan: Started on treatment for this with Lovenox. Will change to Eliquis at discharge. Qualifiers: Affected thrombotic vein of extremity: other upper extremity vein Chronicity: acute Qualified Code(s): I82.622 - Acute embolism and thrombosis of deep veins of left upper extremity (5) Shock Current Visit: Yes Status: Resolved (6) Type 2 diabetes mellitus Current Visit: Yes Status: Chronic Assessment and plan: Patient has been having low blood sugars especially in the morning. We will hold long-acting insulin. Continue sliding scale insulin coverage Qualifiers: Diabetes mellitus complication status: with kidney complications Diabetes mellitus complication detail: with chronic kidney disease Diabetes mellitus terminologist insulin use: with penitentiary use Chronic kidney disease stage: stage 4 (severe) Qualified Code(s): E11.22 - Type 2 diabetes mellitus with diabetic chronic kidney disease; N18.4 - Chronic kidney disease, stage 4 (severe); Z79.4 - care home (current) use of insulin (7) UTI due to extended-spectrum beta lactamase (ESBL) producing Escherichia coli Current Visit: Yes Status: Acute Assessment and plan: Continue treatment with intravenous ertapenem. High risk for complications. - Subjective Interval history: Patient is awake but drowsy. Complains of pain in his abdomen although this is better controlled. Tolerating oral diet well. Swelling in his left upper extremity slightly improved. - Constitutional Vitals: Temp Pulse Resp BP Pulse Ox 97.7 F 85 16 106/68 97 06/21/16 15:15 06/21/16 15:15 06/21/16 15:15 06/21/16 15:15 06/21/16 15:15 General appearance: Present: cooperative, disheveled, mild distress, A&O X 3, pleasant, answers questions appropriately - Neck Neck exam general surgery: Present: supple, trachea midline. Absent: lymphadenopathy - Respiratory Respiratory exam: Present: CTAB. Absent: accessory muscle use, rales, rhonchi, wheezes - Cardiovascular Cardiovascular exam: Present: RRR, +S1, +S2. Absent: diastolic murmur, gallop, rubs, systolic murmur - GI/Abdominal GI/Abdominal exam: Present: normal bowel sounds, soft, no peritoneal signs. Absent: distended, tenderness Additional comments: KYE drain is present in the right side of the abdomen - Extremities Exam Extremities exam: Present: warm, radial pulses palpable and symetrical. Absent : calf tenderness, cyanotic, pedal edema Additional comments: Status post right below-knee amputation. Left upper extremity swelling present - Neurological Exam Neurological exam: Present: alert, no focal deficits. Absent: facial droop, speech deficit - Skin Skin exam: Present: dry, intact Internal Medicine: Result - Labs CBC & Chem 7: 06/22/16 04:44 06/22/16 04:44 Labs: Short CBC 06/21/16 Range/Units 04:24 WBC 5.7 (4.3-11.1) K/mcL Hgb 9.3 L (12.9-16.9) g/dL Hct 28.9 L (37.5-50.1) % Plt Count 277 D (140-400) K/mcL Neutrophils # 4.1 (1.6-8.9) K/mcL BMP 06/20/16 06/21/16 16:33 04:24 Sodium 135 L 131 L Potassium 4.9 H 4.7 H Chloride 97 L 95 L Carbon Dioxide 30 H 29 BUN 56 H 56 H Creatinine 2.17 H 2.05 H Glucose 126 H 69 L Calcium 8.4 L 8.4 L - ABG Interpretation ABG results: PT/INR, D-dimer PT 17.0 Seconds (9.4-12.1) H 06/09/16 21:56 - VTE Documentation of Mechanical Device: Graduated compression elastic hosiery Consult Discharge Plan - Plan Referrals: Jennie Washington [employer] [Primary Care Provider] - (Requested 06-11-16) - Attending Attestation This document has been at least partially created by [email or web address] recognition technology by Dr. Chawla. Errors in grammar, wording or other phrases may exist. If errors are found after the documentation is signed, they will be addressed individually in the addendum section of this document when appropriate.
[2016-06-21] MEDS: *HR* Enoxaparin 80 MG/0.8 ML SYRINGE SQ SCH (17:44)
[2016-06-21] MEDS: traZODone 50 MG TABLET PO SCH (21:26)
[2016-06-22] MEDS: Ciprofloxacin OPTH Soln 2.5 ML BOTTLE LEFT EYE SCH ×6 (00:23→21:07)
[2016-06-22] MEDS: Ciprofloxacin OPTH Soln 2.5 ML BOTTLE RIGHT EYE SCH ×6 (00:23→21:07)
[2016-06-22 05:04] LABS: Basophils % 0.6 %; Eosinophils # 0.1 K/mcL (0.0-0.6); Hematocrit 31.2 % (37.5-50.1); Hemoglobin 9.8 g/dL (12.9-16.9); Immature Granulocytes % 0.6 % (0-4); Immature Platelets 3.7 % (1.1-6.1); Lymphocytes # 0.7 K/mcL (0.6-4.6); Lymphocytes % 10.3 %; Mean Corpuscular HGB Conc 31.4 g/dL (31.6-35.5); Mean Corpuscular Hemoglobin 27.4 pg (28.0-33.3); Mean Corpuscular Volume 87.2 fL (83.0-100.0); Mean Platelet Volume 10.7 fL (9.4-12.4); Monocytes # 0.4 K/mcL (0.0-1.3); Monocytes % 6.6 %; Neutrophils # 5.1 K/mcL (1.6-8.9); Platelet Count 256 K/mcL (140-400); Red Blood Count 3.58 M/mcL (4.19-5.50); Segmented Neutrophils % 79.9 %
[2016-06-22 05:14] LABS: Calcium 8.4 mg/dL (8.6-10.8); Potassium 4.7 mEq/L (3.5-4.5)
[2016-06-22] MEDS: *HR* Morphine 2 MG/ML SYRINGE IVP PRN ×3 (05:36→17:09)
[2016-06-22] MEDS: *HR* Enoxaparin 80 MG/0.8 ML SYRINGE SQ SCH ×4 (05:40→21:13)
[2016-06-22] MEDS: *HR* OxyCODONE/APAP 5/325 TABLET PO PRN ×3 (08:23→19:32)
[2016-06-22] MEDS: Metoprolol XL (24 HR) Succ 25 MG TAB.ER.24H PO SCH (08:23)
[2016-06-22] MEDS: Insulin LISPRO 300 UNITS/3 ML VIAL SQ SCH ×3 (08:25→17:04)
[2016-06-22] MEDS ORDERED: Insulin LISPRO 300 UNITS/3 ML VIAL SQ SCH ×2 (11:32→11:33)
--- NOTE | 2016-06-22 11:42 | Discharge Summary ---
Date of Encounter: 06/22/16 Time of Encounter: 09:45 - Discharge Diagnosis (1) Acute cholecystitis due to biliary calculus Priority: Primary Status: Acute (2) Chronic kidney disease, stage 4 (severe) Priority: Secondary Status: Chronic (3) Ischemic cardiomyopathy Priority: Secondary Status: Acute (4) Left upper extremity deep vein thrombosis Priority: Secondary Status: Acute Qualifiers: Affected thrombotic vein of extremity: other upper extremity vein Chronicity: acute Qualified Code(s): I82.622 - Acute embolism and thrombosis of deep veins of left upper extremity (5) Shock Priority: Secondary Status: Resolved (6) Type 2 diabetes mellitus Priority: Secondary Status: Chronic Qualifiers: Diabetes mellitus complication status: with kidney complications Diabetes mellitus complication detail: with chronic kidney disease 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 Chronic kidney disease stage: stage 4 (severe) Qualified Code(s): E11.22 - Type 2 diabetes mellitus with diabetic chronic kidney disease; N18.4 - Chronic kidney disease, stage 4 (severe); 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 (7) UTI due to extended-spectrum beta lactamase (ESBL) producing Escherichia coli Priority: Secondary Status: Acute - Discharge Medications Prescriptions: OxyCODONE/APAP 10/325 [Percocet 10/325 MG] 1 tab PO Q6HR PRN #20 tablet PRN Reason: Pain Apixaban [Eliquis] 2.5 mg PO BID #60 tablet Ertapenem Sodium [Invanz] 500 mg IV DAILY #4 vial.port Home Medications: Aspirin 81 mg PO DAILY 10/30/14 [History] Clopidogrel [Plavix] 75 mg PO DAILY 10/30/14 [History] Pravastatin Sodium 40 mg PO DAILY 10/30/14 [History] Tamsulosin [Flomax] 0.4 mg PO DAILY 10/30/14 [History] Ergocalciferol (VITAMIN D2) [Vitamin D2 (50,000 UNIT)] 50,000 unit PO MCGOWAN [History] Docusate [Colace] 100 mg PO BID PRN 12/01/15 [History] Nitroglycerin [Nitrostat] 0.4 mg SL AD PRN 12/01/15 [History] Epoetin Jonnie [Procrit] 2,000 unit IJ FR 01/13/16 [History] Promethazine [Phenergan] 12.5 mg PO Q8H PRN 03/08/16 [History] Insulin Glargine,Hum.rec.anlog [Lantus Solostar] 18 unit SQ HS 03/25/16 [History ] Insulin LISPRO [HumaLOG] 5 - 15 units SQ ACHS 03/25/16 [History] Ipratropium/Albuterol Neb [Duoneb] 3 ml IH Q6HR 03/25/16 [History] Furosemide [Lasix] 60 mg PO DAILY 06/10/16 [History] Metolazone [Zaroxolyn] 2.5 mg PO MOWEFR 06/10/16 [History] Omeprazole [PriLOSEC] 20 mg PO DAILY 06/10/16 [History] TraZODone 50 mg PO HS 06/10/16 [History] Zolpidem [Ambien] 5 mg PO HS PRN 06/10/16 [History] Apixaban [Eliquis] 2.5 mg PO BID #60 tablet 06/22/16 [Rx] Ertapenem Sodium [Invanz] 500 mg IV DAILY #4 vial.port 06/22/16 [Rx] Metoprolol XL (24 HR) Succ [Toprol Xl] 12.5 mg PO DAILY tab.er.24h 06/22/16 [Rx ] OxyCODONE/APAP 10/325 [Percocet 10/325 MG] 1 tab PO Q6HR PRN #20 tablet [Rx] Allergies/Adverse Reactions: Allergies No Known Allergies Allergy (Verified 05/18/16 16:53) Date of admission: 06/11/16 12:06 Primary care physician: Jennie Washington CNP Consults: 06/11/16 20:01 Consult to Critical Care [CONS] Routine Consulting Provider: Pulm Crit Care & Sleep Claudine Reason for Consult: CHF with EF 15%, post-laparoscopic choleystecomy, high risk for cardiogenic shock. Call Completed: Yes 06/12/16 07:14 Consult to Pulmonology [CONS] Routine Consulting Provider: Pulm Crit Care & Sleep Kell Reason for Consult: dyspnea/hypotension Call Completed: No 06/12/16 09:55 Consult to Wound Care [CONS] Routine Reason for Consult: Left lower extremity wounds. Call Completed: No 06/13/16 08:33 Consult to Palliative Care [CONS] Routine Comment: goal of care Consulting Provider: Palliative Care Claudine 06/14/16 08:38 Consult to Infectious Diseases [CONS] Routine Consulting Provider: Infectious Disease Claudine Reason for Consult: ESBL E.coli UTI infection Time Notified: 08:38 Call Completed: Yes 06/17/16 15:26 Consult to Occupational Therapy [CONS] Routine Comment: Evaluate, develop and implement POC Consult to Physical Therapy [CONS] Routine Comment: Evaluate, develop and implement POC 06/19/16 15:57 Consult to Merchant Miller [CONS] Routine Reason for SW Consult: wanting information regarding Passport and Transportation information 06/21/16 11:28 Consult to Invasive Line Access Team [CONS] Routine Reason for Consult: correction atb Line Type: EPIV Discharging clinician: Mary Chawla Anticipated date of discharge: 06/22/16 - Patient Status Disposition: Transfer SNF Condition: Fair Functional capacity at discharge: wheelchair bound Overall status at discharge: patient is progressing back to baseline - Discharge Instructions Instructions: Heart Failure (DC) Follow Up With: India Baltazar CNP [Advanced Practice Nurse] - 07/10/16 10:00 am Additional Instructions: Follow-up with surgery in 1-2 weeks - Diet and Activity Activity: as per physical therapy Diet: other (Soft diet ) Hospital course: Mr. Mendez is a 70 year old male patient with history of severe cardiomyopathy, essential hypertension, coronary artery disease, diabetes mellitus type 2 was admitted here with right upper quadrant abdominal pain related to acute cholecystitis and biliary colic. He was started on treatment for this supportively. He was evaluated by surgery and based on ultrasound and physical exam findings, patient was recommended surgery for this condition. Given his ischemic cardiomyopathy, cardiac clearance was obtained and the patient underwent surgery. Postsurgery patient was transferred to ICU with worsening heart failure. He was treated in the ICU with intravenous low-dose Lasix and intravenous dobutamine drip for hypotension and shock. He has slowly recovered since then and is now tolerating oral diet well. His blood pressure has improved. His urine culture has been positive for extended spectrum beta lactamase producing Escherichia coli. He has been receiving ertapenem for the past 10 days for this condition. He will need 4 more days to complete a 14 day course of antibiotics. Patient had a powerglide placed in his left upper extremity initially and developed a deep vein thrombosis in the subclavian vein on the left side from this. The powerglide was pulled out and patient is currently on anticoagulation. He was started on Lovenox but will be discharged on Eliquis. He now has a new powerglide in place so that he can receive IV antibiotics. At this time, patient has been approved for admission to skilled rehabilitation for rehabilitation and will be discharged there. - Time Spent with Patient Total time spent providing and/or coordinating discharge services: Greater than 30 minutes (45 min) - Constitutional Vitals: Temp Pulse Resp BP Pulse Ox 97.8 F 85 18 100/58 95 06/22/16 07:08 06/22/16 07:08 06/22/16 07:08 06/22/16 07:08 06/22/16 07:08 General appearance: Present: cooperative, disheveled, mild distress, A&O X 3, pleasant, answers questions appropriately - Respiratory Respiratory exam: Present: CTAB. Absent: accessory muscle use, rales, rhonchi, wheezes - Cardiovascular Cardiovascular exam: Present: RRR, +S1, +S2. Absent: diastolic murmur, gallop, rubs, systolic murmur - GI/Abdominal GI/Abdominal exam: Present: normal bowel sounds, soft, no peritoneal signs. Absent: distended, tenderness Additional comments: KYE drain in place - Extremities Exam Extremities exam: Present: warm, radial pulses palpable and symetrical. Absent : calf tenderness, cyanotic, pedal edema Additional comments: Right below-knee amputation. Swelling of the left upper extremity. - Neurological Exam Neurological exam: Present: oriented X3, no focal deficits. Absent: facial droop, speech deficit - Skin Skin exam: Present: dry, intact - VTE Documentation of Mechanical Device: Graduated compression elastic hosiery - Attending Attestation This document has been at least partially created by [employer] recognition technology by Dr. Chawla. Errors in grammar, wording or other phrases may exist. If errors are found after the documentation is signed, they will be addressed individually in the addendum section of this document when appropriate.
--- NOTE | 2016-06-22 12:00 | Physician Discharge Referral ---
ExtendedCare Referral Info Provider in Charge after Transfer: PCP Institutional Level of Care: Skilled - Diagnosis (1) Acute cholecystitis due to biliary calculus Priority: Primary Status: Acute (2) Chronic kidney disease, stage 4 (severe) Priority: Secondary Status: Chronic (3) Ischemic cardiomyopathy Priority: Secondary Status: Acute (4) Left upper extremity deep vein thrombosis Priority: Secondary Status: Acute (5) Shock Priority: Secondary Status: Resolved (6) Type 2 diabetes mellitus Priority: Secondary Status: Chronic (7) UTI due to extended-spectrum beta lactamase (ESBL) producing Escherichia coli Priority: Secondary Status: Acute Prognosis: Fair Aware of Diagnosis: Patient, Family Aware of Prognosis: Family - Transfer Medications Prescriptions: OxyCODONE/APAP 10/325 [Percocet 10/325 MG] 1 tab PO Q6HR PRN #20 tablet PRN Reason: Pain Apixaban [Eliquis] 2.5 mg PO BID #60 tablet Ertapenem Sodium [Invanz] 500 mg IV DAILY #4 vial.port Home Medications: Aspirin 81 mg PO DAILY 10/30/14 [History] Clopidogrel [Plavix] 75 mg PO DAILY 10/30/14 [History] Pravastatin Sodium 40 mg PO DAILY 10/30/14 [History] Tamsulosin [Flomax] 0.4 mg PO DAILY 10/30/14 [History] Ergocalciferol (VITAMIN D2) [Vitamin D2 (50,000 UNIT)] 50,000 unit PO MCGOWAN [History] Docusate [Colace] 100 mg PO BID PRN 12/01/15 [History] Nitroglycerin [Nitrostat] 0.4 mg SL AD PRN 12/01/15 [History] Epoetin Jonnie [Procrit] 2,000 unit IJ FR 01/13/16 [History] Promethazine [Phenergan] 12.5 mg PO Q8H PRN 03/08/16 [History] Insulin Glargine,Hum.rec.anlog [Lantus Solostar] 18 unit SQ HS 03/25/16 [History ] Insulin LISPRO [HumaLOG] 5 - 15 units SQ ACHS 03/25/16 [History] Ipratropium/Albuterol Neb [Duoneb] 3 ml IH Q6HR 03/25/16 [History] Furosemide [Lasix] 60 mg PO DAILY 06/10/16 [History] Metolazone [Zaroxolyn] 2.5 mg PO MOWEFR 06/10/16 [History] Omeprazole [PriLOSEC] 20 mg PO DAILY 06/10/16 [History] TraZODone 50 mg PO HS 06/10/16 [History] Zolpidem [Ambien] 5 mg PO HS PRN 06/10/16 [History] Apixaban [Eliquis] 2.5 mg PO BID #60 tablet 06/22/16 [Rx] Ertapenem Sodium [Invanz] 500 mg IV DAILY #4 vial.port 06/22/16 [Rx] Metoprolol XL (24 HR) Succ [Toprol Xl] 12.5 mg PO DAILY tab.er.24h 06/22/16 [Rx ] OxyCODONE/APAP 10/325 [Percocet 10/325 MG] 1 tab PO Q6HR PRN #20 tablet [Rx] Allergies/Adverse Reactions: Allergies No Known Allergies Allergy (Verified 05/18/16 16:53) - Respiratory Orders Oxygen / L per min (keep sats >92%) Smoking Cessation: Smoking cessation has been advised. For more information, call the [place] Tobacco Quit Line at 7-233-JHSH-NOW. - Ancillary Orders May use pressure relief devices daily prn - Advance Directives Code Status: Full Code - Mobility Orders Other (per PT eval) - Rehabiliation Orders Rehab Orders: Evaluation for Physical Therapy, Evaluation for Occupational Therapy - Diet Orders Mechanical Soft, No Concentrated Sweets, Renal, Cardiac (and diabetic) CERTIFICATION: I certify that the transfer of the above named patient to an Extended Care Facility is necessary for the continuing treatment of the diagnosis listed. The above information is true and accurate reflection of patient's current condition. Confidential - Redisclosure prohibited without a patient's written consent.
[2016-06-22] MEDS: Ondansetron 4 MG/2 ML VIAL IVP PRN (15:01)
[2016-06-22] MEDS: traZODone 50 MG TABLET PO SCH (21:07)
[2016-06-23] MEDS: Ciprofloxacin OPTH Soln 2.5 ML BOTTLE LEFT EYE SCH ×5 (01:00→16:58)
[2016-06-23] MEDS: Ciprofloxacin OPTH Soln 2.5 ML BOTTLE RIGHT EYE SCH ×5 (01:00→16:58)
[2016-06-23] MEDS: Metoprolol XL (24 HR) Succ 25 MG TAB.ER.24H PO SCH (08:20)
[2016-06-23] MEDS: *HR* OxyCODONE/APAP 5/325 TABLET PO PRN ×2 (08:21→18:02)
[2016-06-23] MEDS: Insulin LISPRO 300 UNITS/3 ML VIAL SQ SCH ×3 (08:24→16:55)
[2016-06-23] MEDS: *HR* Enoxaparin 80 MG/0.8 ML SYRINGE SQ SCH ×2 (08:25→17:29)
--- NOTE | 2016-06-23 15:21 | Internal Med Progress Note ---
Date of Encounter: 06/23/16 Time of Encounter: 09:55 - Assessment and plan (1) Acute cholecystitis due to biliary calculus Current Visit: Yes Status: Acute Assessment and plan: Status post laparoscopic cholecystectomy and cholangiogram. KYE drain In place. Awaiting placement to skilled rehabilitation (2) Chronic kidney disease, stage 4 (severe) Current Visit: Yes Status: Chronic Assessment and plan: Chronic and stable (3) Ischemic cardiomyopathy Current Visit: Yes Status: Acute (4) Left upper extremity deep vein thrombosis Current Visit: Yes Status: Acute Assessment and plan: Will discharge patient on Eliquis. Currently receiving Lovenox Qualifiers: Affected thrombotic vein of extremity: other upper extremity vein Chronicity: acute Qualified Code(s): I82.622 - Acute embolism and thrombosis of deep veins of left upper extremity (5) Shock Current Visit: Yes Status: Resolved (6) Type 2 diabetes mellitus Current Visit: Yes Status: Chronic Assessment and plan: Sugars are elevated today. 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 Will complete course at care home facility. - Subjective Interval history: Patient is awake and alert. Denies any complaints at this time. Tolerating diet well. - Constitutional Vitals: Temp Pulse Resp BP Pulse Ox 97.7 F 91 18 117/49 95 06/23/16 10:54 06/23/16 10:54 06/23/16 10:54 06/23/16 10:54 06/23/16 10:54 General appearance: Present: cooperative, A&O X 3, pleasant, answers questions appropriately - Respiratory Respiratory exam: Present: CTAB. Absent: accessory muscle use, rales, rhonchi, wheezes - Cardiovascular Cardiovascular exam: Present: RRR, +S1, +S2. Absent: diastolic murmur, gallop, rubs, systolic murmur - GI/Abdominal GI/Abdominal exam: Present: normal bowel sounds, soft, no peritoneal signs. Absent: distended, tenderness Additional comments: KYE drain in place Internal Medicine: Result - Labs CBC & Chem 7: 06/22/16 04:44 06/22/16 04:44 - ABG Interpretation ABG results: PT/INR, D-dimer PT 17.0 Seconds (9.4-12.1) H 06/09/16 21:56 - VTE Documentation of Mechanical Device: Graduated compression elastic hosiery Consult Discharge Plan - Plan Instructions: Heart Failure (DC), Anemia (GEN) Additional Instructions: Follow-up with surgery in 1-2 weeks Referrals: India Baltazar CNP [Advanced Practice Nurse] - 07/10/16 10:00 am Prescriptions: OxyCODONE/APAP 10/325 [Percocet 10/325 MG] 1 tab PO Q6HR PRN #20 tablet PRN Reason: Pain Apixaban [Eliquis] 2.5 mg PO BID #60 tablet Ertapenem Sodium [Invanz] 500 mg IV DAILY #4 [email or web address] - Attending Attestation This document has been at least partially created by [employer] recognition technology by Dr. Chawla. Errors in grammar, wording or other phrases may exist. If errors are found after the documentation is signed, they will be addressed individually in the addendum section of this document when appropriate.
[2016-06-23 15:29] VITALS: BP 98/40
[2016-06-23] MEDS ORDERED: Insulin DETEMIR 100 UNIT/ML X5UNITS SQ SCH (21:00)
[2016-06-24] MEDS ORDERED: Ertapenem 1,000 MG in 0.9 % Sodium Chloride Mini Bag 100 ML IVPB SCH (09:00)
== END 2016-06-23 18:55 | DRG 417 ==
LOC: 2ANU 21:23 → EMEROO 21:23 → SUATTDRO 06-10 00:29 → 2ANU 06-10 01:19 → SUATTDRO 06-11 12:06 → ICNU 06-11 15:52 → 3NENU 06-15 19:37 → 3ANU 06-19 13:38
PROVIDERS: ADMIT Internal Medicine; ATTEND Internal Medicine